=== PATIENT | female | born 1935 | race Caucasian/White ===

== ENCOUNTER 2019-11-07 13:04 | Outpatient (CLI) | payer MEDICARE, SELFPAY ==
[2019-11-07 13:05] VITALS: BP 110/78; PULSE 60; RESP 16; TEMP 36.7; O2SAT 94
[2019-11-07 16:20] VITALS: BP 104/70; PULSE 60; RESP 16; TEMP 36.8; O2SAT 96
== END 2019-11-07 13:05 | disposition home or self-care (01) ==
LOC: RHEOACUTE 13:05
PROVIDERS: Family Provider Family Medicine; PCP Family Medicine; Visit Provider Internal Medicine Rheumatology
DX: K50.80 Crohn's disease of both small and large intestine without complications (principal); Z79.899 Other long term (current) drug therapy
CPT/HCPCS: 36415; 80053; 85025; 86140; 96365; 96366; J1745; J7050

== ENCOUNTER → 2019-11-07 13:20 | Outpatient (BNVA) | payer MEDICARE, SELFPAY | PROVIDERS: Family Provider Family Medicine; PCP Family Medicine | DX: K50.80 Crohn's disease of both small and large intestine without complications (principal) | CPT/HCPCS: 85025 ==

== ENCOUNTER → 2019-11-21 15:08 | Outpatient (BNVA) | payer MEDICARE, SELFPAY | PROVIDERS: Family Provider Family Medicine; PCP Family Medicine; Visit Provider Specialist | DX: G62.9 Polyneuropathy, unspecified (principal); Z87.891 Personal history of nicotine dependence | CPT/HCPCS: 99213 ==

== ENCOUNTER 2020-01-08 10:57 | Outpatient (CLI) | payer MEDICARE, SELFPAY ==
[2020-01-08 11:03] VITALS: BP 146/79; PULSE 67; RESP 16; TEMP 36.4; O2SAT 94
[2020-01-08 14:01] VITALS: BP 142/82; RESP 16; TEMP 36.4
== END 2020-01-08 10:58 | disposition home or self-care (01) ==
LOC: RHEOACUTE 10:58
PROVIDERS: Family Provider Family Medicine; PCP Family Medicine; Visit Provider Internal Medicine Rheumatology
DX: K50.90 Crohn's disease, unspecified, without complications (principal); Z79.899 Other long term (current) drug therapy
CPT/HCPCS: 36415; 80053; 85025; 96365; 96366; J1745; J7050

== ENCOUNTER 2020-03-13 10:25 | Outpatient (CLI) | payer MEDICARE, SELFPAY ==
[2020-03-13 10:35] VITALS: BP 125/56; PULSE 66; RESP 16; TEMP 36.8; O2SAT 98
[2020-03-13 12:47] VITALS: BP 122/83; PULSE 54; RESP 16; O2SAT 94
== END 2020-03-13 10:26 | disposition home or self-care (01) ==
LOC: RHEOACUTE 10:27
PROVIDERS: Family Provider Family Medicine; PCP Family Medicine; Visit Provider Internal Medicine Rheumatology
DX: K50.90 Crohn's disease, unspecified, without complications (principal); Z79.899 Other long term (current) drug therapy
CPT/HCPCS: 36415; 80053; 85025; 96365; 96366; J1745; J7050

== ENCOUNTER → 2020-04-16 14:16 | Outpatient (BNVA) | payer MEDICARE, SELFPAY | PROVIDERS: Family Provider Family Medicine; PCP Family Medicine; Visit Provider Internal Medicine | DX: G62.9 Polyneuropathy, unspecified (principal); M81.0 Age-related osteoporosis without current pathological fracture; K50.90 Crohn's disease, unspecified, without complications | CPT/HCPCS: 99213 ==

== ENCOUNTER 2020-05-06 11:02 | Outpatient (CLI) | payer MEDICARE, SELFPAY ==
[2020-05-06 11:15] VITALS: BP 142/85; PULSE 68; RESP 16; TEMP 36.4; O2SAT 91
--- NOTE | 2020-05-06 11:59 | PC.NURSE ---
Reviewed home meds with pt. no changes noted. List given to pt.
[2020-05-06 13:07] VITALS: BP 116/63; PULSE 55; RESP 16; TEMP 36.3; O2SAT 91
== END 2020-05-06 11:03 | disposition home or self-care (01) ==
LOC: RHEOACUTE 11:03
PROVIDERS: Family Provider Family Medicine; PCP Family Medicine; Visit Provider Internal Medicine Rheumatology
DX: K50.90 Crohn's disease, unspecified, without complications (principal); Z79.899 Other long term (current) drug therapy
CPT/HCPCS: 80053; 85025; 85651; 86140; 96365; 96366; J1745; J7050

== ENCOUNTER 2020-07-07 10:33 | Outpatient (CLI) | payer MEDICARE, SELFPAY ==
[2020-07-07 10:31] VITALS: BP 138/78; PULSE 62; RESP 16; TEMP 36.5; O2SAT 92
[2020-07-07 13:29] VITALS: BP 142/76; PULSE 60; RESP 16; O2SAT 92
== END 2020-07-07 10:34 | disposition home or self-care (01) ==
LOC: RHEOACUTE 10:34
PROVIDERS: Family Provider Family Medicine; PCP Family Medicine; Visit Provider Internal Medicine Rheumatology
DX: K50.90 Crohn's disease, unspecified, without complications (principal); Z79.899 Other long term (current) drug therapy
CPT/HCPCS: 80053; 85025; 96365; 96366; J1745; J7050

== ENCOUNTER → 2020-08-14 11:00 | Outpatient (BNVA) | payer MEDICARE, SELFPAY | PROVIDERS: Family Provider Family Medicine; PCP Family Medicine; Visit Provider Internal Medicine | DX: K50.90 Crohn's disease, unspecified, without complications (principal); M81.0 Age-related osteoporosis without current pathological fracture; G62.9 Polyneuropathy, unspecified; Z87.891 Personal history of nicotine dependence | CPT/HCPCS: 99214 ==

== ENCOUNTER 2020-09-09 10:41 | Outpatient (CLI) | payer MEDICARE, SELFPAY ==
[2020-09-09 10:45] VITALS: BP 110/70; PULSE 64; RESP 16; TEMP 36.2; O2SAT 97
--- NOTE | 2020-09-09 11:22 | PC.NURSE ---
labs obtained with IV start.
[2020-09-09 11:23] VITALS: BMI 15.6
[2020-09-09 13:18] VITALS: BP 133/77; PULSE 66; RESP 16; O2SAT 98
== END 2020-09-09 10:42 | disposition home or self-care (01) ==
LOC: RHEOACUTE 10:43
PROVIDERS: PCP Family Medicine; Visit Provider Internal Medicine
DX: M81.0 Age-related osteoporosis without current pathological fracture (principal); Z79.899 Other long term (current) drug therapy
CPT/HCPCS: 80053; 82306; 85025; 96365; 96366; J1745; J7050

== ENCOUNTER 2020-11-13 10:56 | Outpatient (CLI) | payer MEDICARE, SELFPAY ==
[2020-11-13 11:35] VITALS: BP 111/66; PULSE 54; RESP 17; TEMP 36.4; O2SAT 97
[2020-11-13 12:13] LABS: Basophils % 0.4 %; Eosinophils # 0.1 10^3/uL (0.0-0.8); Eosinophils % 2.3 %; Hematocrit 41.3 % (37.0-47.0); Hemoglobin 13.1 g/dL (11.5-15.3); Lymphocytes # 1.3 10^3/uL (0.8-4.8); Lymphocytes % 22.2 %; Mean Corpuscular HGB Conc 31.7 g/dL (30.0-36.0); Mean Corpuscular Hemoglobin 29.5 pg (28.0-34.0); Monocytes # 0.6 10^3/uL (0.2-0.9); Monocytes % 10.4 %; Neutrophils # 3.65 10^3/uL (1.8-7.7); Neutrophils % 64.3 %; Nucleated Red Blood Cells % 0 %; Platelet Count 377 10^3/cmm (130-400); Red Blood Count 4.44 10^6/uL (4.1-5.3); Red Cell Distribution Width 14.8 % (12.1-15.1); White Blood Count 5.7 10^3/uL (4.0-10.0)
[2020-11-13 12:54] LABS: Alanine Aminotransferase 24 U/L (0-33); Alkaline Phosphatase 78 IU/L (35-105); Aspartate Amino Transferase 27 U/L (0-32); Blood Urea Nitrogen 17 mg/dL (8-23); Carbon Dioxide 30 mmol/L (22-29); Chloride 99 mmol/L (98-107); Globulin 3.9 g/dL (1.3-4.6); Glucose 72 mg/dL (65-115); Osmolality Calculated 282 mOsm/kg (285-295); Sodium 136 mmol/L (136-145); Total Bilirubin 0.4 mg/dL (0.15-1.2); Total Protein 7.9 g/dL (6.6-8.7)
[2020-11-13 12:55] LABS: Anion Gap 11.3 (5-19); Potassium 4.3 mmol/L (3.5-5.1)
[2020-11-13 14:18] VITALS: BP 146/77; PULSE 60; RESP 18; TEMP 36.7; O2SAT 99
[2020-11-13 14:20] VITALS: BP 146/77; PULSE 60; RESP 18; TEMP 36.7; O2SAT 99
--- NOTE | 2020-11-25 08:44 | PC.NURSE ---
Due to an administrative issue we are doing a late entry for clarity of the medical record. The infusion case was routine and the approximate stop time was 1335 based upon the start time of 1135.
== END 2020-11-13 10:57 | disposition home or self-care (01) ==
PROVIDERS: PCP Family Medicine; Visit Provider Internal Medicine Rheumatology
DX: K50.90 Crohn's disease, unspecified, without complications (principal)
CPT/HCPCS: 80053; 85025; 96365; 96366; J1745; J7050

== ENCOUNTER 2021-01-08 13:00 | Outpatient (CLI) | payer MEDICARE, SELFPAY ==
[2021-01-08 13:32] VITALS: BP 129/62; PULSE 66; RESP 18; TEMP 36.1; O2SAT 98
[2021-01-08 14:01] LABS: Basophils % 0.7 %; Eosinophils # 0.1 10^3/uL (0.0-0.8); Eosinophils % 2.4 %; Hematocrit 39.9 % (37.0-47.0); Hemoglobin 12.8 g/dL (11.5-15.3); Lymphocytes # 1.3 10^3/uL (0.8-4.8); Lymphocytes % 22.2 %; Mean Corpuscular HGB Conc 32.1 g/dL (30.0-36.0); Mean Corpuscular Hemoglobin 30.1 pg (28.0-34.0); Mean Corpuscular Volume 93.9 fL (81-99); Mean Platelet Volume 10.4 fL (7.4-10.4); Monocytes # 0.6 10^3/uL (0.2-0.9); Monocytes % 10.1 %; Neutrophils % 64.3 %; Nucleated Red Blood Cells % 0 %; Platelet Count 349 10^3/cmm (130-400); Red Blood Count 4.25 10^6/uL (4.1-5.3); Red Cell Distribution Width 14.6 % (12.1-15.1); White Blood Count 5.8 10^3/uL (4.0-10.0)
[2021-01-08 14:18] LABS: Alanine Aminotransferase 35 U/L (0-33); Alkaline Phosphatase 82 IU/L (35-105); Anion Gap 11.1 (5-19); Aspartate Amino Transferase 36 U/L (0-32); Blood Urea Nitrogen 16 mg/dL (8-23); C Reactive Protein 0.3 mg/L (0.0-4.9); Calcium 8.7 mg/dL (8.5-10.5); Carbon Dioxide 32 mmol/L (22-29); Chloride 96 mmol/L (98-107); Globulin 3.5 g/dL (1.3-4.6); Glucose 99 mg/dL (65-115); Osmolality Calculated 281 mOsm/kg (285-295); Potassium 4.1 mmol/L (3.5-5.1); Sodium 135 mmol/L (136-145); Total Bilirubin 0.4 mg/dL (0.15-1.2); Total Protein 7.5 g/dL (6.6-8.7)
[2021-01-08 14:20] VITALS: BP 111/54; PULSE 64; RESP 18; TEMP 36.2; O2SAT 97
[2021-01-08 14:55] VITALS: BP 124/58; PULSE 67; RESP 18; TEMP 36.3; O2SAT 97
[2021-01-08 15:50] VITALS: BP 124/71; PULSE 63; RESP 18; TEMP 36.1; O2SAT 95
== END 2021-01-08 13:01 | disposition home or self-care (01) ==
PROVIDERS: PCP Family Medicine; Visit Provider Internal Medicine Rheumatology
DX: K50.90 Crohn's disease, unspecified, without complications (principal)
CPT/HCPCS: 80053; 85025; 86140; 96365; 96366; J1745; J7050

== ENCOUNTER → 2021-02-09 14:51 | Outpatient (BNVA) | payer MEDICARE, SELFPAY | PROVIDERS: PCP Family Medicine; Visit Provider Internal Medicine | DX: K50.90 Crohn's disease, unspecified, without complications (principal); M81.0 Age-related osteoporosis without current pathological fracture; Z87.891 Personal history of nicotine dependence | CPT/HCPCS: 99213 ==

== ENCOUNTER 2021-03-05 10:52 | Outpatient (CLI) | payer MEDICARE, SELFPAY ==
[2021-03-05 11:13] VITALS: BP 129/64; PULSE 61; RESP 18; TEMP 36.6; O2SAT 94
[2021-03-05] MEDS: acetaminophen 325 mg Tablet 650 MG PO (11:43)
[2021-03-05 11:46] LABS: Basophils % 0.7 %; Eosinophils # 0.1 10^3/uL (0.0-0.8); Eosinophils % 1.7 %; Hematocrit 40.4 % (37.0-47.0); Hemoglobin 13.2 g/dL (11.5-15.3); Lymphocytes # 1.2 10^3/uL (0.8-4.8); Lymphocytes % 21.4 %; Mean Corpuscular HGB Conc 32.7 g/dL (30.0-36.0); Mean Corpuscular Hemoglobin 30.3 pg (28.0-34.0); Mean Corpuscular Volume 92.7 fL (81-99); Monocytes # 0.8 10^3/uL (0.2-0.9); Monocytes % 14.4 %; Neutrophils # 3.54 10^3/uL (1.8-7.7); Neutrophils % 61.5 %; Nucleated Red Blood Cells % 0 %; Platelet Count 332 10^3/cmm (130-400); Red Blood Count 4.36 10^6/uL (4.1-5.3); Red Cell Distribution Width 14.3 % (12.1-15.1); White Blood Count 5.8 10^3/uL (4.0-10.0)
[2021-03-05] MEDS: sodium chloride 0.9% 250 ML 75 ML IV (11:47)
[2021-03-05] MEDS: diphenhydrAMINE 50 mg/mL SDV 1mL 25 MG IV (11:48)
[2021-03-05 12:05] LABS: Alanine Aminotransferase 25 U/L (0-33); Albumin Level 4.4 g/dL (3.5-5.2); Alkaline Phosphatase 68 IU/L (35-105); Anion Gap 13.1 (5-19); Aspartate Amino Transferase 31 U/L (0-32); Blood Urea Nitrogen 15 mg/dL (8-23); C Reactive Protein 0.4 mg/L (0.0-4.9); Calcium 8.9 mg/dL (8.5-10.5); Carbon Dioxide 29 mmol/L (22-29); Chloride 95 mmol/L (98-107); Globulin 3.2 g/dL (1.3-4.6); Glucose 74 mg/dL (65-115); Osmolality Calculated 275 mOsm/kg (285-295); Potassium 4.1 mmol/L (3.5-5.1); Sodium 133 mmol/L (136-145); Total Bilirubin 0.5 mg/dL (0.15-1.2); Total Protein 7.6 g/dL (6.6-8.7)
[2021-03-05 13:17] VITALS: BP 132/64; PULSE 55; RESP 16; TEMP 36.4; O2SAT 96
== END 2021-03-05 10:53 | disposition home or self-care (01) ==
PROVIDERS: PCP Family Medicine; Referring Provider Internal Medicine; Visit Provider Internal Medicine Rheumatology
DX: K50.90 Crohn's disease, unspecified, without complications (principal)
CPT/HCPCS: 80053; 85025; 86140; 96365; 96375; J1200; J1745; J2920; J7050

== ENCOUNTER → 2021-04-01 10:59 | Outpatient (BNVA) | payer MEDICARE, SELFPAY | PROVIDERS: PCP Family Medicine; Visit Provider Specialist | DX: G62.9 Polyneuropathy, unspecified (principal); Z87.891 Personal history of nicotine dependence | CPT/HCPCS: 99213 ==

== ENCOUNTER → 2021-04-22 10:21 | Outpatient (BNVA) | payer MEDICARE, SELFPAY | PROVIDERS: PCP Family Medicine; Visit Provider Internal Medicine | DX: Z79.899 Other long term (current) drug therapy (principal); M81.0 Age-related osteoporosis without current pathological fracture | CPT/HCPCS: 36415; 80053; 85025; 85651; 86140 ==

== ENCOUNTER → 2021-04-27 14:29 | Outpatient (BNVA) | payer MEDICARE, SELFPAY | PROVIDERS: PCP Family Medicine; Visit Provider Internal Medicine | DX: K50.90 Crohn's disease, unspecified, without complications (principal); M81.0 Age-related osteoporosis without current pathological fracture; R74.01 Elevation of levels of liver transaminase levels; E87.1 Hypo-osmolality and hyponatremia; Z87.891 Personal history of nicotine dependence | CPT/HCPCS: 99213; 99214 ==

== ENCOUNTER 2021-04-30 11:07 | Outpatient (CLI) | payer MEDICARE, SELFPAY ==
[2021-04-30 11:23] VITALS: BP 140/88; PULSE 60; RESP 16; TEMP 36.6; O2SAT 96
[2021-04-30] MEDS: sodium chloride 0.9% 250 ML 75 ML IV (12:18)
[2021-04-30] MEDS: acetaminophen 325 mg Tablet 650 MG PO (12:21)
[2021-04-30] MEDS: diphenhydrAMINE 50 mg/mL SDV 1mL 25 MG IVP (12:23)
[2021-04-30 12:42] LABS: Basophils % 0.8 %; Eosinophils # 0.1 10^3/uL (0.0-0.8); Eosinophils % 2.3 %; Hematocrit 42.7 % (37.0-47.0); Hemoglobin 13.5 g/dL (11.5-15.3); Lymphocytes # 1.2 10^3/uL (0.8-4.8); Lymphocytes % 24.2 %; Mean Corpuscular HGB Conc 31.6 g/dL (30.0-36.0); Mean Corpuscular Hemoglobin 29.6 pg (28.0-34.0); Mean Corpuscular Volume 93.6 fL (81-99); Mean Platelet Volume 10.1 fL (7.4-10.4); Monocytes # 0.8 10^3/uL (0.2-0.9); Monocytes % 16.2 %; Neutrophils # 2.66 10^3/uL (1.8-7.7); Neutrophils % 56.1 %; Nucleated Red Blood Cells % 0 %; Platelet Count 356 10^3/cmm (130-400); Red Blood Count 4.56 10^6/uL (4.1-5.3); White Blood Count 4.8 10^3/uL (4.0-10.0)
[2021-04-30 13:14] LABS: Alanine Aminotransferase 66 U/L (0-33); Albumin Level 4.2 g/dL (3.5-5.2); Alkaline Phosphatase 85 IU/L (35-105); Anion Gap 13.3 (5-19); Aspartate Amino Transferase 61 U/L (0-32); Blood Urea Nitrogen 13 mg/dL (8-23); C Reactive Protein 0.3 mg/L (0.0-4.9); Carbon Dioxide 30 mmol/L (22-29); Chloride 93 mmol/L (98-107); Globulin 3.8 g/dL (1.3-4.6); Glucose 68 mg/dL (65-115); Osmolality Calculated 272 mOsm/kg (285-295); Potassium 4.3 mmol/L (3.5-5.1); Sodium 132 mmol/L (136-145); Total Bilirubin 0.5 mg/dL (0.15-1.2)
[2021-04-30 13:34] VITALS: BP 141/65; PULSE 53; RESP 16; TEMP 36.8; O2SAT 97
== END 2021-04-30 11:08 | disposition home or self-care (01) ==
LOC: ONCMED 11:10
PROVIDERS: Internal Medicine; PCP Family Medicine; Visit Provider Internal Medicine Rheumatology
DX: K50.90 Crohn's disease, unspecified, without complications (principal)
CPT/HCPCS: 36415; 80053; 85025; 86140; 96365; 96375; J1200; J1745; J2920; J7050

== ENCOUNTER 2021-06-25 13:03 | Outpatient (CLI) | payer MEDICARE, SELFPAY ==
[2021-06-25 13:37] VITALS: BP 115/64; PULSE 58; RESP 16; TEMP 36.4; O2SAT 96
[2021-06-25] MEDS: sodium chloride 0.9% 250 ML 75 ML IV (14:21)
[2021-06-25] MEDS: diphenhydrAMINE 50 mg/mL SDV 1mL 25 MG IV (14:22)
[2021-06-25] MEDS: acetaminophen 325 mg Tablet 650 MG PO (14:27)
[2021-06-25 14:31] LABS: Basophils # 0.1 10^3/uL (0.0-0.1); Basophils % 0.9 %; Eosinophils # 0.1 10^3/uL (0.0-0.8); Eosinophils % 1.6 %; Hematocrit 38.3 % (37.0-47.0); Hemoglobin 12.4 g/dL (11.5-15.3); Lymphocytes # 1.4 10^3/uL (0.8-4.8); Mean Corpuscular HGB Conc 32.4 g/dL (30.0-36.0); Mean Corpuscular Hemoglobin 31.1 pg (28.0-34.0); Mean Platelet Volume 10.2 fL (7.4-10.4); Monocytes # 0.7 10^3/uL (0.2-0.9); Monocytes % 10.6 %; Neutrophils # 4.14 10^3/uL (1.8-7.7); Neutrophils % 64.6 %; Nucleated Red Blood Cells % 0 %; Platelet Count 297 10^3/cmm (130-400); Red Blood Count 3.99 10^6/uL (4.1-5.3); Red Cell Distribution Width 14.3 % (12.1-15.1); White Blood Count 6.4 10^3/uL (4.0-10.0)
[2021-06-25 14:52] LABS: Alanine Aminotransferase 21 U/L (0-33); Albumin Level 3.6 g/dL (3.5-5.2); Alkaline Phosphatase 67 IU/L (35-105); Aspartate Amino Transferase 26 U/L (0-32); Blood Urea Nitrogen 14 mg/dL (8-23); C Reactive Protein 0.4 mg/L (0.0-4.9); Calcium 8.8 mg/dL (8.5-10.5); Carbon Dioxide 29 mmol/L (22-29); Chloride 101 mmol/L (98-107); Globulin 3.5 g/dL (1.3-4.6); Glucose 92 mg/dL (65-115); Osmolality Calculated 286 mOsm/kg (285-295); Sodium 138 mmol/L (136-145); Total Bilirubin 0.3 mg/dL (0.15-1.2); Total Protein 7.1 g/dL (6.6-8.7)
[2021-06-25 14:54] LABS: Anion Gap 12.3 (5-19); Potassium 4.3 mmol/L (3.5-5.1)
[2021-06-25 15:39] VITALS: BP 136/67; PULSE 57; RESP 16; TEMP 36.6; O2SAT 98
== END 2021-06-25 13:04 | disposition home or self-care (01) ==
PROVIDERS: PCP Family Medicine; Referring Provider Internal Medicine; Visit Provider Internal Medicine
DX: K50.90 Crohn's disease, unspecified, without complications (principal)
CPT/HCPCS: 80053; 85025; 86140; 96365; 96375; J1200; J1745; J2920; J7050

== ENCOUNTER 2021-08-19 13:04 | Outpatient (CLI) | payer MEDICARE, SELFPAY ==
[2021-08-19 13:10] VITALS: BP 112/69; PULSE 61; RESP 16; TEMP 36.2; O2SAT 94
[2021-08-19 13:39] LABS: Basophils # 0.1 10^3/uL (0.0-0.1); Basophils % 0.9 %; Eosinophils # 0.2 10^3/uL (0.0-0.8); Eosinophils % 2.4 %; Hematocrit 41.7 % (37.0-47.0); Hemoglobin 13.5 g/dL (11.5-15.3); Lymphocytes # 1.6 10^3/uL (0.8-4.8); Lymphocytes % 22.1 %; Mean Corpuscular HGB Conc 32.4 g/dL (30.0-36.0); Mean Corpuscular Hemoglobin 29.6 pg (28.0-34.0); Mean Corpuscular Volume 91.4 fl (81-99); Mean Platelet Volume 10.3 fL (7.4-10.4); Monocytes # 0.7 10^3/uL (0.2-0.9); Monocytes % 9.9 %; Neutrophils # 4.54 10^3/uL (1.8-7.7); Neutrophils % 64.4 %; Nucleated Red Blood Cells % 0 %; Platelet Count 355 10^3/cmm (130-400); Red Blood Count 4.56 10^6/uL (4.1-5.3); Red Cell Distribution Width 14.3 % (12.1-15.1); White Blood Count 7.1 10^3/uL (4.0-10.0)
[2021-08-19] MEDS: acetaminophen 325 mg Tablet 650 MG PO (13:43)
[2021-08-19] MEDS: sodium chloride 0.9% 250 ML 50 ML IV (13:45)
[2021-08-19] MEDS: diphenhydrAMINE 50 mg/mL SDV 1mL 25 MG IV (13:46)
[2021-08-19 14:12] LABS: Alanine Aminotransferase 26 U/L (0-33); Albumin Level 4.2 g/dL (3.5-5.2); Alkaline Phosphatase 72 IU/L (35-105); Anion Gap 12.6 (5-19); Aspartate Amino Transferase 30 U/L (0-32); Blood Urea Nitrogen 15 mg/dL (8-23); C Reactive Protein 0.3 mg/L (0.0-4.9); Calcium 8.9 mg/dL (8.5-10.5); Carbon Dioxide 30 mmol/L (22-29); Chloride 98 mmol/L (98-107); Globulin 3.9 g/dL (1.3-4.6); Glucose 78 mg/dL (65-115); Osmolality Calculated 282 mOsm/kg (285-295); Potassium 4.6 mmol/L (3.5-5.1); Sodium 136 mmol/L (136-145); Total Bilirubin 0.4 mg/dL (0.15-1.2); Total Protein 8.1 g/dL (6.6-8.7)
[2021-08-19 15:06] VITALS: BP 117/64; PULSE 65; TEMP 36.6; O2SAT 95
== END 2021-08-19 13:05 | disposition home or self-care (01) ==
PROVIDERS: PCP Family Medicine; Referring Provider Internal Medicine; Visit Provider Internal Medicine
DX: K50.90 Crohn's disease, unspecified, without complications (principal); Z79.899 Other long term (current) drug therapy
CPT/HCPCS: 80053; 85025; 86140; 96365; 96375; J1200; J1745; J2920; J7050

== ENCOUNTER → 2021-09-01 13:46 | Outpatient (BNVA) | payer MEDICARE, SELFPAY | PROVIDERS: PCP Family Medicine; Visit Provider Internal Medicine | DX: K50.90 Crohn's disease, unspecified, without complications (principal); M81.0 Age-related osteoporosis without current pathological fracture; M25.50 Pain in unspecified joint; Z87.891 Personal history of nicotine dependence; Z79.899 Other long term (current) drug therapy | CPT/HCPCS: 99213; 99214 ==

== ENCOUNTER 2021-10-14 13:05 | Outpatient (CLI) | payer MEDICARE, SELFPAY ==
[2021-10-14 13:15] VITALS: BP 127/71; PULSE 68; RESP 18; TEMP 36.8; O2SAT 97
[2021-10-14 13:43] LABS: Basophils # 0.1 10^3/uL (0.0-0.1); Basophils % 1.2 %; Eosinophils # 0.2 10^3/uL (0.0-0.8); Eosinophils % 2.5 %; Hematocrit 42.8 % (37.0-47.0); Hemoglobin 13.7 g/dL (11.5-15.3); Lymphocytes # 1.7 10^3/uL (0.8-4.8); Lymphocytes % 25.5 %; Mean Corpuscular Hemoglobin 29.8 pg (28.0-34.0); Mean Corpuscular Volume 93.2 fl (81-99); Mean Platelet Volume 9.7 fL (7.4-10.4); Monocytes # 0.8 10^3/uL (0.2-0.9); Monocytes % 11.9 %; Neutrophils # 3.94 10^3/uL (1.8-7.7); Neutrophils % 58.5 %; Nucleated Red Blood Cells % 0 %; Platelet Count 390 10^3/cmm (130-400); Red Blood Count 4.59 10^6/uL (4.1-5.3); Red Cell Distribution Width 14.3 % (12.1-15.1); White Blood Count 6.7 10^3/uL (4.0-10.0)
[2021-10-14] MEDS: acetaminophen 325 mg Tablet 650 MG PO (13:43)
[2021-10-14] MEDS: sodium chloride 0.9% 250 ML 50 ML IV (13:45)
[2021-10-14] MEDS: diphenhydrAMINE 50 mg/mL SDV 1mL 25 MG IV (13:46)
[2021-10-14 14:08] LABS: Alanine Aminotransferase 25 U/L (0-33); Albumin Level 4.2 g/dL (3.5-5.2); Alkaline Phosphatase 82 IU/L (35-105); Aspartate Amino Transferase 31 U/L (0-32); Blood Urea Nitrogen 14 mg/dL (8-23); C Reactive Protein 0.3 mg/L (0.0-4.9); Calcium 9.1 mg/dL (8.5-10.5); Carbon Dioxide 27 mmol/L (22-29); Chloride 93 mmol/L (98-107); Glucose 123 mg/dL (65-115); Osmolality Calculated 280 mOsm/kg (285-295); Sodium 134 mmol/L (136-145); Total Bilirubin 0.4 mg/dL (0.15-1.2); Total Protein 8.2 g/dL (6.6-8.7)
[2021-10-14 15:20] VITALS: BP 139/72; PULSE 63; RESP 18; TEMP 37.2; O2SAT 96
== END 2021-10-14 13:06 | disposition home or self-care (01) ==
LOC: ONCMED 13:11
PROVIDERS: PCP Family Medicine; Visit Provider Internal Medicine
DX: K50.90 Crohn's disease, unspecified, without complications (principal)
CPT/HCPCS: 80053; 85025; 86140; 96365; 96375; J1200; J1745; J2920; J7050

== ENCOUNTER 2021-11-24 14:29 | Outpatient (CLI) | payer MEDICARE, SELFPAY | END 2021-11-24 14:30 | disposition home or self-care (01) | LOC: WOUND 14:30 | PROVIDERS: PCP Family Medicine; Visit Provider Thoracic Surgery (Cardiothoracic Vascular Surgery) | DX: I96 Gangrene, not elsewhere classified (principal); L97.822 Non-pressure chronic ulcer of other part of left lower leg with fat layer exposed; Z87.891 Personal history of nicotine dependence; Z86.79 Personal history of other diseases of the circulatory system | CPT/HCPCS: 11043 ==

== ENCOUNTER 2021-12-02 09:33 | Outpatient (CLI) | payer MEDICARE, SELFPAY ==
--- NOTE | 2021-12-02 09:45 | USCV_ITS ---
Woody Dimple Age: 86 Gender: F : 1935 Exam Date: 12/02/2021 09:33 Ordering Phys: Alvarado Suárez MD Technologist: Savage Marie Horse Wrangler Exam Location: [facility] [place] Indication: PAD RIGHT LEFT Brachial 171.00 mmHg Brachial 154.00 mmHg Pressure (mmHg) Waveform Pressure (mmHg) Waveform 132.00 RESIDENTIAL DIRECT SUPPORT PROFESSIONAL 121.00 DPA 0.77 Ankle/Brachial Index 121.00 Pre-Exercise Toe Pressure 25.00 0.71 Pre-Exercise Toe/Brachial Index 0.15 FINDINGS LT DP >220 LT RESIDENTIAL DIRECT SUPPORT PROFESSIONAL >220 Diminished resting EBENEZER of 0.77 on the right side with a near normal resting TBI of 0.71. Markedly diminished resting TBI on the left side of 0.15 CONCLUSIONS 1. Abnormal resting TBI suggesting severe peripheral artery disease on the left side, possibly involving the distal vessels. 2. Abnormal resting EBENEZER with a near normal resting TBI on the right side, suggestive of mild peripheral artery disease. Dr George Gonsalez MD [facility] (Electronically Signed) Final Date: 03 December 2021 16:54 S
== END 2021-12-02 09:34 | disposition home or self-care (01) ==
PROVIDERS: PCP Family Medicine; Visit Provider Family Medicine
DX: I73.9 Peripheral vascular disease, unspecified (principal)
CPT/HCPCS: 93922

== ENCOUNTER 2021-12-03 08:08 | Outpatient (CLI) | payer MEDICARE, SELFPAY | END 2021-12-03 08:09 | disposition home or self-care (01) | LOC: WOUND 08:09 | PROVIDERS: PCP Family Medicine; Visit Provider Nurse Practitioner Family | DX: I73.9 Peripheral vascular disease, unspecified (principal); L97.822 Non-pressure chronic ulcer of other part of left lower leg with fat layer exposed; Z87.891 Personal history of nicotine dependence | CPT/HCPCS: 11042; 97597 ==

== ENCOUNTER 2021-12-04 13:28 | Outpatient (CLI) | payer MEDICARE, SELFPAY ==
--- NOTE | 2021-12-04 13:37 | CT_ITS ---
WS: [id number] CTA ABDOMINAL AORTA WITH RUNOFF TECHNIQUE: Contrast enhanced CTA of the abdominal aorta with bilateral lower extremity runoff. Multip lanar reformatted images were obtained. MIP reformats were also reviewed. CLINICAL INFORMATION: LEFT LEG WOUND, ARTERIAL DISEASE COMPARISON: None. DLP: 915.[address] scans at [facility] use at least one of these dose optimization techniques: automated e xposure control; mA and/or kV adjustment per patient size (includes targeted exams where dose is matc hed to clinical indication); or iterative reconstruction. FINDINGS: Normal caliber abdominal aorta. 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 Mild stenosis at the SMA origin. Severe LEFT and [id number] RIGHT renal artery stenosis. Normal renal parenchymal en hancement. NHI is patent. Moderate aortic atheromatous disease. Normal caliber abdominal aorta. RIGHT: Mild stenosis of the RIGHT common iliac artery origin. Segmental calcified stenosis in the RIG HT common iliac artery. Densely calcified internal iliac artery which is patent. External iliac arter y is patent. RIGHT common femoral artery is patent. Moderate stenosis superficial femoral artery orig in. Deep femoral artery is patent. Superficial femoral artery demonstrates moderate segmental stenosi s in the upper thigh but remains patent to the adductor hiatus. Popliteal artery is patent. Popliteal artery is occluded above the knee and reconstitutes in the popliteal fossa. This remains patent to t he trifurcation with dominant anterior tibial and peroneal runoff to the ankle. LEFT: Dense calcified LEFT common iliac artery with mild to moderate stenosis of the origin. Segmenta l calcified stenosis involving the common iliac artery which remains patent. High-grade stenosis exte rnal iliac artery origin. 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 Densely calcified internal iliac artery which is patent. Tiny external iliac artery with seg mental high-grade stenosis. LEFT common femoral artery is occluded at the origin. Densely calcified c ommon femoral artery. Superficial femoral artery is occluded at the origin. Tiny amount of flow in th e mid and distal superficial femoral artery. Popliteal artery is patent to the trifurcation. Three-ve ssel runoff to the ankle with segmental stenosis in the posterior tibial artery. a Normal portal vein and splenic vein. Normal pancreas. Adrenal glands are normal. Normal renal parench ymal enhancement. No hydronephrosis. Small esophageal hiatal hernia. Noncalcified nodule RIGHT lower lobe measuring 3 mm. Subsegmental atelectasis in the lung bases. Calcified granuloma RIGHT lower lobe . Urine distended bladder. RIGHT renal cyst. Normal spleen. CT/CT angio abd aorta runof [id number] IMPRESSION: 1. 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 Common femoral artery is occluded in the LEFT groin. S uperficial femoral artery is occluded at the origin with a tiny amount of segme ntal flow in the upper and mid thigh. Popliteal artery is patent with three-ves misbah runoff to the ankle. Segmental stenosis in the posterior tibial artery. 2. RIGHT: Mild segmental stenosis in the superficial femoral artery which yair ins patent. Popliteal artery is patent proximally and is occluded above the kne e. This reconstitutes in the popliteal fossa and is patent to the trifurcation. Two-vessel anterior tibial and peroneal runoff to the ankle. 3. Moderate aortic atheromatous disease. No abdominal aortic aneurysm. 4. 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 Moderate stenosi s at the SMA origin. 5. Densely calcified renal ostia with moderate to severe LEFT and moderate RIG HT stenosis. 6. NHI is patent. 7. Additional nonvascular findings described above.
[2021-12-04] MEDS: iohexol 350 mg/mL 100 mL Btl IV (13:39)
== END 2021-12-04 13:29 | disposition home or self-care (01) ==
LOC: RAD 13:29
PROVIDERS: PCP Family Medicine; Visit Provider Thoracic Surgery (Cardiothoracic Vascular Surgery)
DX: L97.822 Non-pressure chronic ulcer of other part of left lower leg with fat layer exposed (principal); I77.89 Other specified disorders of arteries and arterioles; I77.1 Stricture of artery
CPT/HCPCS: 75635

== ENCOUNTER 2021-12-09 10:35 | Outpatient (CLI) | payer MEDICARE, SELFPAY | END 2021-12-09 10:36 | disposition home or self-care (01) | LOC: WOUND 10:38 | PROVIDERS: PCP Family Medicine; Visit Provider Thoracic Surgery (Cardiothoracic Vascular Surgery) | DX: I73.9 Peripheral vascular disease, unspecified (principal); L97.822 Non-pressure chronic ulcer of other part of left lower leg with fat layer exposed; Z87.891 Personal history of nicotine dependence | CPT/HCPCS: 97597 ==

== ENCOUNTER 2021-12-09 13:05 | Outpatient (CLI) | payer MEDICARE, SELFPAY ==
[2021-12-09 13:21] VITALS: BP 141/82; PULSE 76; RESP 18; TEMP 37.1; O2SAT 96
[2021-12-09 13:45] LABS: Basophils # 0.1 10^3/uL (0.0-0.1); Basophils % 0.8 %; Eosinophils # 0.1 10^3/uL (0.0-0.8); Eosinophils % 1.4 %; Hematocrit 40.9 % (37.0-47.0); Hemoglobin 13.1 g/dL (11.5-15.3); Lymphocytes # 1.3 10^3/uL (0.8-4.8); Lymphocytes % 17.1 %; Mean Corpuscular Hemoglobin 29.6 pg (28.0-34.0); Mean Corpuscular Volume 92.5 fl (81-99); Mean Platelet Volume 9.6 fL (7.4-10.4); Monocytes # 0.8 10^3/uL (0.2-0.9); Monocytes % 10.9 %; Neutrophils # 5.09 10^3/uL (1.8-7.7); Neutrophils % 69.3 %; Nucleated Red Blood Cells % 0 %; Platelet Count 380 10^3/cmm (130-400); Red Blood Count 4.42 10^6/uL (4.1-5.3); Red Cell Distribution Width 14.6 % (12.1-15.1); White Blood Count 7.4 10^3/uL (4.0-10.0)
[2021-12-09 14:15] LABS: Alanine Aminotransferase 17 U/L (0-33); Albumin Level 4.2 g/dL (3.5-5.2); Alkaline Phosphatase 73 IU/L (35-105); Anion Gap 14.9 (5-19); Aspartate Amino Transferase 25 U/L (0-32); Blood Urea Nitrogen 16 mg/dL (8-23); Calcium 9.9 mg/dL (8.5-10.5); Carbon Dioxide 27 mmol/L (22-29); Chloride 97 mmol/L (98-107); Globulin 4.4 g/dL (1.3-4.6); Glucose 131 mg/dL (65-115); Osmolality Calculated 283 mOsm/kg (285-295); Potassium 3.9 mmol/L (3.5-5.1); Sodium 135 mmol/L (136-145); Total Bilirubin 0.3 mg/dL (0.15-1.2); Total Protein 8.6 g/dL (6.6-8.7)
--- NOTE | 2021-12-09 14:44 | PC.NURSE ---
Pt to infusion suite for scheduled Remicade infusion. 24 ga IV started in Right forearm, and labs obtained. Pt is c/o pain in her Left lower leg, and states that she has been seeing the wound care clinic for this. She has a bandage on this leg, and some redness and swelling is noted around the wound. She states that Dr. Yanez did a flow study on this extremity today. Dr. Kraus's office was contacted, and the decision was made to hold the Remicade infusion until the wound is healed. Pt is given instructions to call if the wound is healed before then. [email or web address]
== END 2021-12-09 13:06 | disposition home or self-care (01) ==
PROVIDERS: PCP Family Medicine; Visit Provider Internal Medicine
DX: K50.90 Crohn's disease, unspecified, without complications (principal); R74.01 Elevation of levels of liver transaminase levels
CPT/HCPCS: 80053; 85025; 86140

== ENCOUNTER 2021-12-14 09:40 | Inpatient (IN) | payer MEDICARE, SELFPAY ==
[2021-12-14] VITALS (9 sets, daily range): BP systolic 129–180; BP diastolic 69–98; PULSE 78–114; RESP 14–18; TEMP 35.9–36.6; O2SAT 91–96; BMI 16.1
--- NOTE | 2021-12-14 09:50 | USCV_ITS ---
Woody Dimple Age: 86 Gender: F : 1935 Exam Date: 12/14/2021 11:05 Ordering Phys: Turner Meyers DO Technologist: Exam Location: [facility] – [place]_ Indication: pain and swelling PROCEDURES: Venous duplex imaging was performed in only the left lower extremity. The following venous structures were evaluated: common femoral vein, profunda vein, proximal portion of the greater saphenous vein, superficial femoral vein, and the popliteal vein. In addition, the posterior tibial and peroneal trunk were evaluated. On the left side, the common femoral, superficial femoral, profunda femoral, popliteal, posterior tibial, greater saphenous veins, and the peroneal trunk were identified and interrogated in the standard fashion. These veins were found to be easily compressible with spontaneous blood flow. No evidence of insufficiency or thrombus noted. FINDINGS: Normal 2-D Doppler and augmentation and compressibility throughout the lower extremity venous structures. Additional imaging through the proximal calf veins also reveals no thrombus. Limited evaluation of the greater saphenous vein is patent with no thrombus.. The veins were found to be easily compressible with spontaneous blood flow. Non pulsatile flow pattern. CONCLUSIONS No evidence of DVT in the above-mentioned identifiable veins. Dr George Gonsalez MD [facility] (Electronically Signed) Final Date: 15 December 2021 23:25 S
--- NOTE | 2021-12-14 09:50 | W.ED.WOUNDLC ---
HPI - Wound/Laceration General: Chief Complaint: Wound/Laceration Stated Complaint: left leg pain/ wound to left leg Time Seen by Provider: 12/14/21 09:47 Source: patient Mode of arrival: EMS Limitations: no limitations History of Present Illness: 86-year-old female presents emergency room with complaint of pain in her left lower leg. She has some chronic ulcers on the left lower leg she seen wound care clinic for. They did an arterial Doppler on her recently she is unsure of the results she is concerned about a blood clot. She has not had any fever for the last couple days she has had increased pain in the left lower leg she is not currently on any antibiotics she has not had any chest pain or shortness of breath. She has a history of Crohn's disease and received a Remicade infusion on 12/09/2021. Her Crohn's disease has been stable and she is not had any GI symptoms. Reviewed imaging history. Patient had abnormal ABIs. Subsequently underwent an abdominal aortic CTA with runoff. Shows severe stenosis of the external iliac on the left and occlusion of the left femoral. Superficial femoral artery on the left is also occluded. Popliteal artery was patent there is segmental stenosis of the posterior tibial artery. There is also severe stenosis of the celiac artery and of the moderate stenosis of the SMA but no occlusion. Onset (ago): minute(s) Extremity Location: Left: lower leg Place: home Associated symptoms: Reports numbness and pain; Denies chills, fever(s), foreign body sensation, inability to move, nausea, syncope or vomiting Review of Systems Const: Denies: fever(s) or chills ENMT: Denies: throat pain, ear or mastoid pain, nasal discharge or nasal congestion Card: Denies: syncope Resp: Denies: dyspnea, productive cough or non-productive cough GI: Denies: nausea or vomiting : Denies: flank pain, difficulty voiding, dysuria, urinary frequency or urinary urgency Skin/Breast: Reports: non-healing lesions (Left lower leg), lesions and changes in skin color PFSH ED PFSH: Medical History History of CVA (cerebrovascular accident) Hypertension 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 Osteoporosis Regional enteritis (Crohn's disease) Surgical History History of cataract extraction History of cholecystectomy History of parathyroidectomy History of tonsillectomy Family History Other CAD (coronary artery disease) Cancer Diabetes Hypertension Social History Smoking and tobacco status: former smoker Alcohol intake: never History of recent travel: No Physical Exam Const: COMMON NORMALS: no acute distress GENERAL APPEARANCE: cooperative and comfortable ORIENTATION/CONSCIOUSNESS: Yes awake, Yes oriented to person, Yes oriented to place and Yes oriented to time HENMT: COMMON NORMALS: normocephalic, atraumatic and hearing grossly normal bilaterally HEAD & SCALP: normocephalic and atraumatic Neck/C-Spine: COMMON NORMALS: no JVD Resp: COMMON NORMALS: normal respiratory effort, No retractions, No use of accessory muscles and clear to auscultation bilaterally AUSCULTATION: clear to auscultation bilaterally Cardio: COMMON NORMALS: no JVD, regular rate, regular rhythm and No murmurs present (Cardio) RATE: regular rate RHYTHM: regular rhythm GI: COMMON NORMALS: Soft to palpation and No hepatosplenomegaly present AUSCULTATION: Yes normoactive bowel sounds PALPATION: Yes Soft to palpation, No Tenderness to palpation present (GI), No Guarding due to palpation present (GI) and Yes No hepatosplenomegaly present Extremity: OTHER: Chronic ulcers of the left lower extremity. There are some atrophy the distal third of the lower leg through the foot. Unable to palpate dorsalis pedis or posterior tibialis pulse. Foot is cool to the touch. She is able to move. Patient has pain disproportionate to exam on palpation. There is redness surrounding the ulcers but no active drainage no induration. Neuro: SENSORIUM/ORIENTATION: Yes oriented to person, Yes oriented to place and Yes oriented to time Course Vital Signs: Vital signs: Vital Signs Temperature 97.7 F 12/15/21 07:01 Pulse Rate 79 12/15/21 07:01 Respiratory Rate 18 12/15/21 07:01 Blood Pressure 163/73 12/15/21 07:01 Pulse Oximetry 90 12/15/21 07:01 MDM - Wound/Laceration Medical Decision Making Patient has near critical limb stenosis with worsening ischemic symptoms and claudication at rest. After reviewing her previous studies with this presentation did not feel comfortable discharging patient home any she does require anticoagulation with she was started on heparin. Discussed Dr. Yanez he concurs. Patient is scheduled for angiography sometime in the next [address] Young. This will need to be expedited patient will be admitted. Dr. Yanez and Dr. Young were both consulted and will see the patient in the floor admitted to the hospitalist orders written initially have not started any antibiotics. Venous duplex of the leg was negative. Her blood pressure was significantly elevated started on topical nitro to attempt to improve blood flow to the leg and additionally to lower blood pressure. Medical Records I reviewed the patient's medical records. Lab Data I reviewed the patient's lab results. : 12/15/21 00:50 12/15/21 00:50 Laboratory Results WBC 9.0 10^3/uL (4.0-10.0) 12/14/21 09:55 RBC 4.62 10^6/uL (4.1-5.3) 12/14/21 09:55 Hgb 13.6 g/dL (11.5-15.3) 12/14/21 09:55 Hct 41.6 % (37.0-47.0) 12/14/21 09:55 MCV 90.0 fl (81-99) 12/14/21 09:55 MCH 29.4 pg (28.0-34.0) 12/14/21 09:55 MCHC 32.7 g/dL (30.0-36.0) 12/14/21 09:55 RDW 15.0 % (12.1-15.1) 12/14/21 09:55 Plt Count 419 10^3/cmm (130-400) H 12/14/21 09:55 MPV 9.5 fL (7.4-10.4) 12/14/21 09:55 Neut % (Auto) 69.4 % 12/14/21 09:55 Lymph % (Auto) 15.6 % 12/14/21 09:55 Treasure % (Auto) 12.5 % 12/14/21 09:55 Eos % (Auto) 1.4 % 12/14/21 09:55 Baso % (Auto) 0.8 % 12/14/21 09:55 Neut # (Auto) 6.26 10^3/uL (1.8-7.7) 12/14/21 09:55 Lymph # (Auto) 1.4 10^3/uL (0.8-4.8) 12/14/21 09:55 Treasure # (Auto) 1.1 10^3/uL (0.2-0.9) H 12/14/21 09:55 Eos # (Auto) 0.1 10^3/uL (0.0-0.8) 12/14/21 09:55 Baso # (Auto) 0.1 10^3/uL (0.0-0.1) 12/14/21 09:55 Nucleated RBC % (auto) 0 % 12/14/21 09:55 Nucleated RBCs # 0.0 /100WBC 12/14/21 09:55 PT 12.10 SECONDS (12.1-14.9) 12/14/21 09:55 INR 0.87 (0.8-1.2) 12/14/21 09:55 APTT 32.8 SECONDS (23.9-36.7) 12/14/21 09:55 Sodium 133 mmol/L (136-145) L 12/14/21 09:55 Potassium 4.4 mmol/L (3.5-5.1) 12/14/21 09:55 Chloride 95 mmol/L (98-107) L 12/14/21 09:55 Carbon Dioxide 27 mmol/L (22-29) 12/14/21 09:55 Anion Gap 15.4 (5-19) 12/14/21 09:55 BUN 10 mg/dL (8-23) 12/14/21 09:55 Creatinine 0.4 mg/dL (0.5-0.9) L 12/14/21 09:55 GFR Calculation Not Reportable 12/14/21 09:55 Glucose 91 mg/dL (65-115) 12/14/21 09:55 Calculated Osmolality 275 mOsm/kg (285-295) L 12/14/21 09:55 Calcium 9.7 mg/dL (8.5-10.5) 12/14/21 09:55 Total Bilirubin 0.3 mg/dL (0.15-1.2) 12/14/21 09:55 AST 29 U/L (0-32) 12/14/21 09:55 ALT 17 U/L (0-33) 12/14/21 09:55 Alkaline Phosphatase 82 IU/L (35-105) 12/14/21 09:55 Total Protein 9.0 g/dL (6.6-8.7) H 12/14/21 09:55 Albumin 4.4 g/dL (3.5-5.2) 12/14/21 09:55 Globulin 4.6 g/dL (1.3-4.6) 12/14/21 09:55 Procalcitonin 0.04 ng/mL (0-0.5) 12/14/21 09:55 Discharge Plan Discharge Patient Disposition: Admitted As Inpatient Admit Provider: Farhad Adair Clinical Impression: Critical limb ischemia of left lower extremity, Peripheral vascular disease of lower extremity with ulceration, Peripheral neuropathy Condition: Stable Coding Level of Care Code ED Enrollment Coordinator for Lesly Arango
--- NOTE | 2021-12-14 10:04 | USCV_ITS ---
Woody Dimple Age: 86 Gender: F : 1935 Exam Date: 12/14/2021 11:11 Ordering Phys: Turner Meyers DO Technologist: Exam Location: [facility] [place] Indication: non healing ulcers on lt Risk Factors: Unknown Previous Vascular Surgery: RIGHT LEFT BP: 178.0 / 98.00 BP: 175.0/ 98.00 0 0 Waveform Velocity (cm/s) Velocity (cm/s) Waveform Iliac Prox 55.9 Monophasic Iliac Mid 54.0 Monophasic Iliac Distal Monophasic 54.4 TRUCK SALES MANAGER 52.8 Monophasic SFA Prox 62.1 Monophasic SFA Mid 66.8 Monophasic SFA Dist 90.1 Monophasic POP 48.2 Monophasic CHOPPING MACHINE OPERATOR N/A DPA 37.3 Monophasic EBENEZER 0.3 FINDINGS Monophasic, low velocity continuous waveforms in the iliac, femoral, popliteal and dorsalis pedis arteries. Normal Doppler flow signals in the posterior tibial artery. Abnormal resting EBENEZER of 0.3 on the left side CONCLUSIONS 1. Features of sluggish flow in the iliac, femoral, popliteal and dorsalis pedis artery on the left side, suggestive of collateral filling. 2. Possible total occlusion of the posterior tibial artery on the left side. No similar previous study is available for comparison Dr George Gonsalez MD [facility] (Electronically Signed) Final Date: 15 December 2021 23:32 S
[2021-12-14 10:16] LABS: Basophils # 0.1 10^3/uL (0.0-0.1); Basophils % 0.8 %; Eosinophils # 0.1 10^3/uL (0.0-0.8); Eosinophils % 1.4 %; Hematocrit 41.6 % (37.0-47.0); Hemoglobin 13.6 g/dL (11.5-15.3); Lymphocytes # 1.4 10^3/uL (0.8-4.8); Lymphocytes % 15.6 %; Mean Corpuscular HGB Conc 32.7 g/dL (30.0-36.0); Mean Corpuscular Hemoglobin 29.4 pg (28.0-34.0); Mean Platelet Volume 9.5 fL (7.4-10.4); Monocytes # 1.1 10^3/uL (0.2-0.9); Monocytes % 12.5 %; Neutrophils # 6.26 10^3/uL (1.8-7.7); Neutrophils % 69.4 %; Nucleated Red Blood Cells % 0 %; Platelet Count 419 10^3/cmm (130-400); Red Blood Count 4.62 10^6/uL (4.1-5.3)
[2021-12-14 10:28] LABS: INR 0.87 (0.8-1.2); Partial Thromboplastin Time 32.8 SECONDS (23.9-36.7)
[2021-12-14 10:38] LABS: Alanine Aminotransferase 17 U/L (0-33); Albumin Level 4.4 g/dL (3.5-5.2); Alkaline Phosphatase 82 IU/L (35-105); Blood Urea Nitrogen 10 mg/dL (8-23); Calcium 9.7 mg/dL (8.5-10.5); Carbon Dioxide 27 mmol/L (22-29); Chloride 95 mmol/L (98-107); Globulin 4.6 g/dL (1.3-4.6); Glucose 91 mg/dL (65-115); Osmolality Calculated 275 mOsm/kg (285-295); Sodium 133 mmol/L (136-145); Total Bilirubin 0.3 mg/dL (0.15-1.2)
[2021-12-14 10:39] LABS: Anion Gap 15.4 (5-19); Creatinine Clr Calc Pharmacy 38.6089; Potassium 4.4 mmol/L (3.5-5.1)
[2021-12-14 10:40] LABS: Aspartate Amino Transferase 29 U/L (0-32)
[2021-12-14] MEDS: heparin 5,000 unit/mL INJ 1 mL IV ×2 (12:25→19:16)
[2021-12-14] MEDS: heparin drip 25,000 UNIT/500 ML PREMIX 13 UNIT IV (12:26)
--- NOTE | 2021-12-14 14:14 | P.HP_ITS ---
Providers/Chief Complaint Primary Care Provider: Alvarado Suárez MD Chief Complaint: left leg pain/ wound to left leg History of Present Illness Dimple Mckay is a 86 year old female who presented for resting leg pain. Patient stating that her symptoms started roughly 1 month ago with numbness and tingling, after numbness and tingling she started experiencing leg cramps and resting pain in her left leg. After that she started noticing 2 ulcers just above her ankle for which she decided to go see her PCP. PCP asked her to fol low-up with wound care clinic, CTA aorta with runoff was done which showed significant peripheral arterial disease, she carries history of ulcerative colitis, Remicade last dose was held, she consider herself very active for age, she takes care of her , quit smoking 1994, no alcohol intake. She does not tolerate antibiotics very well. Dr. Blue and Dr. Young consulted by the ER physician Patient at the time of evaluation is n.p.o. Pain 4/10 Daughter at the bedside 1.? 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 Common femoral artery is occluded in the LEFT groin. Superficial femoral artery is occluded at the origin with a tiny amount of segmental flow in the upper and mid thigh. Popliteal artery is patent with th ree-vessel runoff to the ankle. Segmental stenosis in the posterior tibial artery. 2.? RIGHT: Mild segmental stenosis in the superficial femoral artery which remains patent. Popliteal artery is patent proximally and is occluded above the knee. This reconstitutes in the popliteal fossa and is patent to the trifurcation. Two-vessel anterior tibial and peroneal runoff to the ankle. 3.? Moderate aortic atheromatous disease. No abdominal aortic aneurysm. 4.? 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 Moderate stenosis at the SMA origin. 5.? Densely calcified renal ostia with moderate to severe LEFT and moderate RIGHT stenosis. 6.? NHI is patent. 7.? Additional nonvascular findings described above. ? Review of Systems Const: Reports: body aches and fatigue; Denies: fever(s) Eyes: Denies: change in vision ENMT: Denies: throat pain Card: Denies: chest pain Resp: Denies: dyspnea GI: Denies: nausea Skin/Breast: Reports: new lesions Neuro: Reports: numbness in extremities Endo: Denies: polyuria Brandin/Lymph: Reports: easy bruising All/Imm: Denies: urticaria Medications/Allergies Home Medications Medication Instructions Recorded Confirmed Last Taken Type aspirin 81 mg tablet,delayed 81 mg PO QAM 11/21/19 12/14/21 Unknown History release (Adult Aspirin Regimen) calcium carbonate 500 mg calcium 500 mg PO DAILY 11/21/19 12/14/21 Unknown History (1,250 mg) chewable tablet (Calcium 500) cyanocobalamin (vitamin B-12) 1,000 mcg IM Q30D ml 11/21/19 12/14/21 Unknown History 1,000 mcg/mL injection solution folic acid 1 mg tablet 1 mg PO DAILY 11/21/19 12/14/21 Unknown History infliximab 100 mg intravenous See Rx Instructions .ROUTE .COMPLEX 11/21/19 12/14/21 Unknown History solution (Remicade) lisinopril 2.5 mg tablet 2.5 mg PO BEDTIME 11/21/19 12/14/21 Unknown History simvastatin 40 mg tablet 40 mg PO DAILY 11/21/19 12/14/21 Unknown History levothyroxine 125 mcg tablet 125 mcg PO QAM 09/01/21 12/14/21 Unknown History hydrocodone 5 mg-acetaminophen 325 1 tab PO Q8H PRN 7 Days #20 tab 12/09/21 12/14/21 12/14/21 07:30 Rx mg tablet acetaminophen 500 mg tablet 1,000 mg PO Q6H PRN 12/14/21 12/14/21 Unknown History cholecalciferol (vitamin D3) 25 See Rx Instructions .ROUTE .COMPLEX 12/14/21 12/14/21 Unknown History mcg (1,000 unit) capsule (Vitamin D3) diclofenac sodium 1 % topical gel 2 gm TOPICAL QID PRN 12/14/21 12/14/21 Unknown History erythromycin 5 mg/gram (0.5 %) eye See Rx Instructions .ROUTE .COMPLEX 12/14/21 12/14/21 Unknown History ointment (3.5 gram tube) gabapentin 300 mg capsule 300 mg PO BEDTIME 12/14/21 12/14/21 Unknown History loperamide 2 mg capsule 4 mg PO .UP TO BID PRN 12/14/21 12/14/21 Unknown History metoprolol tartrate 25 mg tablet 12.5 mg PO BID 12/14/21 12/14/21 Unknown History Allergies Allergy/AdvReac Type Severity Reaction Status Date / Time metronidazole [From Flagyl] Allergy unknown Verified 12/14/21 14:01 PFSH Acute PFSH: Medical History (Updated 12/14/21 @ 16:08 by Farhad Adair MD) History of CVA (cerebrovascular accident) Hypertension 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 Osteoporosis Regional enteritis (Crohn's disease) Surgical History (Updated 12/14/21 @ 16:08 by Farhad Adair MD) History of cataract extraction History of cholecystectomy History of parathyroidectomy History of tonsillectomy Family History Other CAD (coronary artery disease) Cancer Diabetes Hypertension Social History Smoking and tobacco status: former smoker Alcohol intake: never History of recent travel: No Vitals/I&O/Wt Last Vital Signs Temp 96.7 F L 12/14/21 09:43 Pulse 110 H 12/14/21 13:37 Resp 16 12/14/21 13:37 BP 129/81 12/14/21 13:37 Pulse Ox 96 12/14/21 13:37 Weight last 48 hrs Weight 46.72 kg Physical Exam Narrative: Very pleasant cooperative female Looks dehydrated Left leg, venous stasis ulcer above ankle Showing signs of granulation tissue, hyperemia above ankle noted Base of the wound has yellow material Left foot does not show any ischemic toes, it is cool to touch Pain 4/10 S1, S2 Abdomen soft Saturating well on room air Nonfocal neuro exam Data : 12/14/21 09:55 12/14/21 09:55 Micro: Microbiology 12/14/21 10:23 Blood Culture - Preliminary Blood SPECIMEN COLLECTED 12/14/21 10:31 Blood Culture - Preliminary Blood SPECIMEN COLLECTED A&P Assessment and plan (1) Peripheral vascular disease of lower extremity with ulceration: Status: Acute (2) Left leg claudication: Status: Acute Plan Severe peripheral arterial disease Resting pain We will keep her n.p.o. until she is evaluated by Dr. Young and Dr. Yanez Started her on heparin drip Check A1c level, lipid profile, Inpatient admission Okay for analgesia Ulcerative colitis without acute exacerbation, patient is stating that she would like to avoid antibiotics for now as she gets really bad diarrhea Topical antibiotics for venous stasis ulcers Full code, patient does not want to stay on ventilator in case of any cardiac risk for prolonged period of time however does want a trial of chest compressions defibrillation intubation Attestations Medical Necessity Statement*: More than 2 midnights anticipated Time Spent in Patient Care: 40mins Coding Level of Care Code Acute Malt Liquors Sales Representative for Lesly Fwd Diagnoses Peripheral vascular disease of lower extremity with ulceration I73.9; L97.909 Left leg claudication I73.9
[2021-12-14 15:03] LABS: Procalcitonin 0.04 ng/mL (0-0.5)
--- NOTE | 2021-12-14 15:31 | P.CONIM_ITS ---
Providers/Reason For Consult Consulting Physician/Specialty*: Dr. Yanez/cardiothoracic surgery Reason for Consult*: Poor healing wounds left lower extremity Requesting Physician: Dr. Meyers Attending Physician: Farhad Adair MD Primary Care Provider: Alvarado Suárez MD History of Present Illness History of Present Illness Dimple Mckay is an 86 year old female who I am familiar with through wound care services. We have been caring for her for quite some time. She presented as a patient to us on November 24 with a left pretibial lateral wound and had been present for about 3 to 4 weeks prior to that presentation. She believes it was related to trauma though she cannot recall the actual event. We do note on the initial visit that her EBENEZER on the left was 0.45 and of the right was 0.67. We were very suspicious at that time of arterial insufficiency and recommended proceeding directly to a CTA with runoff. She presented to the emergency department today with complaints of increasing discomfort and what ap peared to be rest claudication of the left lower extremity. We have been utilizing PolyMem Ag on her wounds. The CTA of the abdominal aorta with runoff which we had requested the time of her initial visit of November 24 was completed on December 04. This study reveals: 1.? 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 Common femoral artery is occluded in the LEFT groin. Superficial femoral artery is occluded at the origin with a tiny amount of segmental flow in the upper and mid thigh. Popliteal artery is patent with three-vessel runoff to the ankle. Segmental stenosis in the posterior tibial artery. 2.? RIGHT: Mild segmental stenosis in the superficial femoral artery which remains patent. Popliteal artery is patent proximally and is occluded above the knee. This reconstitutes in the popliteal fossa and is patent to the trifurca tion. Two-vessel anterior tibial and peroneal runoff to the ankle. 3.? Moderate aortic atheromatous disease. No abdominal aortic aneurysm. 4.? 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 Moderate stenosis at the SMA origin. 5.? Densely calcified renal ostia with moderate to severe LEFT and moderate RIGHT stenosis. 6.? NHI is patent. I have personally reviewed the study I do note isolated left external iliac artery occlusion with short reconstitution prior to occlusion that of the common femoral and the proximal portion of the left SFA through 2 discrete stenotic regions. There appears to be then patent SFA on the left from the mid thigh through the popliteal region with three-vessel runoff to the left leg. Ms. Mckay has had prior abdominal surgery x2 for ulcerative colitis and currently is on Remicade. I had discussed previously with her during her last wound care visit that depending upon the results of the CTA and the evaluations of our interventional colleagues, if percutaneous approach is not available, we could consider an extra-anatomic right common femoral artery to left popliteal artery bypass, with the understanding that this is a circuitous route, but may provide flow down the left leg. Unfortunately, also note that she has right popliteal artery occl usion and a potential subsequent surgical bypass could further cause detriment to flow down the right leg. Review of Systems Eyes: Denies: change in vision ENMT: Denies: odynophagia or hoarseness Card: Denies: chest pain or palpitations Resp: Denies: dyspnea or productive cough Musc: Reports: extremity pain (Left) and other (Poor healing wound left lower extremity) Neuro: Denies: headache(s) All/Imm: Reports: other (Currently on Remicade therapy for ulcerative colitis with 2 prior resection) Medications/Allergies Home Medications Medication Instructions Recorded Confirmed Last Taken Type aspirin 81 mg tablet,delayed 81 mg PO QAM 11/21/19 12/14/21 Unknown History release (Adult Aspirin Regimen) calcium carbonate 500 mg calcium 500 mg PO DAILY 11/21/19 12/14/21 Unknown History (1,250 mg) chewable tablet (Calcium 500) cyanocobalamin (vitamin B-12) 1,000 mcg IM Q30D ml 11/21/19 12/14/21 Unknown History 1,000 mcg/mL injection solution folic acid 1 mg tablet 1 mg PO DAILY 11/21/19 12/14/21 Unknown History infliximab 100 mg intravenous See Rx Instructions .ROUTE .COMPLEX 11/21/19 12/14/21 Unknown History solution (Remicade) lisinopril 2.5 mg tablet 2.5 mg PO BEDTIME 11/21/19 12/14/21 Unknown History simvastatin 40 mg tablet 40 mg PO DAILY 11/21/19 12/14/21 Unknown History levothyroxine 125 mcg tablet 125 mcg PO QAM 09/01/21 12/14/21 Unknown History hydrocodone 5 mg-acetaminophen 325 1 tab PO Q8H PRN 7 Days #20 tab 12/09/21 12/14/21 12/14/21 07:30 Rx mg tablet acetaminophen 500 mg tablet 1,000 mg PO Q6H PRN 12/14/21 12/14/21 Unknown History cholecalciferol (vitamin D3) 25 See Rx Instructions .ROUTE .COMPLEX 12/14/21 12/14/21 Unknown History mcg (1,000 unit) capsule (Vitamin D3) diclofenac sodium 1 % topical gel 2 gm TOPICAL QID PRN 12/14/21 12/14/21 Unknown History erythromycin 5 mg/gram (0.5 %) eye See Rx Instructions .ROUTE .COMPLEX 12/14/21 12/14/21 Unknown History ointment (3.5 gram tube) gabapentin 300 mg capsule 300 mg PO BEDTIME 12/14/21 12/14/21 Unknown History loperamide 2 mg capsule 4 mg PO .UP TO BID PRN 12/14/21 12/14/21 Unknown History metoprolol tartrate 25 mg tablet 12.5 mg PO BID 12/14/21 12/14/21 Unknown History Allergies Allergy/AdvReac Type Severity Reaction Status Date / Time metronidazole [From Flagyl] Allergy unknown Verified 12/14/21 14:01 Current Medications Generic Name Dose Route Start Last Admin Trade Name Freq PRN Reason Stop Dose Admin Heparin Sodium (Porcine) 0 unit 12/14/21 12:03 12/14/21 12:25 Heparin 5,000 Unit/Ml Inj 1 Ml IV 2,300 unit PRN PRN Administration Heparin weight-base protocol Protocol Heparin Sodium/Sodium Chloride 25,000 unit in 500 mls @ 0 mls/hr 12/14/21 12:15 12/14/21 12:26 Heparin Drip IV 13.91 unit/kg/hr .Q0M GEN 13 mls/hr Administration Protocol Per Protocol PFSH Acute PFSH: Medical History History of CVA (cerebrovascular accident) Hypertension 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 Osteoporosis Regional enteritis (Crohn's disease) Surgical History History of cataract extraction History of cholecystectomy History of parathyroidectomy History of tonsillectomy Family History Other CAD (coronary artery disease) Cancer Diabetes Hypertension Social History Smoking and tobacco status: former smoker Alcohol intake: never History of recent travel: No Vitals/I&O/Wt Last Vital Signs Temp 96.7 F L 12/14/21 09:43 Pulse 110 H 12/14/21 13:37 Resp 16 12/14/21 13:37 BP 129/81 12/14/21 13:37 Pulse Ox 96 12/14/21 13:37 Weight last 48 hrs Weight 103 lb Physical Exam Const: COMMON NORMALS: patient oriented x3 HENMT: COMMON NORMALS: normocephalic, atraumatic, hearing grossly normal bilaterally and external ears normal HEAD & SCALP: normocephalic and atraumatic EXTERNAL EAR: Yes external ears normal Eye: COMMON NORMALS: Equal, round and reactive pupils present and EOMs intact bilaterally PUPIL: Yes Equal, round and reactive pupils present Neck/C-Spine: COMMON NORMALS: no lymphadenopathy and No carotid bruits Chest: COMMONS NORMALS: normal palpation of entire chest wall Resp: COMMON NORMALS: normal respiratory effort, No retractions and clear to auscultation bilaterally AUSCULTATION: clear to auscultation bilaterally Cardio: COMMON NORMALS: regular rate, regular rhythm, S1 normal heart sound present, No murmurs present (Cardio) and No rub (Cardio) RATE: regular rate RHYTHM: regular rhythm HEART SOUNDS: S1 normal heart sound present GI: COMMON NORMALS: Normal to inspection, nondistended, normoactive bowel sounds present Extremity: NARRATIVE EXTREMITY EXAM: Left leg has 2 open ulcers. 1 measuring 3.2 x 2 cm and one 1.2 x 1 cm. At this time, with revascularization attempts pending, recommend wet-to-dry dressing changes daily to twice daily on both wounds. Neuro: COMMON NORMALS: patient oriented x3, no focal motor deficits and no sensory deficits noted Data : 12/15/21 00:50 12/15/21 00:50 Micro: Microbiology 12/14/21 10:23 Blood Culture - Preliminary Blood SPECIMEN COLLECTED 12/14/21 10:31 Blood Culture - Preliminary Blood SPECIMEN COLLECTED A&P Assessment and plan (1) Peripheral vascular disease of lower extremity with ulceration: Status: Acute Plan We await the assessment of our interventional colleagues as to determine whether there is a potential for percutaneous intervention. Attempt at surgical revascularization is ultimately needed, I would recommend this be performed as a extra-anatomic bypass given the fact that she has had 2 prior abdominal surgeries for colon resections related to her ulcerative colitis. As well, she is not enthusiastic about any intra-abdominal procedure. In this regard, we could consider a right femoral to left popliteal bypass or s ome variation thereof if by interventions, there is some success in revascularization though surgical enhancement is required. I greatly appreciate the expertise and recommendations are interventional colleagues and appreciate the oversight and management of our hospitalist colleagues. Consult Attestations Medical Necessity Statement: Severe peripheral vascular disease with ulcerations of the left lower extremity Time Spent in Patient Care: 35 Coding Level of Care Code Established Pt Acute Advertising Account Manager for Maxg Fwd Patient Type Established Diagnoses Peripheral vascular disease of lower extremity with ulceration I73.9; L97.909
--- NOTE | 2021-12-14 15:59 | P.CONIM_ITS ---
Providers/Reason For Consult Consulting Physician/Specialty*: Richard Young MD/ Interventional Cardiology Reason for Consult*: Critical limb ischemia Requesting Physician: Dr Meyers Attending Physician: Farhad Adair MD Primary Care Provider: Alvarado Suárez MD History of Present Illness History of Present Illness Dimple Mckay is a 86 year old female with PMH of hypertension, hyperlipidemia, crohns disease who presented with 1 month of symptoms but worsening in the last 1 week. Symptoms include numbness and tingling initially. He was also having leg cramps and rest pain mostly in the left lower extremity. She also has ulcers on the left lower extremity. She has been following with wound care as well. She underwent CTA today that showed severe stenosis of the left external iliac artery, totally occluded common femoral artery extending down to distal SFA. Right popliteal occlusion is also noted Review of Systems Const: Reports: body aches and fatigue; Denies: fever(s) Eyes: Denies: change in vision ENMT: Denies: throat pain Card: Denies: chest pain Resp: Denies: dyspnea GI: Denies: nausea Skin/Breast: Reports: new lesions Neuro: Reports: numbness in extremities Endo: Denies: polyuria Brandin/Lymph: Reports: easy bruising All/Imm: Denies: urticaria Medications/Allergies Home Medications Medication Instructions Recorded Confirmed Last Taken Type aspirin 81 mg tablet,delayed 81 mg PO QAM 11/21/19 12/14/21 Unknown History release (Adult Aspirin Regimen) calcium carbonate 500 mg calcium 500 mg PO DAILY 11/21/19 12/14/21 Unknown History (1,250 mg) chewable tablet (Calcium 500) cyanocobalamin (vitamin B-12) 1,000 mcg IM Q30D ml 11/21/19 12/14/21 Unknown History 1,000 mcg/mL injection solution folic acid 1 mg tablet 1 mg PO DAILY 11/21/19 12/14/21 Unknown History infliximab 100 mg intravenous See Rx Instructions .ROUTE .COMPLEX 11/21/19 12/14/21 Unknown History solution (Remicade) lisinopril 2.5 mg tablet 2.5 mg PO BEDTIME 11/21/19 12/14/21 Unknown History simvastatin 40 mg tablet 40 mg PO DAILY 11/21/19 12/14/21 Unknown History levothyroxine 125 mcg tablet 125 mcg PO QAM 09/01/21 12/14/21 Unknown History hydrocodone 5 mg-acetaminophen 325 1 tab PO Q8H PRN 7 Days #20 tab 12/09/21 12/14/21 12/14/21 07:30 Rx mg tablet acetaminophen 500 mg tablet 1,000 mg PO Q6H PRN 12/14/21 12/14/21 Unknown History cholecalciferol (vitamin D3) 25 See Rx Instructions .ROUTE .COMPLEX 12/14/21 12/14/21 Unknown History mcg (1,000 unit) capsule (Vitamin D3) diclofenac sodium 1 % topical gel 2 gm TOPICAL QID PRN 12/14/21 12/14/21 Unknown History erythromycin 5 mg/gram (0.5 %) eye See Rx Instructions .ROUTE .COMPLEX 12/14/21 12/14/21 Unknown History ointment (3.5 gram tube) gabapentin 300 mg capsule 300 mg PO BEDTIME 12/14/21 12/14/21 Unknown History loperamide 2 mg capsule 4 mg PO .UP TO BID PRN 12/14/21 12/14/21 Unknown History metoprolol tartrate 25 mg tablet 12.5 mg PO BID 12/14/21 12/14/21 Unknown History Allergies Allergy/AdvReac Type Severity Reaction Status Date / Time metronidazole [From Flagyl] Allergy unknown Verified 12/14/21 14:01 Current Medications Generic Name Dose Route Start Last Admin Trade Name Freq PRN Reason Stop Dose Admin Heparin Sodium (Porcine) 0 unit 12/14/21 12:03 12/14/21 12:25 Heparin 5,000 Unit/Ml Inj 1 Ml IV 2,300 unit PRN PRN Administration Heparin weight-base protocol Protocol Heparin Sodium/Sodium Chloride 25,000 unit in 500 mls @ 0 mls/hr 12/14/21 12:15 12/14/21 12:26 Heparin Drip IV 13.91 unit/kg/hr .Q0M GEN 13 mls/hr Administration Protocol Per Protocol PFSH Acute PFSH: Medical History History of CVA (cerebrovascular accident) Hypertension 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 Osteoporosis Regional enteritis (Crohn's disease) Surgical History History of cataract extraction History of cholecystectomy History of parathyroidectomy History of tonsillectomy Family History Other CAD (coronary artery disease) Cancer Diabetes Hypertension Social History Smoking and tobacco status: former smoker Alcohol intake: never History of recent travel: No Vitals/I&O/Wt Last Vital Signs Temp 96.7 F L 12/14/21 09:43 Pulse 110 H 12/14/21 13:37 Resp 16 12/14/21 13:37 BP 129/81 12/14/21 13:37 Pulse Ox 96 12/14/21 13:37 Weight last 48 hrs Weight 103 lb Physical Exam Const: COMMON NORMALS: patient oriented x3 HENMT: COMMON NORMALS: normocephalic HEAD & SCALP: normocephalic Resp: COMMON NORMALS: clear to auscultation bilaterally AUSCULTATION: clear to auscultation bilaterally Cardio: COMMON NORMALS: regular rate, regular rhythm, S1 normal heart sound present and S2 normal heart sound present RATE: regular rate RHYTHM: regular rhythm HEART SOUNDS: S1 normal heart sound present and S2 normal heart sound present GI: COMMON NORMALS: Soft to palpation PALPATION: Yes Soft to palpation Extremity: NARRATIVE EXTREMITY EXAM: Pulses not palpable in the left lower extremity. Has ulcer on the left lower extremity above the ankle Neuro: COMMON NORMALS: patient oriented x3 Data : 12/14/21 09:55 12/14/21 09:55 Micro: Microbiology 12/14/21 10:23 Blood Culture - Preliminary Blood SPECIMEN COLLECTED 12/14/21 10:31 Blood Culture - Preliminary Blood SPECIMEN COLLECTED A&P Assessment and plan (1) Critical limb ischemia of left lower extremity: Status: Acute (2) Peripheral vascular disease of lower extremity with ulceration: Status: Acute (3) Hypertension: Status: Acute (4) Peripheral neuropathy: Status: Acute Plan Patient has rest leg pain and ulcer on the left lower extremity.We will proceed with attempt at percutaneous revascularization tomorrow. Risks and benefits of the procedure have been discussed. She understands the risks and benefits and wants to proceed with the procedure NPO past midnights Continue heparin gtt till procedure is performed Thank you for involving us with care of this patient. We will continue to follow. Please call with questions Coding Level of Care Code Acute Knitter Operator for Lesly Fwd Diagnoses Critical limb ischemia of left lower extremity I70.222 Peripheral vascular disease of lower extremity with ulceration I73.9; L97.909 Hypertension I10 Peripheral neuropathy G62.9
[2021-12-14] MEDS: sodium chloride 0.9% 1,000 ML 100 ML IV (18:31)
[2021-12-14 18:56] LABS: INR 0.88 (0.8-1.2)
[2021-12-14] MEDS: HYDROcodone-acetaminophen 5-325 mg Tablet 1 TAB PO (19:22)
[2021-12-14] MEDS: atorvastatin 40 mg Tablet 20 MG PO (20:34)
[2021-12-14] MEDS: metoprolol tartrate 25 mg Tablet 12.5 MG PO (20:34)
[2021-12-14] MEDS: gabapentin 300 mg Capsule PO (20:34)
[2021-12-15] VITALS (44 sets, daily range): BP systolic 103–178; BP diastolic 57–93; PULSE 64–95; RESP 6–19; TEMP 35.9–36.5; O2SAT 89–99
[2021-12-15 00:59] LABS: Basophils # 0.1 10^3/uL (0.0-0.1); Eosinophils # 0.1 10^3/uL (0.0-0.8); Eosinophils % 1.1 %; Hematocrit 40.6 % (37.0-47.0); Hemoglobin 13.3 g/dL (11.5-15.3); Lymphocytes # 1.5 10^3/uL (0.8-4.8); Lymphocytes % 24.2 %; Mean Corpuscular HGB Conc 32.8 g/dL (30.0-36.0); Mean Corpuscular Volume 91.4 fl (81-99); Mean Platelet Volume 9.1 fL (7.4-10.4); Monocytes # 0.7 10^3/uL (0.2-0.9); Monocytes % 11.9 %; Neutrophils % 61.3 %; Nucleated Red Blood Cells % 0 %; Platelet Count 400 10^3/cmm (130-400); Red Blood Count 4.44 10^6/uL (4.1-5.3); White Blood Count 6.2 10^3/uL (4.0-10.0)
[2021-12-15 01:13] LABS: Partial Thromboplastin Time 67.4 SECONDS (23.9-36.7)
[2021-12-15 01:18] LABS: Alanine Aminotransferase 14 U/L (0-33); Albumin Level 3.7 g/dL (3.5-5.2); Alkaline Phosphatase 64 IU/L (35-105); Anion Gap 14.5 (5-19); Aspartate Amino Transferase 22 U/L (0-32); Blood Urea Nitrogen 8 mg/dL (8-23); Calcium 8.8 mg/dL (8.5-10.5); Carbon Dioxide 26 mmol/L (22-29); Chloride 96 mmol/L (98-107); Globulin 3.6 g/dL (1.3-4.6); Glucose 88 mg/dL (65-115); Osmolality Calculated 274 mOsm/kg (285-295); Potassium 3.5 mmol/L (3.5-5.1); Sodium 133 mmol/L (136-145); Total Bilirubin 0.3 mg/dL (0.15-1.2); Total Protein 7.3 g/dL (6.6-8.7)
[2021-12-15 01:19] LABS: Magnesium 2.4 mg/dL (1.7-2.3)
[2021-12-15 01:20] LABS: Creatinine Clr Calc Pharmacy 38.6089
[2021-12-15] MEDS: sodium chloride 0.9% 1,000 ML 100 ML IV ×2 (03:37→15:26)
[2021-12-15] MEDS: HYDROcodone-acetaminophen 5-325 mg Tablet 1 TAB PO ×3 (03:42→23:11)
[2021-12-15] MEDS: levothyroxine 125 mcg Tablet PO (06:27)
[2021-12-15] MEDS: aspirin 81 mg EC Tablet PO (06:27)
[2021-12-15 07:24] LABS: Partial Thromboplastin Time 61.5 SECONDS (23.9-36.7)
[2021-12-15] MEDS: metoprolol tartrate 25 mg Tablet 12.5 MG PO ×2 (08:38→20:36)
[2021-12-15] MEDS: folic acid 1 mg Tablet PO (08:38)
[2021-12-15] MEDS: diphenhydrAMINE 50 mg Capsule PO (08:38)
[2021-12-15] MEDS: sodium chloride 0.9% 1,000 ML 50 ML IV (08:40)
--- NOTE | 2021-12-15 09:07 | PM.PN ---
Subjective Subjective: Patient is waiting for the intervention by Dr. Young today, she is n.p.o. We will touch base with the charge nurse in about the timing She is very dehydrated Dry cracked lips I asked her to use ice chips Cardiology and cardiothoracic recommendations reviewed and noted Patient is stating that her pain is tolerable, she does not need escalation of dose of opioids at this point Vitals/I&O/Wt Last Vital Signs Temp 97.7 F 12/15/21 07:01 Pulse 79 12/15/21 07:01 Resp 18 12/15/21 07:01 BP 163/73 12/15/21 07:01 Pulse Ox 90 12/15/21 07:01 12/14/21 12/15/21 12/15/21 22:59 06:59 14:59 Intake Total 85.367 / 85.367 1050 / 1135.367 Output Total 0 / 0 Balance 85.367 / 85.367 1050 / 1135.367 Weight last 48 hrs Weight 47.763 kg Weight 46.72 kg Weight 46.72 kg Physical Exam Narrative: Patient comfortably seated she has a pillow under her left leg Hyperemia around coin shaped ulcer just above her ankle 2 x 3 cm ulcer, no active signs of granulation tissue, loss of superficial skin and underlying fat, I do not see any drainage, hyperemia noted, nonpurulent cellulitis, Nonfocal neuro exam S1, S2 Awake and alert Cooperative Very pleasant Abdomen soft Dehydrated Dry cracked lips Data : 12/15/21 00:50 12/15/21 00:50 Micro: Microbiology 12/14/21 10:23 Blood Culture - Preliminary Blood SPECIMEN COLLECTED 12/14/21 10:31 Blood Culture - Preliminary Blood SPECIMEN COLLECTED A&P Assessment and plan (1) Critical limb ischemia of left lower extremity: Status: Acute (2) Left leg claudication: Status: Acute (3) Peripheral vascular disease of lower extremity with ulceration: Status: Acute (4) Fat pad atrophy of foot: Status: Acute (5) Pyoderma gangrenosum: Status: Acute Plan Critical left leg ischemia Continue heparin drip Pain under control Awaiting intervention by Dr. Young Appreciate recommendations from cardiology and cardiothoracic teams Patient is n.p.o. Extremely dehydrated Patient has IV fluids running at 100 mL/h She is full code Continue levothyroxine No active flare of inflammatory bowel disease Add topical antibiotic for her ulcer and doxycycline Her leg ulcers and underlying inflammatory bowel disease my suspicion is high for pyoderma gangrenosum, add steroids Would recommend outpatient dermatology follow-up Attestations Medical Necessity Statement*: Continue hospitalization Time Spent in Patient Care: 20min Coding Level of Care Code Acute Family Resource Coordinator for Chg Fwd Diagnoses Critical limb ischemia of left lower extremity I70.222 Left leg claudication I73.9 Peripheral vascular disease of lower extremity with ulceration I73.9; L97.909 Fat pad atrophy of foot L90.9 Pyoderma gangrenosum L88
--- NOTE | 2021-12-15 10:00 | XACV_ITS ---
Exam Room: [facility] Ht: 170 cm Wt: 48 kg BSA: 1.48 m2 Gender: Female : 1935 Any Known Allergies: Other Exam Priority: Routine Procedure(s): Procedure Description: Diagnostic procedure Procedure Description: Peripheral Cath Diagnostic Procedure Procedure Description: Peripheral vascular Intervention Procedure Description: PV Balloon Procedure Description: PV Atherectomy Procedure Description: Miscellaneous Procedure Description: ACT Lower Extremity Diagnostic Findings INDICATION: Critical limb ischemia/ischemic rest pain and nonhealing ulcer. Left common iliac artery: Heavy calcification. Has 50% stenosis. Left external iliac artery: Has severe 95% stenosis with subtotal occlusion in the distal segment Left common femoral artery: Subtotally occluded Left profunda artery: Reconstitutes via collaterals SFA: Has 100% stenosis proximally Below the knee patient has very limited blood supply with mainly collateral blood supply supplying the foot. . Lower Extremity Interventional Findings Left External Iliac Artery: 95% stenosis treated with AB [place] 35 JET INSPECTOR Catheter [id number] and two AB [place] 35 JET INSPECTOR Catheter [id number]. Left Mid-longitudinal Common Femoral Artery: 99% stenosis treated with AB [place] 35 OTW [id number]. Left Mid-longitudinal Superficial Femoral Artery: 100% stenosis treated with AB [place] 35 JET INSPECTOR Catheter [id number]. Procedure detail: We obtained access in right common femoral artery. Using UF catheter we advanced a Glidewire into external iliac artery. We then switched shot 6 [place] sheath with long sheath. Using seeker support catheter and Glidewire we advanced the wire into the popliteal artery. We performed balloon angioplasty of external iliac artery into common femoral artery with 5.0 x 250 mm balloon. This was followed by balloon inflation with 6.0 x 250 mm balloon. SFA was treated with 6.0 x 250 mm balloon. There was heavily calcified segment and distal common femoral artery and proximal SFA for which we performed orbital arthrectomy and a dilated with 7.0 x 40 mm balloon. At this time we noticed some sluggish flow in the vessel and angiogram showed dissection of popliteal artery. Through wire was used to find the true lumen and balloon angioplasty was performed with a 5.0 x 15 mm balloon. This restored the blood flow. Excellent blood flow was noted during TP segment and anterior tibial artery to the mid calf. After that it was mostly collateral blood supply to the foot. Patient left the Locksmith in stable condition. Left Distal Superficial Femoral Artery: 70% stenosis treated with two AB [place] 35 JET INSPECTOR Catheter [id number] and two MDT NC EUPHORA RX [id number] BALLOON. Conclusions Critical limb ischemia of left lower extremity s/p successful revascularization with orbital arthrectomy and balloon angioplasties. Below the knee patient has severe PAD with blood flow mainly with collaterals. Recommendations Start Eliquis 5 mg twice daily. Transfer to CSU with close monitoring overnight. Outpatient cardiology follow-up in 4 weeks. Pressures Phase:Rest AO : 175 / 74 ( 113 ) @ 1:38:00 PM 113 / 74 ( 78 ) @ 1:59:00 PM 102 / 61 ( 80 ) @ 2:01:00 PM 117 / 66 ( 87 ) @ 2:26:00 PM Hemodynamic Data Phase:Rest AO : 175.0 / 74.0 ( 113.0 ) @ 1:38:00 PM 113.0 / 74.0 ( 78.0 ) @ 1:59:00 PM 102.0 / 61.0 ( 80.0 ) @ 2:01:00 PM 117.0 / 66.0 ( 87.0 ) @ 2:26:00 PM Clinical Evaluation EBL: 5mL-10mL Procedural Details Procedure Consent Obtained. Pre-Procedure Time Out. Identified patient by full name and date of as verbalized by the patient/guarantor. Does the consent match the physician's order: Yes. Accurate & Complete Informed Consent: Yes. Inpatient/Outpatient History & Physical on Chart: Yes. If H&P is completed, is and addenduem needed: No; If yes, is the addendum complete: N/A. Visualize and Verify Site with Patient/Guarantor: N/A. Relevant Radiology Images available: Yes. Pre-op teaching completed and patient verbalized understanding. The risks, benefits, and alternatives of sedation and/or procedure were discussed by physician. The patient agrees to continue. Procedure started. Physician arrived. Correct patient, site and procedure confirmed by cath team. PERRLA. Strong, equal hand delicatessen goods stock clerk bilaterally. Lungs clear x 5 lobes. IV Site on Arrival: 18 gauge in the left anticubital. IV Fluids: 0.9% NaCl at KVO. 0 mL infused prior to cardiac cath rn. Oxygen started at 2liters/min via nasal canula. bilateral groins was prepped with chloroprep then draped in the usual sterile fashion. Baseline sample Acquired. HR: 66 BPM. Physician scrubbed in. Time out performed with cath team. Correct Patient: Yes; Correct Procedure: Yes; Correct Site: Yes; Correct Patient Position: Yes; Correct Supplies: Yes; Dried Flammable Prep: Yes; Blood Products Available: N/A. Lidocaine 1% infiltrated to the right groin. Arterial access obtained with micropuncture set. A 5FrFr UF catheter in over wire. Abdominal aortogram performed in AP @ 10 mL/sec for a total of 30 mL. glidewire inserted through the catheter. Catheter removed over the glide wire. Sheath upsized to a 6 Fr. seeker inserted OTW and advanced to the left SFA. wire out. contrast hand injected through the catheter. glidewire inserted through the catheter. wire out. contrast hand injected through the catheter. glidewire inserted through the catheter. seeker out OTW. Sheath injected in Left common femoral artery and runoff performed. Inflation number : 1 A AB [place] 35 JET INSPECTOR Catheter [id number] was prepped and advanced across the External Iliac, Left , then inflated to 8 SANTY for 2:03 seconds. Inflation number: 1 The AB [place] 35 JET INSPECTOR Catheter [id number] was reinflated across the Distal Superficial Femoral, Left, to 8 SANTY for 1:42 seconds. Inflation number: 2 The AB [place] 35 JET INSPECTOR Catheter [id number] was reinflated across the Distal Superficial Femoral, Left, to 8 SANTY for 1:41 seconds. Balloon out over wire. Results checked. Inflation number : 2 A AB [place] 35 JET INSPECTOR Catheter [id number] was prepped and advanced across the External Iliac, Left , then inflated to 8 SANTY for 1:31 seconds. Balloon out over wire. Inflation number : 1 A AB [place] 35 OTW [id number] was prepped and advanced across the Common Femoral, Left , then inflated to 6 SANTY for 1:05 seconds. Inflation number: 2 The AB [place] 35 OTW [id number] was reinflated across the Common Femoral, Left, to 8 SANTY for 0:47 seconds. Balloon out. Seeker inserted over the glidewire. Glidewire out. Viper glidewire in through the seeker. Debora Rivas RT(R) was relieved by Shelby Burris RN, MANAGER SCIENTIFIC as monitoring person. 2.0 x 145cm Diamondback atherectomy device in over the viperwire and atherectomy performed of the left comon femoral and SFA. Atherectomy device out. Seeker inserted over the viperwire. Viperwire out. Glidewire in through the seeker. Seeker removed over the glidewire. Inflation number : 3 A AB [place] 35 JET INSPECTOR Catheter [id number] was prepped and advanced across the External Iliac, Left , then inflated to 8 SANTY for 1:56 seconds. Balloon out over wire. Sheath injected in Right common femoral artery and runoff performed at 10 for 20 in DSA. Sheath injected in Right common femoral artery and runoff performed at 10 for 30. Inflation number : 3 A AB [place] 35 JET INSPECTOR Catheter [id number] was prepped and advanced across the Distal Superficial Femoral, Left , then inflated to 8 SANTY for 1:27 seconds. Inflation number: 1 The AB [place] 35 JET INSPECTOR Catheter [id number] was reinflated across the Mid Superficial Femoral, Left, to 8 SANTY for 1:11 seconds. Balloon out over wire. Seeker inserted over the glidewire. Glidewire out. hand injection of the left popliteal performed through the seeker in DSA. Glidewire in through the seeker. Glidewire removed. 0.014 x 300cm Runthrought guidewire in through the seeker. Inflation number : 4 A MDT [place] EUPHORA RX [id number] BALLOON was prepped and advanced across the Distal Superficial Femoral, Left , then inflated to 8 SANTY for 1:00 seconds. Left common femoral selected and arteriogram with runoff performed @ 10 mL/sec for a total of 30 mL. Inflation number : 5 A MDT NC EUPHORA RX [id number] BALLOON was prepped and advanced across the Distal Superficial Femoral, Left , then inflated to 5 SANTY for 0:26 seconds. Inflation number: 6 The MDT NC EUPHORA RX [id number] BALLOON was reinflated across the Distal Superficial Femoral, Left, to 6 SANTY for 0:36 seconds. Inflation number: 7 The MDT NC EUPHORA RX [id number] BALLOON was reinflated across the Distal Superficial Femoral, Left, to 2 SANTY for 0:15 seconds. Inflation number: 8 The MDT NC EUPHORA RX [id number] BALLOON was reinflated across the Distal Superficial Femoral, Left, to 6 SANTY for 0:33 seconds. Inflation number: 9 The MDT NC EUPHORA RX [id number] BALLOON was reinflated across the Distal Superficial Femoral, Left, to 6 SANTY for 0:11 seconds. Balloon out over wire. Seeker inserted over the runthrough. runthrough wire out. hand injection of the left popliteal performed through the seeker in DSA. Seeker removed over the glidewire. Left common femoral selected and arteriogram with runoff performed @ 10 mL/sec for a total of 30 mL. Sheath upsized to a 6 Fr. A Suture was successful obtaining hemostatsis at the Right Femoral artery insertion site. ACT drawn. Results 275 seconds. Therapeutic limits - pre-heparin administration 90-150 seconds and monitoring heparin during a vascular procedure >250 seconds. Sheath(s) sutured into position with 2-0 silk and sterile 4x4's and Op-site applied over the site. No oozing or signs and symptoms of hematoma noted. Arterial sheath flushed and connected to tranducer and pressure bag with heparinized saline. Post Procedure: Pulses reassessed and unchanged. PERRLA. Strong, equal hand delicatessen goods stock clerk bilaterally. No VTE prophylaxis required. Medication's Wasted: Lidocaine 1% = 10 mL. Medication's Wasted: Nitro = 49.6 mg. Total IV fluids: 144 mL. Post-op diagnosis: PTCA with atherectomy of the left External iliac, common iliac, and ostial SFA. Complications: none. Estimated blood loss: 5mL-10mL. Responsiveness - Normal response to verbal stimuli; alert and oriented, PERRLA. Airway - Unaffected, no intervention required; spontaneous ventilation. Circulation: W/N/L, pulses unchanged. Nausea/Vomiting: No. Procedure completed. Patient transferred by bed to 1st floor. Vital chart was stopped. Access Site Site: Right Femoral artery Sheath Size: 6 Fr Hemostasis Method: Suture Hemostasis Success: Successful Procedure Medications Start: 12:32 PM Stop: 12:32 PM Medication: Versed Amount: 1 mg Route: I.V. Start: 12:32 PM Stop: 12:32 PM Medication: Fentanyl Amount: 50 mcg Route: I.V. Start: 12:59 PM Stop: 12:59 PM Medication: Versed 1 mg and Fentanyl 25 mcg Amount: 1 Route: I.V. Start: 1:03 PM Stop: 1:03 PM Medication: Fentanyl Amount: 25 mcg Route: I.V. Start: 1:16 PM Stop: 1:16 PM Medication: Fentanyl Amount: 50 mcg Route: I.V. Start: 1:16 PM Stop: 1:16 PM Medication: Heparin Amount: 5000 units Route: I.V. Start: 1:39 PM Stop: 1:39 PM Medication: Nitrogylcerin Amount: 400 mcg Route: I.A. Start: 1:43 PM Stop: 1:43 PM Medication: Versed Amount: 1 mg Route: I.V. Start: 1:43 PM Stop: 1:43 PM Medication: Fentanyl Amount: 25 mcg Route: I.V. Start: 2:04 PM Stop: 2:04 PM Medication: Heparin Amount: 2000 units Route: I.V. Start: 2:18 PM Stop: 2:18 PM Medication: Heparin Amount: 2000 units Route: I.V. I, the attending physician, have reviewed and verified all procedure medications. Yes, all medications given per verbal order History/Risk Factors Hypertension: Yes Dyslipidemia: Yes Peripheral Arterial Disease (PAD): Yes Myocardial Infarction ([place]): No Obesity: No Renal Disease: No Tobacco Use: Former Prior Interventions PCI: No CABG: No Valve Surgery: No Report Signatures Finalized by Richard Young MD on 12/24/2021 10:27 PM
--- NOTE | 2021-12-15 10:03 | PC.CHAP ---
Pastoral Care Encounter/Spiritual Assessment Type of Contact [] Declined chief deputy sheriff visit [] Patient/Family/Request visit [] Outpatient visit [] Follow-up visit [] Physician referral [] Code/Alert [x] Routine visit [] Staff referral [] Actively dying [] Patient sleeping [] Family support [] [] Out of room [] Palliative care [] [] Receiving care in room [] Pre-surgical visit [] Trauma [] Long length of stay [] ICU visit [] Other: Relational/Emotional Strength [x] Patient feels connected with others/family/visitors/staff [] Distress [] Loneliness/isolation [] Abandonment Spirituality of Patient [x] Person of Anastasia [] Attends Religion of their Anastasia [x] Believes in Prayer [] Reads Bible or Latter-Day materials [] There are Spiritual issues to be addressed Edge Banding Off Bearer Interventions [x] Prayer [x] Active listening [x] Non-anxious presence [x] Spiritual/emotional support [] Crisis/trauma care [] Spiritual counseling [] Bereavement support [] Provided bereavement packet [] Provided Bible/devotional materials [] Provided toy/stuffed animal, coloring book to patient or family member [] Provided Communion [] Anointing/[place] [] Salvation [x] Completed spiritual assessment [] Other: Impact on Illness or Injury [] Angry [] Fearful [] Anxious [] Often cries [] Exhaustion [] Unable to work [] Unable to attend advent [] Unable to walk/stand [] Unable to read [] Unable to drive [] Unable to eat/drink [] Unable to sleep [] Unable to be with family [] Patient intubated [] Other: Summary Pt expecting surgery today on a leg wound. Very painful. Pt has 2 daughters. One lives out of state and the other in . She is expecting her daughter from out of state to arrive any time. Pt's lives with who has ALS and is in need of constant care. They have have in home health. Pt is unable to attend uatsdin services because on the weekends the in home care is limited and she is unable to get away. Time spent with patient 15 m
--- NOTE | 2021-12-15 12:27 | P.HPUD_ITS ---
Surgery/Procedure H&P Update DATE OF PROCEDURE: December 15, 2021 DATE H&P PERFORMED: 12/14/21 H&P UPDATE INFORMATION: I have reviewed H&P completed within last 30 days, I have examined patient prior to procedure and No changes to prior documentation PREOP DIAGNOSIS: Critical limb ischemia PRIMARY INDICATION FOR PROCEDURE: Critical limb ischemia PLANNED PROCEDURE: Operation Date: 12/15/21 10:00 Proposed Procedures p Peripheral Diagnostic with intervention(Not Applicable) - Richard Young M.D PATIENT REASSESSED PRIOR TO SEDATION, WITH NO CHANGE NOTED: Yes PHYSICAL EXAM: alert, oriented x 3, clear to auscultation bilaterally, regular rate & rhythm and operative site marked AIRWAY EVAL/ANESTHESIA PLAN: normal airway, ASA IV, Monitored Anesthesia, Local Anesthesia, Risks, benefits & alternatives of sedation and/or procedure discusse d and Patient agrees to continue as planned
--- NOTE | 2021-12-15 14:57 | PC.NURSE ---
Patient received from labor trainer to room 112-[address] to right groin no hematoma or adverse event noted
[2021-12-15] MEDS: nitroglycerin 1 gm/inch oint Pkt 1 INCH TOPICAL (15:21)
--- NOTE | 2021-12-15 17:02 | PC.NURSE ---
contacted provider to specify order for bacitracin instructions to DC medication
--- NOTE | 2021-12-15 18:31 | PC.NURSE ---
Drank and Ensure for dinner
[2021-12-15 18:33] LABS: Partial Thromboplastin Time 186.5 SECONDS (23.9-36.7)
--- NOTE | 2021-12-15 19:05 | PC.NURSE ---
Received bedside report from WILMA [facility]. Patient is s/p peripheral angiogram with right femoral access. Sheath remains in place. Pulses doppled to left popliteal, left pedal, and left posterial tibial. Pedal and posterial tibial faint but heard. Foot is warm to touch with cool toes only. Popliteal pulse stronger +2 doppled. Patient denies pain or needs presently. No distress observed. Will continue to monitor.
[2021-12-15] MEDS: gabapentin 300 mg Capsule PO (20:36)
[2021-12-15] MEDS: atorvastatin 40 mg Tablet 20 MG PO (20:36)
[2021-12-15 20:39] LABS: Partial Thromboplastin Time 53.2 SECONDS (23.9-36.7)
--- NOTE | 2021-12-15 21:36 | P.PN_ITS ---
Subjective Subjective: Patient underwent periphreal angiogram with percutaneous intervention today. Vitals/I&O/Wt Last Vital Signs Temp 96.6 F L 12/15/21 20:31 Pulse 81 12/15/21 20:31 Resp 15 12/15/21 20:31 BP 131/58 12/15/21 20:31 Pulse Ox 96 12/15/21 20:31 12/15/21 12/15/21 12/15/21 06:59 14:59 22:59 Intake Total 1050 / 5127.521 9620 / 1000 520 / 1520 Output Total 0 / 0 Balance 1050 / 9532.992 0488 / 1000 520 / 1520 Weight last 48 hrs Weight 105 lb 4.8 oz Weight 103 lb Weight 103 lb Physical Exam Const: COMMON NORMALS: patient oriented x3 HENMT: COMMON NORMALS: normocephalic HEAD & SCALP: normocephalic Resp: COMMON NORMALS: clear to auscultation bilaterally AUSCULTATION: clear to auscultation bilaterally Cardio: COMMON NORMALS: regular rate, regular rhythm, S1 normal heart sound present and S2 normal heart sound present RATE: regular rate RHYTHM: regular rhythm HEART SOUNDS: S1 normal heart sound present and S2 normal heart sound present GI: COMMON NORMALS: Soft to palpation PALPATION: Yes Soft to palpation Extremity: NARRATIVE EXTREMITY EXAM: Pulses not palpable in the left lower extremity. Has ulcer on the left lower extremity above the ankle Neuro: COMMON NORMALS: patient oriented x3 Data : 12/15/21 00:50 12/15/21 00:50 Micro: Microbiology 12/14/21 10:31 Blood Culture - Preliminary Blood NEGATIVE TO DATE 12/14/21 10:23 Blood Culture - Preliminary Blood NEGATIVE TO DATE A&P Assessment and plan (1) Critical limb ischemia of left lower extremity: Status: Acute (2) Peripheral vascular disease of lower extremity with ulceration: Status: Acute (3) Hypertension: Status: Acute (4) Peripheral neuropathy: Status: Acute Plan Patient underwent peripheral angiogram today. She had occlusion of the external iliac artery extending down to common femoral artery. Subtotally occluded SFA with reconstitution of popliteal artery. Below the knee severe PAD with single vessel run off with popliteal artery seen extending down to the mid calf. Successful revascularization of the left lower extremity with arthrectomy and balloon angioplasty. However given poor run off below the knee, foot is still getting low blood flow. We will start eliquis 5mg bid. Thank you for involving us with care of this patient. We will continue to follow. Please call with questions Attestations Medical Necessity Statement*: Care expected to cross 2 midnights. Coding Level of Care Code Acute Application Helper for Lesly Arango Diagnoses Critical limb ischemia of left lower extremity I70.222 Peripheral vascular disease of lower extremity with ulceration I73.9; L97.909 Hypertension I10 Peripheral neuropathy G62.9
[2021-12-15] MEDS: morphine 4 mg/mL SDV 1 mL 2 MG IVP (21:47)
--- NOTE | 2021-12-15 22:56 | PC.NURSE ---
Patient provided medication pre-procedure for sheath removal as documented. Initiated sheath removal per protocol at 2155. Hemostasis achieved immediately. Maintained pressure for 20min. No s/s of bleeding or hematoma formation at that time. Site covered with 2x2 and bio-occlusive dressing. Instructed patient on site care and restrictions. Patient verbalized complete understanding. Repositioned for comfort. Patient reports feeling better at this time. Pulses to left lower extremity faint when doppled but present. Will continue to monitor. Daughter remains at bedside.
--- NOTE | 2021-12-15 23:13 | PC.NURSE ---
Patient c/o increased pain to left leg. Able to dopple pulses to left lower extremity still remain faint however. Pain medication given as ordered and documented. Will continue to monitor.
[2021-12-16] VITALS (16 sets, daily range): BP systolic 123–169; BP diastolic 60–96; PULSE 67–93; RESP 6–20; TEMP 36.3–37.1; O2SAT 91–97
[2021-12-16 03:16] LABS: Basophils # 0.1 10^3/uL (0.0-0.1); Eosinophils # 0.2 10^3/uL (0.0-0.8); Eosinophils % 1.8 %; Hematocrit 37.3 % (37.0-47.0); Hemoglobin 11.8 g/dL (11.5-15.3); Lymphocytes # 1.1 10^3/uL (0.8-4.8); Lymphocytes % 13.2 %; Mean Corpuscular HGB Conc 31.6 g/dL (30.0-36.0); Mean Corpuscular Hemoglobin 29.6 pg (28.0-34.0); Mean Corpuscular Volume 93.5 fl (81-99); Mean Platelet Volume 9.4 fL (7.4-10.4); Monocytes % 12.1 %; Neutrophils # 5.99 10^3/uL (1.8-7.7); Neutrophils % 71.5 %; Nucleated Red Blood Cells % 0 %; Platelet Count 348 10^3/cmm (130-400); Red Blood Count 3.99 10^6/uL (4.1-5.3); Red Cell Distribution Width 14.9 % (12.1-15.1); White Blood Count 8.4 10^3/uL (4.0-10.0)
[2021-12-16 03:39] LABS: Anion Gap 12.3 (5-19); Blood Urea Nitrogen 14 mg/dL (8-23); Calcium 8.5 mg/dL (8.5-10.5); Carbon Dioxide 27 mmol/L (22-29); Chloride 102 mmol/L (98-107); Glucose 83 mg/dL (65-115); Osmolality Calculated 284 mOsm/kg (285-295); Potassium 4.3 mmol/L (3.5-5.1); Sodium 137 mmol/L (136-145)
[2021-12-16] MEDS: aspirin 81 mg EC Tablet PO (06:05)
[2021-12-16] MEDS: apixaban 5 mg Tablet 2.5 MG PO ×2 (06:05→20:15)
[2021-12-16] MEDS: levothyroxine 125 mcg Tablet PO (06:05)
--- NOTE | 2021-12-16 07:49 | PM.PN ---
Subjective Subjective: Patient is doing well. Denies leg pain. She has dopplerable pulses both PT and DP. Vitals/I&O/Wt Last Vital Signs Temp 97.5 F L 12/16/21 04:00 Pulse 72 12/16/21 04:00 Resp 8 L 12/16/21 04:00 BP 147/70 12/16/21 04:00 Pulse Ox 95 12/16/21 04:00 12/15/21 12/16/21 12/16/21 22:59 06:59 14:59 Intake Total 760 / 1760 2111.667 / 3871.667 Balance 760 / 1760 2111.667 / 3871.667 Weight last 48 hrs Weight 105 lb 4.8 oz Weight 103 lb Weight 103 lb Physical Exam Const: COMMON NORMALS: patient oriented x3 HENMT: COMMON NORMALS: normocephalic HEAD & SCALP: normocephalic Resp: COMMON NORMALS: clear to auscultation bilaterally AUSCULTATION: clear to auscultation bilaterally Cardio: COMMON NORMALS: regular rate, regular rhythm, S1 normal heart sound present and S2 normal heart sound present RATE: regular rate RHYTHM: regular rhythm HEART SOUNDS: S1 normal heart sound present and S2 normal heart sound present GI: COMMON NORMALS: Soft to palpation PALPATION: Yes Soft to palpation Extremity: NARRATIVE EXTREMITY EXAM: Pulses are dopplerable in the left lower extremity. Has ulcer on the left lower extremity above the ankle Neuro: COMMON NORMALS: patient oriented x3 Data : 12/16/21 02:26 12/16/21 02:26 Micro: Microbiology 12/14/21 10:31 Blood Culture - Preliminary Blood NEGATIVE TO DATE 12/14/21 10:23 Blood Culture - Preliminary Blood NEGATIVE TO DATE A&P Assessment and plan (1) Critical limb ischemia of left lower extremity: Status: Acute (2) Peripheral vascular disease of lower extremity with ulceration: Status: Acute (3) Hypertension: Status: Acute (4) Peripheral neuropathy: Status: Acute Plan Patient underwent peripheral angiogram yesterday. She had occlusion of the external iliac artery extending down to common femoral artery. Subtotally occluded SFA with reconstitution of popliteal artery. Below the knee severe PAD with single vessel run off with popliteal artery seen extending down to the mid calf. Successful revascularization of the left lower extremity with arthrectomy and balloon angioplasty. Now pulses are dopplerable and resting leg pain has resolved. Continue eliquis 5mg BID for now. Thank you for involving us with care of this patient. We will continue to follow. Please call with questions Attestations Medical Necessity Statement*: Care expected to cross 2 midnights. Coding Level of Care Code Acute Printing Supplies Sales Representative for Lesly Arango Diagnoses Critical limb ischemia of left lower extremity I70.222 Peripheral vascular disease of lower extremity with ulceration I73.9; L97.909 Hypertension I10 Peripheral neuropathy G62.9
[2021-12-16] MEDS: HYDROcodone-acetaminophen 5-325 mg Tablet 1 TAB PO ×2 (08:36→20:15)
[2021-12-16] MEDS: metoprolol tartrate 25 mg Tablet 12.5 MG PO ×2 (08:37→20:15)
[2021-12-16] MEDS: predniSONE 20 mg Tablet 40 MG PO (08:37)
[2021-12-16] MEDS: folic acid 1 mg Tablet PO (08:37)
--- NOTE | 2021-12-16 10:04 | PM.PN ---
Subjective Subjective: Patient is endorsing improvement in her pain Has been noticing some soreness and cramps Discussed in detail with the daughter regarding my concern related to pyoderma gangrenosum Currently on steroids She has intermittent pulses of dorsalis pedis, good pulses up to popliteal Foot is warm Case discussed with cardiology Vitals/I&O/Wt Last Vital Signs Temp 97.3 F L 12/16/21 08:00 Pulse 93 12/16/21 08:00 Resp 13 12/16/21 08:00 BP 144/69 12/16/21 08:00 Pulse Ox 95 12/16/21 08:00 12/15/21 12/16/21 12/16/21 22:59 06:59 14:59 Intake Total 760 / 1760 2111.667 / 3871.667 240 / 240 Balance 760 / 1760 2111.667 / 3871.667 240 / 240 Weight last 48 hrs Weight 47.763 kg Weight 46.72 kg Physical Exam Narrative: Patient is laying comfortably in her bed Dehydrated No active neurological focal exam Saturating well on room air S1, S2 Intermittent pulses dorsalis pedis, good pulses up to popliteal Foot is warm Less tender Has good sensations Abdomen is soft Nonlabored breathing Saturating well on room air Data : 12/16/21 02:26 12/16/21 02:26 Micro: Microbiology 12/14/21 10:31 Blood Culture - Preliminary Blood NEGATIVE TO DATE 12/14/21 10:23 Blood Culture - Preliminary Blood NEGATIVE TO DATE A&P Assessment and plan (1) Pyoderma gangrenosum: Status: Acute (2) Critical limb ischemia of left lower extremity: Status: Acute (3) Left leg claudication: Status: Acute (4) Peripheral vascular disease of lower extremity with ulceration: Status: Acute Plan Left leg ischemia status post balloon angioplasty With good revascularization response to popliteal area below knee she has single-vessel supply Intermittent palpable pulses or dorsalis pedis and posterior tibial Foot is warm, less tender Case discussed with cardiology Would like to watch her 1 more day Eliquis has been initiated along with aspirin and atorvastatin Crohn's disease no active flareup Pyoderma gangrenosum currently on steroids Patient will need outpatient rheumatology follow-up Full code Cardiac diet Appreciate cardiology update and recommendations Attestations Medical Necessity Statement*: Continue to monitor 1 more day Time Spent in Patient Care: 30min Coding Level of Care Code Acute Landscape Maintenance Internship for Chg Fwd Diagnoses Pyoderma gangrenosum L88 Critical limb ischemia of left lower extremity I70.222 Left leg claudication I73.9 Peripheral vascular disease of lower extremity with ulceration I73.9; L97.909
[2021-12-16] MEDS: gabapentin 300 mg Capsule PO (20:15)
[2021-12-16] MEDS: atorvastatin 40 mg Tablet 20 MG PO (20:15)
--- NOTE | 2021-12-16 20:28 | PC.NURSE ---
Received report from WILMA Martin. Patient resting in bed. Doppled pulses to left lower extremity. Dr Young in to see patient as well. Patient reports feeling much better tonight. Dressing to right groin remains c,d,i with no s/s of bleeding or hematoma formation observed. Denies needs. No distress observed. Will continue to monitor.
--- NOTE | 2021-12-17 02:04 | PC.NURSE ---
Performed dressing change to left lower extremity stasis ulcers. Noted increased sloughing and drainage. Cleaned area with normal saline applied silvercell dressing to both wounds and covered with optifoam. Patient noted tenderness to the wounds with touch but tolerated well.
[2021-12-17] MEDS: HYDROcodone-acetaminophen 5-325 mg Tablet 1 TAB PO (03:04)
[2021-12-17] MEDS: levothyroxine 125 mcg Tablet PO (03:05)
[2021-12-17] MEDS: aspirin 81 mg EC Tablet PO (03:05)
[2021-12-17 03:20] VITALS: BP 153/83; PULSE 68; RESP 14; TEMP 36.3; O2SAT 96
[2021-12-17 07:35] VITALS: BP 141/75; PULSE 67; RESP 10; TEMP 36.4; O2SAT 98
--- NOTE | 2021-12-17 08:12 | PM.PN ---
Subjective Subjective: Patient feeling much better today. Has ambulated and denies leg pain Vitals/I&O/Wt Last Vital Signs Temp 97.6 F 12/17/21 07:35 Pulse 67 12/17/21 07:35 Resp 10 L 12/17/21 07:35 BP 141/75 12/17/21 07:35 Pulse Ox 98 12/17/21 07:35 12/16/21 12/17/21 12/17/21 22:59 06:59 14:59 Intake Total 400 / 880 60 / 940 Balance 400 / 880 60 / 940 Physical Exam Const: COMMON NORMALS: patient oriented x3 HENMT: COMMON NORMALS: normocephalic HEAD & SCALP: normocephalic Resp: COMMON NORMALS: clear to auscultation bilaterally AUSCULTATION: clear to auscultation bilaterally Cardio: COMMON NORMALS: regular rate, regular rhythm, S1 normal heart sound present and S2 normal heart sound present RATE: regular rate RHYTHM: regular rhythm HEART SOUNDS: S1 normal heart sound present and S2 normal heart sound present GI: COMMON NORMALS: Soft to palpation PALPATION: Yes Soft to palpation Extremity: NARRATIVE EXTREMITY EXAM: Pulses are dopplerable in the left lower extremity both DP and PT. Has ulcer on the left lower extremity above the ankle Neuro: COMMON NORMALS: patient oriented x3 Data : 12/16/21 02:26 12/16/21 02:26 A&P Assessment and plan (1) Critical limb ischemia of left lower extremity: Status: Resolved (2) Peripheral vascular disease of lower extremity with ulceration: Status: Acute (3) Hypertension: Status: Acute (4) Peripheral neuropathy: Status: Acute Plan Patient underwent peripheral angiogram yesterday. She had occlusion of the external iliac artery extending down to common femoral artery. Subtotally occluded SFA with reconstitution of popliteal artery. Below the knee severe PAD with single vessel run off with popliteal artery seen extending down to the mid calf. Successful revascularization of the left lower extremity with arthrectomy and balloon angioplasty. Now pulses are dopplerable and resting leg pain has resolved. Ambulating well. Continue eliquis 5mg BID for now. Thank you for involving us with care of this patient. Patient is stable to be discharged with close outpatient follow up. Please call with questions Attestations Medical Necessity Statement*: Care expected to cross 2 midnights. Coding Level of Care Code Acute Acute Care Physical Therapist for Chg Fwd Diagnoses Critical limb ischemia of left lower extremity I70.222 Peripheral vascular disease of lower extremity with ulceration I73.9; L97.909 Hypertension I10 Peripheral neuropathy G62.9
[2021-12-17] MEDS: apixaban 5 mg Tablet 2.5 MG PO (09:28)
[2021-12-17] MEDS: folic acid 1 mg Tablet PO (09:30)
[2021-12-17] MEDS: predniSONE 20 mg Tablet 40 MG PO (09:30)
[2021-12-17] MEDS: metoprolol tartrate 25 mg Tablet 12.5 MG PO (09:31)
--- NOTE | 2021-12-17 10:46 | PC.SOCIAL ---
Pg 2 IMM Explained to pt Pg 2 IMM. No questions voiced. Provided pt a copy. Initialed, dated, & timed a copy & placed in chart.
--- NOTE | 2021-12-17 11:01 | P.DS_ITS ---
Discharge Providers Date of Admission: 12/14/21 13:19 Date of Discharge: December 17, 2021 Attending Provider at Admission: Farhad Adair MD Attending Provider at Discharge: Farhad Adair MD Primary Care Provider: Alvarado Suárez MD Diagnoses at Discharge Discharge Diagnosis (1) Critical limb ischemia of left lower extremity: Status: Acute (2) Peripheral vascular disease of lower extremity with ulceration: Status: Acute (3) Hypertension: Status: Acute (4) Peripheral neuropathy: Status: Acute Reason for Visit Reason for Visit: left leg pain/ wound to left leg Hospital Course Hospital Course Admit note Dimple Mckay is a 86 year old female who presented for resting leg pain.? Patient stating that her symptoms started roughly 1 month ago with numbness and tingling, after numbness and tingling she started experiencing leg cramps and resting pain in her left leg.? After that she started noticing 2 ulcers just above her ankle for which she decided to go see her PCP.? PCP asked her to follow-up with wound care clinic, CTA aorta with runoff was done which showed significant peripheral arterial disease, she carries history of ulcerative colitis, Remicade last dose was held, she consider herself very active for age, she takes care of her , quit smoking 1994, no alcohol intake.? She does not tolerate antibiotics very well. Dr. Blue and Dr. Young consulted by the ER physician Patient at the time of evaluation is n.p.o. Pain 4/10 Daughter at the bedside 1.? 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 Common femoral artery is occluded in the LEFT groin. Superficial femoral artery is occluded at the origin with a tiny amount of segmental flow in the upper and mid thigh. Popliteal artery is patent with three-vessel runoff to the ankle. Segmental stenosis in the posterior tibial artery. 2.? RIGHT: Mild segmental stenosis in the superficial femoral artery which remains patent. Popliteal artery is patent proximally and is occluded above the knee. This reconstitutes in the popliteal fossa and is patent to the trifurcation. Two-vessel anterior tibial and peroneal runoff to the ankle. 3.? Moderate aortic atheromatous disease. No abdominal aortic aneurysm. 4.? 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 Moderate stenosis at the SMA origin. 5.? Densely calcified renal ostia with moderate to severe LEFT and moderate RIGHT stenosis. 6.? NHI is patent. 7.? Additional nonvascular findings described above Hosp course:- Patient was admitted on 12/14 for left leg ischemic signs and symptoms. Cardiothoracic and cardiology consulted at that the time of admission. Kindly see their notes for further details. Patient underwent peripheral angiogram today. She had occlusion of the external iliac artery extending down to common femoral artery. Subtotally occluded SFA with reconstitution of popliteal artery. Below the knee severe PAD with single vessel run off with popliteal artery seen extending down to the mid calf. Successful revascularization of the left lower extremity with arthrectomy and balloon angioplasty. However given poor run off below the knee, foot is still getting low blood flow. started on Eliquis, her pain at rest improved however completely disappeared. She has good dopplerable pulses of dorsalis pedis and posterior tibial on left side. Her ankle ulcers are more consistent with pyoderma gangrenosum I started her on steroids, gave Medrol pack at discharge, dermatology follow-up for biopsy. Added Doxy for MRSA coverage. Close follow-up with real estate representative. PT evaluation done. She will be given a bedside commode and walker at the time of discharge. Physical Exam Narrative: Patient is laying comfortably in her bed No active neurological focal exam Saturating well on room air S1, S2 left dopplerable pulses dorsalis pedis Foot is warm Has good sensations Abdomen is soft Nonlabored breathing Saturating well on room air ulcerating lesion above ankle bilateral, pyoderma gangrosum Discharge Data Studies Completed and Pending Completed Studies During Hospitalization Category Date Time Status US arterial duplex lower extremity LT [CV arterial Ultrasound 12/14/21 10:04 [place] [id number]] Stat US venous duplex lower extremity LT [CV venous duplex Ultrasound 12/14/21 09:50 [place] [id number]] Stat Pending at discharge Category Date Time Status [employer] request for service Routine Exams 12/15/21 10:00 Taken Blood Culture Stat Lab 12/14/21 10:23 Results Laboratory Results WBC 8.4 10^3/uL (4.0-10.0) 12/16/21 02:26 RBC 3.99 10^6/uL (4.1-5.3) L 12/16/21 02:26 Hgb 11.8 g/dL (11.5-15.3) 12/16/21 02:26 Hct 37.3 % (37.0-47.0) 12/16/21 02: MCV 93.5 fl (81-99) 12/16/21 02:26 MCH 29.6 pg (28.0-34.0) 12/16/21 02: MCHC 31.6 g/dL (30.0-36.0) 12/16/21 02: RDW 14.9 % (12.1-15.1) 12/16/21 02:26 Plt Count 348 10^3/cmm (130-400) 12/16/21 02: MPV 9.4 fL (7.4-10.4) 12/16/21 02: Neut % (Auto) 71.5 % 12/16/21 02: Lymph % (Auto) 13.2 % 12/16/21 02: [place] % (Auto) 12.1 % 12/16/21 02:26 Eos % (Auto) 1.8 % 12/16/21 02:26 Baso % (Auto) 1.0 % 12/16/21 02: Neut # (Auto) 5.99 10^3/uL (1.8-7.7) 12/16/21 02: Lymph # (Auto) 1.1 10^3/uL (0.8-4.8) 12/16/21 02:26 [place] # (Auto) 1.0 10^3/uL (0.2-0.9) H 12/16/21 02: Eos # (Auto) 0.2 10^3/uL (0.0-0.8) 12/16/21 02:26 Baso # (Auto) 0.1 10^3/uL (0.0-0.1) 12/16/21 02:26 Nucleated RBC % (auto) 0 % 12/16/21 02: Nucleated RBCs # 0.0 /100WBC 12/16/21 02:26 PT 12.30 SECONDS (12.1-14.9) 12/14/21 18:26 INR 0.88 (0.8-1.2) 12/14/21 18:26 APTT 53.2 SECONDS (23.9-36.7) H D 12/15/21 20:19 Sodium 137 mmol/L (136-145) 12/16/21 02:26 Potassium 4.3 mmol/L (3.5-5.1) 12/16/21 02:26 Chloride 102 mmol/L (98-107) 12/16/21 02:26 Carbon Dioxide 27 mmol/L (22-29) 12/16/21 02:26 Anion Gap 12.3 (5-19) 12/16/21 02:26 BUN 14 mg/dL (8-23) 12/16/21 02:26 Creatinine 0.5 mg/dL (0.5-0.9) 12/16/21 02:26 GFR Calculation Not Reportable 12/16/21 02:26 Glucose 83 mg/dL (65-115) 12/16/21 02:26 Calculated Osmolality 284 mOsm/kg (285-295) L 12/16/21 02:26 Calcium 8.5 mg/dL (8.5-10.5) 12/16/21 02:26 Magnesium 2.4 mg/dL (1.7-2.3) H 12/15/21 00:50 Total Bilirubin 0.3 mg/dL (0.15-1.2) 12/15/21 00:50 AST 22 U/L (0-32) 12/15/21 00:50 ALT 14 U/L (0-33) 12/15/21 00:50 Alkaline Phosphatase 64 IU/L (35-105) 12/15/21 00:50 Total Protein 7.3 g/dL (6.6-8.7) 12/15/21 00:50 Albumin 3.7 g/dL (3.5-5.2) 12/15/21 00:50 Globulin 3.6 g/dL (1.3-4.6) 12/15/21 00:50 Procalcitonin 0.04 ng/mL (0-0.5) 12/14/21 09:55 Vitals Last Vital Signs Temp 97.6 F 12/17/21 07:35 Pulse 67 12/17/21 07:35 Resp 10 L 12/17/21 07:35 BP 141/75 12/17/21 07:35 Pulse Ox 98 12/17/21 07:35 Discharge Plan Discharge Patient Disposition: Home Condition: Stable Prescriptions: New Eliquis 5 mg tablet 5 mg PO BID Qty: 60 0RF Medrol (Mj) 4 mg tablets,dose pack See Rx Instructions .ROUTE .COMPLEX Qty: 21 0RF Rx Instructions: orally per package directions doxycycline hyclate 100 mg tablet 100 mg PO BID 7 Days Qty: 14 0RF Continued cyanocobalamin (vitamin B-12) 1,000 mcg/mL solution 1,000 mcg IM Q30D 0RF folic acid 1 mg tablet 1 mg PO DAILY 0RF lisinopril 2.5 mg tablet 2.5 mg PO BEDTIME 0RF calcium carbonate [Calcium 500] 500 mg calcium (1,250 mg) tablet,chewable 500 mg PO DAILY 0RF Remicade 100 mg recon soln See Rx Instructions .ROUTE .COMPLEX 0RF Rx Instructions: every 8 weeks levothyroxine 125 mcg tablet 125 mcg PO QAM 0RF hydrocodone-acetaminophen 5-325 mg tablet 1 tab PO Q8H PRN (Reason: pain) 7 Days Qty: 20 0RF Vitamin D3 25 mcg (1,000 unit) Capsule See Rx Instructions .ROUTE .COMPLEX 0RF Rx Instructions: 1000 units po qam and 400 units qpm metoprolol tartrate 25 mg tablet 12.5 mg PO BID 0RF loperamide 2 mg Capsule 4 mg PO .UP TO BID PRN (Reason: Diarrhea) 0RF acetaminophen 500 mg Tablet 1,000 mg PO Q6H PRN (Reason: Pain) 0RF erythromycin 5 mg/gram (0.5 %) ointment See Rx Instructions .ROUTE .COMPLEX 0RF Rx Instructions: 0.25 inch ribbon to both eyes qpm gabapentin 300 mg capsule 300 mg PO BEDTIME 0RF diclofenac sodium 1 % gel 2 gm TOPICAL QID PRN (Reason: Pain) 0RF Rx Instructions: apply to single elbow, wrist or hand; for hand includes palm/fingers/back of hand Adult Aspirin Regimen 81 mg tablet,delayed release (DR/EC) 81 mg PO QAM Qty: 60 0RF simvastatin 40 mg tablet 40 mg PO DAILY Qty: 60 0RF Discharge Orders: Discharge Order (Routine); Ordered 12/17/21 Ordered By: Farhad Adair Other Ambulatory Orders: DME: [employer] (Order) Location: None Selected Ordered By: Farhad Adair DME: Walker (Order) Location: None Selected Ordered By: Llamas Giovany Referrals: [facility] [place] [Outside] [facility] [Outside] Richard Young M.D [Physician] - 12/23/21 12:30 pm Milly Michaels DO [Physician] - 1-3 days ([facility] will be calling to schedule an appointment. If you don't hear from them by Tuesday mid morning, please give them a call. Thank you) Alvarado Suárez MD [Primary Care Provider] - 12/22/21 12:30 pm [facility], [Staff Physician] - 12/23/21 3:30 pm Discharge Diet: Cardiac Discharge Activity: Increase activity as tolerated Patient Instructions: Doxycycline (By mouth) (Acticlate, Adoxa, Avidoxy, Monodox, Doryx), Methylprednisolone (By mouth) (Medrol, Medrol Dosepak), Apixab an (By mouth) (Eliquis), Peripheral Vascular Angioplasty (DC), Opioid Safety Discharge Attestations Time Spent in Discharge Care*: less than 30 min Quality Metrics Clinical Quality Measures [ No reported AMI, CVA or VTE this stay] Coding Level of Care Code Acute Chg FW DC note Diagnoses Critical limb ischemia of left lower extremity I70.222 Peripheral vascular disease of lower extremity with ulceration I73.9; L97.909 Hypertension I10 Peripheral neuropathy G62.9
[2021-12-17 11:07] VITALS: BP 127/72; PULSE 61; RESP 18; TEMP 36.6; O2SAT 95
--- NOTE | 2021-12-17 11:43 | DCPLANNER ---
Dermatology Clinic was not answering their phone so I could make appointment. I Typed it out as I do for weekend Discharges and faxed order to them
[2021-12-17 12:44] VITALS: BP 160/65; PULSE 73; RESP 16; TEMP 36.4; O2SAT 95
--- NOTE | 2021-12-17 15:54 | PC.NURSE ---
Discharge Note Patient discharged to home via private vehicle accompanied by caregiver. All lines removed. Dressings the left lower legs changed. Discharge instructions reviewed with patient and/or resources representative. Patient verbalized understanding of all teaching. Mobile pharmacy medications and/or prescriptions provided. Belongings/home medications returned.
[2021-12-17 16:00] VITALS: BP 160/65; PULSE 74; RESP 18; TEMP 36.4; O2SAT 93
== END 2021-12-17 14:00 | disposition home or self-care (01) | DRG 271 ==
LOC: ER 10:35 → MEDSURG 14:49 → CSU 12-15 14:56
PROVIDERS: Internal Medicine; Admitting Provider Internal Medicine; Emergency Provider Family Medicine; PCP Family Medicine; Visit Provider Internal Medicine
PROC: 04CL3ZZ Extirpation of Matter from Left Femoral Artery, Percutaneous Approach (ICD-10-PCS; principal; 2021-12-15 10:00)
PROC: 04CL3ZZ Extirpation of Matter from Left Femoral Artery, Percutaneous Approach (ICD-10-PCS; 2021-12-15 10:00)
DX: I70.222 Atherosclerosis of native arteries of extremities with rest pain, left leg (principal); L97.929 Non-pressure chronic ulcer of unspecified part of left lower leg with unspecified severity; K50.90 Crohn's disease, unspecified, without complications; L88 Pyoderma gangrenosum; Z86.73 Personal history of transient ischemic attack (TIA), and cerebral infarction without residual deficits; I97.3 Postprocedural hypertension; Z87.891 Personal history of nicotine dependence; Z90.5 Acquired absence of kidney; G62.9 Polyneuropathy, unspecified; Z79.891 Long term (current) use of opiate analgesic; Z79.82 Long term (current) use of aspirin
CPT/HCPCS: 36415; 37220; 37224; 37225; 75625; 75710; 80048; 80053; 83735; 84145; 85025; 85347; 85610; 85730; 87040; 93926; 93971; 96365; 96366; 96375; 97110; 97116; 97161; 97530; 99285; C1724; C1725; C1769; C1887; C1894; J1644; J2250; J2270; J3010; J3490; J7030; J7512; Q0163; Q9967

== ENCOUNTER → 2021-12-23 13:13 | Outpatient (BNVA) | payer MEDICARE, SELFPAY | PROVIDERS: PCP Family Medicine; Visit Provider Internal Medicine | DX: I73.9 Peripheral vascular disease, unspecified (principal); I96 Gangrene, not elsewhere classified; L97.822 Non-pressure chronic ulcer of other part of left lower leg with fat layer exposed; I10 Essential (primary) hypertension; Z87.891 Personal history of nicotine dependence | CPT/HCPCS: 11042; 99214 ==

== ENCOUNTER 2021-12-27 17:59 | Inpatient (IN) | payer MEDICARE, SELFPAY ==
[2021-12-27] VITALS (9 sets, daily range): BP systolic 118–183; BP diastolic 72–101; PULSE 92–103; RESP 12–20; TEMP 38.4–38.5; O2SAT 91–99; BMI 15.6; BMI 16.7
--- NOTE | 2021-12-27 18:31 | XRR_ITS ---
PROCEDURE INFORMATION: Exam: XR Chest Exam date and time: 12/27/2021 6:42 PM Age: 86 years old Clinical indication: Fever TECHNIQUE: Imaging protocol: XR of the chest. Views: 1 view. COMPARISON: [place] Chest 1 [place] [id number] 11/18/2015 1:53 PM FINDINGS: Lungs: COPD morphology of the chest. There are pulmonary parenchymal calcifications consistent with remote granulomatous organism exposure. Pleural spaces: There is minimal blunting of the left costophrenic angle, similar to the prior study. This may represent pleural thickening and/or scarring. A tiny pleural effusion cannot be excluded. Heart/Mediastinum: Cardiomegaly. Vasculature: There is calcified plaque in the aortic knob. Bones/joints: Unremarkable. Soft tissues: No significant interval change in the appearance of the chest since the prior study. XR/XR chest 1V portable [id number] IMPRESSION: There has been no significant interval change in the appearance of the chest since the prior study. COPD morphology of the chest with cardiomegaly.
--- NOTE | 2021-12-27 18:32 | USR_ITS ---
PROCEDURE INFORMATION: Exam: US Left Noninvasive Physiologic Study of the Lower Extremity Arteries, Limited Exam date and time: 12/27/2021 6:24 PM Age: 86 years old Clinical indication: Pain; Leg, lower; Left; Additional info: Lost pulse lle. TECHNIQUE: Imaging protocol: Left Limited bilateral noninvasive physiologic studies of lower extremity arteries. Images were documented and archived. Exam is limited. COMPARISON: US ROR venous duplex [facility] 12/22/2021 4:05 PM FINDINGS: Left Ankle-Brachial Index: 0.63 US/CV segpressure [facility] [id number] IMPRESSION: Left ankle brachial index is decreased at 0.63 corresponding to moderate peripheral arterial disease.
[2021-12-27] MEDS: morphine 4 mg/mL SDV 1 mL 2 MG IVP ×2 (18:48→18:49)
[2021-12-27] MEDS: ondansetron 2 mg/ML SDV 2 mL 4 MG IVP (18:49)
[2021-12-27 18:51] LABS: Basophils # 0.1 10^3/uL (0.0-0.1); Basophils % 0.6 %; Eosinophils # 0.2 10^3/uL (0.0-0.8); Eosinophils % 1.1 %; Hematocrit 37.2 % (37.0-47.0); Lymphocytes # 1.1 10^3/uL (0.8-4.8); Lymphocytes % 7.6 %; Mean Corpuscular HGB Conc 32.3 g/dL (30.0-36.0); Mean Corpuscular Hemoglobin 29.9 pg (28.0-34.0); Mean Corpuscular Volume 92.8 fl (81-99); Mean Platelet Volume 9.1 fL (7.4-10.4); Monocytes # 1.5 10^3/uL (0.2-0.9); Monocytes % 10.7 %; Neutrophils # 11.19 10^3/uL (1.8-7.7); Neutrophils % 79.4 %; Nucleated Red Blood Cells % 0 %; Platelet Count 445 10^3/cmm (130-400); Red Blood Count 4.01 10^6/uL (4.1-5.3); Red Cell Distribution Width 15.2 % (12.1-15.1); White Blood Count 14.1 10^3/uL (4.0-10.0)
[2021-12-27 19:03] LABS: Erythrocyte Sedimentation Rate 38 mm/hr (0-15)
--- NOTE | 2021-12-27 19:03 | W.ED.EXTPRO ---
HPI - Extremity Problem General: Chief complaint: Extremity Injury, Lower Stated complaint: WOUND L L EXT Time Seen by Provider: 12/27/21 18:18 Source: patient and family History of Present Illness: 86-year-old female who had an arterial stent placed to the left lower extremity around 10 days ago. She presents with increasing pain, as well as increasing redness to the left lower leg proximal to the ankle. She has 2 chronic wounds, one medial and 1 lateral to that leg. They look more angry. 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 She is also running a temperature. Some drainage to the wounds. MD Complaint: extremity pain and cold extremity Onset (ago): day(s) (1-2) Pain Consistency: constant Location: left Quality: burning and stabbing Radiation: proximal Relieving factors: nothing Exacerbating factors: nothing Associated symptoms: Reports fever(s) and rash; Deny chest pain Context: recent surgery/procedure Review of Systems Const: Reports: fever(s) and chills ENMT: Denies: throat pain Card: Denies: chest pain or palpitations Resp: Denies: dyspnea, productive cough or non-productive cough GI: Reports: nausea; Denies: abdominal pain or vomiting Skin/Breast: Reports: rash and erythema PFSH ED PFSH: Medical History Crohn disease Fat pad atrophy of foot History of CVA (cerebrovascular accident) Hypertension 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 Osteoporosis Peripheral neuropathy 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) Tobacco abuse, in remission Surgical History History of cataract extraction History of cholecystectomy History of parathyroidectomy History of tonsillectomy Family History Other CAD (coronary artery disease) Cancer Diabetes Hypertension Social History Smoking and tobacco status: former smoker Alcohol intake: never Lives independently: No Household members: spouse Marital status: Marital status details: Help from children, caregivers History of recent travel: No Physical Exam Const: GENERAL APPEARANCE: cooperative, ill appearing and frail appearing HENMT: COMMON NORMALS: normocephalic, atraumatic and Normal external nose present HEAD & SCALP: normocephalic and atraumatic FACE & SINUS: normal facial exam NOSE: Normal external nose present Eye: COMMON NORMALS: Equal, round and reactive pupils present and EOMs intact bilaterally PUPIL: Yes Equal, round and reactive pupils present Chest: COMMONS NORMALS: normal inspection of the chest Resp: COMMON NORMALS: normal respiratory effort, No use of accessory muscles and clear to auscultation bilaterally AUSCULTATION: clear to auscultation bilaterally Cardio: COMMON NORMALS: regular rate and regular rhythm RATE: regular rate RHYTHM: regular rhythm GI: COMMON NORMALS: Normal to inspection, nondistended, normoactive bowel sounds present and Soft to palpation PALPATION: Yes Soft to palpation Extremity: NARRATIVE EXTREMITY EXAM: Exam the left lower extremity reveals coolness and pallor to the foot. There is beefy erythema to the distal left lower leg. There are 2 chronic skin ulcerations there with no drainage currently. Black eschars are apparent. The leg is tender to touch. Pulses are not palpable to the dorsalis pedis or posterior tibialis. Neuro: EMMY COMA SCALE: document GCS findings Emmy coma scale eye opening: Spontaneous Emmy coma scale verbal response: Orientated [place] coma scale motor response: Obey commands [place] coma scale total score: 15 SENSORY EXAM: Yes extremities (Intact) Course Consultations: Consultation #1: mirtha Time: 19:58 Consultation #2: [email or web address] Time: 20:18 Vital Signs: Vital signs: Vital Signs Temperature 98 F 12/28/21 02:02 Pulse Rate 75 12/28/21 02:45 Respiratory Rate 14 12/28/21 02:45 Blood Pressure 101/80 12/28/21 02:45 Pulse Oximetry 97 12/28/21 02:52 MDM - Extremity (Nontraumatic) Medical Decision Making 86-year-old female with a history of peripheral vascular disease. She is status post angioplasty to the left lower extremity at about 10 days. She presents with a cold, quite left foot, and a fever. White blood cell count is 14.1. Sed rate and CRP are elevated. Lactic acid is not elevated. Blood cultures pending. She is covered with vancomycin and Zosyn given her wound, and surrounding erythema. Ultrasound arterial study shows no pulses at the dorsalis pedis or posterior tibialis. Cardiology was consulted, and he came to evaluate the patient in the ER. Disability Counselor team was called in for vascular intervention due to loss of pulse. She will be admitted to the hospital, covered for cellulitis. Hospitalist has seen the patient in the ER as well. Lab Data : 12/27/21 18:43 04 18:43 Radiology Impressions Chest X-Ray 12/27/21 18:31 IMPRESSION: There has been no significant interval change in the appearance of the chest since the prior study. COPD morphology of the chest with cardiomegaly. Doppler Study Ultrasound 12/27/21 18:32 IMPRESSION: Left ankle brachial index is decreased at 0.63 corresponding to moderate peripheral arterial disease. Laboratory Results WBC 14.1 10^3/uL (4.0-10.0) H 12/27/21 18:43 RBC 4.01 10^6/uL (4.1-5.3) L 12/27/21 18:43 Hgb 12.0 g/dL (11.5-15.3) 12/27/21 18:43 Hct 37.2 % (37.0-47.0) 12/27/21 18:43 MCV 92.8 fl (81-99) 12/27/21 18:43 MCH 29.9 pg (28.0-34.0) 12/27/21 18:43 MCHC 32.3 g/dL (30.0-36.0) 12/27/21 18:43 RDW 15.2 % (12.1-15.1) H 12/27/21 18:43 Plt Count 445 10^3/cmm (130-400) H 12/27/21 18:43 MPV 9.1 fL (7.4-10.4) 12/27/21 18:43 Neut % (Auto) 79.4 % 12/27/21 18:43 Lymph % (Auto) 7.6 % 12/27/21 18:43 [place] % (Auto) 10.7 % 12/27/21 18:43 Eos % (Auto) 1.1 % 12/27/21 18:43 Baso % (Auto) 0.6 % 12/27/21 18:43 Neut # (Auto) 11.19 10^3/uL (1.8-7.7) H 12/27/21 18:43 Lymph # (Auto) 1.1 10^3/uL (0.8-4.8) 12/27/21 18:43 [place] # (Auto) 1.5 10^3/uL (0.2-0.9) H 12/27/21 18:43 Eos # (Auto) 0.2 10^3/uL (0.0-0.8) 12/27/21 18:43 Baso # (Auto) 0.1 10^3/uL (0.0-0.1) 12/27/21 18:43 Nucleated RBC % (auto) 0 % 12/27/21 18:43 Nucleated RBCs # 0.0 /100WBC 12/27/21 18:43 ESR 38 mm/hr (0-15) H 12/27/21 18:43 Sodium 130 mmol/L (136-145) L 12/27/21 18:43 Potassium 4.3 mmol/L (3.5-5.1) 12/27/21 18:43 Chloride 93 mmol/L (98-107) L 12/27/21 18:43 Carbon Dioxide 27 mmol/L (22-29) 12/27/21 18:43 Anion Gap 14.3 (5-19) 12/27/21 18:43 BUN 12 mg/dL (8-23) 12/27/21 18:43 Creatinine 0.5 mg/dL (0.5-0.9) 12/27/21 18:43 GFR Calculation Not Reportable 12/27/21 18:43 Glucose 107 mg/dL (65-115) 12/27/21 18:43 Calculated Osmolality 270 mOsm/kg (285-295) L 12/27/21 18:43 Lactate 1.3 mmol/L (0.5-2.2) 12/27/21 18:43 Calcium 9.2 mg/dL (8.5-10.5) 12/27/21 18:43 Total Bilirubin 0.7 mg/dL (0.15-1.2) 12/27/21 18:43 AST 29 U/L (0-32) 12/27/21 18:43 ALT 19 U/L (0-33) 12/27/21 18:43 Alkaline Phosphatase 88 IU/L (35-105) 12/27/21 18:43 Creatine Kinase 97 U/L (26-192) 12/27/21 18:43 C-Reactive Protein 16.7 mg/L (0.0-4.9) H 12/27/21 18:43 Total Protein 7.5 g/dL (6.6-8.7) 12/27/21 18:43 Albumin 3.9 g/dL (3.5-5.2) 12/27/21 18:43 Globulin 3.6 g/dL (1.3-4.6) 12/27/21 18:43 Critical Care Time Critical Care Time: Critical Care Time: Yes Total Critical Care Time: 36 Attestation: This case had a high probability of a clinically significant, sudden, or life threatening deterioration of this patient's condition which required my full and direct attention, intervention and personal management. Time is independent of any procedures performed. Discharge Plan Discharge Patient Disposition: Admitted As Inpatient Admit Provider: Yefri Del Angel Clinical Impression: Acute occlusion of artery of lower extremity due to thrombosis, Cellulitis Condition: Fair Coding Level of Care Code ED Physical Medicine Teacher for Chg Fwd Exam Comprehensive
--- NOTE | 2021-12-27 19:03 | PC.NURSE ---
REPORT GIVEN TO KEVIN DILLON ASSUMED CARE.
[2021-12-27 19:21] LABS: Alanine Aminotransferase 19 U/L (0-33); Albumin Level 3.9 g/dL (3.5-5.2); Alkaline Phosphatase 88 IU/L (35-105); Aspartate Amino Transferase 29 U/L (0-32); Blood Urea Nitrogen 12 mg/dL (8-23); C Reactive Protein 16.7 mg/L (0.0-4.9); Calcium 9.2 mg/dL (8.5-10.5); Carbon Dioxide 27 mmol/L (22-29); Chloride 93 mmol/L (98-107); Creatine Phosphokinase 97 U/L (26-192); Creatinine Clr Calc Pharmacy 38.6089; Globulin 3.6 g/dL (1.3-4.6); Glucose 107 mg/dL (65-115); Osmolality Calculated 270 mOsm/kg (285-295); Sodium 130 mmol/L (136-145); Total Bilirubin 0.7 mg/dL (0.15-1.2); Total Protein 7.5 g/dL (6.6-8.7)
[2021-12-27 19:22] LABS: Lactate (Lactic Acid level) 1.3 mmol/L (0.5-2.2)
[2021-12-27 19:23] LABS: Anion Gap 14.3 (5-19); Potassium 4.3 mmol/L (3.5-5.1)
[2021-12-27] MEDS: piperacillin-tazobactam 3.375 GM in sodium chloride 0.9% (plus) 50 ML IV (20:24)
[2021-12-27] MEDS: sodium chloride 0.9% 1,000 ML 999 ML IV (20:24)
[2021-12-27] MEDS: vancomycin 1,000 MG in sodium chloride 0.9% 250 ML 250 MG IV (20:24)
--- NOTE | 2021-12-27 20:32 | XACV_ITS ---
Ht: 173 cm Wt: 47 kg BSA: 1.48 m2 Any Known Allergies: Other Gender: Female : 1935 Exam Type: Invasive Peripheral Vascular Procedure(s): Procedure Description: Peripheral Cath Diagnostic Procedure Procedure Description: Abdominal aortic angiography Procedure Description: Lower extremities' angiography Procedure Description: Peripheral vascular Intervention Procedure Description: PV Balloon Procedure Description: PV Thrombectomy Exam Priority: Routine Cintia GREEN[place]OD; Lower Extremity Diagnostic Findings This patient had an intervention to approximately 10 days ago. The artery of the distal common femoral artery which is a heavily calcified artery was occluded. Patient underwent a atherectomy as well as balloon angioplasty. Flow was reestablished. She states that very shortly after the procedure she began to have pain, redness and much discomfort in her leg. She came in tonight after experiencing a significant increase in the discomfort over the last 48 hours. Doppler study could not find any flow below the distal common femoral artery and the origin of the superficial femoral artery. Angiography reveals an occluded vessel at the common femoral artery at the site of the previous occlusion. There is no flow distally. There is some collateral flow from the profunda femoris artery distally. The artery reconstitutes in the distal SFA. The popliteal is moderately diffusely diseased and there is poor two-vessel runoff below the left knee. There appears to be thrombus in the vessel. Lower Extremity Interventional Findings A wire was placed and multiple balloon angioplasties with a 5 millimeter by 100 mm balloon were performed. This was done from the point of occlusion at the distal common femoral all the way down to the distal SFA. Finally some flow was reestablished. The entire vessel from the distal SFA up to the point of occlusion was full of thrombus. Subsequently a penumbra aspiration catheter was placed and several passes made. A small amount of clot was removed and flow was reestablished. There is still some residual thrombus distally but flow to the distal vessel was reestablished. The patient's leg improved with decreased redness and increased warmth. There is still a significant lesion at the distal common femoral artery and the ostium of the superficial femoral artery. This is the site of the previous occlusion as well as the occlusion this evening. The vessel is heavily calcified in this region. I placed 3000 units of heparin down the artery. We gave her 5000 unit bolus of heparin intravenously and started her on a weight-based heparin drip. Conclusions Thrombotic occlusion vessel opened with balloon angioplasty and subsequent penumbra aspiration catheter. Recommendations Heparin. Anticoagulation: Heparin Hemodynamic Data Phase:Rest AO : 73.0 / 54.0 ( 65.0 ) @ 5:43:50 PM 96.0 / 75.0 ( 85.0 ) @ 5:43:50 PM 131.0 / 59.0 ( 91.0 ) @ 5:43:50 PM Access Site Site: Right Femoral artery Sheath Size: 6 Fr Hemost... Method: Suture Hemost... Success: Successful Procedure Details Findings Procedure Consent Obtained. Admit Source: In Patient. Pre-Procedure Time Out. Identified patient by full name and date of as verbalized by the patient/guarantor. Does the consent match the physician's order: Yes. Accurate & Complete Informed Consent: Yes. Inpatient/Outpatient History & Physical on Chart: Yes. If H&P is completed, is and addenduem needed: N/A; If yes, is the addendum complete: N/A. Visualize and Verify Site with Patient/Guarantor: N/A. Relevant Radiology Images available: N/A. Pre-op teaching completed and patient verbalized understanding. The risks, benefits, and alternatives of sedation and/or procedure were discussed by physician. The patient agrees to continue. Procedure started. PERRLA. Strong, equal hand laboratory equipment installer bilaterally. Lungs clear x 5 lobes. Current diagnosis: Ischemic Limb. Correct patient, site and procedure confirmed by cath team. IV Site on Arrival: 20 gauge in the left anticubital. IV Fluids: 0.9% NaCl at KVO. 100 mL infused prior to microbiology lab analyst. Oxygen started at 2liters/min via nasal canula. right groin was prepped with chloroprep then draped in the usual sterile fashion. left groin was prepped with chloroprep then draped in the usual sterile fashion. Baseline sample Acquired. HR: 105 BPM. Physician notified. Physician arrived. Physician scrubbed in. Time out performed with cath team. Lidocaine 1% infiltrated to the right groin. Arterial access obtained. Abdominal aortogram performed in [place] @ 10 mL/sec for a total of 30 mL. A 5FrFr RIM catheter in over wire. Glidewire inserted. Catheter out. 6Fr short sheath exchanged for 6 Fr 45 cm Flexor sheath. Balloon inserted over the wire to the distal common femoral. Inflation number : 1 A AB ARMADA 35 OTW [id number] was prepped and advanced across the Distal Common Femoral, Left , then inflated to 10 SANTY for 1:00 seconds. Balloon out. Results checked. Balloon inserted over the wire to the distal common iliac. Inflation number: 2 The AB ARMADA 35 OTW [id number] was reinflated across the Distal Common Femoral, Left, to 8 SANTY for 1:00 seconds. Balloon out. Results checked. Balloon inserted over the wire to the common iliac. Inflation number: 3 The AB ARMADA 35 OTW [id number] was reinflated across the Distal Common Femoral, Left, to 8 SANTY for 1:00 seconds. Balloon out. Results checked. Inflation number: 1 The AB ARMADA 35 OTW [id number] was reinflated across the Distal Superficial Femoral, Left, to 8 SANTY for 1:00 seconds. Balloon inserted over the wire to the superficial femoral. Inflation number: 1 The AB ARMADA 35 OTW [id number] was reinflated across the Proximal Superficial Femoral, Left, to 8 SANTY for 0:30 seconds. Balloon repositioned to the Prox SFA. Balloon moved back on the wire. Results checked. Balloon out. 6Fr 45 cm Flexor sheath exchanged for 8Fr 45 cm Destination sheath. Lightning 7 Indigo System in over the glidewire. Glidewire pulled back, Aspiration of the left SFA performed. O2 sats falling, turned up to 6lpm BNC with no change. 100% NRB mask placed with sats increasing to 99-100% quickly. Glidewire back down, aspiration catheter pulled back. Results checked. Glidewire pulled back, Aspiration of the left SFA performed. Glidewire back down, aspiration catheter pulled back. Results checked. Glidewire pulled back, Aspiration of the left SFA performed. Glidewire back down, aspiration catheter out. Results checked. A Suture was successful obtaining hemostatsis at the Right Femoral artery insertion site. Post Procedure: Pulses reassessed and unchanged. PERRLA. Strong, equal hand laboratory equipment installer bilaterally. No VTE prophylaxis required. Medication's Wasted: Lidocaine 1% = 10 mL. Total IV fluids: 119 mL. Post-op diagnosis: Ischemic limb, PVD. Complications: none. Estimated blood loss: 125mL. Responsiveness - Normal response to verbal stimuli; alert and oriented, PERRLA. Airway - Unaffected, no intervention required; spontaneous ventilation. Circulation: W/N/L, pulses unchanged. Nausea/Vomiting: No. Procedure completed. Patient transferred by bed to 1st floor. Vital chart was stopped. Procedure Medications Start: 9:02 PM Stop: 9:02 PM Medication: Versed Amount: 1 mg Route: I.V. Start: 9:03 PM Stop: 9:03 PM Medication: Fentanyl Amount: 50 mcg Route: I.V. Start: 9:23 PM Stop: 9:23 PM Medication: Versed Amount: 1 mg Route: I.V. Start: 9:24 PM Stop: 9:24 PM Medication: Fentanyl Amount: 50 mcg Route: I.V. Start: 9:24 PM Stop: 9:24 PM Medication: Heparin Amount: 5000 units Route: I.V. Start: 10:01 PM Stop: 10:01 PM Medication: Versed Amount: 1 mg Route: I.V. Start: 10:01 PM Stop: 10:01 PM Medication: Fentanyl Amount: 50 mcg Route: I.V. Start: 10:30 PM Stop: 10:30 PM Medication: Heparin Amount: 3000 units Route: I.A. Start: 9:31 PM Stop: 9:31 PM Medication: Heparin Amount: 13 ml/hr Route: I.V. I, the attending physician, have reviewed and verified all procedure medications. Yes, all medications given per verbal order History/Risk Factors Hypertension: No Dyslipidemia: No Peripheral Arterial Disease (PAD): Yes Obesity: No Renal Disease: No Prior Interventions PCI: No CABG: No Valve Surgery: No Report Signatures Finalized by Dr. Dank Chamberlain MD on 12/27/2021 10:57 PM
--- NOTE | 2021-12-27 20:39 | PM.CONSULT ---
Providers/Reason For Consult Consulting Physician/Specialty*: Cardiovascular medicine Reason for Consult*: Left lower limb ischemia, subacute Requesting Physician: Emergency room Primary Care Provider: Alvarado Suárez MD History of Present Illness History of Present Illness Dimple Mckay is a 86 year old female who has a long history of chronic left lower extremity has both acute and chronic critical limb ischemia. She has 2 large ulcers of the left lower extremity between the knee and the ankle. She is seen regularly in the wound clinic. On the of last month some 10 days ago she underwent an intervention here which included angioplasty of the left external iliac artery and the left common femoral artery. She also had a atherectomy of the same vessel. Flow was reestablished. She states that she really has not felt good since then and that the leg has continued to give her trouble. She has had significant pain. Over the last day or 2 the pain is increased. She came to the emergency room tonight and was evaluated. A Doppler study showed a left ankle brachial index of 0.63. No Doppler flow studies were done. Patient states she is no longer a smoker but if she did quit it was only recently. She has smoked all of her life. She also has Crohn's disease. She is also had a fever lately. She was given antibiotics in the emergency room. She is on apixaban. Review of Systems Narrative: Review of systems is negative the exception of the complaints surrounding her left lower extremity Medications/Allergies Home Medications Medication Instructions Recorded Confirmed Last Taken Type calcium carbonate 500 mg calcium 500 mg PO DAILY 11/21/19 12/23/21 Unknown History (1,250 mg) chewable tablet (Calcium 500) cyanocobalamin (vitamin B-12) 1,000 mcg IM Q30D ml 11/21/19 12/23/21 Unknown History 1,000 mcg/mL injection solution folic acid 1 mg tablet 1 mg PO DAILY 11/21/19 12/23/21 Unknown History infliximab 100 mg intravenous See Rx Instructions .ROUTE .COMPLEX 11/21/19 12/23/21 Unknown History solution (Remicade) lisinopril 2.5 mg tablet 2.5 mg PO BEDTIME 11/21/19 12/23/21 Unknown History levothyroxine 125 mcg tablet 125 mcg PO QAM 09/01/21 12/23/21 Unknown History hydrocodone 5 mg-acetaminophen 325 1 tab PO Q8H PRN 7 Days #20 tab 12/09/21 12/23/21 12/14/21 07:30 Rx mg tablet acetaminophen 500 mg tablet 1,000 mg PO Q6H PRN 12/14/21 12/23/21 Unknown History cholecalciferol (vitamin D3) 25 See Rx Instructions .ROUTE .COMPLEX 12/14/21 12/23/21 Unknown History mcg (1,000 unit) capsule (Vitamin D3) diclofenac sodium 1 % topical gel 2 gm TOPICAL QID PRN 12/14/21 12/23/21 Unknown History erythromycin 5 mg/gram (0.5 %) eye See Rx Instructions .ROUTE .COMPLEX 12/14/21 12/23/21 Unknown History ointment (3.5 gram tube) loperamide 2 mg capsule 4 mg PO .UP TO BID PRN 12/14/21 12/23/21 Unknown History metoprolol tartrate 25 mg tablet 12.5 mg PO BID 12/14/21 12/23/21 Unknown History apixaban 5 mg tablet (Eliquis) 5 mg PO BID #60 tab 12/17/21 12/23/21 Unknown Rx aspirin 81 mg tablet,delayed 81 mg PO QAM #60 tab 12/17/21 12/23/21 Unknown Rx release (Adult Aspirin Regimen) simvastatin 40 mg tablet 40 mg PO DAILY #60 tab 12/17/21 12/23/21 Unknown Rx mupirocin 2 % topical ointment 1 applic TOPICAL DAILY #22 g 12/21/21 12/23/21 Unknown Rx furosemide 20 mg tablet (Lasix) 20 mg PO DAILY #30 tab 12/23/21 12/23/21 Unknown Rx gabapentin 300 mg capsule 300 mg PO BID cap 12/23/21 12/23/21 Unknown History Allergies Allergy/AdvReac Type Severity Reaction Status Date / Time metronidazole [From Flagyl] Allergy unknown Verified 12/27/21 18:02 Current Medications Generic Name Dose Route Start Last Admin Trade Name Freq PRN Reason Stop Dose Admin Vancomycin HCl 1,000 mg/ 250 mls @ 250 mls/hr 12/27/21 20:01 12/27/21 20:24 Sodium Chloride IV 12/27/21 21:00 250 mls/hr ONCE ONE Administration Protocol PFSH Acute PFSH: Medical History (Updated 12/27/21 @ 20:46 by Dank Chamberlain MD) Crohn disease Fat pad atrophy of foot History of CVA (cerebrovascular accident) Hypertension 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 Osteoporosis Peripheral neuropathy 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) Tobacco abuse, in remission Surgical History History of cataract extraction History of cholecystectomy History of parathyroidectomy History of tonsillectomy Family History Other CAD (coronary artery disease) Cancer Diabetes Hypertension Social History Smoking and tobacco status: former smoker Alcohol intake: never History of recent travel: No Vitals/I&O/Wt Last Vital Signs Temp 101.2 F H 12/27/21 18:02 Pulse 100 12/27/21 18:02 Resp 20 H 12/27/21 18:49 BP 183/101 12/27/21 18:02 Pulse Ox 91 12/27/21 18:49 Weight last 48 hrs Weight 103 lb Physical Exam Narrative: GENERAL: In general she is awake and alert and not in any significant distress complaining of left leg pain. She is thin, cachectic and frail. HEENT: Exam within normal limits. NECK: Supple without jugular vein distention. The carotid upstroke is normal without bruits. BACK: Exam normal. LUNGS: Clear. HEART: Regular rate and rhythm. ABDOMEN: Benign without organomegaly or tenderness. EXTREMITIES: No edema. The left lower extremity is thin with significant muscle wasting. Below the knee there are no pulses. There is mild edema of the left lower extremity from above the ankle down to the midfoot. There is dependent rubor in this area as well. There are 2 very large ulcers of the lower extremity between the knee and the ankle 1 of which is in the medial aspect of the leg and the other on the lateral aspect of the leg. Both are dry without any drainage. NEUROLOGIC: Exam normal. SKIN: Unremarkable. Data : 12/27/21 18:43 12/27/21 18:43 Micro: Microbiology 12/27/21 18:42 Blood Culture - Preliminary Blood SPECIMEN COLLECTED 12/27/21 18:42 Blood Culture - Preliminary Blood SPECIMEN COLLECTED A&P Assessment and plan (1) Acute occlusion of artery of lower extremity due to thrombosis: Status: Acute (2) Cellulitis: Status: Acute (3) Peripheral vascular disease of lower extremity with ulceration: Status: Acute (4) Hypertension: Status: Acute (5) Transaminitis: Status: Acute (6) Regional enteritis (Crohn's disease): Status: Acute (7) Tobacco abuse, in remission: Status: Acute Plan We will perform angiography of the based on her clinical status and the noninvasive study there is a high suspicion for either occlusion of the artery or significant restenosis. I told the patient and her daughter that there is a reasonable chance she will lose the leg. I have also spoken to the surgeon electronics production supervisor and made him aware. He sees her in the wound clinic and is aware of her situation. 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
--- NOTE | 2021-12-27 20:44 | PC.NURSE ---
laborer staff are here to take patient to laborer. Pt. is in gown, has two I.V. sites and has fluids going. Consent for procedure has been signed.
--- NOTE | 2021-12-27 21:15 | P.HP_ITS ---
Providers/Chief Complaint Primary Care Provider: Alvarado Suárez MD Chief Complaint: WOUND L L EXT History of Present Illness Pleasant 86-year-old came into ER today due to worsened rest pain, recently enlarging ulcerations above the ankle anteriorly and posteriorly with black/dark eschar formation, possible dry gangrene, with with cool to touch and pale appearing left foot. Arterial Doppler ultrasound was obtained, with finding of left EBENEZER decreased at 0.63. She is also found to have a fever of 101.2, as well as leukocytosis 14.1. Due to sepsis blood cultures were collected, she was started on empiric antibiotic. Lactic acid 1.3. She has history of history of cardiovascular disease including history of CVA, PAD, who had undergone angioplasty of left external iliac artery and left common femoral artery endarterectomy on 12/16 after presenting with resting leg pain and having to ulcers above the ankle, with subsequent reported presence of pulses distally in PT and DP with reported poor runoff below the knee. She was started on Eliquis. Her pain at rest improved, but did not disappear. 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 Doxycycline was added for MRSA coverage. Her daughter states that he continued with dressing changes by family and caregivers with wet-to-dry dressings. She has history of Crohn's disease and gets Remicade infusions, although states last infusion was withheld as per discussion with her adjunct latin professor. She denies any recent hematochezia, although does get recurrent loose stools. Review of Systems Const: Denies: fever(s), chills, body aches or malaise Eyes: Denies: change in vision, eye discomfort or eye redness ENMT: Denies: throat pain, oral sores or ear or mastoid pain Card: Denies: chest pain, edema, pre-syncope or dyspnea on exertion Resp: Denies: dyspnea, productive cough, change in phlegm color or hemoptysis GI: Reports: diarrhea (Chronic/recurrent with Crohn's); Denies: abdominal pain, nausea, vomiting, constipation, hematochezia or melena : Denies: flank pain, urinary frequency or hematuria Musc: Reports: other (Pale appearing L foot); Denies: back pain, joint swelling or joint redness Skin/Breast: Reports: sores (Enlarging ulcerations, surrounding erythema ant and post LLE); Denies: rash Neuro: Denies: headache(s), numbness in extremities, weakness in extremities, dizziness, confusion or seizure-like activity Endo: Denies: polyuria or polydipsia Brandin/Lymph: Denies: easy bleeding or tender lymph nodes All/Imm: Denies: urticaria or tongue swelling Medications/Allergies Home Medications Medication Instructions Recorded Confirmed Last Taken Type calcium carbonate 500 mg calcium 500 mg PO DAILY 11/21/19 12/23/21 Unknown History (1,250 mg) chewable tablet (Calcium 500) cyanocobalamin (vitamin B-12) 1,000 mcg IM Q30D ml 11/21/19 12/23/21 Unknown History 1,000 mcg/mL injection solution folic acid 1 mg tablet 1 mg PO DAILY 11/21/19 12/23/21 Unknown History infliximab 100 mg intravenous See Rx Instructions .ROUTE .COMPLEX 11/21/19 12/23/21 Unknown History solution (Remicade) lisinopril 2.5 mg tablet 2.5 mg PO BEDTIME 11/21/19 12/23/21 Unknown History levothyroxine 125 mcg tablet 125 mcg PO QAM 09/01/21 12/23/21 Unknown History hydrocodone 5 mg-acetaminophen 325 1 tab PO Q8H PRN 7 Days #20 tab 12/09/21 12/23/21 12/14/21 07:30 Rx mg tablet acetaminophen 500 mg tablet 1,000 mg PO Q6H PRN 12/14/21 12/23/21 Unknown History cholecalciferol (vitamin D3) 25 See Rx Instructions .ROUTE .COMPLEX 12/14/21 12/23/21 Unknown History mcg (1,000 unit) capsule (Vitamin D3) diclofenac sodium 1 % topical gel 2 gm TOPICAL QID PRN 12/14/21 12/23/21 Unknown History erythromycin 5 mg/gram (0.5 %) eye See Rx Instructions .ROUTE .COMPLEX 12/14/21 12/23/21 Unknown History ointment (3.5 gram tube) loperamide 2 mg capsule 4 mg PO .UP TO BID PRN 12/14/21 12/23/21 Unknown History metoprolol tartrate 25 mg tablet 12.5 mg PO BID 12/14/21 12/23/21 Unknown History apixaban 5 mg tablet (Eliquis) 5 mg PO BID #60 tab 12/17/21 12/23/21 Unknown Rx aspirin 81 mg tablet,delayed 81 mg PO QAM #60 tab 12/17/21 12/23/21 Unknown Rx release (Adult Aspirin Regimen) simvastatin 40 mg tablet 40 mg PO DAILY #60 tab 12/17/21 12/23/21 Unknown Rx mupirocin 2 % topical ointment 1 applic TOPICAL DAILY #22 g 12/21/21 12/23/21 Unknown Rx furosemide 20 mg tablet (Lasix) 20 mg PO DAILY #30 tab 12/23/21 12/23/21 Unknown Rx gabapentin 300 mg capsule 300 mg PO BID cap 12/23/21 12/23/21 Unknown History Allergies Allergy/AdvReac Type Severity Reaction Status Date / Time metronidazole [From Flagyl] Allergy unknown Verified 12/27/21 18:02 PFSH Acute PFSH: Medical History Crohn disease Fat pad atrophy of foot History of CVA (cerebrovascular accident) Hypertension 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 Osteoporosis Peripheral neuropathy 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) Tobacco abuse, in remission Surgical History History of cataract extraction History of cholecystectomy History of parathyroidectomy History of tonsillectomy Family History Other CAD (coronary artery disease) Cancer Diabetes Hypertension Social History Smoking and tobacco status: former smoker Alcohol intake: never Lives independently: No Household members: spouse Marital status: Marital status details: Help from children, caregivers History of recent travel: No Vitals/I&O/Wt Last Vital Signs Temp 101.2 F H 12/27/21 18:02 Pulse 94 12/27/21 21:04 Resp 18 12/27/21 21:04 BP 168/84 12/27/21 21:04 Pulse Ox 95 12/27/21 21:04 Weight last 48 hrs Weight 46.72 kg Physical Exam Narrative: Daughter at bedside Const: COMMON NORMALS: alert GENERAL APPEARANCE: cooperative and frail appearing NUTRITIONAL APPEARANCE: underweight ORIENTATION/CONSCIOUSNESS: Yes awake HENMT: COMMON NORMALS: normocephalic, EAC's normal, Normal external nose present and moist oral mucous membranes HEAD & SCALP: normocephalic NOSE: Normal external nose present EXTERNAL AUDITORY CANAL: EAC's normal Neck/C-Spine: COMMON NORMALS: no meningeal signs Chest: CHEST: Yes Symmetrical chest wall rise Resp: COMMON NORMALS: clear to auscultation bilaterally AUSCULTATION: clear to auscultation bilaterally Cardio: COMMON NORMALS: regular rate, regular rhythm and No murmurs present (Cardio) RATE: regular rate RHYTHM: regular rhythm GI: COMMON NORMALS: Normal to inspection, nondistended, normoactive bowel sounds present, Soft to palpation and non-tender PALPATION: Yes Soft to palpation Extremity: COMMON NORMALS: no pedal edema OTHER: Pale, cool to touch left foot Neuro: COMMON NORMALS: moves all extremities SENSORIUM/ORIENTATION: Yes alert MENINGEAL SIGNS: Yes no meningeal signs Psych: COMMON NORMALS: mental status grossly normal Skin: GENERAL SKIN EXAM: erythema (Lower part of LLE terminating at ankle) WOUNDS: Yes wounds noted (Oval ulcerations ant and post-med LLE, 5x3cm and 4x3 with black eschar) Data : 12/27/21 18:43 12/27/21 18:43 Micro: Microbiology 12/27/21 18:42 Blood Culture - Preliminary Blood SPECIMEN COLLECTED 12/27/21 18:42 Blood Culture - Preliminary Blood SPECIMEN COLLECTED A&P Assessment and plan (1) 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 Symptoms as of this morning with worsened resting pain, pale appearing cool to touch left foot. Recently family report also worsening of the ulcerations on anterior and postero-medial lower left leg. Arterial Doppler study obtained in ER with EBENEZER of 0.63 reported. Reportedly PT and DP pulses could not be palpated or dopplered. Interventional cardiology consultation was urgently obtained. She was assessed at bedside, and arrangements are being made for assessment by angiography on emergent basis. Status: Acute (2) Sepsis: Fever one 1.2, leukocytosis 14,000, sepsis due to left lower leg cellulitis, wit h nonhealing recently enlarged ulcerations in the setting of PAD. Blood cultures collected. Lactic acid is 1.3. Started empirically on Zosyn and vancomycin, she is currently going to Automation Analyst, but subsequently should continue. Immunocompromised in the setting of Crohn's disease, receives Remicade i nfusions. Status: Acute (3) Cellulitis: Cellulitis of left lower extremity overlying also nonhealing recently enlarged arterial insufficiency ulcerations of anterior and postero-medial leg with noted black eschar. Currently going to Automation Analyst, but subsequently should continue with antibiotics with Zosyn, vancomycin. Follow-up blood cultures. Status: Acute (4) Non-healing ulcer of multiple sites of lower extremity: Nonhealing recently enlarged arterial insufficiency ulcerations of anterior and posterior leg with noted black eschar. Surrounding cellulitis. She reports they have been continuing wound care with wet-to-dry at home. Arterial Doppler in ER with EBENEZER of 0.63. Currently going to Automation Analyst. Status: Acute (5) Protein calorie malnutrition: She is underweight, appears frail. Once diet is resumed, add protein supplements. Consider medical office technology instructor consultation and follow-up. Status: Acute Plan Crohn's disease History of CVA HTN Osteoporosis Peripheral neuropathy Attestations Medical Necessity Statement*: Admission of over 2 midnights is anticipated for assessment management of acute limb ischemia, sepsis. Coding Level of Care Code Acute Guidance And Control System Engineer for [facility] Diagnoses Acute occlusion of artery of lower extremity due to thrombosis I74.3 Cellulitis L03.90 Non-healing ulcer of multiple sites of lower extremity L97.909 Sepsis A41.9 Protein calorie malnutrition E46
[2021-12-27] MEDS: acetaminophen 325 mg Tablet 650 MG PO (23:47)
[2021-12-27] MEDS: sodium chloride 0.9% 1,000 ML 100 ML IV (23:47)
[2021-12-28] VITALS (78 sets, daily range): BP systolic 96–151; BP diastolic 50–89; PULSE 73–106; RESP 11–29; TEMP 36.6–37.7; O2SAT 92–100
[2021-12-28] MEDS: HYDROmorphone 1 mg/mL INJ 1 mL 0.4 MG IVP ×5 (00:04→20:37)
--- NOTE | 2021-12-28 00:06 | PC.PHAR ---
Vancomycin is dosed at 1000mg IVPB every 18 hours to produce a predicted trough level of 15.55 (population based pharmacokinetic analysis. A trough level has been ordered from the lab to be obtained before the fourth dose to confirm and adjust if needed.
--- NOTE | 2021-12-28 00:40 | PC.NURSE ---
Please see IC/critical care assessment charted 12/27/21 at 9745.
--- NOTE | 2021-12-28 00:43 | PC.NURSE ---
Upon return from cardiac cath lab manager, this nurse could not dopple pulses on left foot or right dorsalis pedis. Doppled pulse present in right posterior tibial. Left leg from mid calf down, reddened. Cap refill on bilateral feet <3 seconds. Sensation present in bilateral lower legs. Pt is able to move bilateral feet. Pt flat as ordered.
--- NOTE | 2021-12-28 02:41 | PC.NURSE ---
Pt admitted to unit from [facility] at 12/27/21 at 2255. Per [facility] nursing staff, pulses in left foot have not been detected before or after procedure. Capillary refill is less than 3 seconds. [facility] staff report that color of left foot/leg has improved post procedure.
--- NOTE | 2021-12-28 02:52 | PC.NURSE ---
At 0245, left dorsalis pedis pulse can clear be heard with doppler. Left posterior tibial pulse cannot be found with doppler.
[2021-12-28] MEDS: piperacillin-tazobactam 3.375 GM in sodium chloride 0.9% (plus) 50 ML IV ×3 (03:47→20:59)
--- NOTE | 2021-12-28 04:13 | PC.NURSE ---
Dorsalis pedis pulse on left foot doppled. Unable to locate posterior tibial pulse on left foot.
[2021-12-28 04:46] LABS: Basophils # 0.1 10^3/uL (0.0-0.1); Basophils % 0.6 %; Eosinophils # 0.1 10^3/uL (0.0-0.8); Eosinophils % 0.8 %; Hematocrit 31.2 % (37.0-47.0); Lymphocytes # 1.8 10^3/uL (0.8-4.8); Lymphocytes % 12.4 %; Mean Corpuscular HGB Conc 32.1 g/dL (30.0-36.0); Mean Corpuscular Hemoglobin 30.2 pg (28.0-34.0); Mean Corpuscular Volume 94.3 fl (81-99); Mean Platelet Volume 9.6 fL (7.4-10.4); Monocytes # 1.6 10^3/uL (0.2-0.9); Monocytes % 11.4 %; Neutrophils # 10.63 10^3/uL (1.8-7.7); Neutrophils % 74.3 %; Nucleated Red Blood Cells % 0 %; Platelet Count 412 10^3/cmm (130-400); Red Blood Count 3.31 10^6/uL (4.1-5.3); Red Cell Distribution Width 15.4 % (12.1-15.1); White Blood Count 14.3 10^3/uL (4.0-10.0)
[2021-12-28 05:12] LABS: Anion Gap 11.2 (5-19); Blood Urea Nitrogen 10 mg/dL (8-23); Calcium 8.1 mg/dL (8.5-10.5); Carbon Dioxide 27 mmol/L (22-29); Chloride 97 mmol/L (98-107); Glucose 93 mg/dL (65-115); Osmolality Calculated 271 mOsm/kg (285-295); Potassium 4.2 mmol/L (3.5-5.1); Sodium 131 mmol/L (136-145)
[2021-12-28 05:24] LABS: Partial Thromboplastin Time 156.3 SECONDS (23.9-36.7)
[2021-12-28] MEDS: heparin drip 25,000 UNIT/500 ML PREMIX 9 UNIT IV (05:30)
--- NOTE | 2021-12-28 05:34 | PC.NURSE ---
Decrease heparin by 4 units/kg/hr. Recheck PTT in 6 hours.
--- NOTE | 2021-12-28 06:58 | PC.NURSE ---
Pillow tucked under right hip. Care taken not to bend at the waist.
--- NOTE | 2021-12-28 07:05 | PC.NURSE ---
Bedside report received from Yenny Rn patient alert and engaged in conversation and plan of care
[2021-12-28 07:16] LABS: Add Urine Microscopic? NO; Charge for UA Resulting for Rev
[2021-12-28 07:31] LABS: Urine Appearance Clear (CLEAR); Urine Color Yellow (Yellow); pH Urine 6.5 (5-7)
[2021-12-28 07:32] LABS: Bilirubin Urine Neg (Negative); Blood Urine Neg (Negative); Glucose Urine UA Norm (Normal); Ketones Urine Negative (Negative); Leukocyte Esterase Urine Negative (Negative); Nitrate Urine Negative (Negative); Protein Urine Neg (Negative); Urobilinogen Urine Norm (Negative)
--- NOTE | 2021-12-28 08:51 | PC.NURSE ---
Dr Chamberlain at bedside for assessment and discussion of plan of care instructions to stop heparin gtt for 2 hours obtain PTT
--- NOTE | 2021-12-28 09:03 | P.PN_ITS ---
Subjective Subjective: Patient has had a relatively uneventful night. She underwent angioplasty and aspiration thrombectomy of her left leg last evening. I left her on a heparin drip overnight and did not remove the sheath. This morning her leg remains red but it is warm. We can barely Doppler a pulse in the dorsalis pedis. She has no other complaints this morning. Vitals/I&O/Wt Last Vital Signs Temp 98.9 F 12/28/21 07:56 Pulse 87 12/28/21 07:56 Resp 16 12/28/21 07:56 BP 128/70 12/28/21 07:56 Pulse Ox 99 12/28/21 07:56 12/27/21 12/28/21 12/28/21 22:59 06:59 14:59 Intake Total 1360 / 1360 80.15 / 80.15 Balance 1360 / 1360 80.15 / 80.15 Weight last 48 hrs Weight 110 lb Weight 103 lb Physical Exam Narrative: GENERAL: In general she looks her stated age. She is thin, cachectic and appears in poor health overall. HEENT: Exam within normal limits. [] NECK: Supple without jugular vein distention. The carotid upstroke is normal without bruits. [] BACK: Exam normal. [] LUNGS: Clear. [] HEART: Regular rate and rhythm. [] ABDOMEN: Benign without organomegaly or tenderness. [] EXTREMITIES: The left leg is warm down to the top of the foot. The 2 large ulcers described yesterday are still present. Neither has any drainage. The leg is red from below the knee down to the top of the foot. It is also warm. The redness seems to be a little more extensive than it was last night. There is no Doppler in the posterior tibial area. There is a very faint Doppler in the dorsalis pedis. She has pain in the area of redness. NEUROLOGIC: Exam normal. [] SKIN: Unremarkable. [] Urinary Catheter Management: [place]: Cath Placed During This Visit: yes Urinary Catheter Date of Insertion: 12/28/21 Urinary Catheter Time of Insertion: 06:49 Data : 12/28/21 04:00 12/28/21 04:00 Micro: Microbiology 12/27/21 18:42 Blood Culture - Preliminary Blood SPECIMEN COLLECTED 12/27/21 18:42 Blood Culture - Preliminary Blood SPECIMEN COLLECTED A&P Assessment and plan (1) Protein calorie malnutrition: Status: Acute (2) Sepsis: Status: Acute (3) Non-healing ulcer of multiple sites of lower extremity: Status: Acute (4) Tobacco abuse, in remission: Status: Acute (5) Acute occlusion of artery of lower extremity due to thrombosis: Status: Acute (6) Cellulitis: Status: Acute (7) Peripheral vascular disease of lower extremity with ulceration: Status: Acute (8) Hypertension: Status: Acute Plan This is nearly an untenable situation. The likelihood that this artery will stay patent is very low. I am going to stop the heparin for 2 hours, check a PTT and if okay pulled the sheath. After that I will restart the heparin. We will run that for another 24 hours. I am going to reinstitute the factor Xa inhibitor. I spoke to the patient at length about this and also spoke to her daughter who is present in the room. Attestations Medical Necessity Statement*: Requires continued hospitalization for the purposes of managing an acute thrombotic occlusion of the left lower extremity Coding Level of Care Code Established Pt Acute Duplicating Machine Servicer for g Fwd Patient Type Established History Comprehensive Exam Comprehensive Medical Decision Making High Complexity Diagnoses Protein calorie malnutrition E46 Sepsis A41.9 Non-healing ulcer of multiple sites of lower extremity L97.909 Tobacco abuse, in remission F17.201 Acute occlusion of artery of lower extremity due to thrombosis I74.3 Cellulitis L03.90 Peripheral vascular disease of lower extremity with ulceration I73.9; L97.909 Hypertension I10 Time Spent (min) 35
--- NOTE | 2021-12-28 09:09 | PC.PHAR ---
pt states she takes care of her own medications-pt states she finished the medrol dose justin filled on 12/17/21 6d/s and the doxycycline hyclate 100mg bid filled on 12/17/21 7d/s-
[2021-12-28] MEDS: aspirin 81 mg EC Tablet PO (09:36)
[2021-12-28] MEDS: clopidogrel 75 mg Tablet PO (09:36)
[2021-12-28] MEDS: metoprolol succinate ER (24 HR) 25 mg Tablet 12.5 MG PO (09:36)
[2021-12-28] MEDS: sodium chloride 0.9% 1,000 ML 100 ML IV ×2 (11:19→20:58)
--- NOTE | 2021-12-28 12:04 | PC.CHAP ---
Pastoral Care Encounter/Spiritual Assessment Type of Contact [] Declined operations business partner visit [] Patient/Family/Request visit [] Outpatient visit [] Follow-up visit [] Physician referral [] Code/Alert [x] Routine visit [] Staff referral [] Actively dying [] Patient sleeping [] Family support [] [] Out of room [] Palliative care [] [x] Receiving care in room [] Pre-surgical visit [] Trauma [] Long length of stay [] ICU visit [x] Other: several staff members present Relational/Emotional Strength [] Patient feels connected with others/family/visitors/staff [] Distress [] Loneliness/isolation [] Abandonment Spirituality of Patient [] Person of Anastasia [] Attends Restorationism of their Anastasia [] Believes in Prayer [] Reads Bible or Hindu materials [] There are Spiritual issues to be addressed Tag Marker Interventions [x] Prayer [] Active listening [] Non-anxious presence [] Spiritual/emotional support [] Crisis/trauma care [] Spiritual counseling [] Bereavement support [] Provided bereavement packet [] Provided Bible/devotional materials [] Provided toy/stuffed animal, coloring book to patient or family member [] Provided Communion [] Anointing/[place] [] Salvation [x] Completed spiritual assessment [] Other: Impact on Illness or Injury [] Angry [] Fearful [] Anxious [] Often cries [] Exhaustion [] Unable to work [] Unable to attend sabianism [] Unable to walk/stand [] Unable to read [] Unable to drive [] Unable to eat/drink [] Unable to sleep [] Unable to be with family [] Patient intubated [] Other: Summary Time spent with patient
[2021-12-28 12:46] LABS: Partial Thromboplastin Time 33.9 SECONDS (23.9-36.7)
--- NOTE | 2021-12-28 13:10 | PC.NURSE ---
Nurse is currently pulling sheath.
--- NOTE | 2021-12-28 13:40 | P.PN_ITS ---
Subjective Subjective: Patient was seen this morning, daughter at bedside, continues to have complaints of pain in the left lower extremity, DP PT pulses barely palpable, has 2 arterial ulcers left lower extremity, black eschar Vitals/I&O/Wt Last Vital Signs Temp 98.9 F 12/28/21 07:56 Pulse 91 12/28/21 12:33 Resp 29 H 12/28/21 12:33 BP 143/69 12/28/21 12:33 Pulse Ox 96 12/28/21 12:33 12/27/21 12/28/21 12/28/21 22:59 06:59 14:59 Intake Total 1360 / 1360 1140.15 / 1140.15 Balance 1360 / 1360 1140.15 / 1140.15 Weight last 48 hrs Weight 49.895 kg Weight 46.72 kg Physical Exam Const: COMMON NORMALS: no acute distress and patient oriented x3 Resp: COMMON NORMALS: normal respiratory effort, No retractions, No use of accessory muscles and clear to auscultation bilaterally AUSCULTATION: clear to auscultation bilaterally Cardio: COMMON NORMALS: regular rate, regular rhythm, S1 normal heart sound present and S2 normal heart sound present RATE: regular rate RHYTHM: regular rhythm HEART SOUNDS: S1 normal heart sound present and S2 normal heart sound present GI: COMMON NORMALS: Normal to inspection, nondistended, normoactive bowel sounds present, Soft to palpation and non-tender PALPATION: Yes Soft to palpation Extremity: COMMON NORMALS: no pedal edema Neuro: COMMON NORMALS: patient oriented x3 Psych: COMMON NORMALS: mental status grossly normal Skin: NARRATIVE SKIN EXAM: Left lower extremity, DP PT pulses barely palpable, need to do Doppler pulses [place] erythema extending from mid medina down to ankle joint To black eschar, arterial ulcers, largest measuring 2 x 2 cm oval-shaped Urinary Catheter Management: [place]: Cath Placed During This Visit: yes Urinary Catheter Date of Insertion: 12/28/21 Urinary Catheter Time of Insertion: 06:49 Data : 12/28/21 04:00 12/28/21 04:00 Micro: Microbiology 12/27/21 18:42 Blood Culture - Preliminary Blood SPECIMEN COLLECTED 12/27/21 18:42 Blood Culture - Preliminary Blood SPECIMEN COLLECTED A&P Assessment and plan (1) 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 Symptoms as of this morning with worsened resting pain, pale appearing cool to touch left foot. Recently family report also worsening of the ulcerations on anterior and postero-medial lower left leg. Arterial Doppler study obtained in ER with EBENEZER of 0.63 reported. Reportedly PT and DP pulses could not be palpated or dopplered. Status post thrombotic occlusion less open with balloon angioplasty and subsequent penumbra aspiration catheter, on heparin drip Dr. Madden consult Continue Doppler DP PT pulses Status: Acute (2) Sepsis: Fever 101.2, leukocytosis 14,000, sepsis due to left lower leg cellulitis, with nonhealing recently enlarged ulcerations in the setting of PAD. Blood cultures collected. Lactic acid is 1.3. Started empirically on Zosyn and vancomycin, she is currently going to Forest Manager, but subsequently should continue. Immunocompromised in the setting of Crohn's disease, receives Remicade infusion s. Status: Acute (3) Cellulitis: Cellulitis of left lower extremity overlying also nonhealing recently enlarged arterial insufficiency ulcerations of anterior and postero-medial leg with noted black eschar. Currently going to Forest Manager, but subsequently should continue with antibiotics with Zosyn, vancomycin. Follow-up blood cultures. Status: Acute (4) Non-healing ulcer of multiple sites of lower extremity: Nonhealing recently enlarged arterial insufficiency ulcerations of anterior and posterior leg with noted black eschar. Surrounding cellulitis. She reports they have been continuing wound care with wet-to-dry at home. Arterial Doppler in ER with EBENEZER of 0.63. Status: Acute (5) Protein calorie malnutrition: She is underweight, appears frail. Once diet is resumed, add protein supplem ents. Consider jewel setter consultation and follow-up. Status: Acute Plan Crohn's disease History of CVA HTN Osteoporosis Peripheral neuropathy Attestations Medical Necessity Statement*: Patient requires hospitalization for acute limb ischemia, with cellulitis, with arterial ulcers Coding Level of Care Code Acute Electrical Panel Builder for [facility] Fwd Diagnoses Acute occlusion of artery of lower extremity due to thrombosis I74.3 Sepsis A41.9 Cellulitis L03.90 Non-healing ulcer of multiple sites of lower extremity L97.909 Protein calorie malnutrition E46
[2021-12-28] MEDS: vancomycin 1,000 MG in sodium chloride 0.9% 250 ML 250 MG IV (15:46)
--- NOTE | 2021-12-28 16:35 | P.CONIM_ITS ---
Providers/Reason For Consult Consulting Physician/Specialty*: Dr. Yanez/cardiothoracic surgery Reason for Consult*: Unreconstructable peripheral vascular disease left lower extremity Requesting Physician: Dr. Mehta Attending Physician: Dank Chamberlain MD Primary Care Provider: Alvarado Suárez MD History of Present Illness History of Present Illness Dimple Mckay is an 86 year old female whom I had originally been following in wound care services for poor healing ulcers on the left lower extremity. She has a long history of tobacco use and clinically this was suspicious for vascular insufficiency. Indeed, CTA revealed occlusion of the left SFA with reconstitution to the popliteal and two-vessel runoff distally. Approximate 11 days ago she underwent intervention by Dr. Young which included atherectomy of the distal common femoral artery and subsequent reestablishment of flow through the SFA. She presented yesterday with acute onset of left lower extremity pain and was evaluated by Dr. Chamberlain. She was found to have recurrent occlusion of the distal common femoral artery. The left profunda was opened and did provide some collateralization down to the knee. She underwent balloon angioplasty of the nearly entire length of the left SFA and subsequent reestablishment of flow though she had a substantial thrombus burden. She underwent penumbra aspiration catheter placement with evacuation of some thrombus though there was still a substantial burden. She was placed on heparin therapy. She did have improv ement of her left leg pain after revascularization. Heparin was discontinued this morning for a planned brief period to allow for removal of her vascular sheath, though she fairly rapidly developed recurrence of her symptoms consistent with loss of flow. Given the size of her vessels, diffuse disease, and thrombus burden, Dr. Chamberlain did not feel there was a substantial chance that meaningful flow could be reestablished for a protracted period of time. She has 2 ulcers which appear to be full-thickness gangrenous ulcers one medially and one laterally on the left leg in the mid leg region, each about 4 cm in width. She has erythema across the foot up to just below the tibial tuberosity. She has a persistent leukocytosis of over 14,000 despite vancomycin and Primaxin therapy. She has substantial left leg discomfort which is partially relieved with the use of IV narcotic. Review of Systems Const: Reports: fever(s), fatigue and malaise; Denies: chills Card: Denies: chest pain or palpitations Resp: Denies: dyspnea or productive cough GI: Denies: abdominal pain, nausea or vomiting Musc: Reports: extremity pain (Left leg) Neuro: Reports: numbness in extremities Psych: Denies: anxiety or depression Medications/Allergies Home Medications Medication Instructions Recorded Confirmed Last Taken Type calcium carbonate 500 mg calcium 500 mg PO DAILY 11/21/19 12/28/21 Unknown History (1,250 mg) chewable tablet (Calcium 500) cyanocobalamin (vitamin B-12) 1,000 mcg IM Q30D ml 11/21/19 12/28/21 Unknown History 1,000 mcg/mL injection solution folic acid 1 mg tablet 1 mg PO DAILY 11/21/19 12/28/21 Unknown History infliximab 100 mg intravenous See Rx Instructions .ROUTE .COMPLEX 11/21/19 12/28/21 Unknown History solution (Remicade) lisinopril 2.5 mg tablet 2.5 mg PO BEDTIME 11/21/19 12/28/21 Unknown History levothyroxine 125 mcg tablet 125 mcg PO QAM 09/01/21 12/28/21 Unknown History hydrocodone 5 mg-acetaminophen 325 1 tab PO Q8H PRN 7 Days #20 tab 12/09/21 12/28/21 12/14/21 07:30 Rx mg tablet acetaminophen 500 mg tablet 1,000 mg PO Q6H PRN 12/14/21 12/28/21 Unknown History cholecalciferol (vitamin D3) 25 See Rx Instructions .ROUTE .COMPLEX 12/14/21 12/28/21 Unknown History mcg (1,000 unit) capsule (Vitamin D3) diclofenac sodium 1 % topical gel 2 gm TOPICAL QID PRN 12/14/21 12/28/21 Unknown History erythromycin 5 mg/gram (0.5 %) eye See Rx Instructions .ROUTE .COMPLEX 12/14/21 12/28/21 Unknown History ointment (3.5 gram tube) loperamide 2 mg capsule 4 mg PO .UP TO BID PRN 12/14/21 12/28/21 Unknown History metoprolol tartrate 25 mg tablet 12.5 mg PO BID 12/14/21 12/28/21 Unknown History apixaban 5 mg tablet (Eliquis) 5 mg PO BID #60 tab 12/17/21 12/28/21 Unknown Rx aspirin 81 mg tablet,delayed 81 mg PO QAM #60 tab 12/17/21 12/28/21 Unknown Rx release (Adult Aspirin Regimen) simvastatin 40 mg tablet 40 mg PO DAILY #60 tab 12/17/21 12/28/21 Unknown Rx mupirocin 2 % topical ointment 1 applic TOPICAL DAILY #22 g 12/21/21 12/28/21 Unknown Rx furosemide 20 mg tablet (Lasix) 20 mg PO DAILY #30 tab 12/23/21 12/28/21 Unknown Rx gabapentin 300 mg capsule 300 mg PO BID cap 12/23/21 12/28/21 Unknown History Allergies Allergy/AdvReac Type Severity Reaction Status Date / Time metronidazole [From Flagyl] Allergy unknown Verified 12/28/21 09:10 Current Medications Generic Name Dose Route Start Last Admin Trade Name Freq PRN Reason Stop Dose Admin Acetaminophen 650 mg 12/27/21 23:11 12/27/21 23:47 Acetaminophen 325 Mg Tablet PO 650 mg Q6H PRN Administration MILD PAIN Aspirin 81 mg 12/28/21 09:00 12/28/21 09:36 Aspirin 81 Mg Ec Tablet PO 81 mg DAILY GEN Administration Clopidogrel Bisulfate 75 mg 12/28/21 09:00 12/28/21 09:36 Clopidogrel 75 Mg Tablet PO 75 mg DAILY GEN Administration Hydromorphone HCl 0.4 mg 12/27/21 23:36 12/28/21 15:53 Hydromorphone 1 Mg/Ml Inj 1 Ml IVP 0.4 mg Q4H PRN Administration PAIN Heparin Sodium/Sodium Chloride 25,000 unit in 500 mls @ 0 mls/hr 12/27/21 23:11 12/28/21 08:51 Heparin Drip IV 0 unit/kg/hr .Q0M GEN 0 mls/hr Titration Protocol Per Protocol Sodium Chloride 1,000 mls @ 100 mls/hr 12/27/21 23:11 12/28/21 11:19 Sodium Chloride 0.9% IV 100 mls/hr .Q10H GEN Administration Piperacillin Sod/Tazobactam 50 mls @ 12.5 mls/hr 12/28/21 04:00 12/28/21 12:22 Sod 3.375 gm/ Sodium Chloride IV 12.5 mls/hr Q8H GEN Administration Protocol Vancomycin HCl 1,000 mg/ 250 mls @ 250 mls/hr 12/28/21 14:30 12/28/21 15:46 Sodium Chloride IV 250 mls/hr Q18H GEN Administration Protocol As Directed Metoprolol Succinate 12.5 mg 12/28/21 09:00 12/28/21 09:36 Metoprolol Succinate Er (24 Hr) 25 Mg Tablet PO 12.5 mg DAILY GEN Administration PFSH Acute PFSH: Medical History Crohn disease Fat pad atrophy of foot History of CVA (cerebrovascular accident) Hypertension 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 Osteoporosis Peripheral neuropathy 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) Tobacco abuse, in remission Surgical History History of cataract extraction History of cholecystectomy History of parathyroidectomy History of tonsillectomy Family History Other CAD (coronary artery disease) Cancer Diabetes Hypertension Social History Smoking and tobacco status: former smoker Alcohol intake: never Lives independently: No Household members: spouse Marital status: Marital status details: Help from children, caregivers History of recent travel: No Vitals/I&O/Wt Last Vital Signs Temp 98.3 F 12/28/21 15:35 Pulse 81 12/28/21 15:35 Resp 23 H 12/28/21 15:53 BP 119/70 12/28/21 15:35 Pulse Ox 99 12/28/21 15:53 12/28/21 12/28/21 12/28/21 06:59 14:59 22:59 Intake Total 1360 / 1360 1140.15 / 1140.15 Balance 1360 / 1360 1140.15 / 1140.15 Weight last 48 hrs Weight 110 lb Weight 103 lb Physical Exam Const: COMMON NORMALS: patient oriented x3 HENMT: COMMON NORMALS: normocephalic, atraumatic, hearing grossly normal bilaterally and external ears normal HEAD & SCALP: normocephalic and atraumatic EXTERNAL EAR: Yes external ears normal Neck/C-Spine: COMMON NORMALS: full ROM, no lymphadenopathy and No carotid bruits Chest: COMMONS NORMALS: normal palpation of entire chest wall Resp: COMMON NORMALS: normal respiratory effort, No use of accessory muscles and clear to auscultation bilaterally AUSCULTATION: clear to auscultation bilaterally Cardio: COMMON NORMALS: regular rate, regular rhythm and No murmurs present (Cardio) RATE: regular rate RHYTHM: regular rhythm GI: COMMON NORMALS: Normal to inspection, nondistended, normoactive bowel sounds present Extremity: LEFT LOWER EXTREMITY: Yes lower leg (There are full-thickness eschars ulcerations on the medial lateral aspect ) OTHER: There is erythema extending from the left foot circumferentially up to near the tibial tuberosity. Presently, the thigh is spared. Neuro: COMMON NORMALS: patient oriented x3 OTHER: Decreased sensation and motor function of the left foot consistent with ongoing ischemia. Psych: COMMON NORMALS: mental status grossly normal, Normal thought process present, cooperative, normal affect and speech normal SPEECH: Yes normal speech THOUGHT PROCESS: Normal thought process present Urinary Catheter Management: [place]: Cath Placed During This Visit: yes Urinary Catheter Date of Insertion: 12/28/21 Urinary Catheter Time of Insertion: 06:49 Data : 12/28/21 04:00 12/28/21 04:00 Micro: Microbiology 12/28/21 04:05 MRSA Culture - Final Nose 12/27/21 18:42 Blood Culture - Preliminary Blood SPECIMEN COLLECTED 12/27/21 18:42 Blood Culture - Preliminary Blood SPECIMEN COLLECTED A&P Assessment and plan (1) Acute occlusion of artery of lower extremity due to thrombosis: I have conferred with my colleague Dr. Chamberlain who perform intervention last night to reestablish flow through this heavily diseased SFA, which now appears to have reoccluded after discontinuation of IV heparin. Given the documented thrombus burden as demonstrated by Dr. Chamberlain's angiogram yesterday, it is very unlikely that he type of bypass would remain open related to an outflow resistance of this large thrombus burden. As well, with the substantial cellulitis of the left leg and full-thickness ulcerations both medially and laterally on the left leg, I do not feel this extremity is salvageable and that serious consideration should be made for a left above-knee amputation. I have discussed this very frankly and at length with Ms. Mckay, her daughter who was present at bedside, as well as another daughter who participated by phone. Several questions were answered. Given her substantial peripheral vascular disease, left lower extremity cellulitis, full-thickness ulcerations, documented large distal vascular bed thrombus burden, persistent leukocytosis, and ongoing ischemic pain, I believe we should consider left above-knee amputation for tomorrow. Patient and family are continuing discussions for this at present, we will tentatively plan and maintain schedule availability for amputation tomorrow if patient and family concur. 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
--- NOTE | 2021-12-28 16:43 | PC.NURSE ---
[address] shannon about concerns of left foot becoming more cold and pulses more faint with doppler instruction stop removed sheath when PTT allows discontinue heparin hold eliquis and he will consult surgery
--- NOTE | 2021-12-28 18:25 | PC.NURSE ---
1305 sheath removed at this time manual pressure held for 20 min no adverse event noted patient tolerated well
--- NOTE | 2021-12-28 19:09 | PC.NURSE ---
PHARMACY STATED THAT PYXIS IS UNABLE TO BE ADJUSTED TO REFLECT THAT 2MG OF MORPHINE DOES NOT NEED TO BE WASTED. ADM 2MG OF IVP MORPHINE FOLLOWED BY ANOTHER 2MG OF IVP MORPHINE USED FROM THE SAME VIAL. PHARMACY INSTRUCTED ME TO PULL AND WASTE ADDITIONAL MORPHINE VIAL TO REFLECT THAT CORRECT AMOUNT WAS USED ACCORDING TO PYXIS.
[2021-12-28] MEDS: HYDROcodone-acetaminophen 5-325 mg Tablet 1 TAB PO (23:22)
[2021-12-29] VITALS (22 sets, daily range): BP systolic 102–149; BP diastolic 55–99; PULSE 18–96; RESP 10–22; TEMP 36.6–38.3; O2SAT 91–100
[2021-12-29] MEDS: piperacillin-tazobactam 3.375 GM in sodium chloride 0.9% (plus) 50 ML IV ×2 (03:16→19:04)
[2021-12-29] MEDS: HYDROcodone-acetaminophen 5-325 mg Tablet 1 TAB PO (03:18)
[2021-12-29 03:20] LABS: Basophils # 0.1 10^3/uL (0.0-0.1); Basophils % 0.5 %; Eosinophils # 0.2 10^3/uL (0.0-0.8); Eosinophils % 1.4 %; Hemoglobin 9.2 g/dL (11.5-15.3); Lymphocytes # 0.9 10^3/uL (0.8-4.8); Lymphocytes % 6.8 %; Mean Corpuscular HGB Conc 30.7 g/dL (30.0-36.0); Mean Corpuscular Hemoglobin 29.7 pg (28.0-34.0); Mean Corpuscular Volume 96.8 fl (81-99); Mean Platelet Volume 9.3 fL (7.4-10.4); Monocytes # 1.2 10^3/uL (0.2-0.9); Neutrophils # 10.79 10^3/uL (1.8-7.7); Neutrophils % 81.8 %; Nucleated Red Blood Cells % 0 %; Platelet Count 348 10^3/cmm (130-400); Red Cell Distribution Width 15.6 % (12.1-15.1); White Blood Count 13.2 10^3/uL (4.0-10.0)
[2021-12-29 03:48] LABS: Procalcitonin 0.11 ng/mL (0-0.5)
[2021-12-29 04:00] LABS: Anion Gap 12.7 (5-19); Blood Urea Nitrogen 10 mg/dL (8-23); C Reactive Protein 117.2 mg/L (0.0-4.9); Carbon Dioxide 24 mmol/L (22-29); Chloride 97 mmol/L (98-107); Glucose 102 mg/dL (65-115); Magnesium 1.8 mg/dL (1.7-2.3); Osmolality Calculated 269 mOsm/kg (285-295); Phosphorus 1.7 mg/dL (2.5-4.5); Potassium 3.7 mmol/L (3.5-5.1); Sodium 130 mmol/L (136-145)
[2021-12-29] MEDS: metoprolol succinate ER (24 HR) 25 mg Tablet 12.5 MG PO (08:35)
[2021-12-29] MEDS: vancomycin 1,000 MG in sodium chloride 0.9% 250 ML 250 MG IV (08:44)
--- NOTE | 2021-12-29 08:59 | P.PN_ITS ---
Subjective Subjective: Yesterday upon discontinuation of the heparin, in preparation for pulling the sheath, patient developed symptoms again which suggested there was a reocclusion of the artery of the left leg. Dr. Yanez was kind enough to see her and consider amputation given the very low likelihood that we will be able to reestablish flow for the long run. Today she is awake and alert and of course frustrated about the most recent developments. Vitals/I&O/Wt Last Vital Signs Temp 98.3 F 12/29/21 08:00 Pulse 80 12/29/21 08:00 Resp 16 12/29/21 08:00 BP 125/64 12/29/21 08:00 Pulse Ox 95 12/29/21 08:00 12/28/21 12/29/21 12/29/21 22:59 06:59 14:59 Intake Total 1790 / 2930.15 50 / 2980.15 50 / 50 Output Total 1200 / 1200 200 / 1400 Balance 590 / 1730.15 -150 / 1580.15 50 / 50 Weight last 48 hrs Weight 110 lb Weight 103 lb Physical Exam Narrative: GENERAL: In general she looks and feels fairly well. Cachectic. HEENT: Exam within normal limits. NECK: Supple without jugular vein distention. The carotid upstroke is normal without bruits. BACK: Exam normal. LUNGS: Clear. HEART: Regular rate and rhythm. ABDOMEN: Benign without organomegaly or tenderness. EXTREMITIES: No edema. The left lower extremity below the knee is warm down to about the ankle and then cools off toward the toes. There is still significant amount of redness and warmth. The 2 below the knee ulcers are still present. No improvement. NEUROLOGIC: Exam normal. SKIN: Unremarkable. Urinary Catheter Management: [place]: Cath Placed During This Visit: yes Reason for Continuing Indwelling Catheter: Required Immobilization for Trauma or Surgery or Anesthesia Urinary Catheter Date of Insertion: 12/28/21 Urinary Catheter Time of Insertion: 06:49 Data : 12/29/21 03:04 12/29/21 03:04 Micro: Microbiology 12/27/21 18:42 Blood Culture - Preliminary Blood NEGATIVE TO DATE 12/27/21 18:42 Blood Culture - Preliminary Blood NEGATIVE TO DATE 12/28/21 04:05 MRSA Culture - Final Nose A&P Assessment and plan (1) Protein calorie malnutrition: Status: Acute (2) Non-healing ulcer of multiple sites of lower extremity: Status: Acute (3) Tobacco abuse, in remission: Status: Acute (4) Acute occlusion of artery of lower extremity due to thrombosis: Status: Acute (5) Cellulitis: Status: Acute (6) Peripheral vascular disease of lower extremity with ulceration: Status: Acute (7) Hypertension: Status: Acute Plan Dr. Yanez is visiting with her currently to discuss the possibility of amputation later today. 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
--- NOTE | 2021-12-29 11:10 | PC.NURSE ---
Patient left floor for surgery.
--- NOTE | 2021-12-29 11:25 | P.ANESASSM_ITS ---
Pre-Anesthetic Assessment Height/Weight: Height 1.73 m Weight 49.895 kg Temp Pulse Resp BP Pulse Ox 98.3 F 80 16 125/64 95 12/29/21 08:00 12/29/21 08:00 12/29/21 08:00 12/29/21 08:00 12/29/21 08:00 Preop Diagnosis: Critical limb ischemia Operation Date: 12/27/21 20:30 Proposed Procedures p Cardiac Catheterization(Not Applicable) - Dank Chamberlain MD Operation Date: 12/29/21 11:55 Proposed Procedures p Debridement left knee(Left) - Don Yanez MD Was Beta Jc taken within 24 hours: Yes Was Clonidine taken within 24 hours: N/A Last intake: 12/28/2021 Social No alcohol and No tobacco Exam alert, oriented x 3, clear to auscultation bilaterally and regular rate & rhythm Airway Submandibular: within normal limits Cervical ROM: within normal limits Mallampati: Class I Dentition: false History/ROS No significant complaints Pulmonary None reported CV/HEM Anemia, Hypertension and Peripheral Vascular Disease CTA 12/04/2021 1.? 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 Common femoral artery is occluded in the LEFT groin. Superficial femoral artery is occluded at the origin with a tiny amount of segmental flow in the upper and mid thigh. Popliteal artery is patent with t hree-vessel runoff to the ankle. Segmental stenosis in the posterior tibial artery. 2.? RIGHT: Mild segmental stenosis in the superficial femoral artery which remains patent. Popliteal artery is patent proximally and is occluded above the knee. This reconstitutes in the popliteal fossa and is patent to the trifurcation. Two-vessel anterior tibial and peroneal runoff to the ankle. 3.? Moderate aortic atheromatous disease. No abdominal aortic aneurysm. 4.? 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 Moderate stenosis at the SMA origin. 5.? Densely calcified renal ostia with moderate to severe LEFT and moderate RIGHT stenosis. 6.? NHI is patent. 7.? Additional nonvascular findings described above. s/p donor nephrectomy Hepatic Hx of transaminitis GI None reported Metabolic Crohn's disease Musc/skel Frail skin on immunosuppresants Osteoporosis Non healing ulcers Neuropsych Cerebrovascular Accident (Left hand weakness ) and Neuropathy Anesthetic Plan ASA status: 4 Anesthesia: Anesthesia Evaluation, General and MAC Other: I discussed with the patient risks, goals, and benefits of MAC and general anesthesia. We discussed spectrum of MAC anesthesia including conversion to general as well as possibility of recall of intraoperative stimuli including discomfort/pain. Patient agrees to proceed with MAC. Risk of > 500 ml blood loss (7ml/kg in children): No Medications/Allergies Home Medications Medication Instructions Recorded Confirmed Last Taken Type calcium carbonate 500 mg calcium 500 mg PO DAILY 11/21/19 12/28/21 Unknown History (1,250 mg) chewable tablet (Calcium 500) cyanocobalamin (vitamin B-12) 1,000 mcg IM Q30D ml 11/21/19 12/28/21 Unknown History 1,000 mcg/mL injection solution folic acid 1 mg tablet 1 mg PO DAILY 11/21/19 12/28/21 Unknown History infliximab 100 mg intravenous See Rx Instructions .ROUTE .COMPLEX 11/21/19 12/28/21 Unknown History solution (Remicade) lisinopril 2.5 mg tablet 2.5 mg PO BEDTIME 11/21/19 12/28/21 Unknown History levothyroxine 125 mcg tablet 125 mcg PO QAM 09/01/21 12/28/21 Unknown History hydrocodone 5 mg-acetaminophen 325 1 tab PO Q8H PRN 7 Days #20 tab 12/09/21 12/28/21 12/14/21 07:30 Rx mg tablet acetaminophen 500 mg tablet 1,000 mg PO Q6H PRN 12/14/21 12/28/21 Unknown History cholecalciferol (vitamin D3) 25 See Rx Instructions .ROUTE .COMPLEX 12/14/21 12/28/21 Unknown History mcg (1,000 unit) capsule (Vitamin D3) diclofenac sodium 1 % topical gel 2 gm TOPICAL QID PRN 12/14/21 12/28/21 Unknown History erythromycin 5 mg/gram (0.5 %) eye See Rx Instructions .ROUTE .COMPLEX 12/14/21 12/28/21 Unknown History ointment (3.5 gram tube) loperamide 2 mg capsule 4 mg PO .UP TO BID PRN 12/14/21 12/28/21 Unknown History metoprolol tartrate 25 mg tablet 12.5 mg PO BID 12/14/21 12/28/21 Unknown History apixaban 5 mg tablet (Eliquis) 5 mg PO BID #60 tab 12/17/21 12/28/21 Unknown Rx aspirin 81 mg tablet,delayed 81 mg PO QAM #60 tab 12/17/21 12/28/21 Unknown Rx release (Adult Aspirin Regimen) simvastatin 40 mg tablet 40 mg PO DAILY #60 tab 12/17/21 12/28/21 Unknown Rx mupirocin 2 % topical ointment 1 applic TOPICAL DAILY #22 g 12/21/21 12/28/21 Unknown Rx furosemide 20 mg tablet (Lasix) 20 mg PO DAILY #30 tab 12/23/21 12/28/21 Unknown Rx gabapentin 300 mg capsule 300 mg PO BID cap 12/23/21 12/28/21 Unknown History Allergies Allergy/AdvReac Type Severity Reaction Status Date / Time metronidazole [From Flagyl] Allergy unknown Verified 12/28/21 09:10 Current Medications Generic Name Dose Route Start Last Admin Trade Name Freq PRN Reason Stop Dose Admin Acetaminophen 650 mg 12/27/21 23:11 12/27/21 23:47 Acetaminophen 325 Mg Tablet PO 650 mg Q6H PRN Administration MILD PAIN Aspirin 81 mg 12/28/21 09:00 12/29/21 08:44 Aspirin 81 Mg Ec Tablet PO Not Given DAILY GEN Clopidogrel Bisulfate 75 mg 12/28/21 09:00 12/29/21 08:44 Clopidogrel 75 Mg Tablet PO Not Given DAILY GEN Hydromorphone HCl 0.4 mg 12/27/21 23:36 12/28/21 20:37 Hydromorphone 1 Mg/Ml Inj 1 Ml IVP 0.4 mg Q4H PRN Administration PAIN Sodium Chloride 1,000 mls @ 100 mls/hr 12/27/21 23:11 12/29/21 11:09 Sodium Chloride 0.9% IV Infused .Q10H GEN Infusion Piperacillin Sod/Tazobactam 50 mls @ 12.5 mls/hr 12/28/21 04:00 12/29/21 07:49 Sod 3.375 gm/ Sodium Chloride IV Infused Q8H GEN Infusion Protocol Vancomycin HCl 1,000 mg/ 250 mls @ 250 mls/hr 12/28/21 14:30 12/29/21 10:21 Sodium Chloride IV Infused Q18H GEN Infusion Protocol As Directed Metoprolol Succinate 12.5 mg 12/28/21 09:00 04/05/22 08:35 Metoprolol Succinate Er (24 Hr) 25 Mg Tablet PO 12.5 mg DAILY GEN Administration PFSH Anesthesia Medical History Crohn disease Fat pad atrophy of foot History of CVA (cerebrovascular accident) Hypertension 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 Osteoporosis Peripheral neuropathy 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) Tobacco abuse, in remission Surgical History History of cataract extraction History of cholecystectomy History of parathyroidectomy History of tonsillectomy Family History Other CAD (coronary artery disease) Cancer Diabetes Hypertension Social History Smoking and tobacco status: former smoker Alcohol intake: never Lives independently: No Household members: spouse Marital status: Marital status details: Help from children, caregivers History of recent travel: No Data Anesthesia : 12/29/21 03:04 12/29/21 03:04 Short CBC 12/27/21 12/28/21 12/29/21 Range/Units 18:43 04:00 03:04 WBC 14.1 H 14.3 H 13.2 H (4.0-10.0) 10^3/uL Hgb 12.0 10.0 L 9.2 L (11.5-15.3) g/dL Hct 37.2 31.2 L 30.0 L (37.0-47.0) % MCV 92.8 94.3 96.8 (81-99) fl Plt Count 445 H 412 H 348 (130-400) 10^3/cmm Neut % (Auto) 79.4 74.3 81.8 % Neut # (Auto) 11.19 H 10.63 H 10.79 H (1.8-7.7) 10^3/uL BMP 12/27/21 12/28/21 12/29/21 18:43 04:00 03:04 Sodium 130 L 131 L 130 L Potassium 4.3 4.2 3.7 Chloride 93 L 97 L 97 L Carbon Dioxide 27 27 24 BUN 12 10 10 Creatinine 0.5 0.5 0.4 L Glucose 107 93 102 Calcium 9.2 8.1 L 8.0 L Cardiac Enzymes 12/27/21 Range/Units 18:43 Creatine Kinase 97 (26-192) U/L Liver Function 12/27/21 Range/Units 18:43 Total Bilirubin 0.7 (0.15-1.2) mg/dL AST 29 (0-32) U/L ALT 19 (0-33) U/L Alkaline Phosphatase 88 (35-105) IU/L Albumin 3.9 (3.5-5.2) g/dL Urine 12/28/21 Range/Units 06:45 Urine Color Yellow (Yellow) Urine Appearance Clear (CLEAR) Urine pH 6.5 (5-7) Ur Specific [place] 1.010 (1.005-1.030) Urine Protein Neg (Negative) Urine Glucose (UA) Norm (Normal) Urine Ketones Negative (Negative) Urine Nitrate Negative (Negative) Urine Bilirubin Neg (Negative) Ur Leukocyte Esterase Negative (Negative) Blood Bank 12/28/21 12:49 Blood Type O Positive Rho(D) Type Positive Antibody Screen Negative Coags 12/27/21 12/27/21 12/28/21 18:43 18:43 04:00 ESR 38 H APTT 156.3 H* C-Reactive Protein 16.7 H 12/28/21 12/29/21 11:30 03:04 ESR APTT 33.9 D C-Reactive Protein 117.2 H Microbiology 12/27/21 18:42 Blood Culture - Preliminary Blood NEGATIVE TO DATE 12/27/21 18:42 Blood Culture - Preliminary Blood NEGATIVE TO DATE 12/28/21 04:05 MRSA Culture - Final Nose Cardiac Studies: No Data to Display
[2021-12-29] MEDS: sodium chloride 0.9% 1,000 ML 30 ML IV (11:36)
--- NOTE | 2021-12-29 12:15 | PM.PN ---
Subjective Subjective: Patient was seen this morning, family at bedside, Dr. Yanez at bedside, plans on taking her to the OR today for debridement, for salvage therapy for left leg, she is agreeable no acute events overnight she tells me that the redness has gone down Vitals/I&O/Wt Last Vital Signs Temp 98.6 F 12/29/21 11:32 Pulse 77 12/29/21 11:32 Resp 18 12/29/21 11:32 BP 125/64 12/29/21 11:32 Pulse Ox 96 12/29/21 11:32 12/28/21 12/29/21 12/29/21 22:59 06:59 14:59 Intake Total 1790 / 2930.15 50 / 2980.15 1300 / 1300 Output Total 1200 / 1200 200 / 1400 Balance 590 / 1730.15 -150 / 1580.15 1300 / 1300 Weight last 48 hrs Weight 49.895 kg Weight 46.72 kg Physical Exam Const: COMMON NORMALS: no acute distress and patient oriented x3 Resp: COMMON NORMALS: normal respiratory effort, No retractions, No use of accessory muscles and clear to auscultation bilaterally AUSCULTATION: clear to auscultation bilaterally Cardio: COMMON NORMALS: regular rate, regular rhythm, S1 normal heart sound present and S2 normal heart sound present RATE: regular rate RHYTHM: regular rhythm HEART SOUNDS: S1 normal heart sound present and S2 normal heart sound present GI: COMMON NORMALS: Normal to inspection, nondistended, normoactive bowel sounds present, Soft to palpation and non-tender PALPATION: Yes Soft to palpation Extremity: COMMON NORMALS: no pedal edema Neuro: COMMON NORMALS: patient oriented x3 Psych: COMMON NORMALS: mental status grossly normal Skin: NARRATIVE SKIN EXAM: Left lower extremity, 2 arterial ulcers, with black eschar, erythema, extending from mid [place] down to ankle Urinary Catheter Management: [place]: Cath Placed During This Visit: yes Reason for Continuing Indwelling Catheter: Required Immobilization for Trauma or Surgery or Anesthesia Urinary Catheter Date of Insertion: 12/28/21 Urinary Catheter Time of Insertion: 06:49 Data : 12/29/21 03:04 12/29/21 03:04 Micro: Microbiology 12/27/21 18:42 Blood Culture - Preliminary Blood NEGATIVE TO DATE 12/27/21 18:42 Blood Culture - Preliminary Blood NEGATIVE TO DATE 12/28/21 04:05 MRSA Culture - Final Nose A&P Assessment and plan (1) 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 Symptoms as of this morning with worsened resting pain, pale appearing cool to touch left foot. Recently family report also worsening of the ulcerations on anterior and postero-medial lower left leg. Arterial Doppler study obtained in ER with EBENEZER of 0.63 reported. Reportedly PT and DP pulses could not be palpated or dopplered. Status post thrombotic occlusion less open with balloon angioplasty and subsequent penumbra aspiration catheter, heparin drip discontinued, developed recurrent symptoms thereafter, this morning asymptomatic, this morning plans on debridement Dr. Chamberlain consult Continue Doppler DP PT pulses Status: Acute (2) Sepsis: Fever 101.2, leukocytosis 14,000, sepsis due to left lower leg cellulitis, with nonhealing recently enlarged ulcerations in the setting of PAD. Blood cultures collected. Lactic acid is 1.3. Started empirically on Zosyn and vancomycin, she is currently going to [employer], but subsequently should continue. Remains afebrile, clinically improving Immunocompromised in the setting of Crohn's disease, receives Remicade infusions. Status: Acute (3) Cellulitis: Cellulitis of left lower extremity overlying also nonhealing recently enlarged arterial insufficiency ulcerations of anterior and postero-medial leg with noted black eschar. Currently going to [employer], but subsequently should continue with antibiotics with Zosyn, vancomycin. Follow-up blood cultures. Status: Acute (4) Non-healing ulcer of multiple sites of lower extremity: Nonhealing recently enlarged arterial insufficiency ulcerations of anterior and posterior leg with noted black eschar. Surrounding cellulitis. She reports they have been continuing wound care with wet-to-dry at home. Arterial Doppler in ER with EBENEZER of 0.63. Will undergo debridement in the operating room today Status: Acute (5) Protein calorie malnutrition: She is underweight, appears frail. Once diet is resumed, add protein supplements. Consider police communications dispatcher consultation and follow-up. Status: Acute Plan Crohn's disease History of CVA HTN Osteoporosis Peripheral neuropathy Attestations Medical Necessity Statement*: Patient requires hospitalization for acute limb ischemia, with arterial ulcers, requiring debridement, cellulitis Coding Level of Care Code Acute Cardiology Specialist for [facility] Diagnoses Acute occlusion of artery of lower extremity due to thrombosis I74.3 Sepsis A41.9 Cellulitis L03.90 Non-healing ulcer of multiple sites of lower extremity L97.909 Protein calorie malnutrition E46
--- NOTE | 2021-12-29 12:27 | P.PN_ITS ---
Subjective Subjective: I have visited with Ms. Mckay today at bedside with her daughters present. Presently, her erythema of the left lower extremity is mildly improved as is her discomfort. Her white count is now 13.2 thousand as opposed to 14.3 yesterday. She remains on vancomycin and Primaxin IV. She is able to move her toes to command and is intact by sensation across the dorsum and plantar aspect of her left foot. She has dry, what I do suspect or full-thickness eschared ulcerations to both the medial and lateral aspects of the left leg. Nursing service reports intermittent Doppler signal of the dorsalis pedis. I have conferred with my colleague Dr. Chamberlain and Dr. Machuca. Vitals/I&O/Wt Last Vital Signs Temp 98.6 F 12/29/21 11:32 Pulse 77 12/29/21 11:32 Resp 18 12/29/21 11:32 BP 125/64 12/29/21 11:32 Pulse Ox 96 12/29/21 11:32 12/28/21 12/29/21 12/29/21 22:59 06:59 14:59 Intake Total 1790 / 2930.15 50 / 2980.15 1300 / 1300 Output Total 1200 / 1200 200 / 1400 Balance 590 / 1730.15 -150 / 1580.15 1300 / 1300 Weight last 48 hrs Weight 110 lb Weight 103 lb Physical Exam Extremity: OTHER: Erythematous left leg from just below the tibial tuberosity down through the ankle, most intense at the level of 2 full-thickness ulcerations with dry eschar. She is able to move her toes to command and sensation remains intact. Urinary Catheter Management: [place]: Cath Placed During This Visit: yes Reason for Continuing Indwelling Catheter: Required Immobilization for Trauma or Surgery or Anesthesia Urinary Catheter Date of Insertion: 12/28/21 Urinary Catheter Time of Insertion: 06:49 Data : 12/29/21 03:04 12/29/21 03:04 Micro: Microbiology 12/27/21 18:42 Blood Culture - Preliminary Blood NEGATIVE TO DATE 12/27/21 18:42 Blood Culture - Preliminary Blood NEGATIVE TO DATE 12/28/21 04:05 MRSA Culture - Final Nose A&P Assessment and plan (1) Peripheral vascular disease of lower extremity with ulceration: I had a lengthy, ian, detailed discussion with Ms. Mckay both yesterday afternoon with 1 daughter with the other daughter listening by fall and again today with both daughters at bedside. The likelihood of long-term salvage of the leg I think is quite low and I have been ian in my opinion concerning this. However, given the fact that the erythema is modestly improved, as is her discomfort, along with a slight drop in her white count, it would be reasonable to attempt to debride these ulcers, take appropriate cultures, and see if there is a febrile response. I am concerned however, that with her very marginal blood supply which is most probably referred from collaterals, there would not be adequate perfusion to heal these wounds. As such, I feel it is not unreasonable to attempt debridement as a means for limb salvage, at least in the short interim. As she does not appear to be systemically ill from her leg, after lengthy conversations with all, we have agreed that we will perform debridement today and reassess. Status: Acute Attestations Medical Necessity Statement*: Unreconstructable peripheral vascular disease with poor healing ulcers of left lower extremity. Coding Level of Care Code Acute Swimming Professor for [facility] Diagnoses Peripheral vascular disease of lower extremity with ulceration I73.9; L97.909
[2021-12-29] MEDS: ceFAZolin 1,000 mg SDV 1000 MG IRRIGATION (13:25)
--- NOTE | 2021-12-29 13:56 | SUR.PHASEI ---
1333 PT TO PACU SLEEPY WITH GOOD RESP EFFORT, VSS IV PATENT TO RT FOREARM #20 WITH NS 200ML UP AT KVO RATE, LT LOWER LEG DRESSING D/I NO DRAINAGE NOTED LT DISTAL FOOT PINK WARM TO TOUCH WITH LESS THAN 3 SECONDS CAP REFILL AND PULSE PALPATED +1 AND MARKED TO LT FOOT. 1350 PT ON 3LNC PRE SURGURY, PT AWAKE ALERT TAKING OCCASIONAL ICE CHIP, VSS SATS 99% ON 3LNC. LT FOOT AND LEG ASSESSMENT UNCHANGED. PT HAS A JOHNSON CATHETER TO DEPENDAND DRAINAGE, WITH STATLOCK TO RT INNER THIGH URINE YELLOW CLEAR TO TUBING AND BAG, APPROXIMATELY 300 ML IN BAG.
--- NOTE | 2021-12-29 14:02 | PM.OP ---
Operative Report Date of procedure: December 29, 2021 Pre-op diagnosis: Preop Diagnosis Critical limb ischemia nonhealing ulcers left leg Post-op diagnosis: same Specimens removed/disposition: Debrided eschars from left leg wound sent for tissue culture Anesthesia: General Brief History: Ms. Mckay is an 86-year-old female with nonhealing medial and lateral left leg wounds and severe peripheral vascular disease. She is now 14 days status post atherectomy and angioplasty of the left common femoral artery and SFA. She developed reocclusion 2 days ago and underwent angioplasty and clot evacuation by Dr. Chamberlain. Because of recurrence of discomfort, it appears that she has reoccluded. Due to her severe vascular disease and poor runoff, it is not felt that she can benefit from further attempts at interventional therapies. Because of erythema, leukocytosis, subjective fever, and increased pain, it was felt that the best course of action may be left above-knee amputation. Over the past 24 hours, her leukocytosis has mildly decreased and her pain is improved and her erythema has improved modestly. After lengthy discussion with Ms. Mckay and her daughters, we have elected to proceed with debridement of her left leg wounds and continue anticoagulation and antibiotic therapy. It is very unclear as to whether this will be successful in salvaging her leg, though given her lack of systemic symptoms, and improved pain, we felt it was a reasonable option. The substantial potential to in short order need above-knee amputation was again very carefully discussed. Patient and family state understanding. Appropriate consents have been reviewed and signed. Procedure: Ms. Mckay was taken to the operating room theater and it was elected by anesthesia to proceed with general anesthetic. Following this, her left leg from the foot through the knee was sterilely prepped and draped. 2 full-thickness eschared ulcerations both medially and laterally of the left leg underwent sharp debridement with a #10 scalpel blade. The medial wound did extend down into the adipose layer with the lateral wound extending down to visualization of fascia. Specimens were cultured as tissue specimens. Both wounds measured 3 cm x 2 x 0.6 cm each. All devitalized tissue was removed. There was moderate bleeding controlled with pressure and very judicious use of cautery. Following this, wet-to-dry dressings were applied. Ms. Mckay was awakened from anesthesia and taken to the postoperative care unit. I did certified credit counselor with her daughters at the completion of the procedure. For now, we will continue antibiotic therapy, wet-to-dry dressing changes, anticoagulation to include aspirin, Eliquis, and Plavix. I have been very ian with family that if her erythema or leukocytosis does not resolve, we should plan to proceed with major amputation.
--- NOTE | 2021-12-29 14:30 | PC.NURSE ---
Patient arrived back to floor from surgery. VS are stable, patient has a palpable pulse on her left dorsalis pedis. No pain currently. Daughters are at bedside.
--- NOTE | 2021-12-29 16:22 | ANE.PACU2 ---
Inpatient post-anesthesia follow up: Airway intact: Yes Vital signs: Temperature 100.9 F Pulse Rate 82 Respiratory Rate 14 Blood Pressure 149/81 Pulse Oximetry 95 Oxygen Delivery Me thod [ Nasal Cannula Current Rate & Del jyothi] Oxygen Delivery Me thod Nasal Cannula Oxygen Flow Rate [ Current Rate 2 & Delivery] Oxygen Flow Rate 3 Fraction of Inspir ed Oxygen Hydration adequate: Yes Nausea and vomiting: No Pain level: 1 Mental status: Baseline
[2021-12-29] MEDS: gabapentin 300 mg Capsule PO (16:53)
[2021-12-29] MEDS: sodium chloride 0.9% 1,000 ML 100 ML IV (16:54)
[2021-12-29] MEDS: HYDROmorphone 1 mg/mL INJ 1 mL 0.4 MG IVP (17:21)
[2021-12-29] MEDS: apixaban 5 mg Tablet PO (19:04)
[2021-12-29 20:27] LABS: Glucose Point of Care 226 mg/dL (70-110)
[2021-12-29] MEDS: temazepam 15 mg Capsule PO (21:47)
[2021-12-30] VITALS (15 sets, daily range): BP systolic 100–127; BP diastolic 53–73; PULSE 56–116; RESP 11–27; TEMP 36.4–36.6; O2SAT 92–100
[2021-12-30] MEDS: vancomycin 1,000 MG in sodium chloride 0.9% 250 ML 250 MG IV ×2 (01:36→21:06)
[2021-12-30] MEDS: piperacillin-tazobactam 3.375 GM in sodium chloride 0.9% (plus) 50 ML IV ×3 (03:15→22:15)
[2021-12-30 03:42] LABS: Basophils % 0.2 %; Hematocrit 26.6 % (37.0-47.0); Hemoglobin 8.4 g/dL (11.5-15.3); Lymphocytes # 0.5 10^3/uL (0.8-4.8); Lymphocytes % 5.1 %; Mean Corpuscular HGB Conc 31.6 g/dL (30.0-36.0); Mean Corpuscular Hemoglobin 29.6 pg (28.0-34.0); Mean Corpuscular Volume 93.7 fl (81-99); Mean Platelet Volume 9.3 fL (7.4-10.4); Monocytes # 0.5 10^3/uL (0.2-0.9); Monocytes % 4.6 %; Neutrophils # 9.13 10^3/uL (1.8-7.7); Neutrophils % 89.1 %; Nucleated Red Blood Cells % 0 %; Platelet Count 350 10^3/cmm (130-400); Red Blood Count 2.84 10^6/uL (4.1-5.3); Red Cell Distribution Width 15.8 % (12.1-15.1); White Blood Count 10.2 10^3/uL (4.0-10.0)
[2021-12-30 03:58] LABS: Anion Gap 10.4 (5-19); Blood Urea Nitrogen 7 mg/dL (8-23); C Reactive Protein 73.5 mg/L (0.0-4.9); Calcium 7.2 mg/dL (8.5-10.5); Carbon Dioxide 24 mmol/L (22-29); Chloride 103 mmol/L (98-107); Glucose 123 mg/dL (65-115); Magnesium 1.9 mg/dL (1.7-2.3); Osmolality Calculated 277 mOsm/kg (285-295); Phosphorus 1.6 mg/dL (2.5-4.5); Potassium 3.4 mmol/L (3.5-5.1); Sodium 134 mmol/L (136-145)
[2021-12-30 04:08] LABS: Procalcitonin 0.08 ng/mL (0-0.5)
[2021-12-30] MEDS: HYDROmorphone 1 mg/mL INJ 1 mL 0.4 MG IVP ×4 (04:29→20:52)
[2021-12-30] MEDS: levothyroxine 125 mcg Tablet PO (04:34)
[2021-12-30 06:31] LABS: Glucose Point of Care 113 mg/dL (70-110)
--- NOTE | 2021-12-30 07:51 | PC.SOCIAL ---
IMM update IMM updated with patient and family at bedside. Verbalized an understanding. Copy Pg 2 provided. Initialled, dated, timed, and placed in chart.
--- NOTE | 2021-12-30 08:15 | P.PN_ITS ---
Subjective Subjective: After speaking with patient yesterday and finding some evidence of a pulse in the foot, the patient requested to Dr. Yanez performed a debridement and hold off on the amputation which was done. Active read Dr. Yanez's notes concerning this. Today the patient seems to feel pretty well. Her other daughter from [place] is in the room. She does not have any particular complaints today. The skin is tender but otherwise she feels pretty well Vitals/I&O/Wt Last Vital Signs Temp 97.6 F 12/30/21 06:54 Pulse 63 12/30/21 06:54 Resp 16 12/30/21 06:54 BP 115/56 12/30/21 06:54 Pulse Ox 99 12/30/21 06:54 12/29/21 12/30/21 12/30/21 22:59 06:59 14:59 Intake Total 100 / 1420 1450 / 2870 50 / 50 Output Total 750 / 755 Balance 100 / 1415 700 / 2115 50 / 50 Physical Exam Narrative: GENERAL: In general she is awake and alert eating breakfast HEENT: Exam within normal limits. NECK: Supple without jugular vein distention. The carotid upstroke is normal without bruits. BACK: Exam normal. LUNGS: Clear. HEART: Regular rate and rhythm. ABDOMEN: Benign without organomegaly or tenderness. EXTREMITIES: No edema. Still some redness in the left lower extremity with eschar. I did not undress the wound. NEUROLOGIC: Exam normal. SKIN: Unremarkable. Urinary Catheter Management: [place]: Cath Placed During This Visit: yes Reason for Continuing Indwelling Catheter: Other Urinary Catheter Date of Insertion: 12/28/21 Urinary Catheter Time of Insertion: 06:49 Data : 12/30/21 03:19 12/30/21 03:19 A&P Assessment and plan (1) Protein calorie malnutrition: Status: Acute (2) Sepsis: Status: Acute (3) Non-healing ulcer of multiple sites of lower extremity: Status: Acute (4) Tobacco abuse, in remission: Status: Acute (5) Acute occlusion of artery of lower extremity due to thrombosis: Status: Acute (6) Peripheral vascular disease of lower extremity with ulceration: Status: Acute (7) Hypertension: Status: Acute Plan Routine postoperative care. Attestations Medical Necessity Statement*: Requires continued hospitalization for manage ment of peripheral arterial disease Coding Level of Care Code Established Pt Acute Senior Benefits Manager for [facility] Patient Type Established History Detailed Exam Detailed Medical Decision Making Moderate Complexity Diagnoses Protein calorie malnutrition E46 Sepsis A41.9 Non-healing ulcer of multiple sites of lower extremity L97.909 Tobacco abuse, in remission F17.201 Acute occlusion of artery of lower extremity due to thrombosis I74.3 Peripheral vascular disease of lower extremity with ulceration I73.9; L97.909 Hypertension I10 Time Spent (min) 30
[2021-12-30] MEDS: aspirin 81 mg EC Tablet PO (08:49)
[2021-12-30] MEDS: sucralfate 1 gm Tablet PO ×2 (08:49→20:59)
[2021-12-30] MEDS: clopidogrel 75 mg Tablet PO (08:49)
[2021-12-30] MEDS: folic acid 1 mg Tablet PO (08:49)
[2021-12-30] MEDS: metoprolol succinate ER (24 HR) 25 mg Tablet 12.5 MG PO (08:50)
[2021-12-30] MEDS: gabapentin 300 mg Capsule PO ×2 (08:50→18:07)
[2021-12-30] MEDS: pantoprazole 40 mg SDV IVP ×2 (08:50→21:10)
[2021-12-30 10:07] LABS: Hematocrit 28.6 % (37.0-47.0)
[2021-12-30 11:01] LABS: Ferritin 140 ng/mL (15-150); Iron 20 ug/dL (37-145); Percent Saturation 8.5 % (20-50); Total Iron Binding Capacity 234 mcg/dl; Unsaturated Iron Binding 214 ug/dL (112-347)
--- NOTE | 2021-12-30 11:15 | PC.NURSE ---
Dr perez on Unit for assessment asked about ordering lanolin for a sore on her nose Instructions to order PRN
[2021-12-30 11:43] LABS: Glucose Point of Care 112 mg/dL (70-110)
--- NOTE | 2021-12-30 11:53 | PM.PN ---
Subjective Subjective: Patient was seen this morning, her daughter is at bedside, denies bloody or black stools, denies any lightheadedness, denies dizziness, does have poor appetite, no lightheadedness, dizziness, she does have intermittent left lower extremity pain Vitals/I&O/Wt Last Vital Signs Temp 97.9 F 12/30/21 11:36 Pulse 63 12/30/21 11:36 Resp 18 12/30/21 11:36 BP 110/73 12/30/21 11:36 Pulse Ox 100 12/30/21 11:36 12/29/21 12/30/21 12/30/21 22:59 06:59 14:59 Intake Total 100 / 1420 1450 / 2870 510 / 510 Output Total 750 / 755 Balance 100 / 1415 700 / 2115 510 / 510 Physical Exam Const: COMMON NORMALS: no acute distress and patient oriented x3 Resp: COMMON NORMALS: normal respiratory effort, No retractions, No use of accessory muscles and clear to auscultation bilaterally AUSCULTATION: clear to auscultation bilaterally Cardio: COMMON NORMALS: regular rate, regular rhythm, S1 normal heart sound present and S2 normal heart sound present RATE: regular rate RHYTHM: regular rhythm HEART SOUNDS: S1 normal heart sound present and S2 normal heart sound present GI: COMMON NORMALS: Normal to inspection, nondistended, normoactive bowel sounds present, Soft to palpation and non-tender PALPATION: Yes Soft to palpation Extremity: NARRATIVE EXTREMITY EXAM: Lower extremity, wrapped and bandaged DP PT pulses barely palpable Neuro: COMMON NORMALS: patient oriented x3 Psych: COMMON NORMALS: mental status grossly normal Urinary Catheter Management: [place]: Cath Placed During This Visit: yes Reason for Continuing Indwelling Catheter: Other Urinary Catheter Date of Insertion: 12/28/21 Urinary Catheter Time of Insertion: 06:49 Data : 12/30/21 10:00 12/30/21 03:19 Micro: Microbiology 12/29/21 13:19 Gram Stain - Final Leg - #2 Wound Culture - Preliminary 12/29/21 13:19 Gram Stain - Final Leg - #3 Tissue Culture - Preliminary Gram Negative Rods A&P Assessment and plan (1) Acute anemia: -Hemoglobin dropped down to 8.4 -Does have a history of Crohn's disease, no history of GI bleed, no history of transfusion -Hemoglobin stable between 12-13 at baseline -Denies any bloody or black stools, no hemodynamic compromise -Iron 20, ferritin 140, percent saturation 8.5 -Check Hemoccult stool -Etiology is likely multifactorial bone marrow suppression from infection, antibiotics, and possible slow GI bleed given that she is on anticoagulant aspirin, Plavix, Eliquis -For now continue aspirin, Plavix hold Eliquis -Monitor hemoglobin every 4 hours -Transfuse if less than 8 -Protonix, Carafate, monitor hemodynamics - Status: Acute (2) 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 Symptoms as of this morning with worsened resting pain, pale appearing cool to touch left foot. Recently family report also worsening of the ulcerations on anterior and postero-medial lower left leg. Arterial Doppler study obtained in ER with EBENEZER of 0.63 reported. Reportedly PT and DP pulses could not be palpated or dopplered. Status post thrombotic occlusion less open with balloon angioplasty and subsequent penumbra aspiration catheter, heparin drip discontinued, developed recurrent symptoms thereafter, this morning continue to have complaints of pain Dr. Chamberlain consult Continue Doppler DP PT pulses Status: Acute (3) Sepsis: Fever 101.2, leukocytosis 14,000, sepsis due to left lower leg cellulitis, with nonhealing recently enlarged ulcerations in the setting of PAD. Blood cultures collected. Lactic acid is 1.3. Started empirically on Zosyn and vancomycin, she is currently going to [employer], but subsequently should continue. Remains afebrile, clinically improving Immunocompromised in the setting of Crohn's disease, receives Remicade infusions. Status: Acute (4) Cellulitis: Cellulitis of left lower extremity overlying also nonhealing recently enlarged arterial insufficiency ulcerations of anterior and postero-medial leg with noted black eschar. Currently going to [employer], but subsequently should continue with antibiotics with Zosyn, vancomycin. Follow-up blood cultures. Status: Acute (5) Non-healing ulcer of multiple sites of lower extremity: Nonhealing recently enlarged arterial insufficiency ulcerations of anterior and posterior leg with noted black eschar. Surrounding cellulitis. She reports they have been continuing wound care with wet-to-dry at home. Arterial Doppler in ER with EBENEZER of 0.63. Status post debridement by Dr. Yanez Status: Acute (6) Protein calorie malnutrition: She is underweight, appears frail. Once diet is resumed, add protein supplements. Consider motorboat mechanic helper consultation and follow-up. Status: Acute Plan Crohn's disease History of CVA HTN Osteoporosis Peripheral neuropathy Attestations Medical Necessity Statement*: Patient requires hospitalization for peripheral arterial disease, arterial ulcers status post debridement, now with acute anemia Coding Level of Care Code Acute Bone Char Operator for [facility] Diagnoses Acute anemia D64.9 Acute occlusion of artery of lower extremity due to thrombosis I74.3 Sepsis A41.9 Cellulitis L03.90 Non-healing ulcer of multiple sites of lower extremity L97.909 Protein calorie malnutrition E46
--- NOTE | 2021-12-30 12:05 | PC.CHAP ---
Pastoral Care Encounter/Spiritual Assessment Type of Contact [] Declined fabricator assembler metal products visit [] Patient/Family/Request visit [] Outpatient visit [] Follow-up visit [] Physician referral [] Code/Alert [x] Routine visit [] Staff referral [] Actively dying [] Patient sleeping [x] Family support [] [] Out of room [] Palliative care [] [] Receiving care in room [] Pre-surgical visit [] Trauma [] Long length of stay [] ICU visit [x] Other: feeling stronger today... daughter present Relational/Emotional Strength [] Patient feels connected with others/family/visitors/staff [] Distress [] Loneliness/isolation [] Abandonment Spirituality of Patient [] Person of Anastasia [] Attends Anabaptist of their Anastasia [] Believes in Prayer [] Reads Bible or Synagogue materials [] There are Spiritual issues to be addressed Nutrition Aide Interventions [x] Prayer [] Active listening [] Non-anxious presence [] Spiritual/emotional support [] Crisis/trauma care [] Spiritual counseling [] Bereavement support [] Provided bereavement packet [] Provided Bible/devotional materials [] Provided toy/stuffed animal, coloring book to patient or family member [] Provided Communion [] Anointing/Peggs [] Salvation [x] Completed spiritual assessment [] Other: Impact on Illness or Injury [] Angry [] Fearful [] Anxious [] Often cries [] Exhaustion [] Unable to work [] Unable to attend caodaism [] Unable to walk/stand [] Unable to read [] Unable to drive [] Unable to eat/drink [] Unable to sleep [] Unable to be with family [] Patient intubated [] Other: Summary Time spent with patient
[2021-12-30 15:33] LABS: Hematocrit 28.4 % (37.0-47.0); Hemoglobin 9.1 g/dL (11.5-15.3)
--- NOTE | 2021-12-30 16:22 | PC.NURSE ---
patient blood glucose is 122
[2021-12-30 16:27] LABS: Glucose Point of Care 122 mg/dL (70-110)
--- NOTE | 2021-12-30 16:27 | P.PN_ITS ---
Subjective Subjective: Postop day #1 status post debridement of medial and lateral ischemic ulcerations of the left lower extremity, mid leg. White count has decreased now to 10.2. Remains afebrile. There appears to be less erythema. Surgical dressings were changed. The wounds are clean. The lateral wound does extend down to the fascia. No purulence. Gram stain from the original cultures have returned to a gram-negative shaina. Identification is still pending. Vitals/I&O/Wt Last Vital Signs Temp 97.7 F 12/30/21 14:57 Pulse 73 12/30/21 15:58 Resp 16 12/30/21 15:16 BP 108/56 12/30/21 14:57 Pulse Ox 98 12/30/21 15:58 12/30/21 12/30/21 12/30/21 06:59 14:59 22:59 Intake Total 1450 / 2870 619.0909 / 619.0909 Output Total 750 / 755 Balance 700 / 2115 619.0909 / 619.0909 Physical Exam Extremity: OTHER: Bilateral mid left leg wounds are clean. Wet-to-dry dressings were reapplied. No sharp debridement was required with this evening's dressing change. She tolerated dressing change well with minimal discomfort. Neuro: OTHER: She maintains ability to flex and dorsiflex her left toes. Urinary Catheter Management: [place]: Cath Placed During This Visit: yes Reason for Continuing Indwelling Catheter: Other Urinary Catheter Date of Insertion: 12/28/21 Urinary Catheter Time of Insertion: 06:49 Data : 12/30/21 15:22 12/30/21 03:19 Micro: Microbiology 12/29/21 13:19 Anaerobic Culture - Preliminary Leg - #1 12/30/21 14:36 Occult Blood (FIT) - Final Stool Routine Collection 12/29/21 13:19 Gram Stain - Final Leg - #2 Wound Culture - Preliminary 12/29/21 13:19 Gram Stain - Final Leg - #3 Tissue Culture - Preliminary Gram Negative Rods A&P Assessment and plan (1) Peripheral vascular disease of lower extremity with ulceration: Postop day #1 status post left leg ulcer debridement Plan: We will further modify antibiotic therapy pending identification of organisms from wound cultures. Continue dressing change as scheduled. Greatly appreciate the expertise of Dr. Chamberlain and Dr. 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
[2021-12-30 20:41] LABS: Hematocrit 30.2 % (37.0-47.0); Hemoglobin 9.3 g/dL (11.5-15.3)
[2021-12-30] MEDS: temazepam 15 mg Capsule PO (20:59)
[2021-12-30 21:12] LABS: Vancomycin Trough 10.8 ug/mL (10-15)
[2021-12-31] VITALS (11 sets, daily range): BP systolic 104–133; BP diastolic 58–71; PULSE 65–131; RESP 10–22; TEMP 36.6–37; O2SAT 92–98
[2021-12-31 03:00] LABS: Basophils # 0.1 10^3/uL (0.0-0.1); Basophils % 0.5 %; Eosinophils # 0.2 10^3/uL (0.0-0.8); Eosinophils % 1.9 %; Hematocrit 27.5 % (37.0-47.0); Hemoglobin 8.7 g/dL (11.5-15.3); Lymphocytes # 1.1 10^3/uL (0.8-4.8); Lymphocytes % 10.8 %; Mean Corpuscular HGB Conc 31.6 g/dL (30.0-36.0); Mean Corpuscular Hemoglobin 29.6 pg (28.0-34.0); Mean Corpuscular Volume 93.5 fl (81-99); Mean Platelet Volume 9.1 fL (7.4-10.4); Monocytes % 9.2 %; Neutrophils % 77.2 %; Nucleated Red Blood Cells % 0 %; Platelet Count 382 10^3/cmm (130-400); Red Blood Count 2.94 10^6/uL (4.1-5.3); Red Cell Distribution Width 16.1 % (12.1-15.1); White Blood Count 10.5 10^3/uL (4.0-10.0)
[2021-12-31 03:21] LABS: C Reactive Protein 36.4 mg/L (0.0-4.9); Magnesium 1.9 mg/dL (1.7-2.3); Phosphorus 2.5 mg/dL (2.5-4.5)
[2021-12-31 03:24] LABS: Alanine Aminotransferase 15 U/L (0-33); Albumin Level 2.5 g/dL (3.5-5.2); Alkaline Phosphatase 76 IU/L (35-105); Anion Gap 10.6 (5-19); Aspartate Amino Transferase 21 U/L (0-32); Blood Urea Nitrogen 13 mg/dL (8-23); Calcium 7.6 mg/dL (8.5-10.5); Carbon Dioxide 26 mmol/L (22-29); Chloride 105 mmol/L (98-107); Creatinine Clr Calc Pharmacy 32.9861; Globulin 2.9 g/dL (1.3-4.6); Glucose 95 mg/dL (65-115); Osmolality Calculated 286 mOsm/kg (285-295); Potassium 3.6 mmol/L (3.5-5.1); Sodium 138 mmol/L (136-145); Total Bilirubin 0.3 mg/dL (0.15-1.2); Total Protein 5.4 g/dL (6.6-8.7)
[2021-12-31 03:27] LABS: Procalcitonin 0.13 ng/mL (0-0.5)
[2021-12-31] MEDS: levothyroxine 125 mcg Tablet PO (05:41)
[2021-12-31] MEDS: piperacillin-tazobactam 3.375 GM in sodium chloride 0.9% (plus) 50 ML IV ×3 (05:42→22:34)
[2021-12-31] MEDS: HYDROmorphone 1 mg/mL INJ 1 mL 0.4 MG IVP ×2 (06:14→19:59)
--- NOTE | 2021-12-31 09:02 | P.PN_ITS ---
Subjective Subjective: Patient has no discomfort today. Her leg seems a little less red. She has not been up and around. The anticoagulant has been held because the patient's hemoglobin dropped. She remains on aspirin and Plavix. She is getting 5000 units of heparin subcutaneously. Patient's daughter from [place] is here this morning. I had an extended conversation with her. She tells me that the patient's and other daughter are struggling with the potential need to remove the patient's leg. They are still considering having the patient transferred somewhere else. Vitals/I&O/Wt Last Vital Signs Temp 97.9 F 12/31/21 07:29 Pulse 85 12/31/21 07:29 Resp 16 12/31/21 07:29 BP 133/71 12/31/21 07:29 Pulse Ox 92 12/31/21 07:29 12/30/21 12/31/21 12/31/21 22:59 06:59 14:59 Intake Total 540 / 1159.0909 150 / 1309.0909 1000 / 1000 Output Total 1200 / 1200 Balance 540 / 1159.0909 -1050 / 109.0909 1000 / 1000 Physical Exam Narrative: GENERAL: In general she is awake and alert HEENT: Exam within normal limits. NECK: Supple without jugular vein distention. The carotid upstroke is normal without bruits. BACK: Exam normal. LUNGS: Clear. HEART: Regular rate and rhythm. ABDOMEN: Benign without organomegaly or tenderness. EXTREMITIES: No edema. Left leg remains wrapped. There is no redness above or below the bandage. Very weak Doppler signals can be obtained in the dorsalis pedis area. NEUROLOGIC: Exam normal. SKIN: Unremarkable. Urinary Catheter Management: [place]: Cath Placed During This Visit: yes Reason for Continuing Indwelling Catheter: Acute Urinary Retention or Obstruction Urinary Catheter Date of Insertion: 12/28/21 Urinary Catheter Time of Insertion: 06:49 Data : 12/31/21 02:52 12/31/21 02:52 Micro: Microbiology 12/29/21 13:19 Anaerobic Culture - Preliminary Leg - #1 12/30/21 14:36 Occult Blood (FIT) - Final Stool Routine Collection 12/29/21 13:19 Gram Stain - Final Leg - #2 Wound Culture - Preliminary 12/29/21 13:19 Gram Stain - Final Leg - #3 Tissue Culture - Preliminary Gram Negative Rods A&P Assessment and plan (1) Acute anemia: Status: Acute (2) Protein calorie malnutrition: Status: Acute (3) Sepsis: Status: Acute (4) Non-healing ulcer of multiple sites of lower extremity: Status: Acute (5) Tobacco abuse, in remission: Status: Acute (6) Acute occlusion of artery of lower extremity due to thrombosis: Status: Acute (7) Cellulitis: Status: Acute (8) Peripheral vascular disease of lower extremity with ulceration: Status: Acute (9) Hypertension: Status: Acute Plan I had a 30-minute conversation with 1 daughter who lives in [place]. I tried to explain the difficulty in maintaining perfusion to this lower extremity given the extensive vascular disease she has from the beginning of the common iliac artery all the way down. The another daughter still struggling and may want the patient transferred to a different facility to see if the leg could be salvaged. The hemoglobin from today is still pending. For now we will continue the subcu heparin and the aspirin and Plavix. Attestations Medical Necessity Statement*: Needs continued hospitalization for management of acute occlusion of the lower leg. 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
[2021-12-31 09:05] LABS: Hematocrit 31.9 % (37.0-47.0); Hemoglobin 10.1 g/dL (11.5-15.3)
[2021-12-31] MEDS: clopidogrel 75 mg Tablet PO (09:29)
[2021-12-31] MEDS: aspirin 81 mg EC Tablet PO (09:29)
[2021-12-31] MEDS: metoprolol succinate ER (24 HR) 25 mg Tablet 12.5 MG PO (09:30)
[2021-12-31] MEDS: sucralfate 1 gm Tablet PO ×2 (09:30→20:03)
[2021-12-31] MEDS: pantoprazole 40 mg SDV IVP ×2 (09:30→20:03)
[2021-12-31] MEDS: folic acid 1 mg Tablet PO (09:30)
[2021-12-31] MEDS: heparin 5,000 unit/mL INJ 1 mL 5000 UNIT SUBCUT ×2 (09:30→18:06)
[2021-12-31] MEDS: gabapentin 300 mg Capsule PO ×2 (09:30→18:06)
--- NOTE | 2021-12-31 13:46 | PM.PN ---
Subjective Subjective: Patient was seen this morning, her daughters at bedside, her appetite is improving, she has minimal left lower extremity pain, no nausea, no vomiting, no fevers Vitals/I&O/Wt Last Vital Signs Temp 98.6 F 12/31/21 11:11 Pulse 103 H 12/31/21 11:11 Resp 20 H 12/31/21 11:11 BP 133/71 12/31/21 11:11 Pulse Ox 93 12/31/21 11:11 12/30/21 12/31/21 12/31/21 22:59 06:59 14:59 Intake Total 540 / 1159.0909 150 / 1309.0909 1050 / 1050 Output Total 1200 / 1200 Balance 540 / 1159.0909 -1050 / 109.0909 1050 / 1050 Physical Exam Const: COMMON NORMALS: no acute distress and patient oriented x3 Resp: COMMON NORMALS: normal respiratory effort, No retractions, No use of accessory muscles and clear to auscultation bilaterally AUSCULTATION: clear to auscultation bilaterally Cardio: COMMON NORMALS: regular rate, regular rhythm, S1 normal heart sound present and S2 normal heart sound present RATE: regular rate RHYTHM: regular rhythm HEART SOUNDS: S1 normal heart sound present and S2 normal heart sound present GI: COMMON NORMALS: Normal to inspection, nondistended, normoactive bowel sounds present, Soft to palpation, non-tender and No hepatosplenomegaly present PALPATION: Yes Soft to palpation and Yes No hepatosplenomegaly present Extremity: OTHER: Left leg wrapped in bandage, DP PT pulses, barely palpable Neuro: COMMON NORMALS: patient oriented x3 Psych: COMMON NORMALS: mental status grossly normal Urinary Catheter Management: [place]: Cath Placed During This Visit: yes Reason for Continuing Indwelling Catheter: Acute Urinary Retention or Obstruction Urinary Catheter Date of Insertion: 12/28/21 Urinary Catheter Time of Insertion: 06:49 Data : 12/31/21 08:59 12/31/21 02:52 Micro: Microbiology 12/29/21 13:19 Anaerobic Culture - Preliminary Leg - #1 12/29/21 13:19 Gram Stain - Final Leg - #3 Tissue Culture - Preliminary Pseudomonas aeruginosa 12/29/21 13:19 Gram Stain - Final Leg - #2 Wound Culture - Preliminary 12/30/21 14:36 Occult Blood (FIT) - Final Stool Routine Collection A&P Assessment and plan (1) Acute anemia: -Hemoglobin dropped up to 10.1 -Does have a history of Crohn's disease, no history of GI bleed, no history of transfusion -Hemoglobin stable between 12-13 at baseline -Denies any bloody or black stools, no hemodynamic compromise -Iron 20, ferritin 140, percent saturation 8.5, evidence of iron deficiency anemia -Surprisingly Hemoccult stool negative -Etiology is likely multifactorial bone marrow suppression from infection, antibiotics, and possible slow GI bleed given that she is on anticoagulant aspirin, Plavix, Eliquis -For now continue aspirin, Plavix hold Eliquis -We will do a trial of subcu heparin, if her hemoglobin remained stable, will consider transitioning to Eliquis -Monitor hemoglobin -Transfuse if less than 8 -Protonix, Carafate, monitor hemodynamics - Status: Acute (2) 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 Symptoms as of this morning with worsened resting pain, pale appearing cool to touch left foot. Recently family report also worsening of the ulcerations on anterior and postero-medial lower left leg. Arterial Doppler study obtained in ER with EBENEZER of 0.63 reported. Reportedly PT and DP pulses could not be palpated or dopplered. Status post thrombotic occlusion less open with balloon angioplasty and subsequent penumbra aspiration catheter, heparin drip discontinued, developed recurrent symptoms thereafter, this morning continue to have complaints of pain Dr. Chamberlain consult Continue Doppler DP PT pulses Status: Acute (3) Sepsis: Fever 101.2, leukocytosis 14,000, sepsis due to left lower leg cellulitis, with nonhealing recently enlarged ulcerations in the setting of PAD. Blood cultures collected. Lactic acid is 1.3. Started empirically on Zosyn and vancomycin, she is currently going to Fisheries Technical Officer, but subsequently should continue. Remains afebrile, clinically improving Immunocompromised in the setting of Crohn's disease, receives Remicade infusions. Status: Acute (4) Cellulitis: Cellulitis of left lower extremity overlying also nonhealing recently enlarged arterial insufficiency ulcerations of anterior and postero-medial leg with noted black eschar. Currently going to Fisheries Technical Officer, but subsequently should continue with antibiotics with Zosyn, vancomycin. Follow-up blood cultures. Status: Acute (5) Non-healing ulcer of multiple sites of lower extremity: Nonhealing recently enlarged arterial insufficiency ulcerations of anterior and posterior leg with noted black eschar. Surrounding cellulitis. She reports they have been continuing wound care with wet-to-dry at home. Arterial Doppler in ER with EBENEZER of 0.63. Status post debridement by Dr. Yanez Status: Acute (6) Protein calorie malnutrition: She is underweight, appears frail. Once diet is resumed, add protein supplements. Consider floor coverings installer consultation and follow-up. Status: Acute Plan Crohn's disease History of CVA HTN Osteoporosis Peripheral neuropathy Attestations Medical Necessity Statement*: Patient requires hospitalization for acute anemia, left leg cellulitis, arterial ulcer Coding Level of Care Code Acute Sql Data Analyst for [facility] Fwd Diagnoses Acute anemia D64.9 Acute occlusion of artery of lower extremity due to thrombosis I74.3 Sepsis A41.9 Cellulitis L03.90 Non-healing ulcer of multiple sites of lower extremity L97.909 Protein calorie malnutrition E46
[2021-12-31] MEDS: vancomycin 1,000 MG in sodium chloride 0.9% 250 ML 250 MG IV (15:11)
[2021-12-31] MEDS: sodium chloride 0.9% 1,000 ML 999 ML IV (17:50)
--- NOTE | 2021-12-31 19:43 | PC.NURSE ---
[address] shannon with concerns of patient Hr and irregularity HR 100-127 instructions received to give 200ml Normal saline bolus and run continuous fluids at 100ml/s an hour for 800 following bolus 1900 patient hr stabilized and patient is resting in bed with no complaints or out garcia s/s of distress
[2021-12-31] MEDS: temazepam 15 mg Capsule PO (22:39)
[2022-01-01] VITALS (10 sets, daily range): BP systolic 96–148; BP diastolic 43–92; PULSE 64–135; RESP 15–19; TEMP 36.4–36.8; O2SAT 93–99
[2022-01-01] MEDS: heparin 5,000 unit/mL INJ 1 mL 5000 UNIT SUBCUT ×3 (00:16→17:57)
[2022-01-01] MEDS: acetaminophen 325 mg Tablet 650 MG PO (03:35)
[2022-01-01 03:57] LABS: Alanine Aminotransferase 13 U/L (0-33); Alkaline Phosphatase 70 IU/L (35-105); Anion Gap 9.8 (5-19); Aspartate Amino Transferase 18 U/L (0-32); Blood Urea Nitrogen 11 mg/dL (8-23); Calcium 7.7 mg/dL (8.5-10.5); Carbon Dioxide 24 mmol/L (22-29); Chloride 104 mmol/L (98-107); Globulin 3.5 g/dL (1.3-4.6); Glucose 91 mg/dL (65-115); Osmolality Calculated 279 mOsm/kg (285-295); Sodium 135 mmol/L (136-145); Total Bilirubin 0.3 mg/dL (0.15-1.2); Total Protein 5.5 g/dL (6.6-8.7)
[2022-01-01 04:04] LABS: Potassium 2.8 mmol/L (3.5-5.1)
[2022-01-01] MEDS: potassium chloride ER 20 mEq Tablet 40 MEQ PO ×2 (04:22→05:34)
[2022-01-01] MEDS: levothyroxine 125 mcg Tablet PO (05:34)
[2022-01-01] MEDS: piperacillin-tazobactam 3.375 GM in sodium chloride 0.9% (plus) 50 ML IV ×3 (05:42→20:50)
[2022-01-01 06:56] LABS: Basophils # 0.1 10^3/uL (0.0-0.1); Basophils % 0.9 %; Eosinophils # 0.2 10^3/uL (0.0-0.8); Hemoglobin 8.5 g/dL (11.5-15.3); Lymphocytes # 1.2 10^3/uL (0.8-4.8); Lymphocytes % 15.2 %; Mean Corpuscular HGB Conc 31.5 g/dL (30.0-36.0); Mean Corpuscular Hemoglobin 29.5 pg (28.0-34.0); Mean Corpuscular Volume 93.8 fl (81-99); Mean Platelet Volume 9.1 fL (7.4-10.4); Monocytes # 0.9 10^3/uL (0.2-0.9); Monocytes % 12.1 %; Neutrophils # 5.21 10^3/uL (1.8-7.7); Neutrophils % 67.9 %; Nucleated Red Blood Cells % 0 %; Platelet Count 399 10^3/cmm (130-400); Red Blood Count 2.88 10^6/uL (4.1-5.3); Red Cell Distribution Width 16.2 % (12.1-15.1); White Blood Count 7.7 10^3/uL (4.0-10.0)
[2022-01-01] MEDS: clopidogrel 75 mg Tablet PO (09:08)
[2022-01-01] MEDS: sucralfate 1 gm Tablet PO ×2 (09:09→20:49)
[2022-01-01] MEDS: folic acid 1 mg Tablet PO (09:09)
[2022-01-01] MEDS: aspirin 81 mg EC Tablet PO (09:09)
[2022-01-01] MEDS: vancomycin 1,000 MG in sodium chloride 0.9% 250 ML 250 MG IV (09:09)
[2022-01-01] MEDS: metoprolol succinate ER (24 HR) 25 mg Tablet 12.5 MG PO (09:09)
[2022-01-01] MEDS: gabapentin 300 mg Capsule PO ×2 (09:09→17:57)
--- NOTE | 2022-01-01 09:23 | PC.SOCIAL ---
IMM Update pg 2 of IMM updated and reviewed w/ patients daughter who is @ bedside. Copy provided and Copy in chart updated.
[2022-01-01] MEDS: pantoprazole 40 mg SDV IVP ×2 (10:37→20:50)
[2022-01-01] MEDS: lidocaine 1% 5 ML in potassium chloride premix 100 ML 25 ML IV (10:46)
[2022-01-01] MEDS: HYDROcodone-acetaminophen 5-325 mg Tablet 1 TAB PO ×3 (10:58→20:49)
--- NOTE | 2022-01-01 12:13 | P.PN_ITS ---
Subjective Subjective: Patient was seen this morning, she is quite sleepy this morning, does arouse, she she has some complaints of left lower extremity pain overnight overnight she had elevated heart rates, low blood pressures and was given fluid bolus Vitals/I&O/Wt Last Vital Signs Temp 97.5 F L 01/01/22 11:31 Pulse 135 H 01/01/22 11:31 Resp 18 01/01/22 11:31 BP 148/92 01/01/22 11:31 Pulse Ox 97 01/01/22 11:31 12/31/21 01/01/22 01/01/22 22:59 06:59 14:59 Intake Total 939.8 / 2229.8 950.2 / 3180.0 300 / 300 Output Total 1000 / 1000 550 / 1550 Balance -60.2 / 1229.8 400.2 / 1630.0 300 / 300 Physical Exam Const: COMMON NORMALS: no acute distress and patient oriented x3 Resp: COMMON NORMALS: normal respiratory effort, No retractions, No use of accessory muscles and clear to auscultation bilaterally AUSCULTATION: clear to auscultation bilaterally Cardio: COMMON NORMALS: regular rate, regular rhythm, S1 normal heart sound present and S2 normal heart sound present RATE: regular rate RHYTHM: regular rhythm HEART SOUNDS: S1 normal heart sound present and S2 normal heart sound present GI: COMMON NORMALS: Normal to inspection, nondistended, normoactive bowel sounds present, Soft to palpation, non-tender and No hepatosplenomegaly present PALPATION: Yes Soft to palpation and Yes No hepatosplenomegaly present Extremity: NARRATIVE EXTREMITY EXAM: Left lower extremity, area of erythema significantly improved, arterial ulcers wrapped and bandaged Does have calf tenderness, left lower extremity swelling, 1+ pitting edema Neuro: COMMON NORMALS: patient oriented x3 Psych: COMMON NORMALS: mental status grossly normal Urinary Catheter Management: [place]: Cath Placed During This Visit: yes Reason for Continuing Indwelling Catheter: Acute Urinary Retention or Obstruction Urinary Catheter Date of Insertion: 12/28/21 Urinary Catheter Time of Insertion: 06:49 Data : 01/01/22 06:41 01/01/22 02:52 Micro: Microbiology 12/29/21 13:19 Anaerobic Culture - Preliminary Leg - #1 12/29/21 13:19 Gram Stain - Final Leg - #3 Tissue Culture - Preliminary Pseudomonas aeruginosa 12/29/21 13:19 Gram Stain - Final Leg - #2 Wound Culture - Preliminary A&P Assessment and plan (1) Acute anemia: -Hemoglobin dropped to 8.4 with Eliquis, not at 8.5 with heparin -Does have a history of Crohn's disease, no history of GI bleed, no history of transfusion -Hemoglobin stable between 12-13 at baseline -Denies any bloody or black stools, no hemodynamic compromise -Iron 20, ferritin 140, percent saturation 8.5, evidence of iron deficiency anemia -Surprisingly Hemoccult stool negative -Etiology is likely multifactorial bone marrow suppression from infection, antibiotics, and possible slow GI bleed given that she is on anticoagulant aspirin, Plavix, Eliquis -For now continue aspirin, Plavix hold Eliquis -Continue trial of subcu heparin, recheck hemoglobin this afternoon, if her hemoglobin remained stable, will consider transitioning to Eliquis -Monitor hemoglobin -Transfuse if less than 8 -Protonix, Carafate, monitor hemodynamics - Status: Acute (2) 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 Symptoms as of this morning with worsened resting pain, pale appearing cool to touch left foot. Recently family report also worsening of the ulcerations on anterior and postero-medial lower left leg. Arterial Doppler study obtained in ER with EBENEZER of 0.63 reported. Reportedly PT and DP pulses could not be palpated or dopplered. Status post thrombotic occlusion less open with balloon angioplasty and subsequent penumbra aspiration catheter, heparin drip discontinued, developed recurrent symptoms thereafter, this morning continue to have complaints of pain Dr. Chamberlain consult Continue Doppler DP PT pulses We will check venous ultrasound for DVT Status: Acute (3) Sepsis: Fever 101.2, leukocytosis 14,000, sepsis due to left lower leg cellulitis, with nonhealing recently enlarged ulcerations in the setting of PAD. Blood cultures collected. Lactic acid is 1.3. Started empirically on Zosyn and vancomycin, will continue for the next 24 hours Remains afebrile, clinically improving, area of cellulitis improving Immunocompromised in the setting of Crohn's disease, receives Remicade infusions. Status: Acute (4) Cellulitis: Cellulitis of left lower extremity overlying also nonhealing recently enlarged arterial insufficiency ulcerations of anterior and postero-medial leg with noted black eschar. Currently going to Signal Worker Helper, but subsequently should continue with antibiotics with Zosyn, vancomycin. Follow-up blood cultures. Status: Acute (5) Non-healing ulcer of multiple sites of lower extremity: Nonhealing recently enlarged arterial insufficiency ulcerations of anterior and posterior leg with noted black eschar. Surrounding cellulitis. She reports they have been continuing wound care with wet-to-dry at home. Arterial Doppler in ER with EBENEZER of 0.63. Status post debridement by Dr. Yanez Status: Acute (6) Protein calorie malnutrition: She is underweight, appears frail. Once diet is resumed, add protein supplements. Consider emergency room rn consultation and follow-up. Status: Acute Plan Crohn's disease History of CVA HTN Osteoporosis Peripheral neuropathy Attestations Medical Necessity Statement*: Patient requires hospitalization for left lower extremity peripheral arterial disease, acute limb ischemia, cellulitis, acute anemia, Coding Level of Care Code Acute Director Transportation for [facility] Fwd Diagnoses Acute anemia D64.9 Acute occlusion of artery of lower extremity due to thrombosis I74.3 Sepsis A41.9 Cellulitis L03.90 Non-healing ulcer of multiple sites of lower extremity L97.909 Protein calorie malnutrition E46
--- NOTE | 2022-01-01 12:14 | USCV_ITS ---
Woody Dimple Age: 86 Gender: F : 1935 Exam Date: 01/01/2022 13:58 Ordering Phys: Samuel Machuca MD Technologist: KISHA Exam Location: [facility] [place]_ Indication: Lower extremity swelling HISTORY: Lower extremity swelling. PROCEDURES: Venous duplex imaging was performed in bilateral lower extremities. The following venous structures were evaluated: common femoral vein, profunda vein, proximal portion of the greater saphenous vein, superficial femoral vein, and the popliteal vein. In addition, the posterior tibial and peroneal trunk were evaluated. FINDINGS: Unable to visualize Rt CFV and GSV at [place] due to angio bandage and tesfaye cath bandage. Left lower calf and ankle just bandaged prior to ultrasound. Left GSV ankle and PTVs not visualized. All other veins imaged appear compressible and free of thrombus at this time. CONCLUSIONS Entire lower extremity veins are not seen due to bandage material. The veins that are visualize are negative for DVT> Dr. Juana Qiu DO (Electronically Signed) Final Date: 01 January 2022 15:51 S
--- NOTE | 2022-01-01 13:01 | P.PN_ITS ---
Subjective Subjective: Dimple seems to be getting along fine this morning. No pain in the leg. Vitals/I&O/Wt Last Vital Signs Temp 97.5 F L 01/01/22 11:31 Pulse 135 H 01/01/22 11:31 Resp 18 01/01/22 11:31 BP 148/92 01/01/22 11:31 Pulse Ox 97 01/01/22 11:31 12/31/21 01/01/22 01/01/22 22:59 06:59 14:59 Intake Total 939.8 / 2229.8 950.2 / 3180.0 300 / 300 Output Total 1000 / 1000 550 / 1550 Balance -60.2 / 1229.8 400.2 / 1630.0 300 / 300 Physical Exam Narrative: GENERAL: In general she is comfortable at rest HEENT: Exam within normal limits. NECK: Supple without jugular vein distention. The carotid upstroke is normal without bruits. BACK: Exam normal. LUNGS: Clear. HEART: Regular rate and rhythm. ABDOMEN: Benign without organomegaly or tenderness. EXTREMITIES: No edema. The left lower extremity is bandaged from the knee to the ankle. I did not unwrap this. The foot is warm. NEUROLOGIC: Exam normal. SKIN: Unremarkable. Urinary Catheter Management: [place]: Cath Placed During This Visit: yes Reason for Continuing Indwelling Catheter: Acute Urinary Retention or Obstruction Urinary Catheter Date of Insertion: 12/28/21 Urinary Catheter Time of Insertion: 06:49 Data : 01/01/22 06:41 01/01/22 02:52 Micro: Microbiology 12/29/21 13:19 Anaerobic Culture - Preliminary Leg - #1 12/29/21 13:19 Gram Stain - Final Leg - #3 Tissue Culture - Preliminary Pseudomonas aeruginosa 12/29/21 13:19 Gram Stain - Final Leg - #2 Wound Culture - Preliminary A&P Assessment and plan (1) Acute anemia: Status: Acute (2) Protein calorie malnutrition: Status: Acute (3) Non-healing ulcer of multiple sites of lower extremity: Status: Acute (4) Tobacco abuse, in remission: Status: Acute (5) Acute occlusion of artery of lower extremity due to thrombosis: Status: Acute (6) Peripheral vascular disease of lower extremity with ulceration: Status: Acute (7) Cellulitis: Status: Acute (8) History of CVA (cerebrovascular accident): Status: Acute (9) Hypertension: Status: Acute Plan No changes today. Awaiting the patient's ability to get up and possibly ambulate. Awaiting family's desires with respect to treatment of the lower extremity. Attestations Medical Necessity Statement*: Needs continued hospital stay for management of left lower extremity peripheral arterial disease. Coding Level of Care Code Established Pt Acute Electroencephalograph Technologist for g Fwd Patient Type Established History Detailed Exam Detailed Medical Decision Making Moderate Complexity Diagnoses Acute anemia D64.9 Protein calorie malnutrition E46 Non-healing ulcer of multiple sites of lower extremity L97.909 Tobacco abuse, in remission F17.201 Acute occlusion of artery of lower extremity due to thrombosis I74.3 Peripheral vascular disease of lower extremity with ulceration I73.9; L97.909 Cellulitis L03.90 History of CVA (cerebrovascular accident) Z86.73 Hypertension I10 Time Spent (min) 30
--- NOTE | 2022-01-01 13:03 | PM.PN ---
Subjective Subjective: Postop day #3 status post debridement of left lower extremity leg wounds. White count is continued to decrease, now at 7.7. While H&H dropped, her fecal occult blood was negative. Dressings were changed again today on the wounds. They are quite clean. No evidence for further necrosis. Microbiology results from operative wound cultures have returned Pseudomonas which does show sensitivity to Levaquin. Vitals/I&O/Wt Last Vital Signs Temp 97.5 F L 01/01/22 11:31 Pulse 135 H 01/01/22 11:31 Resp 18 01/01/22 11:31 BP 148/92 01/01/22 11:31 Pulse Ox 97 01/01/22 11:31 12/31/21 01/01/22 01/01/22 22:59 06:59 14:59 Intake Total 939.8 / 2229.8 950.2 / 3180.0 300 / 300 Output Total 1000 / 1000 550 / 1550 Balance -60.2 / 1229.8 400.2 / 1630.0 300 / 300 Physical Exam Extremity: OTHER: Medial and lateral left leg wounds are quite clean. Wet-to-dry dressings were changed again. Erythema has continued to improve. Urinary Catheter Management: [place]: Cath Placed During This Visit: yes Reason for Continuing Indwelling Catheter: Acute Urinary Retention or Obstruction Urinary Catheter Date of Insertion: 12/28/21 Urinary Catheter Time of Insertion: 06:49 Data : 01/01/22 06:41 01/01/22 02:52 Micro: Microbiology 12/29/21 13:19 Anaerobic Culture - Preliminary Leg - #1 12/29/21 13:19 Gram Stain - Final Leg - #3 Tissue Culture - Preliminary Pseudomonas aeruginosa 12/29/21 13:19 Gram Stain - Final Leg - #2 Wound Culture - Preliminary A&P Assessment and plan (1) Peripheral vascular disease of lower extremity with ulceration: Postop day #3 status post left leg debridement. Continued clinical improvement with white count now normalized. Pseudomonas obtained from culture is sensitive to Levaquin if there is consideration for transitioning to an oral antibiotic. [place] catheter can be discontinued from my standpoint Greatly appreciate the expertise of Dr. Chamberlain from our cardiology service and from our hospitalist colleagues. Status: Acute Attestations Medical Necessity Statement*: Status post debridement of ischemic ulcers left lower extremity with continued improvement clinically Coding Level of Care Code Acute Roll Plugger Machine Operator for Chg Fwd Diagnoses Peripheral vascular disease of lower extremity with ulceration I73.9; L97.909
[2022-01-01] MEDS: lidocaine 1% 5 ML in potassium chloride premix 100 ML 50 ML IV (15:02)
[2022-01-01 15:14] LABS: Basophils # 0.1 10^3/uL (0.0-0.1); Basophils % 0.9 %; Eosinophils # 0.2 10^3/uL (0.0-0.8); Hematocrit 32.8 % (37.0-47.0); Hemoglobin 10.3 g/dL (11.5-15.3); Lymphocytes % 12.3 %; Mean Corpuscular HGB Conc 31.4 g/dL (30.0-36.0); Mean Corpuscular Hemoglobin 29.9 pg (28.0-34.0); Mean Corpuscular Volume 95.1 fl (81-99); Mean Platelet Volume 9.1 fL (7.4-10.4); Monocytes # 1.1 10^3/uL (0.2-0.9); Monocytes % 13.9 %; Neutrophils # 5.32 10^3/uL (1.8-7.7); Neutrophils % 69.1 %; Nucleated Red Blood Cells % 0 %; Platelet Count 435 10^3/cmm (130-400); Red Blood Count 3.45 10^6/uL (4.1-5.3); Red Cell Distribution Width 16.5 % (12.1-15.1); White Blood Count 7.7 10^3/uL (4.0-10.0)
--- NOTE | 2022-01-01 19:15 | PC.NURSE ---
Received report from WILMA [place]. Patient resting in bed. Daughter at bedside. Patient is s/p peripheral angiogram via right femoral artery. Site is free from bleeding or hematoma formation. Patient dressing to left medina s/p debridement. Dressing remains c,d,i. Noted swelling to left leg and redness. Left foot and lower extremity warm to touch with faint palpabable pulse. Instructed patient on hydrocodone and pain control to left leg. Patient and daughter both verbalized complete understanding. Patient denies needs at this time. No other distresses observed. Will continue to monitor.
[2022-01-01 20:08] LABS: Hematocrit 28.5 % (37.0-47.0); Hemoglobin 9.1 g/dL (11.5-15.3)
[2022-01-02] VITALS (12 sets, daily range): BP systolic 149–175; BP diastolic 72–95; PULSE 70–119; RESP 12–19; TEMP 36.7–37; O2SAT 88–98
[2022-01-02] MEDS: vancomycin 1,000 MG in sodium chloride 0.9% 250 ML 250 MG IV (01:50)
[2022-01-02] MEDS: heparin 5,000 unit/mL INJ 1 mL 5000 UNIT SUBCUT ×2 (01:51→08:00)
[2022-01-02] MEDS: HYDROcodone-acetaminophen 5-325 mg Tablet 1 TAB PO ×4 (03:59→20:32)
[2022-01-02] MEDS: piperacillin-tazobactam 3.375 GM in sodium chloride 0.9% (plus) 50 ML IV (04:00)
[2022-01-02] MEDS: levothyroxine 125 mcg Tablet PO (04:10)
[2022-01-02 05:17] LABS: Basophils # 0.1 10^3/uL (0.0-0.1); Basophils % 0.8 %; Eosinophils # 0.3 10^3/uL (0.0-0.8); Eosinophils % 4.1 %; Hematocrit 28.1 % (37.0-47.0); Hemoglobin 8.6 g/dL (11.5-15.3); Lymphocytes # 1.2 10^3/uL (0.8-4.8); Lymphocytes % 15.3 %; Mean Corpuscular HGB Conc 30.6 g/dL (30.0-36.0); Mean Corpuscular Hemoglobin 29.5 pg (28.0-34.0); Mean Corpuscular Volume 96.2 fl (81-99); Mean Platelet Volume 9.2 fL (7.4-10.4); Monocytes # 0.8 10^3/uL (0.2-0.9); Monocytes % 10.5 %; Neutrophils # 5.21 10^3/uL (1.8-7.7); Neutrophils % 68.6 %; Nucleated Red Blood Cells % 0 %; Platelet Count 432 10^3/cmm (130-400); Red Blood Count 2.92 10^6/uL (4.1-5.3); Red Cell Distribution Width 16.5 % (12.1-15.1); White Blood Count 7.6 10^3/uL (4.0-10.0)
[2022-01-02 05:36] LABS: Alanine Aminotransferase 12 U/L (0-33); Albumin Level 2.7 g/dL (3.5-5.2); Alkaline Phosphatase 86 IU/L (35-105); Anion Gap 10.3 (5-19); Aspartate Amino Transferase 14 U/L (0-32); Blood Urea Nitrogen 12 mg/dL (8-23); Calcium 8.5 mg/dL (8.5-10.5); Carbon Dioxide 27 mmol/L (22-29); Chloride 104 mmol/L (98-107); Globulin 3.1 g/dL (1.3-4.6); Glucose 88 mg/dL (65-115); Osmolality Calculated 283 mOsm/kg (285-295); Potassium 4.3 mmol/L (3.5-5.1); Sodium 137 mmol/L (136-145); Total Bilirubin 0.2 mg/dL (0.15-1.2); Total Protein 5.8 g/dL (6.6-8.7)
[2022-01-02] MEDS: metoprolol succinate ER (24 HR) 25 mg Tablet 12.5 MG PO (07:44)
[2022-01-02] MEDS: clopidogrel 75 mg Tablet PO (07:44)
[2022-01-02] MEDS: folic acid 1 mg Tablet PO (07:45)
[2022-01-02] MEDS: sucralfate 1 gm Tablet PO ×2 (07:45→20:33)
[2022-01-02] MEDS: pantoprazole 40 mg SDV IVP ×2 (07:45→20:32)
[2022-01-02] MEDS: gabapentin 300 mg Capsule PO ×2 (07:45→17:07)
[2022-01-02] MEDS: aspirin 81 mg EC Tablet PO (07:45)
[2022-01-02] MEDS: ciprofloxacin 500 mg Tablet PO ×2 (08:49→20:33)
[2022-01-02] MEDS: doxycycline 100 mg Tablet PO ×2 (08:49→17:07)
--- NOTE | 2022-01-02 09:03 | P.PN_ITS ---
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 According to family, the skin color is improving in the left leg. Medications: Medication Review Details: Current Medications Acetaminophen (Acetaminophen 325 Mg Tablet) 650 mg PO Q6H PRN PRN Reason: MILD PAIN Last Admin: 01/01/22 03:35 Dose: 650 mg Documented by: Hydrocodone Bitart/Acetaminophen (Hydrocodone-Acetaminophen 5-325 Mg Tablet) 1 tab PO Q4H PRN PRN Reason: MODERATE PAIN Last Admin: 01/02/22 08:52 Dose: 1 tab Documented by: Al Hydrox/Mg Hydrox/Simethicone (Xqqf-Vym-Jcuyxifpd-Sammy 30 Ml Udc) 30 ml PO Q15M PRN PRN Reason: INDIGESTION Alprazolam (Alprazolam 0.5 Mg Tablet) 0.25 mg PO TID PRN PRN Reason: ANXIETY Aspirin (Aspirin 81 Mg Ec Tablet) 81 mg PO DAILY [facility] Last Admin: 01/02/22 07:45 Dose: 81 mg Documented by: Atropine Sulfate (Atropine 1 Mg/Ml Sdv 1 Ml) 0.5 mg IVP PRN PRN PRN Reason: Symptomatic bradycardia Ciprofloxacin HCl (Ciprofloxacin 500 Mg Tablet) 500 mg PO BID@0900,2100 [facility]; Protocol Last Admin: 01/02/22 08:49 Dose: 500 mg Documented by: Clopidogrel Bisulfate (Clopidogrel 75 Mg Tablet) 75 mg PO DAILY [facility] Last Admin: 01/02/22 07:44 Dose: 75 mg Documented by: Doxycycline Monohydrate (Doxycycline 100 Mg Tablet) 100 mg PO BID [facility]; Protocol Last Admin: 01/02/22 08:49 Dose: 100 mg Documented by: Folic Acid (Folic Acid 1 Mg Tablet) 1 mg PO DAILY [facility] Last Admin: 01/02/22 07:45 Dose: 1 mg Documented by: Gabapentin (Gabapentin 300 Mg Capsule) 300 mg PO BID [facility] Last Admin: 01/02/22 07:45 Dose: 300 mg Documented by: Lanolin (Lanolin Oint 7 Gm) 1 applic TOPICAL PRN PRN PRN Reason: DRYNESS Levothyroxine Sodium (Levothyroxine 125 Mcg Tablet) 125 mcg PO QAM [facility] Last Admin: 01/02/22 04:10 Dose: 125 mcg Documented by: Magnesium Hydroxide (Magnesium Hydroxide 30 Ml Udc) 30 ml PO DAILY PRN PRN Reason: CONSTIPATION Metoprolol Succinate (Metoprolol Succinate Er (24 Hr) 25 Mg Tablet) 12.5 mg PO DAILY [facility] Last Admin: 01/02/22 07:44 Dose: 12.5 mg Documented by: Naloxone HCl (Naloxone 0.4 Mg/Ml Sdv) 0.1 mg IVP Q2M PRN PRN Reason: RESPIRATORY RATE < 8/MIN Nitroglycerin (Nitroglycerin 0.4 Mg Sublingual Tablet) 0.4 mg SUBLINGUAL Q5M PRN PRN Reason: CHEST PAIN Pantoprazole Sodium (Pantoprazole 40 Mg Sdv) 40 mg IVP Q12H [facility] Last Admin: 01/02/22 07:45 Dose: 40 mg Documented by: Sucralfate (Sucralfate 1 Gm Tablet) 1 gm PO Q12H [facility] Last Admin: 01/02/22 07:45 Dose: 1 gm Documented by: Temazepam (Temazepam 15 Mg Capsule) 15 mg PO BEDTIME PRN PRN Reason: INSOMNIA Last Admin: 12/31/21 22:39 Dose: 15 mg Documented by: Vitals/I&O/Wt Last Vital Signs Temp 98.0 F 01/02/22 07:22 Pulse 77 01/02/22 08:10 Resp 18 01/02/22 07:22 BP 149/72 01/02/22 07:22 Pulse Ox 97 01/02/22 08:10 01/01/22 01/02/22 01/02/22 22:59 06:59 14:59 Intake Total 755 / 1638.75 720 / 2358.75 50 / 50 Output Total 800 / 800 950 / 1750 Balance -45 / 838.75 -230 / 608.75 50 / 50 Physical Exam Narrative: GENERAL: The patient is alert and oriented times three. Not in any acute distress. HEENT: No significant pallor, icterus or lymphadenopathy.Oral cavity: There are no mucous membrane lesions. NECK: Trachea appears to be central. No masses noted. No JVD or thyromegaly appreciated. RESPIRATORY: Chest is symmetrical. No intercostals muscle retraction or any accessory muscle activation. There is no chest wall tenderness. Breath sounds are heard bilaterally. No rales or rhonchi heard. No evidence of any consolidation. BREASTS: Deferred. HEART: The heart sounds are normal. No S3 or S4. Short systolic murmur in the left sternal border. No diastolic murmurs. No pericardial rub ABDOMEN: No vessel pulsations or distention. No tenderness. No organomegaly appreciated. Bowel sounds are normally heard. : Deferred. RECTAL: Deferred. LYMPHATIC: No lymphadenopathy noted in the neck. EXTREMITIES: 1+ edema both lower extremities. The pulses are dictated with the Doppler bilaterally. The left lower extremity is slightly warmer. The ulcer seems to be healing MUSCULOSKELETAL: No acute joint deformities or swelling SKIN: There are no significant rashes or ecchymosis NEUROPSYCHIATRIC: The patient is alert and oriented x3. Appears to be in a good mood. No tremors or rigidity noted. Urinary Catheter Management: [place]: Cath Placed During This Visit: yes Reason for Continuing Indwelling Catheter: Acute Urinary Retention or Obstruction Urinary Catheter Date of Insertion: 12/28/21 Urinary Catheter Time of Insertion: 06:49 Data : 01/02/22 04:30 01/02/22 04:30 Other Labs: Laboratory Last Values WBC 7.6 10^3/uL (4.0-10.0) 01/02/22 04:30 RBC 2.92 10^6/uL (4.1-5.3) L 01/02/22 04:30 Hgb 8.6 g/dL (11.5-15.3) L 01/02/22 04:30 Hct 28.1 % (37.0-47.0) L 01/02/22 04:30 MCV 96.2 fl (81-99) 01/02/22 04:30 MCH 29.5 pg (28.0-34.0) 01/02/22 04:30 MCHC 30.6 g/dL (30.0-36.0) 01/02/22 04:30 RDW 16.5 % (12.1-15.1) H 01/02/22 04:30 Plt Count 432 10^3/cmm (130-400) H 01/02/22 04:30 MPV 9.2 fL (7.4-10.4) 01/02/22 04:30 Neut % (Auto) 68.6 % 01/02/22 04:30 Lymph % (Auto) 15.3 % 01/02/22 04:30 Russell % (Auto) 10.5 % 01/02/22 04:30 Eos % (Auto) 4.1 % 01/02/22 04:30 Baso % (Auto) 0.8 % 01/02/22 04:30 Neut # (Auto) 5.21 10^3/uL (1.8-7.7) 01/02/22 04:30 Lymph # (Auto) 1.2 10^3/uL (0.8-4.8) 01/02/22 04:30 Russell # (Auto) 0.8 10^3/uL (0.2-0.9) 01/02/22 04:30 Eos # (Auto) 0.3 10^3/uL (0.0-0.8) 01/02/22 04:30 Baso # (Auto) 0.1 10^3/uL (0.0-0.1) 01/02/22 04:30 Nucleated RBC % (auto) 0 % 01/02/22 04:30 Nucleated RBCs # 0.0 /100WBC 01/02/22 04:30 ESR 38 mm/hr (0-15) H 12/27/21 18:43 APTT 33.9 SECONDS (23.9-36.7) D 12/28/21 11:30 Sodium 137 mmol/L (136-145) 01/02/22 04:30 Potassium 4.3 mmol/L (3.5-5.1) 01/02/22 04:30 Chloride 104 mmol/L (98-107) 01/02/22 04:30 Carbon Dioxide 27 mmol/L (22-29) 01/02/22 04:30 Anion Gap 10.3 (5-19) 01/02/22 04:30 BUN 12 mg/dL (8-23) 01/02/22 04:30 Creatinine 1.1 mg/dL (0.5-0.9) H 01/02/22 04:30 GFR Calculation Not Reportable 01/02/22 04:30 Glucose 88 mg/dL (65-115) 01/02/22 04:30 POC Glucose 122 mg/dL (70-110) H 12/30/21 16:21 Calculated Osmolality 283 mOsm/kg (285-295) L 01/02/22 04:30 Lactate 1.3 mmol/L (0.5-2.2) 12/27/21 18:43 Calcium 8.5 mg/dL (8.5-10.5) 01/02/22 04:30 Phosphorus 2.5 mg/dL (2.5-4.5) D 12/31/21 02:52 Magnesium 1.9 mg/dL (1.7-2.3) 12/31/21 02:52 Iron 20 ug/dL (37-145) L 12/30/21 03:19 TIBC 234 mcg/dl 12/30/21 03:19 % Saturation 8.5 % (20-50) L 12/30/21 03:19 Unsat Iron Binding 214 ug/dL (112-347) 12/30/21 03:19 Ferritin 140 ng/mL (15-150) 12/30/21 03:19 Total Bilirubin 0.2 mg/dL (0.15-1.2) 01/02/22 04:30 AST 14 U/L (0-32) 01/02/22 04:30 ALT 12 U/L (0-33) 01/02/22 04:30 Alkaline Phosphatase 86 IU/L (35-105) 01/02/22 04:30 Creatine Kinase 97 U/L (26-192) 12/27/21 18:43 C-Reactive Protein 36.4 mg/L (0.0-4.9) H 12/31/21 02:52 Total Protein 5.8 g/dL (6.6-8.7) L 01/02/22 04:30 Albumin 2.7 g/dL (3.5-5.2) L 01/02/22 04:30 Globulin 3.1 g/dL (1.3-4.6) 01/02/22 04:30 Procalcitonin 0.13 ng/mL (0-0.5) 12/31/21 02:52 Procalcitonin Cancelled 12/31/21 02:52 Urine Color Yellow (Yellow) 12/28/21 06:45 Urine Appearance Clear (CLEAR) 12/28/21 06:45 Urine pH 6.5 (5-7) 12/28/21 06:45 Ur Specific [place] 1.010 (1.005-1.030) 12/28/21 06:45 Urine Protein Neg (Negative) 12/28/21 06:45 Urine Glucose (UA) Norm (Normal) 12/28/21 06:45 Urine Ketones Negative (Negative) 12/28/21 06:45 Urine Blood Neg (Negative) 12/28/21 06:45 Urine Nitrate Negative (Negative) 12/28/21 06:45 Urine Bilirubin Neg (Negative) 12/28/21 06:45 Urine Urobilinogen Norm mg/dL (Negative) 12/28/21 06:45 Ur Leukocyte Esterase Negative (Negative) 12/28/21 06:45 Vancomycin Trough 10.8 ug/mL (10-15) 12/30/21 19:56 Blood Type O Positive 12/28/21 12:49 Rho(D) Type Positive 12/28/21 12:49 Antibody Screen Negative 12/28/21 12:49 Crossmatch See Detail 12/28/21 12:49 Micro: Microbiology 12/27/21 18:42 Blood Culture - Final Blood NO GROWTH AFTER 5 DAYS 12/27/21 18:42 Blood Culture - Final Blood NO GROWTH AFTER 5 DAYS 12/29/21 13:19 Anaerobic Culture - Preliminary Leg - #1 12/29/21 13:19 Gram Stain - Final Leg - #3 Tissue Culture - Final Pseudomonas aeruginosa 12/29/21 13:19 Gram Stain - Final Leg - #2 Wound Culture - Final A&P Assessment and plan (1) Acute occlusion of artery of lower 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 The foot is warm. Pulses detected with Doppler in the dorsalis pedis artery on the left side. The cellulitis in the left leg seems to be improving. The patient's overall clinical status seems to be improving Status: Acute (2) Non-healing ulcer of multiple sites of lower extremity: Status post wound debridement. Currently seems to be improving Status: Acute (3) Acute anemia: Appears to be blood loss anemia. Currently H&H seems to be stable. Consider adding hematinics Status: Acute (4) Protein calorie malnutrition: Advancing the nutrition Status: Acute (5) Cellulitis: Clinically seems to be improving. Remains afebrile. He is on antibiotics. Status: Acute (6) History of CVA (cerebrovascular accident): No recurrence. May continue on the current measures. Status: Acute (7) Hypertension: Currently the blood pressure is a stage II. Need to optimize antihypertensive medications. I may add amlodipine 2.5 mg p.o. daily to the current medications. Status: Acute (8) Tobacco abuse, in remission: Status: Acute Plan Based on the patient's clinical progress, further recommendations will be made. 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
--- NOTE | 2022-01-02 09:34 | PM.PN ---
Subjective Subjective: Patient was seen this morning, family is at bedside, she had a good night last night, she did get up to the side of the bed, into a chair, denies any lightheadedness, dizziness, no bloody or black stools Vitals/I&O/Wt Last Vital Signs Temp 98.0 F 01/02/22 07:22 Pulse 77 01/02/22 08:10 Resp 18 01/02/22 07:22 BP 149/72 01/02/22 07:22 Pulse Ox 97 01/02/22 08:10 01/01/22 01/02/22 01/02/22 22:59 06:59 14:59 Intake Total 755 / 1638.75 720 / 2358.75 50 / 50 Output Total 800 / 800 950 / 1750 Balance -45 / 838.75 -230 / 608.75 50 / 50 Physical Exam Const: COMMON NORMALS: no acute distress and patient oriented x3 Resp: COMMON NORMALS: normal respiratory effort, No retractions, No use of accessory muscles and clear to auscultation bilaterally AUSCULTATION: clear to auscultation bilaterally Cardio: COMMON NORMALS: regular rate, regular rhythm, S1 normal heart sound present and S2 normal heart sound present RATE: regular rate RHYTHM: regular rhythm HEART SOUNDS: S1 normal heart sound present and S2 normal heart sound present GI: COMMON NORMALS: Normal to inspection, nondistended, normoactive bowel sounds present, Soft to palpation and non-tender PALPATION: Yes Soft to palpation Extremity: COMMON NORMALS: no pedal edema NARRATIVE EXTREMITY EXAM: Left lower extremity wrapped in bandage Neuro: COMMON NORMALS: patient oriented x3 Psych: COMMON NORMALS: mental status grossly normal Urinary Catheter Management: [place]: Cath Placed During This Visit: yes Reason for Continuing Indwelling Catheter: Acute Urinary Retention or Obstruction Urinary Catheter Date of Insertion: 12/28/21 Urinary Catheter Time of Insertion: 06:49 Data : 01/02/22 04:30 01/02/22 04:30 Micro: Microbiology 12/27/21 18:42 Blood Culture - Final Blood NO GROWTH AFTER 5 DAYS 12/27/21 18:42 Blood Culture - Final Blood NO GROWTH AFTER 5 DAYS 12/29/21 13:19 Anaerobic Culture - Preliminary Leg - #1 12/29/21 13:19 Gram Stain - Final Leg - #3 Tissue Culture - Final Pseudomonas aeruginosa 12/29/21 13:19 Gram Stain - Final Leg - #2 Wound Culture - Final A&P Assessment and plan (1) Acute anemia: -Hemoglobin dropped to 8.4 with Eliquis, fluctuating between 8 and 10 on heparin, no hemodynamic compromise or bloody or black stools -We will do a trial of Eliquis 2.5 mg twice daily, monitor hemoglobin every 6 hours -Does have a history of Crohn's disease, no history of GI bleed, no history of transfusion -Hemoglobin stable between 12-13 at baseline -Denies any bloody or black stools, no hemodynamic compromise -Iron 20, ferritin 140, percent saturation 8.5, evidence of iron deficiency anemia -Surprisingly Hemoccult stool negative -Etiology is likely multifactorial bone marrow suppression from infection, antibiotics, and possible slow GI bleed given that she is on anticoagulant aspirin, Plavix, Eliquis -For now continue aspirin, Plavi -Monitor hemoglobin -Transfuse if less than 8 -Protonix, Carafate, monitor hemodynamics - Status: Acute (2) 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 Symptoms as of this morning with worsened resting pain, pale appearing cool to touch left foot. Recently family report also worsening of the ulcerations on anterior and postero-medial lower left leg. Arterial Doppler study obtained in ER with EBENEZER of 0.63 reported. Reportedly PT and DP pulses could not be palpated or dopplered. Status post thrombotic occlusion less open with balloon angioplasty and subsequent penumbra aspiration catheter, heparin drip discontinued, developed recurrent symptoms thereafter, this morning continue to have complaints of pain Dr. Chamberlain consult Continue Doppler DP PT pulses We will check venous ultrasound for DVT left lower extremity Status: Acute (3) Sepsis: Fever 101.2, leukocytosis 14,000, sepsis due to left lower leg cellulitis, with nonhealing recently enlarged ulcerations in the setting of PAD. Blood cultures collected. Lactic acid is 1.3. Started empirically on Zosyn and vancomycin, transition to p.o. antibiotics, Cipro, doxy Remains afebrile, clinically improving, area of cellulitis improving Immunocompromised in the setting of Crohn's disease, receives Remicade infusions. Status: Acute (4) Cellulitis: Cellulitis of left lower extremity overlying also nonhealing recently enlarged arterial insufficiency ulcerations of anterior and postero-medial leg with noted black eschar. Currently going to Mixing Machine Tender Cork Gasket, but subsequently should continue with antibiotics with Zosyn, vancomycin. Follow-up blood cultures. Status: Acute (5) Non-healing ulcer of multiple sites of lower extremity: Nonhealing recently enlarged arterial insufficiency ulcerations of anterior and posterior leg with noted black eschar. Surrounding cellulitis. She reports they have been continuing wound care with wet-to-dry at home. Arterial Doppler in ER with EBENEZER of 0.63. Status post debridement by Dr. Yanez Status: Acute (6) Protein calorie malnutrition: She is underweight, appears frail. Once diet is resumed, add protein supplements. Consider rod pointer consultation and follow-up. 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
--- NOTE | 2022-01-02 09:35 | USR_ITS ---
PROCEDURE INFORMATION: Exam: US Duplex Left Lower Extremity Veins, Limited Exam date and time: 01/02/2022 10:04 AM Age: 86 years old Clinical indication: Condition or disease; Other: Left leg wounds; Prior surgery; Surgery date: 3-7 days post-operative; Surgery type: Left leg debridement of wounds; Additional info: Please remve bandage to preform, please remve bandage to preform TECHNIQUE: Imaging protocol: Real-time Duplex ultrasound of the Left Lower Extremity with 2-D see scale, color Doppler flow and spectral waveform analysis with image documentation. Limited exam focused on the left lower extremity veins. COMPARISON: US ROR venous duplex LE 12/22/2021 4:05 PM FINDINGS: Left deep veins: Unremarkable. The common femoral, femoral, proximal profunda femoral and popliteal veins are patent without thrombus. Normal Doppler waveforms. Normal compressibility and/or augmentation response. Left superficial veins: Unremarkable. Saphenofemoral junction is patent without thrombus. Soft tissues: Subcutaneous edema is seen within the left lower extremity. US/CV venous duplex [id number] IMPRESSION: No evidence of deep vein thrombosis.
[2022-01-02] MEDS: apixaban 5 mg Tablet 2.5 MG PO (12:14)
[2022-01-02 18:25] LABS: Hematocrit 33.9 % (37.0-47.0); Hemoglobin 10.8 g/dL (11.5-15.3)
--- NOTE | 2022-01-02 19:05 | PC.NURSE ---
Received report from LUIS E Ordoñez. Patient resting in bed. C/o pain to left leg. Repositioned for comfort. Assisted patient up to BSC x 2 assist. Instructed patient on dosing of ordered pain medication and pain control. Patient verbalized complete understanding. Left lower extremity remains warm to touch. Dressing in place remains c,d,i at this time. Will continue to monitor.
[2022-01-03] VITALS (10 sets, daily range): BP systolic 137–171; BP diastolic 59–95; PULSE 74–100; RESP 14–17; TEMP 36.6; O2SAT 92–97
[2022-01-03] MEDS: apixaban 5 mg Tablet 2.5 MG PO ×3 (00:17→23:10)
[2022-01-03] MEDS: HYDROcodone-acetaminophen 5-325 mg Tablet 1 TAB PO ×6 (00:17→23:09)
[2022-01-03 00:48] LABS: Hematocrit 32.1 % (37.0-47.0); Hemoglobin 10.1 g/dL (11.5-15.3)
[2022-01-03] MEDS: levothyroxine 125 mcg Tablet PO (05:27)
[2022-01-03 05:56] LABS: Basophils # 0.1 10^3/uL (0.0-0.1); Eosinophils # 0.4 10^3/uL (0.0-0.8); Eosinophils % 4.6 %; Hematocrit 28.7 % (37.0-47.0); Hemoglobin 9.2 g/dL (11.5-15.3); Lymphocytes # 1.2 10^3/uL (0.8-4.8); Lymphocytes % 14.9 %; Mean Corpuscular HGB Conc 32.1 g/dL (30.0-36.0); Mean Corpuscular Hemoglobin 29.4 pg (28.0-34.0); Mean Corpuscular Volume 91.7 fl (81-99); Mean Platelet Volume 8.9 fL (7.4-10.4); Monocytes # 0.7 10^3/uL (0.2-0.9); Monocytes % 8.7 %; Neutrophils # 5.62 10^3/uL (1.8-7.7); Neutrophils % 69.9 %; Nucleated Red Blood Cells % 0 %; Platelet Count 487 10^3/cmm (130-400); Red Blood Count 3.13 10^6/uL (4.1-5.3); Red Cell Distribution Width 16.2 % (12.1-15.1)
[2022-01-03 06:18] LABS: Anion Gap 11.6 (5-19); Blood Urea Nitrogen 9 mg/dL (8-23); Calcium 8.8 mg/dL (8.5-10.5); Carbon Dioxide 29 mmol/L (22-29); Chloride 102 mmol/L (98-107); Glucose 92 mg/dL (65-115); Magnesium 1.7 mg/dL (1.7-2.3); Osmolality Calculated 286 mOsm/kg (285-295); Phosphorus 2.7 mg/dL (2.5-4.5); Potassium 3.6 mmol/L (3.5-5.1); Sodium 139 mmol/L (136-145)
[2022-01-03] MEDS: pantoprazole 40 mg SDV IVP ×2 (08:22→19:59)
[2022-01-03] MEDS: aspirin 81 mg EC Tablet PO (08:31)
[2022-01-03] MEDS: sucralfate 1 gm Tablet PO ×2 (08:31→19:59)
[2022-01-03] MEDS: doxycycline 100 mg Tablet PO ×2 (08:31→17:38)
[2022-01-03] MEDS: clopidogrel 75 mg Tablet PO (08:31)
[2022-01-03] MEDS: ciprofloxacin 500 mg Tablet PO ×2 (08:31→19:59)
[2022-01-03] MEDS: folic acid 1 mg Tablet PO (08:32)
[2022-01-03] MEDS: metoprolol succinate ER (24 HR) 25 mg Tablet 12.5 MG PO (08:32)
[2022-01-03] MEDS: gabapentin 300 mg Capsule PO ×2 (08:32→17:38)
--- NOTE | 2022-01-03 09:11 | PM.PN ---
Subjective Subjective: Patient was seen this morning, family at bedside, denies any bloody or black stools, no lightheadedness, dizziness, she reports persistent generalized weakness Vitals/I&O/Wt Last Vital Signs Temp 98.6 F 01/02/22 22:33 Pulse 100 01/03/22 08:53 Resp 14 01/03/22 08:53 BP 158/95 01/03/22 08:53 Pulse Ox 97 01/03/22 08:53 01/02/22 01/03/22 01/03/22 22:59 06:59 14:59 Intake Total 358 / 644 360 / 1004 236 / 236 Balance 358 / -556 360 / -196 236 / 236 Physical Exam Const: COMMON NORMALS: no acute distress and patient oriented x3 Resp: COMMON NORMALS: normal respiratory effort, No retractions, No use of accessory muscles and clear to auscultation bilaterally AUSCULTATION: clear to auscultation bilaterally Cardio: COMMON NORMALS: regular rate, regular rhythm, S1 normal heart sound present and S2 normal heart sound present RATE: regular rate RHYTHM: regular rhythm HEART SOUNDS: S1 normal heart sound present and S2 normal heart sound present GI: COMMON NORMALS: Normal to inspection, nondistended, normoactive bowel sounds present, Soft to palpation, non-tender and No hepatosplenomegaly present PALPATION: Yes Soft to palpation and Yes No hepatosplenomegaly present Extremity: COMMON NORMALS: no pedal edema OTHER: Left lower extremity, warm, flushed, DP PT not palpable Neuro: COMMON NORMALS: patient oriented x3 Psych: COMMON NORMALS: mental status grossly normal Urinary Catheter Management: [place]: Cath Placed During This Visit: yes, but has since been removed by the nurse Reason for Continuing Indwelling Catheter: Not indwelling catheter Urinary Catheter Date of Insertion: 12/28/21 Urinary Catheter Time of Insertion: 06:49 Date Urinary Catheter Removed: 01/02/22 Time Urinary Catheter Discontinued: 12:00 Data : 01/03/22 05:25 01/03/22 05:25 Micro: Microbiology 12/29/21 13:19 Anaerobic Culture - Preliminary Leg - #1 A&P Assessment and plan (1) Acute anemia: -Hemoglobin has been stable on Eliquis 2.5 mg twice daily, continue, monitor hemoglobin, no hemodynamic compromise or bloody or black stools -Does have a history of Crohn's disease, no history of GI bleed, no history of transfusion -Hemoglobin stable between 12-13 at baseline -Denies any bloody or black stools, no hemodynamic compromise -Iron 20, ferritin 140, percent saturation 8.5, evidence of iron deficiency anemia -Surprisingly Hemoccult stool negative -Etiology is likely multifactorial bone marrow suppression from infection, antibiotics, and possible slow GI bleed given that she is on anticoagulant aspirin, Plavix, Eliquis -For now continue aspirin, Plavix -Monitor hemoglobin -Transfuse if less than 8 -Protonix, Carafate, monitor hemodynamics - Status: Acute (2) 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 Symptoms as of this morning with worsened resting pain, pale appearing cool to touch left foot. Recently family report also worsening of the ulcerations on anterior and postero-medial lower left leg. Arterial Doppler study obtained in ER with EBENEZER of 0.63 reported. Reportedly PT and DP pulses could not be palpated or dopplered. Status post thrombotic occlusion less open with balloon angioplasty and subsequent penumbra aspiration catheter, heparin drip discontinued, developed recurrent symptoms thereafter, this morning continue to have complaints of pain Dr. Chamberlain consult Continue Doppler DP PT pulses Venous ultrasound negative for DVT Status: Acute (3) Sepsis: Fever 101.2, leukocytosis 14,000, sepsis due to left lower leg cellulitis, with nonhealing recently enlarged ulcerations in the setting of PAD. Blood cultures collected. Lactic acid is 1.3. Started empirically on Zosyn and vancomycin, transition to p.o. antibiotics, Sergero, doxy Remains afebrile, clinically improving, area of cellulitis improving Immunocompromised in the setting of Crohn's disease, receives Remicade infusions. Status: Acute (4) Cellulitis: Cellulitis of left lower extremity overlying also nonhealing recently enlarged arterial insufficiency ulcerations of anterior and postero-medial leg with noted black eschar. Currently going to Community Services Coordinator, but subsequently should continue with antibiotics with Zosyn, vancomycin. Follow-up blood cultures. Status: Acute (5) Non-healing ulcer of multiple sites of lower extremity: Nonhealing recently enlarged arterial insufficiency ulcerations of anterior and posterior leg with noted black eschar. Surrounding cellulitis. She reports they have been continuing wound care with wet-to-dry at home. Arterial Doppler in ER with EBENEZER of 0.63. Status post debridement by Dr. Yanez Status: Acute (6) Protein calorie malnutrition: She is underweight, appears frail. Once diet is resumed, add protein supplements. Consider family program specialist consultation and follow-up. 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
--- NOTE | 2022-01-03 10:23 | PC.SOCIAL ---
IMM update IMM updated with patient and family. Copy Pg 2 provided. Verbalized an understanding. Initialled, dated, timed, and placed in chart.
--- NOTE | 2022-01-03 16:16 | P.PN_ITS ---
Subjective Subjective: Patient's leg pain is improving. The ulcer seems to be healing. She is remaining afebrile. No chest pain or shortness of breath. The vital signs are fairly stable. No fever, chills or cough Medications: Medication Review Details: Current Medications Acetaminophen (Acetaminophen 325 Mg Tablet) 650 mg PO Q6H PRN PRN Reason: MILD PAIN Last Admin: 01/01/22 03:35 Dose: 650 mg Documented by: Hydrocodone Bitart/Acetaminophen (Hydrocodone-Acetaminophen 5-325 Mg Tablet) 1 tab PO Q4H PRN PRN Reason: MODERATE PAIN Last Admin: 01/03/22 14:05 Dose: 1 tab Documented by: Al Hydrox/Mg Hydrox/Simethicone (Bktw-Zig-Acoscyltr-Sammy 30 Ml Udc) 30 ml PO Q15M PRN PRN Reason: INDIGESTION Alprazolam (Alprazolam 0.5 Mg Tablet) 0.25 mg PO TID PRN PRN Reason: ANXIETY Apixaban (Apixaban 5 Mg Tablet) 2.5 mg PO Q12H [facility] Last Admin: 01/03/22 11:32 Dose: 2.5 mg Documented by: Aspirin (Aspirin 81 Mg Ec Tablet) 81 mg PO DAILY [facility] Last Admin: 01/03/22 08:31 Dose: 81 mg Documented by: Atropine Sulfate (Atropine 1 Mg/Ml Sdv 1 Ml) 0.5 mg IVP PRN PRN PRN Reason: Symptomatic bradycardia Ciprofloxacin HCl (Ciprofloxacin 500 Mg Tablet) 500 mg PO BID@0900,2100 [facility]; Protocol Last Admin: 01/03/22 08:31 Dose: 500 mg Documented by: Clopidogrel Bisulfate (Clopidogrel 75 Mg Tablet) 75 mg PO DAILY [facility] Last Admin: 01/03/22 08:31 Dose: 75 mg Documented by: Doxycycline Monohydrate (Doxycycline 100 Mg Tablet) 100 mg PO BID [facility]; Protocol Last Admin: 01/03/22 08:31 Dose: 100 mg Documented by: Folic Acid (Folic Acid 1 Mg Tablet) 1 mg PO DAILY [facility] Last Admin: 01/03/22 08:32 Dose: 1 mg Documented by: Gabapentin (Gabapentin 300 Mg Capsule) 300 mg PO BID [facility] Last Admin: 01/03/22 08:32 Dose: 300 mg Documented by: Lanolin (Lanolin Oint 7 Gm) 1 applic TOPICAL PRN PRN PRN Reason: DRYNESS Levothyroxine Sodium (Levothyroxine 125 Mcg Tablet) 125 mcg PO QAM [facility] Last Admin: 01/03/22 05:27 Dose: 125 mcg Documented by: Magnesium Hydroxide (Magnesium Hydroxide 30 Ml Udc) 30 ml PO DAILY PRN PRN Reason: CONSTIPATION Metoprolol Succinate (Metoprolol Succinate Er (24 Hr) 25 Mg Tablet) 12.5 mg PO DAILY [facility] Last Admin: 01/03/22 08:32 Dose: 12.5 mg Documented by: Naloxone HCl (Naloxone 0.4 Mg/Ml Sdv) 0.1 mg IVP Q2M PRN PRN Reason: RESPIRATORY RATE < 8/MIN Nitroglycerin (Nitroglycerin 0.4 Mg Sublingual Tablet) 0.4 mg SUBLINGUAL Q5M PRN PRN Reason: CHEST PAIN Pantoprazole Sodium (Pantoprazole 40 Mg Sdv) 40 mg IVP Q12H [facility] Last Admin: 01/03/22 08:22 Dose: 40 mg Documented by: Sucralfate (Sucralfate 1 Gm Tablet) 1 gm PO Q12H [facility] Last Admin: 01/03/22 08:31 Dose: 1 gm Documented by: Vitals/I&O/Wt Last Vital Signs Temp 98.6 F 01/02/22 22:33 Pulse 74 01/03/22 14:00 Resp 16 01/03/22 13:48 BP 137/59 01/03/22 13:48 Pulse Ox 96 01/03/22 13:48 01/03/22 01/03/22 01/03/22 06:59 14:59 22:59 Intake Total 360 / 1004 236 / 236 Balance 360 / -196 236 / 236 Physical Exam Narrative: GENERAL: The patient is alert and oriented times three. Not in any acute distress. HEENT: No significant pallor, icterus or lymphadenopathy.Oral cavity: There are no mucous membrane lesions. NECK: Trachea appears to be central. No masses noted. No JVD or thyromegaly appreciated. RESPIRATORY: Chest is symmetrical. No intercostals muscle retraction or any accessory muscle activation. There is no chest wall tenderness. Breath sounds are heard bilaterally. No rales or rhonchi heard. No evidence of any consolidation. BREASTS: Deferred. HEART: The heart sounds are normal.? No S3 or S4.? Short systolic murmur in the left sternal border.? No diastolic murmurs.? No pericardial rub ABDOMEN: No vessel pulsations or distention. No tenderness. No organomegaly appreciated.? Bowel sounds are normally heard. : Deferred. RECTAL: Deferred. LYMPHATIC: No lymphadenopathy noted in the neck. EXTREMITIES: 1+ edema both lower extremities.? The pulses are detected with the Doppler bilaterally.? The left lower extremity is slightly warmer.? The ulcer seems to be healing MUSCULOSKELETAL: No acute joint deformities or swelling SKIN: There are no significant rashes or ecchymosis NEUROPSYCHIATRIC: The patient is alert and oriented x3. Appears to be in a good mood. No tremors or rigidity noted. 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 The foot is warm. Pulses detected with Doppler in the dorsalis pedis artery on the left side. The cellulitis in the left leg seems to be improving. The patient's overall clinical status seems to be improving Status: Acute (2) Non-healing ulcer of multiple sites of lower extremity: Status post wound debridement. Currently seems to be improving Status: Acute (3) Acute anemia: Appears to be blood loss anemia. Currently H&H seems to be stable. Consider adding hematinics Status: Acute (4) Protein calorie malnutrition: Advancing the nutrition Status: Acute (5) Cellulitis: Clinically seems to be improving. Remains afebrile. He is on antibiotics. Status: Acute (6) History of CVA (cerebrovascular accident): No recurrence. May continue on the current measures. Status: Acute (7) Hypertension: Blood pressure seems to be responding to the medication changes. May continue monitoring the blood pressure. Status: Acute (8) Tobacco abuse, in remission: Patient is strongly advised to quit smoking. May continue with physical therapy. Disposition as per the primary Status: Acute Plan Based on the patient's clinical progress, further recommendations will be made. Attestations Medical Necessity Statement*: Cardiac status seems to be stable at this time. 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
[2022-01-03 18:13] LABS: Hematocrit 32.8 % (37.0-47.0); Hemoglobin 10.2 g/dL (11.5-15.3)
--- NOTE | 2022-01-03 19:00 | PC.NURSE ---
Received report from LUIS E Ordoñez. Patient [place] to [facility] Assisted patient to bed. Patient doing well this evening. C/o pain 5/10 to left leg with increased pain with activity. Patient medicated for pain as documented. Instructed patient on hydrocodone. Patient verbalized understanding and expressed thanks for pain control. Daughter at bedside. No other distresses observed. Will continue to monitor.
[2022-01-04 04:00] VITALS: BP 167/97; PULSE 86; RESP 19; TEMP 36.7; O2SAT 93
[2022-01-04 04:27] LABS: Basophils # 0.1 10^3/uL (0.0-0.1); Basophils % 1.2 %; Eosinophils # 0.4 10^3/uL (0.0-0.8); Eosinophils % 4.5 %; Hemoglobin 9.4 g/dL (11.5-15.3); Lymphocytes # 1.3 10^3/uL (0.8-4.8); Lymphocytes % 17.3 %; Mean Corpuscular HGB Conc 32.4 g/dL (30.0-36.0); Mean Corpuscular Volume 92.7 fl (81-99); Mean Platelet Volume 9.1 fL (7.4-10.4); Monocytes # 0.8 10^3/uL (0.2-0.9); Monocytes % 10.1 %; Neutrophils # 5.11 10^3/uL (1.8-7.7); Nucleated Red Blood Cells % 0 %; Platelet Count 499 10^3/cmm (130-400); Red Blood Count 3.13 10^6/uL (4.1-5.3); Red Cell Distribution Width 16.4 % (12.1-15.1); White Blood Count 7.7 10^3/uL (4.0-10.0)
[2022-01-04 04:38] LABS: Anion Gap 12.2 (5-19); Blood Urea Nitrogen 9 mg/dL (8-23); Calcium 8.5 mg/dL (8.5-10.5); Carbon Dioxide 29 mmol/L (22-29); Chloride 101 mmol/L (98-107); Glucose 86 mg/dL (65-115); Magnesium 1.7 mg/dL (1.7-2.3); Osmolality Calculated 286 mOsm/kg (285-295); Phosphorus 2.6 mg/dL (2.5-4.5); Potassium 3.2 mmol/L (3.5-5.1); Sodium 139 mmol/L (136-145)
[2022-01-04] MEDS: HYDROcodone-acetaminophen 5-325 mg Tablet 1 TAB PO ×2 (05:07→12:38)
[2022-01-04] MEDS: levothyroxine 125 mcg Tablet PO (05:08)
[2022-01-04 05:22] VITALS: PULSE 78
[2022-01-04 07:17] VITALS: BP 150/76; PULSE 80; RESP 14; TEMP 36.8; O2SAT 92
[2022-01-04] MEDS: gabapentin 300 mg Capsule PO (08:10)
[2022-01-04] MEDS: ciprofloxacin 500 mg Tablet PO (08:10)
[2022-01-04] MEDS: sucralfate 1 gm Tablet PO (08:10)
[2022-01-04] MEDS: clopidogrel 75 mg Tablet PO (08:10)
[2022-01-04] MEDS: folic acid 1 mg Tablet PO (08:10)
[2022-01-04] MEDS: metoprolol succinate ER (24 HR) 25 mg Tablet 12.5 MG PO (08:10)
[2022-01-04] MEDS: aspirin 81 mg EC Tablet PO (08:10)
[2022-01-04] MEDS: doxycycline 100 mg Tablet PO (08:10)
[2022-01-04] MEDS: pantoprazole 40 mg SDV IVP (09:18)
--- NOTE | 2022-01-04 09:42 | PM.PN ---
Subjective Subjective: Patient is doing well. No leg pain today Vitals/I&O/Wt Last Vital Signs Temp 98.3 F 01/04/22 07:17 Pulse 80 01/04/22 07:17 Resp 14 01/04/22 07:17 BP 150/76 01/04/22 07:17 Pulse Ox 92 01/04/22 07:17 0401/04/22 01/04/22 22:59 06:59 14:59 Intake Total 240 / 476 360 / 836 Balance 240 / 476 360 / 836 Physical Exam Narrative: GENERAL: Patient is alert, awake and oriented x3. [] NECK: No jugular vein distension. [] HEENT: No cyanosis. No icterus. No pallor. [] HEART: Regular S1 and S2. No murmur, rub or gallop. [] LUNGS: Clear to auscultate bilaterally. [] ABDOMEN: Soft, nontender and nondistended. Positive bowel sounds. No guarding, rebound or tenderness. [] CENTRAL NERVOUS SYSTEM: Grossly nonfocal. [] EXTREMITIES: Lower extremities with 1+ edema bilaterally. Pulses dopplerable in bilateral lower extremities. Left foot is warmer now. 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 The foot is warm. Dopplerable pulses. Patient is pain-free. 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 Currently seems to be improving Status: Acute (3) Acute anemia: Continue to monitor Status: Acute (4) Protein calorie malnutrition: Advancing the nutrition Status: Acute (5) Cellulitis: Clinically seems to be improving. Remains afebrile. He is on antibiotics. Status: Resolved (6) History of CVA (cerebrovascular accident): No recurrence. May continue on the current measures. (7) Hypertension: Blood pressure seems to be responding to the medication changes. May continue monitoring the blood pressure. (8) Tobacco abuse, in remission: Patient is strongly advised to quit smoking. May continue with physical therapy. Plan Patient is ready to be discharged today. Outpatient cardiology follow-up. Attestations Medical Necessity Statement*: Care expected to cross 2 midnights. 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
--- NOTE | 2022-01-04 09:54 | PC.CHAP ---
Pastoral Care Encounter/Spiritual Assessment Type of Contact [] Declined extrusion supervisor visit [] Patient/Family/Request visit [] Outpatient visit [] Follow-up visit [] Physician referral [] Code/Alert [x] Routine visit [] Staff referral [] Actively dying [] Patient sleeping [] Family support [] [] Out of room [] Palliative care [] [] Receiving care in room [] Pre-surgical visit [] Trauma [] Long length of stay [] ICU visit [] Other: Relational/Emotional Strength [] Patient feels connected with others/family/visitors/staff [] Distress [] Loneliness/isolation [] Abandonment Spirituality of Patient [] Person of Anastasia [] Attends Mu-Ism of their Anastasia [] Believes in Prayer [] Reads Bible or Quaker materials [] There are Spiritual issues to be addressed Field Crop Harvest Worker Interventions [x] Prayer [x] Active listening [x] Non-anxious presence [x] Spiritual/emotional support [] Crisis/trauma care [] Spiritual counseling [] Bereavement support [] Provided bereavement packet [] Provided Bible/devotional materials [] Provided toy/stuffed animal, coloring book to patient or family member [] Provided Communion [] Anointing/[place] [] Salvation [x] Completed spiritual assessment [] Other: Impact on Illness or Injury [] Angry [] Fearful [] Anxious [] Often cries [] Exhaustion [] Unable to work [] Unable to attend confucianism [] Unable to walk/stand [] Unable to read [] Unable to drive [] Unable to eat/drink [] Unable to sleep [] Unable to be with family [] Patient intubated [] Other: Summary patient states feeling stronger... but appearances would not show it..... Time spent with patient
[2022-01-04 11:20] VITALS: BP 159/82; PULSE 83; RESP 16; O2SAT 94
--- NOTE | 2022-01-04 12:21 | PM.DCS ---
Discharge Providers Date of Admission: 12/27/21 21:33 Date of Discharge: January 04, 2022 Attending Provider at Admission: Yefri Del Angel Attending Provider at Discharge: Dank Chamberlain MD Primary Care Provider: Alvarado Suárez MD Diagnoses at Discharge Discharge Diagnosis (1) Acute occlusion of artery of lower extremity due to thrombosis: Status: Acute (2) Non-healing ulcer of multiple sites of lower extremity: Status: Acute (3) Acute anemia: Status: Acute (4) Protein calorie malnutrition: Status: Acute (5) Cellulitis: Status: Acute (6) History of CVA (cerebrovascular accident): Status: Acute (7) Hypertension: Status: Acute (8) Tobacco abuse, in remission: Status: Acute Reason for Visit Reason for Visit: WOUND L L EXT Hospital Course Hospital Course Pleasant 86-year-old lady with history of PAD, arterial insufficiency ulcers, was admitted with acute limb ischemia of left lower extremity, status post angioplasty and thrombus aspiration by interventional cardiology on urgent basis on presentation, was maintained on anticoagulation, in addition to aspirin also started on Plavix. No stents were placed. Was treated with Zosyn, vancomycin due to sepsis on presentation, cellulitis, nonhealing lower extremity ulcers continued with wound care, and was assessed by surgery and underwent debridement while in the hospital. Continues with wet-to-dry dressing changes. Protein supplementation was added due to malnutrition. Her sepsis had resolved. Cellulitis improved. Left foot is warm appearing much better perfused. She is feeling better. Denies rest pain. Was instructed on home exercise program with PT. Noted anemia also while in the hospital, Hemoccult negative, but with iron deficiency. Continues on supplementation. Please consider referral for additional endoscopic evaluation of iron deficiency anemia if has not been done recently. At discharge due to persistent PAD she is continued on Eliquis plus Plavix, with also referral for assessment by vascular surgery Dr. Maldonado in [place] for consideration of bypass. Physical Exam Narrative: Daughter at bedside Const: COMMON NORMALS: alert GENERAL APPEARANCE: cooperative ORIENTATION/CONSCIOUSNESS: Yes awake HENMT: COMMON NORMALS: normocephalic, EAC's normal, Normal external nose present and moist oral mucous membranes HEAD & SCALP: normocephalic NOSE: Normal external nose present EXTERNAL AUDITORY CANAL: EAC's normal Neck/C-Spine: COMMON NORMALS: no meningeal signs Chest: CHEST: Yes Symmetrical chest wall rise Resp: COMMON NORMALS: clear to auscultation bilaterally AUSCULTATION: clear to auscultation bilaterally Cardio: COMMON NORMALS: regular rate, regular rhythm and No murmurs present (Cardio) RATE: regular rate RHYTHM: regular rhythm GI: COMMON NORMALS: Normal to inspection, nondistended, normoactive bowel sounds present, Soft to palpation and non-tender PALPATION: Yes Soft to palpation Extremity: COMMON NORMALS: no pedal edema Neuro: COMMON NORMALS: moves all extremities SENSORIUM/ORIENTATION: Yes alert MENINGEAL SIGNS: Yes no meningeal signs Psych: COMMON NORMALS: mental status grossly normal Skin: COMMON NORMALS: no wounds RASHES: no rashes Urinary Catheter Management: [place]: Cath Placed During This Visit: yes, but has since been removed by the nurse Reason for Continuing Indwelling Catheter: Not indwelling catheter Urinary Catheter Date of Insertion: 12/28/21 Urinary Catheter Time of Insertion: 06:49 Date Urinary Catheter Removed: 01/02/22 Time Urinary Catheter Discontinued: 12:00 Discharge Data Studies Completed and Pending Completed Studies During Hospitalization Category Date Time Status TREND INVESTIGATOR request for service Stat Exams 12/27/21 20:32 Completed XR chest 1V portable [id number] Urgent Exams 12/27/21 18:31 [place] [id number] Stat Ultrasound 01/01/22 12:14 Completed US arterial doppler lower extremity LT [CV segpressure Ultrasound 12/27/21 18:32 [place]gl [id number]] Urgent US venous duplex lower extremity LT [CV venous duplex Ultrasound 01/02/22 09:35 [place] [id number]] Routine Pending at discharge Category Date Time Status Anaerobic Culture Routine Lab 12/29/21 13:19 Results Basic Metabolic Panel AM LABS Lab 01/05/22 04:00 Ordered Complete Blood Count w/Auto AM LABS Lab 01/05/22 04:00 Ordered Magnesium AM LABS Lab 01/05/22 04:00 Ordered Phosphorus AM LABS Lab 01/05/22 04:00 Ordered Radiology Impressions Chest X-Ray 12/27/21 18:31 IMPRESSION: There has been no significant interval change in the appearance of the chest since the prior study. COPD morphology of the chest with cardiomegaly. Doppler Study Ultrasound 12/27/21 18:32 IMPRESSION: Left ankle brachial index is decreased at 0.63 corresponding to moderate peripheral arterial disease. Venous Duplex 01/02/22 09:35 IMPRESSION: No evidence of deep vein thrombosis. Laboratory Results WBC 7.7 10^3/uL (4.0-10.0) 01/04/22 03:02 RBC 3.13 10^6/uL (4.1-5.3) L 01/04/22 03:02 Hgb 9.4 g/dL (11.5-15.3) L 01/04/22 03:02 Hct 29.0 % (37.0-47.0) L 01/04/22 03:02 MCV 92.7 fl (81-99) 01/04/22 03:02 MCH 30.0 pg (28.0-34.0) 01/04/22 03:02 MCHC 32.4 g/dL (30.0-36.0) 01/04/22 03:02 RDW 16.4 % (12.1-15.1) H 01/04/22 03:02 Plt Count 499 10^3/cmm (130-400) H 01/04/22 03:02 MPV 9.1 fL (7.4-10.4) 01/04/22 03:02 Neut % (Auto) 66.0 % 01/04/22 03:02 Lymph % (Auto) 17.3 % 01/04/22 03:02 [place] % (Auto) 10.1 % 01/04/22 03:02 Eos % (Auto) 4.5 % 01/04/22 03:02 Baso % (Auto) 1.2 % 01/04/22 03:02 Neut # (Auto) 5.11 10^3/uL (1.8-7.7) 01/04/22 03:02 Lymph # (Auto) 1.3 10^3/uL (0.8-4.8) 01/04/22 03:02 [place] # (Auto) 0.8 10^3/uL (0.2-0.9) 01/04/22 03:02 Eos # (Auto) 0.4 10^3/uL (0.0-0.8) 01/04/22 03:02 Baso # (Auto) 0.1 10^3/uL (0.0-0.1) 01/04/22 03:02 Nucleated RBC % (auto) 0 % 01/04/22 03:02 Nucleated RBCs # 0.0 /100WBC 01/04/22 03:02 ESR 38 mm/hr (0-15) H 12/27/21 18:43 APTT 33.9 SECONDS (23.9-36.7) D 12/28/21 11:30 Sodium 139 mmol/L (136-145) 01/04/22 03:02 Potassium 3.2 mmol/L (3.5-5.1) L 01/04/22 03:02 Chloride 101 mmol/L (98-107) 01/04/22 03:02 Carbon Dioxide 29 mmol/L (22-29) 01/04/22 03:02 Anion Gap 12.2 (5-19) 01/04/22 03:02 BUN 9 mg/dL (8-23) 01/04/22 03:02 Creatinine 0.7 mg/dL (0.5-0.9) 01/04/22 03:02 GFR Calculation Not Reportable 01/04/22 03:02 Glucose 86 mg/dL (65-115) 01/04/22 03:02 POC Glucose 122 mg/dL (70-110) H 12/30/21 16:21 Calculated Osmolality 286 mOsm/kg (285-295) 01/04/22 03:02 Lactate 1.3 mmol/L (0.5-2.2) 12/27/21 18:43 Calcium 8.5 mg/dL (8.5-10.5) 01/04/22 03:02 Phosphorus 2.6 mg/dL (2.5-4.5) 01/04/22 03:02 Magnesium 1.7 mg/dL (1.7-2.3) 01/04/22 03:02 Iron 20 ug/dL (37-145) L 12/30/21 03:19 TIBC 234 mcg/dl 12/30/21 03:19 % Saturation 8.5 % (20-50) L 12/30/21 03:19 Unsat Iron Binding 214 ug/dL (112-347) 12/30/21 03:19 Ferritin 140 ng/mL (15-150) 12/30/21 03:19 Total Bilirubin 0.2 mg/dL (0.15-1.2) 01/02/22 04:30 AST 14 U/L (0-32) 01/02/22 04:30 ALT 12 U/L (0-33) 01/02/22 04:30 Alkaline Phosphatase 86 IU/L (35-105) 01/02/22 04:30 Creatine Kinase 97 U/L (26-192) 12/27/21 18:43 C-Reactive Protein 36.4 mg/L (0.0-4.9) H 12/31/21 02:52 Total Protein 5.8 g/dL (6.6-8.7) L 01/02/22 04:30 Albumin 2.7 g/dL (3.5-5.2) L 01/02/22 04:30 Globulin 3.1 g/dL (1.3-4.6) 01/02/22 04:30 Procalcitonin 0.13 ng/mL (0-0.5) 12/31/21 02:52 Procalcitonin Cancelled 12/31/21 02:52 Urine Color Yellow (Yellow) 12/28/21 06:45 Urine Appearance Clear (CLEAR) 12/28/21 06:45 Urine pH 6.5 (5-7) 12/28/21 06:45 Ur Specific Roann 1.010 (1.005-1.030) 12/28/21 06:45 Urine Protein Neg (Negative) 12/28/21 06:45 Urine Glucose (UA) Norm (Normal) 12/28/21 06:45 Urine Ketones Negative (Negative) 12/28/21 06:45 Urine Blood Neg (Negative) 12/28/21 06:45 Urine Nitrate Negative (Negative) 12/28/21 06:45 Urine Bilirubin Neg (Negative) 12/28/21 06:45 Urine Urobilinogen Norm mg/dL (Negative) 12/28/21 06:45 Ur Leukocyte Esterase Negative (Negative) 12/28/21 06:45 Vancomycin Trough 10.8 ug/mL (10-15) 12/30/21 19:56 Blood Type O Positive 12/28/21 12:49 Rho(D) Type Positive 12/28/21 12:49 Antibody Screen Negative 12/28/21 12:49 Crossmatch See Detail 12/28/21 12:49 Vitals Last Vital Signs Temp 98.3 F 01/04/22 07:17 Pulse 83 01/04/22 11:20 Resp 16 01/04/22 11:20 BP 159/82 01/04/22 11:20 Pulse Ox 94 01/04/22 11:20 Discharge Plan Discharge Patient Disposition: Home Health Service Condition: Fair Prescriptions: New clopidogrel 75 mg Tablet 75 mg PO DAILY Qty: 90 0RF Eliquis 5 mg Tablet 2.5 mg PO Q12H Qty: 90 0RF ciprofloxacin HCl 500 mg Tablet 500 mg PO BID@0900,2100 Qty: 8 0RF doxycycline monohydrate 100 mg Tablet 100 mg PO BID Qty: 8 0RF atorvastatin 80 mg tablet 80 mg PO QPM Qty: 180 0RF ferrous sulfate 324 mg (65 mg iron) tablet,delayed release (DR/EC) 324 mg PO EVERY OTHER DAY Qty: 90 0RF Continued cyanocobalamin (vitamin B-12) 1,000 mcg/mL solution 1,000 mcg IM Q30D 0RF folic acid 1 mg tablet 1 mg PO DAILY 0RF lisinopril 2.5 mg tablet 2.5 mg PO BEDTIME 0RF calcium carbonate [Calcium 500] 500 mg calcium (1,250 mg) tablet,chewable 500 mg PO DAILY 0RF Remicade 100 mg recon soln See Rx Instructions .ROUTE .COMPLEX 0RF Rx Instructions: every 8 weeks levothyroxine 125 mcg tablet 125 mcg PO QAM 0RF gabapentin 300 mg capsule 300 mg PO BID 0RF mupirocin 2 % ointment 1 applic topical DAILY Qty: 22 5RF hydrocodone-acetaminophen 5-325 mg tablet 1 tab PO Q8H PRN (Reason: pain) 7 Days Qty: 20 0RF cholecalciferol (vitamin D3) [Vitamin D3] 25 mcg (1,000 unit) Capsule See Rx Instructions .ROUTE .COMPLEX 0RF Rx Instructions: 1000 units po qam and 400 units qpm metoprolol tartrate 25 mg tablet 12.5 mg PO BID 0RF loperamide 2 mg Capsule 4 mg PO .UP TO BID PRN (Reason: Diarrhea) 0RF acetaminophen 500 mg Tablet 1,000 mg PO Q6H PRN (Reason: Pain) 0RF erythromycin 5 mg/gram (0.5 %) ointment See Rx Instructions .ROUTE .COMPLEX 0RF Rx Instructions: 0.25 inch ribbon to both eyes qpm diclofenac sodium 1 % gel 2 gm TOPICAL QID PRN (Reason: Pain) 0RF Rx Instructions: apply to single elbow, wrist or hand; for hand includes palm/fingers/back of hand Changed furosemide [Lasix] 20 mg tablet 20 mg PO DAILY PRN (Reason: Edema) Qty: 30 0RF Discontinued Eliquis 5 mg tablet 5 mg PO BID Qty: 60 0RF aspirin [Adult Aspirin Regimen] 81 mg tablet,delayed release (DR/EC) 81 mg PO QAM Qty: 60 0RF simvastatin 40 mg tablet 40 mg PO DAILY Qty: 60 0RF Discharge Orders: Discharge Order (Routine); Ordered 01/04/22 Ordered By: Yefri Del Angel Other Ambulatory Orders: DME: Hospital Bed (Order) Location: None Selected Ordered By: Samuel Machuca DME: Wheelchair (Order) Location: None Selected Ordered By: Samuel Machuca Referrals: Jarett Gordon [Other] - None (Soonest available for PAD) Wound Care [Provider Group] - 1 week [facility] [Outside] Richard Young M.D [Physician] - 7-10 days Alvarado Suárez MD [Primary Care Provider] - 4-7 days Discharge Diet: Cardiac Discharge Activity: As per PT/OT instructions Patient Instructions: Potassium Content of Foods List (GEN), Malnutrition (GEN), Peripheral Artery Disease (GEN), Peripheral Vascular Angioplasty (DC), Opioid Safety, Anemia (GEN) Activity Restrictions/Additional Instructions: Continue saline wet to dry dressings to 2 wounds left leg bid Please continue protein supplementation with Ensure plus with meals after discharge. Please have your primary care doctor reassess your blood counts at next visit for anemia. Continue iron supplementation. Discuss consideration of further evaluation of iron deficiency anemia by endoscopy once other conditions are under better control, and if not done recently. Please have your primary doctor follow-up your potassium level. Very pleasant was slightly lower today, add foods rich in potassium. 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
[2022-01-04] MEDS: apixaban 5 mg Tablet 2.5 MG PO (12:38)
[2022-01-04] MEDS: potassium chloride ER 20 mEq Tablet PO (12:38)
[2022-01-04 14:00] VITALS: PULSE 103
[2022-01-04 15:23] VITALS: BP 159/82; PULSE 103; RESP 12; O2SAT 95
--- NOTE | 2022-01-04 15:39 | PC.NURSE ---
Discharge Note Patient discharged to home via wheelchair companied by daughter's. Discharge instructions reviewed with patient and/or development representative. Mobile pharmacy medications and/or prescriptions provided. Belongings/home medications returned.
== END 2022-01-04 15:40 | disposition home health service (06) | DRG 854 ==
LOC: ER 20:20 → CCL 20:44 → CSU 21:33
PROVIDERS: Family Medicine; Thoracic Surgery (Cardiothoracic Vascular Surgery); Admitting Provider Internal Medicine; Emergency Provider Emergency Medicine; PCP Family Medicine; Visit Provider Internal Medicine Cardiovascular Disease
PROC: 047L3Z1 Dilation of Left Femoral Artery using Drug-Coated Balloon, Percutaneous Approach (ICD-10-PCS; principal; 2021-12-27 20:30)
PROC: 047L3Z1 Dilation of Left Femoral Artery using Drug-Coated Balloon, Percutaneous Approach (ICD-10-PCS; 2021-12-27 20:30)
PROC: 0JBP0ZZ Excision of Left Lower Leg Subcutaneous Tissue and Fascia, Open Approach (ICD-10-PCS; principal; 2021-12-29 11:45)
DX: A41.9 Sepsis, unspecified organism (principal); L03.116 Cellulitis of left lower limb; K50.90 Crohn's disease, unspecified, without complications; I82.412 Acute embolism and thrombosis of left femoral vein; L97.929 Non-pressure chronic ulcer of unspecified part of left lower leg with unspecified severity; E46 Unspecified protein-calorie malnutrition; Z68.1 Body mass index [BMI] 19.9 or less, adult; D84.9 Immunodeficiency, unspecified; Z86.73 Personal history of transient ischemic attack (TIA), and cerebral infarction without residual deficits; I10 Essential (primary) hypertension; G62.9 Polyneuropathy, unspecified; Z98.62 Peripheral vascular angioplasty status; Z87.891 Personal history of nicotine dependence; I70.222 Atherosclerosis of native arteries of extremities with rest pain, left leg; M81.0 Age-related osteoporosis without current pathological fracture; D50.9 Iron deficiency anemia, unspecified; B96.5 Pseudomonas (aeruginosa) (mallei) (pseudomallei) as the cause of diseases classified elsewhere; Z79.891 Long term (current) use of opiate analgesic
CPT/HCPCS: 36415; 36416; 37184; 37185; 37220; 37224; 51702; 71045; 75625; 75710; 80048; 80053; 80202; 81003; 82274; 82550; 82728; 82962; 83540; 83550; 83605; 83735; 84100; 84145; 85014; 85018; 85025; 85651; 85730; 86140; 86850; 86900; 86920; 87040; 87070; 87075; 87077; 87176; 87186; 87205; 87641; 93922; 93970; 93971; 96365; 96367; 96372; 96375; 97110; 97116; 97161; 97165; 97530; 99285; C1725; C1769; C1887; C1894; C9113; J0690; J1100; J1170; J1644; J2250; J2270; J2405; J2543; J2704; J3010; J3370; J3480; J7030; J7050; Q9967

== ENCOUNTER → 2022-01-11 15:26 | Outpatient (BNVA) | payer MEDICARE, SELFPAY | PROVIDERS: PCP Family Medicine; Visit Provider Nurse Practitioner Family | DX: I73.9 Peripheral vascular disease, unspecified (principal); L97.909 Non-pressure chronic ulcer of unspecified part of unspecified lower leg with unspecified severity; Z87.891 Personal history of nicotine dependence | CPT/HCPCS: 36415; 80048; 99213; 99214 ==

== ENCOUNTER → 2022-01-13 14:24 | Outpatient (BNVA) | payer MEDICARE, SELFPAY | PROVIDERS: PCP Family Medicine; Visit Provider Nurse Practitioner Family | DX: I73.9 Peripheral vascular disease, unspecified (principal); L97.822 Non-pressure chronic ulcer of other part of left lower leg with fat layer exposed; L89.620 Pressure ulcer of left heel, unstageable; I96 Gangrene, not elsewhere classified; Z87.891 Personal history of nicotine dependence | CPT/HCPCS: 99213; 99214; A6212 ==

== ENCOUNTER → 2022-01-20 14:57 | Outpatient (BNVA) | payer MEDICARE, SELFPAY | PROVIDERS: PCP Family Medicine; Visit Provider Nurse Practitioner Family | DX: I73.9 Peripheral vascular disease, unspecified (principal); L97.822 Non-pressure chronic ulcer of other part of left lower leg with fat layer exposed; L89.620 Pressure ulcer of left heel, unstageable | CPT/HCPCS: 11042; 11045 ==

== ENCOUNTER → 2022-01-27 14:52 | Outpatient (BNVA) | payer MEDICARE, SELFPAY | PROVIDERS: PCP Family Medicine; Visit Provider Thoracic Surgery (Cardiothoracic Vascular Surgery) | DX: I73.9 Peripheral vascular disease, unspecified (principal); L97.822 Non-pressure chronic ulcer of other part of left lower leg with fat layer exposed; L89.620 Pressure ulcer of left heel, unstageable; I96 Gangrene, not elsewhere classified; Z87.891 Personal history of nicotine dependence | CPT/HCPCS: 97597; 97598; A6212 ==

== ENCOUNTER → 2022-02-03 13:10 | Outpatient (BNVA) | payer MEDICARE, SELFPAY | PROVIDERS: PCP Family Medicine; Visit Provider Thoracic Surgery (Cardiothoracic Vascular Surgery) | DX: I73.9 Peripheral vascular disease, unspecified (principal); Z87.891 Personal history of nicotine dependence; L97.822 Non-pressure chronic ulcer of other part of left lower leg with fat layer exposed; L89.620 Pressure ulcer of left heel, unstageable; I96 Gangrene, not elsewhere classified | CPT/HCPCS: 97597; A6212 ==

== ENCOUNTER → 2022-02-10 13:10 | Outpatient (BNVA) | payer MEDICARE, SELFPAY | PROVIDERS: PCP Family Medicine; Visit Provider Thoracic Surgery (Cardiothoracic Vascular Surgery) | DX: I73.9 Peripheral vascular disease, unspecified (principal); L97.822 Non-pressure chronic ulcer of other part of left lower leg with fat layer exposed; L89.620 Pressure ulcer of left heel, unstageable | CPT/HCPCS: 11042; 97597 ==

== ENCOUNTER 2022-02-17 13:16 | Outpatient (CLI) | payer MEDICARE, SELFPAY ==
--- NOTE | 2022-02-17 | USCV_ITS ---
Dimple Mckay Age: 86 Gender: F : 1935 Exam Date: 02/17/2022 16:00 Ordering Phys: Richard Young M.D ([email or web address]) Technologist: Timothy An [place] [facility] [place]: lef leg pain and swelling PROCEDURES: Venous duplex imaging was performed in only the left lower extremity. The following venous structures were evaluated: common femoral vein, profunda vein, proximal portion of the greater saphenous vein, superficial femoral vein, and the popliteal vein. In addition, the posterior tibial and peroneal trunk were evaluated. Serial compression, augmentation maneuvers, and spectral Doppler flow evaluation were performed. FINDINGS: Normal 2-D Doppler and augmentation and compressibility throughout the lower extremity venous structures. Additional imaging through the proximal calf veins also reveals no thrombus. Limited evaluation of the greater saphenous vein is patent with no thrombus.. CONCLUSIONS No evidence of left lower extremity DVT. Kevin Mario MD (Electronically Signed) Final Date: 17 Feb 2022 17:19 S MTDD
--- NOTE | 2022-02-17 | USCV_ITS ---
Woody Dimple Age: 86 Gender: F : 1935 Exam Date: 02/17/2022 16:00 Ordering Phys: Richard Young M.D ([email or web address]) Technologist: Timothy An Exam Location: [facility] – [place] Indication: lef leg pain and swelling PROCEDURES: Venous duplex imaging was performed in only the left lower extremity. The following venous structures were evaluated: common femoral vein, profunda vein, proximal portion of the greater saphenous vein, superficial femoral vein, and the popliteal vein. In addition, the posterior tibial and peroneal trunk were evaluated. Serial compression, augmentation maneuvers, and spectral Doppler flow evaluation were performed. FINDINGS: Normal 2-D Doppler and augmentation and compressibility throughout the lower extremity venous structures. Additional imaging through the proximal calf veins also reveals no thrombus. Limited evaluation of the greater saphenous vein is patent with no thrombus.. CONCLUSIONS No evidence of left lower extremity DVT. Kevin Mario MD (Electronically Signed) Final Date: 17 Feb 2022 17:19 S
--- NOTE | 2022-02-23 15:00 | USCV_ITS ---
Woody Dimple Age: 86 Gender: F : 1935 Exam Date: 02/23/2022 15:25 Ordering Phys: Richard Young M.D ([email or web address]) Technologist: KISHA Exam Location: [facility] – [place] Indication: Leg pain Risk Factors: Previous Vascular Surgery: RIGHT LEFT BP: 132.0 / 69.00 BP: 142.0/ 79.00 0 0 Waveform Velocity (cm/s) Velocity (cm/s) Waveform Iliac Prox 59.8 Monophasic Iliac Mid 59.8 Monophasic Iliac Distal 69.1 Monophasic [employer]TER 142.9 Monophasic SFA Prox 97.0 Monophasic SFA Mid 152.3 Monophasic SFA Dist 188.0 Monophasic POP 71.7 Monophasic CARD PLAYER 15.0 Monophasic DPA 78.3 Monophasic EBENEZER 0.5 FINDINGS LT DPA >220 RT CARD PLAYER 70 Moderate diffuse plaques in the iliac and femoral artery on the left side. Heavy plaques in the infrapopliteal vessels. Resting EBENEZER 0.5 on the left side. CONCLUSIONS 1. Abnormal resting EBENEZER on the left side, suggesting moderately severe peripheral artery disease. 2. Moderate diffuse plaques in the iliac and femoral artery on the left side with aheavy plaques in the infrapopliteal vessels Compared to the study from 12/27/2021, there is worsening of the resting EBENEZER on the left side, from 0.[address] George Gonsalez MD [facility] (Electronically Signed) Final Date: 24 February 2022 08:07 S
== END 2022-02-17 13:17 | disposition home or self-care (01) ==
LOC: RAD 13:20
PROVIDERS: PCP Family Medicine; Visit Provider Internal Medicine
DX: R22.43 Localized swelling, mass and lump, lower limb, bilateral (principal); I73.9 Peripheral vascular disease, unspecified; M79.605 Pain in left leg; L97.909 Non-pressure chronic ulcer of unspecified part of unspecified lower leg with unspecified severity; Z86.73 Personal history of transient ischemic attack (TIA), and cerebral infarction without residual deficits; I10 Essential (primary) hypertension; G62.9 Polyneuropathy, unspecified
CPT/HCPCS: 93971; 99214

== ENCOUNTER 2022-02-23 14:56 | Outpatient (CLI) | payer MEDICARE, SELFPAY ==
--- NOTE | 2022-02-23 08:45 | USCV_ITS ---
Woody Dimple Age: 86 Gender: F : 1935 Exam Date: 02/23/2022 15:25 Ordering Phys: Richard Young M.D ([email or web address]) Technologist: KISHA Exam Location: [facility] [place] Indication: Leg pain Risk Factors: Previous Vascular Surgery: RIGHT LEFT BP: 132.0 / 69.00 BP: 142.0/ 79.00 0 0 Waveform Velocity (cm/s) Velocity (cm/s) Waveform Iliac Prox 59.8 Monophasic Iliac Mid 59.8 Monophasic Iliac Distal 69.1 Monophasic SHUTTLE DRIVER 142.9 Monophasic SFA Prox 97.0 Monophasic SFA Mid 152.3 Monophasic SFA Dist 188.0 Monophasic POP 71.7 Monophasic CHAMBER WALKER 15.0 Monophasic DPA 78.3 Monophasic EBENEZER 0.5 FINDINGS LT DPA >220 RT CHAMBER WALKER 70 Moderate diffuse plaques in the iliac and femoral artery on the left side. Heavy plaques in the infrapopliteal vessels. Resting EBENEZER 0.5 on the left side. CONCLUSIONS 1. Abnormal resting EBENEZER on the left side, suggesting moderately severe peripheral artery disease. 2. Moderate diffuse plaques in the iliac and femoral artery on the left side with aheavy plaques in the infrapopliteal vessels Compared to the study from 12/27/2021, there is worsening of the resting EBENEZER on the left side, from 0.[address] George Gonsalez MD [facility] (Electronically Signed) Final Date: 24 February 2022 08:07 S
== END 2022-02-23 14:57 | disposition home or self-care (01) ==
LOC: RAD 14:58
PROVIDERS: PCP Family Medicine; Visit Provider Internal Medicine
DX: M79.606 Pain in leg, unspecified (principal); M79.89 Other specified soft tissue disorders
CPT/HCPCS: 93971

== ENCOUNTER → 2022-02-24 13:06 | Outpatient (BNVA) | payer MEDICARE, SELFPAY | PROVIDERS: PCP Family Medicine; Visit Provider Thoracic Surgery (Cardiothoracic Vascular Surgery) | DX: I73.9 Peripheral vascular disease, unspecified (principal); L97.822 Non-pressure chronic ulcer of other part of left lower leg with fat layer exposed; L89.140 Pressure ulcer of left lower back, unstageable; I96 Gangrene, not elsewhere classified | CPT/HCPCS: 11042; 97597; A6212 ×2 ==

== ENCOUNTER → 2022-03-10 14:52 | Outpatient (BNVA) | payer MEDICARE, SELFPAY | PROVIDERS: PCP Family Medicine; Visit Provider Nurse Practitioner Family | DX: I73.9 Peripheral vascular disease, unspecified (principal); L97.822 Non-pressure chronic ulcer of other part of left lower leg with fat layer exposed; I96 Gangrene, not elsewhere classified; L89.620 Pressure ulcer of left heel, unstageable | CPT/HCPCS: 11042; A6212 ×2 ==

== ENCOUNTER → 2022-03-24 14:45 | Outpatient (BNVA) | payer MEDICARE, SELFPAY | PROVIDERS: PCP Family Medicine; Visit Provider Thoracic Surgery (Cardiothoracic Vascular Surgery) | DX: Z09 Encounter for follow-up examination after completed treatment for conditions other than malignant neoplasm (principal); L89.620 Pressure ulcer of left heel, unstageable; I96 Gangrene, not elsewhere classified | CPT/HCPCS: 97597 ==

== ENCOUNTER → 2022-03-26 11:24 | Outpatient (BNVA) | payer MEDICARE, SELFPAY | PROVIDERS: PCP Family Medicine; Visit Provider Internal Medicine | DX: K50.90 Crohn's disease, unspecified, without complications (principal); M25.50 Pain in unspecified joint; I73.9 Peripheral vascular disease, unspecified; L97.909 Non-pressure chronic ulcer of unspecified part of unspecified lower leg with unspecified severity | CPT/HCPCS: 99214 ==

== ENCOUNTER → 2022-04-07 15:07 | Outpatient (BNVA) | payer MEDICARE, SELFPAY | PROVIDERS: PCP Family Medicine; Visit Provider Nurse Practitioner Family | DX: Z09 Encounter for follow-up examination after completed treatment for conditions other than malignant neoplasm (principal) | CPT/HCPCS: 99212; A6212 ==

== ENCOUNTER → 2022-04-14 13:35 | Outpatient (BNVA) | payer MEDICARE, SELFPAY | PROVIDERS: PCP Family Medicine; Visit Provider Thoracic Surgery (Cardiothoracic Vascular Surgery) | DX: I96 Gangrene, not elsewhere classified (principal); L89.620 Pressure ulcer of left heel, unstageable | CPT/HCPCS: 97597; A6212 ==

== ENCOUNTER → 2022-04-21 14:05 | Outpatient (BNVA) | payer MEDICARE, SELFPAY | PROVIDERS: PCP Family Medicine; Visit Provider Nurse Practitioner Family | DX: I96 Gangrene, not elsewhere classified (principal); L89.620 Pressure ulcer of left heel, unstageable | CPT/HCPCS: 11042 ==

== ENCOUNTER → 2022-04-28 13:35 | Outpatient (BNVA) | payer MEDICARE, SELFPAY | PROVIDERS: PCP Family Medicine; Visit Provider Nurse Practitioner Family | DX: I96 Gangrene, not elsewhere classified (principal); L89.620 Pressure ulcer of left heel, unstageable; L97.822 Non-pressure chronic ulcer of other part of left lower leg with fat layer exposed | CPT/HCPCS: 11042; A6212 ==

== ENCOUNTER → 2022-05-05 13:50 | Outpatient (BNVA) | payer MEDICARE, SELFPAY | PROVIDERS: PCP Family Medicine; Visit Provider Thoracic Surgery (Cardiothoracic Vascular Surgery) | DX: L89.320 Pressure ulcer of left buttock, unstageable (principal); I96 Gangrene, not elsewhere classified; L97.822 Non-pressure chronic ulcer of other part of left lower leg with fat layer exposed | CPT/HCPCS: 97597; A6021; A6212 ==

== ENCOUNTER → 2022-05-19 13:53 | Outpatient (BNVA) | payer MEDICARE, SELFPAY | PROVIDERS: PCP Family Medicine; Visit Provider Thoracic Surgery (Cardiothoracic Vascular Surgery) | DX: I96 Gangrene, not elsewhere classified (principal); L89.620 Pressure ulcer of left heel, unstageable; L97.822 Non-pressure chronic ulcer of other part of left lower leg with fat layer exposed | CPT/HCPCS: 11042; 97597; A6210; A6212 ==

== ENCOUNTER → 2022-05-26 14:29 | Outpatient (BNVA) | payer MEDICARE, SELFPAY | PROVIDERS: PCP Family Medicine; Visit Provider Thoracic Surgery (Cardiothoracic Vascular Surgery) | DX: I96 Gangrene, not elsewhere classified (principal); L89.620 Pressure ulcer of left heel, unstageable; L97.822 Non-pressure chronic ulcer of other part of left lower leg with fat layer exposed; L89.892 Pressure ulcer of other site, stage 2 | CPT/HCPCS: 97597; A6210; A6212 ==

== ENCOUNTER → 2022-06-02 14:00 | Outpatient (BNVA) | payer MEDICARE, SELFPAY | PROVIDERS: PCP Family Medicine; Visit Provider Thoracic Surgery (Cardiothoracic Vascular Surgery) | DX: I96 Gangrene, not elsewhere classified (principal); L89.620 Pressure ulcer of left heel, unstageable; L97.822 Non-pressure chronic ulcer of other part of left lower leg with fat layer exposed | CPT/HCPCS: 97597 ==

== ENCOUNTER 2022-06-08 09:19 | Outpatient (CLI) | payer MEDICARE, SELFPAY ==
--- NOTE | 2022-06-08 09:30 | USR_ITS ---
PROCEDURE INFORMATION: Exam: US Duplex Left Lower Extremity Arteries Or Arterial Bypass Grafts Exam date and time: 06/08/2022 9:48 AM Age: 86 years old Clinical indication: Condition or disease; Peripheral vascular disease; Prior surgery; Surgery date: 1-6 months; Surgery type: Balloon angioplasty 12/2021; Additional info: I73.9 - peripheral vascular disease, unspecified TECHNIQUE: Imaging protocol: Left Real-time duplex scan of the arteries or arterial bypass grafts of the left lower extremity with 2-D see scale, color Doppler flow and spectral waveform analysis. Images documented and saved. COMPARISON: US CV segpressure [facility] [id number] 12/27/2021 6:24 PM FINDINGS: Left external iliac artery: No occlusion or significant stenosis. Monophasic waveform. Left common femoral artery: No occlusion. There is increased peak systolic velocity in the left common femoral artery measuring up to 175 cm/second. Monophasic waveform. Left superficial femoral artery: No occlusion or significant stenosis. Monophasic waveform. Left popliteal artery: No occlusion or significant stenosis. Monophasic waveform. Left calf/foot arteries: Occluded left posterior tibial artery. Patent noncompressible dorsalis pedis artery with monophasic waveform. US/CV arterial duplex [facility] [id number] IMPRESSION: 1. Mild stenosis of the left common femoral artery. 2. Unable to calculate EBENEZER.
== END 2022-06-08 09:20 | disposition home or self-care (01) ==
LOC: RAD 09:20
PROVIDERS: PCP Family Medicine; Visit Provider Thoracic Surgery (Cardiothoracic Vascular Surgery)
DX: I73.9 Peripheral vascular disease, unspecified (principal); L97.909 Non-pressure chronic ulcer of unspecified part of unspecified lower leg with unspecified severity; I70.8 Atherosclerosis of other arteries
CPT/HCPCS: 93926

== ENCOUNTER → 2022-06-09 14:54 | Outpatient (BNVA) | payer MEDICARE, SELFPAY | PROVIDERS: PCP Family Medicine; Visit Provider Nurse Practitioner Family | DX: I96 Gangrene, not elsewhere classified (principal); L97.822 Non-pressure chronic ulcer of other part of left lower leg with fat layer exposed | CPT/HCPCS: 11042; A6212 ==

== ENCOUNTER → 2022-06-16 14:48 | Outpatient (BNVA) | payer MEDICARE, SELFPAY | PROVIDERS: PCP Family Medicine; Visit Provider Thoracic Surgery (Cardiothoracic Vascular Surgery) | DX: I96 Gangrene, not elsewhere classified (principal); L97.822 Non-pressure chronic ulcer of other part of left lower leg with fat layer exposed | CPT/HCPCS: 97597; A6212 ==

== ENCOUNTER → 2022-06-23 14:45 | Outpatient (BNVA) | payer MEDICARE, SELFPAY | PROVIDERS: PCP Family Medicine; Visit Provider Thoracic Surgery (Cardiothoracic Vascular Surgery) | DX: I96 Gangrene, not elsewhere classified (principal); L97.822 Non-pressure chronic ulcer of other part of left lower leg with fat layer exposed | CPT/HCPCS: 97597 ==

== ENCOUNTER → 2022-06-30 15:30 | Outpatient (BNVA) | payer MEDICARE, SELFPAY | PROVIDERS: PCP Family Medicine; Visit Provider Thoracic Surgery (Cardiothoracic Vascular Surgery) | DX: I96 Gangrene, not elsewhere classified (principal); L97.822 Non-pressure chronic ulcer of other part of left lower leg with fat layer exposed | CPT/HCPCS: 99212 ==

== ENCOUNTER → 2022-08-30 14:49 | Outpatient (BNVA) | payer MEDICARE, SELFPAY | PROVIDERS: PCP Family Medicine; Visit Provider Internal Medicine | DX: I73.9 Peripheral vascular disease, unspecified (principal); L97.909 Non-pressure chronic ulcer of unspecified part of unspecified lower leg with unspecified severity; Z86.73 Personal history of transient ischemic attack (TIA), and cerebral infarction without residual deficits; I10 Essential (primary) hypertension; G62.9 Polyneuropathy, unspecified; Z79.01 Long term (current) use of anticoagulants; Z87.891 Personal history of nicotine dependence | CPT/HCPCS: 99214 ==

== ENCOUNTER → 2022-08-31 14:31 | Outpatient (BNVA) | payer MEDICARE, SELFPAY | PROVIDERS: PCP Family Medicine; Visit Provider Internal Medicine | DX: K50.90 Crohn's disease, unspecified, without complications (principal); M81.0 Age-related osteoporosis without current pathological fracture; M25.50 Pain in unspecified joint; I73.9 Peripheral vascular disease, unspecified; L97.909 Non-pressure chronic ulcer of unspecified part of unspecified lower leg with unspecified severity | CPT/HCPCS: 36415; 80053; 82306; 85025; 85651; 86140; 99213 ==

== ENCOUNTER 2022-09-09 12:38 | Outpatient (CLI) | payer MEDICARE, SELFPAY ==
--- NOTE | 2022-09-09 13:00 | XR_ITS ---
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 COMPARISON: 2019 FINDINGS: The L1-L4 bone mineral density measures 0.902 g/cm2. This corresponds to a T score score of -2.3 and Z score of 0.3. Left femoral neck bone mineral density measures 0.759 g/cm2. This corresponds to a T score of -2.0 an d Z score of 0.8. Right femoral neck bone mineral density measures 0.654 g/cm2. This corresponds to a T score -2.8of an d Z score of -0.1. Mean femoral neck bone mineral density measures 0.707 g/cm2. This corresponds to a T score of -2.4 an d Z score of 0.3. XR/XR DEXA axial skeleton* [id number] IMPRESSION: Osteopenia lumbar spine. Osteopenia femoral necks upper end of the range. Patient's FRAX calculated 10 year probability for major osteoporotic fracture i s 23.1 % and osteoporotic hip fracture is 8.9%. Since 2019, bone mineral density has increased 0.2% in the lumbar spine and dec reased -3.7% in the femoral necks.
== END 2022-09-09 12:39 | disposition home or self-care (01) ==
LOC: RAD 12:40
PROVIDERS: PCP Family Medicine; Visit Provider Internal Medicine
DX: M81.0 Age-related osteoporosis without current pathological fracture (principal); M85.88 Other specified disorders of bone density and structure, other site
CPT/HCPCS: 77080

== ENCOUNTER → 2022-12-28 09:28 | Outpatient (BNVA) | payer MEDICARE, SELFPAY | PROVIDERS: PCP Family Medicine; Visit Provider Internal Medicine | DX: M25.50 Pain in unspecified joint (principal); Z79.899 Other long term (current) drug therapy; M81.0 Age-related osteoporosis without current pathological fracture; K50.90 Crohn's disease, unspecified, without complications; I73.9 Peripheral vascular disease, unspecified; L97.909 Non-pressure chronic ulcer of unspecified part of unspecified lower leg with unspecified severity | CPT/HCPCS: 99214 ==

== ENCOUNTER → 2023-01-25 14:43 | Outpatient (BNVA) | payer MEDICARE, SELFPAY | PROVIDERS: PCP Family Medicine; Visit Provider Nurse Practitioner Family | DX: L81.4 Other melanin hyperpigmentation (principal); D69.2 Other nonthrombocytopenic purpura; D48.5 Neoplasm of uncertain behavior of skin; L89.612 Pressure ulcer of right heel, stage 2; L85.3 Xerosis cutis; L57.0 Actinic keratosis | CPT/HCPCS: 11102; 99213 ==

== ENCOUNTER → 2023-03-01 14:01 | Outpatient (BNVA) | payer MEDICARE, SELFPAY | PROVIDERS: PCP Family Medicine; Visit Provider Internal Medicine | DX: I10 Essential (primary) hypertension (principal); Z87.891 Personal history of nicotine dependence; R01.1 Cardiac murmur, unspecified; R06.00 Dyspnea, unspecified; Z86.73 Personal history of transient ischemic attack (TIA), and cerebral infarction without residual deficits | CPT/HCPCS: 99214 ==

== ENCOUNTER → 2023-03-04 11:45 | Outpatient (BNVA) | payer MEDICARE, SELFPAY | PROVIDERS: PCP Family Medicine; Visit Provider Internal Medicine | DX: M25.50 Pain in unspecified joint (principal); K50.90 Crohn's disease, unspecified, without complications; I73.9 Peripheral vascular disease, unspecified; M81.0 Age-related osteoporosis without current pathological fracture | CPT/HCPCS: 99213 ==

== ENCOUNTER → 2023-03-18 11:30 | Outpatient (BNVA) | payer MEDICARE, SELFPAY | PROVIDERS: PCP Family Medicine; Visit Provider Nurse Practitioner Family | DX: L89.621 Pressure ulcer of left heel, stage 1 (principal); L90.5 Scar conditions and fibrosis of skin; I87.2 Venous insufficiency (chronic) (peripheral); L81.4 Other melanin hyperpigmentation; D22.5 Melanocytic nevi of trunk; L57.0 Actinic keratosis; Z85.828 Personal history of other malignant neoplasm of skin; Z87.891 Personal history of nicotine dependence | CPT/HCPCS: 17000; 17003; 99214 ==

== ENCOUNTER 2023-03-28 14:05 | Outpatient (CLI) | payer MEDICARE, SELFPAY ==
--- NOTE | 2023-03-28 14:15 | USCV_ITS ---
Dimple Mckay Age: 87 Gender: F : 1935 Exam Date: 03/28/2023 14:37 Ordering Phys: Richard Young M.D ([email or web address]) Technologist: [place] [facility] [place]: murmur BP: 122 / 72 HR: 59 Rhythm: Sinus Technical Quality: Adequate MEASUREMENTS (Male / Female) Normal Values 2D ECHO LV Diastolic Diameter PLAX 3.1 cm 4.2 - 5.9 / 3.9 - 5.3 cm LV Systolic Diameter PLAX 1.9 cm IVS Diastolic Thickness 1.2 cm 0.6 - 1.0 / 0.6 - 0.9 cm IVS Systolic Thickness 1.2 cm LVPW Diastolic Thickness 1.0 cm 0.6 - 1.0 / 0.6 - 0.9 cm LVPW Systolic Thickness 1.2 cm LVOT Diameter 2.0 cm LV Ejection Fraction 2D Teich 72.1 % LV Ejection Fraction MOD 2C 68.4 % LV Ejection Fraction 2C AL 69.3 % LA Diameter 3.1 cm M-MODE Aortic Annulus Diameter 3.4 cm LA Ao Ratio MM 1.0 MV E Point Septal Separation 0.9 cm DOPPLER AV Peak Velocity 156.0 cm/s LVOT Peak Velocity 123.0 cm/s AV Area Cont Eq vti 2.9 cm squared AV Area Cont Eq pk 2.6 cm squared MV Area PHT 2.5 cm squared Mitral E to A Ratio 1.0 MV E' Velocity 53.5 cm/s Mitral E to MV E' Ratio 14.9 Mitral E to LV E' Lateral Ratio 14.7 Mitral E to LV E' Septal Ratio 15.1 TR Peak Velocity 287.8 cm/s TR Peak Gradient 33.1 mmHg TV Peak E Velocity 70.0 cm/s Right Atrial Pressure 3.0 mmHg Pulmonary Artery Systolic Pressu 36.1 mmHg RV Acceleration Time 0.1 s FINDINGS Left Ventricle Left ventricle is normal in size. LV systolic function is normal with EF of 60 to 65%. No regional wall motion abnormalities. Grade 1 diastolic dysfunction Right Ventricle Mild dilation. Grossly normal function Right Atrium Normal in size Left Atrium Normal in size Mitral Valve Structurally normal mitral valve Aortic Valve Structurally normal aortic valve. No significant stenosis or regurgitation Tricuspid Valve Mild tricuspid regurgitation. RVSP is 35 to 40 mmHg. This is consistent with mild pulmonary hypertension. Pulmonic Valve Not well-visualized Pericardium Normal Aorta Normal in size IVC Appears to be normal CONCLUSIONS LV systolic function is normal with EF of 60 to 65%. Grade 1 diastolic dysfunction RV appears mildly dilated. Normal function Mild tricuspid regurgitation Mild pulmonary hypertension Compared to prior echocardiogram from 2016, mildly dilated RV seen. Richard Young MD (Electronically Signed) Final Date: 01 April 2023 17:36 S
== END 2023-03-28 14:06 | disposition home or self-care (01) ==
LOC: RAD 14:06
PROVIDERS: PCP Family Medicine; Visit Provider Internal Medicine
DX: I50.30 Unspecified diastolic (congestive) heart failure (principal); I07.1 Rheumatic tricuspid insufficiency; I27.20 Pulmonary hypertension, unspecified
CPT/HCPCS: 93306

== ENCOUNTER → 2023-05-18 11:32 | Outpatient (BNVA) | payer MEDICARE, SELFPAY | PROVIDERS: PCP Family Medicine; Visit Provider Nurse Practitioner Family | DX: L97.429 Non-pressure chronic ulcer of left heel and midfoot with unspecified severity (principal); L90.5 Scar conditions and fibrosis of skin; I87.2 Venous insufficiency (chronic) (peripheral); L81.4 Other melanin hyperpigmentation; L57.0 Actinic keratosis; Z85.828 Personal history of other malignant neoplasm of skin; L82.1 Other seborrheic keratosis; D22.5 Melanocytic nevi of trunk | CPT/HCPCS: 11102; 99214 ==

== ENCOUNTER → 2023-06-09 10:46 | Outpatient (BNVA) | payer MEDICARE, SELFPAY | PROVIDERS: PCP Family Medicine; Visit Provider Internal Medicine | DX: M25.50 Pain in unspecified joint (principal); K50.90 Crohn's disease, unspecified, without complications; I73.9 Peripheral vascular disease, unspecified; M81.0 Age-related osteoporosis without current pathological fracture | CPT/HCPCS: 99214 ==

== ENCOUNTER → 2023-06-27 14:04 | Outpatient (BNVA) | payer MEDICARE, SELFPAY | PROVIDERS: PCP Family Medicine; Visit Provider Nurse Practitioner Family | DX: L90.5 Scar conditions and fibrosis of skin (principal); L89.893 Pressure ulcer of other site, stage 3; I87.2 Venous insufficiency (chronic) (peripheral); L85.8 Other specified epidermal thickening; Z08 Encounter for follow-up examination after completed treatment for malignant neoplasm; Z85.828 Personal history of other malignant neoplasm of skin | CPT/HCPCS: 99214 ==

== ENCOUNTER → 2023-07-22 11:12 | Outpatient (BNVA) | payer MEDICARE, SELFPAY | PROVIDERS: PCP Family Medicine; Visit Provider Podiatrist Foot & Ankle Surgery | DX: M79.671 Pain in right foot (principal); M79.672 Pain in left foot; L84 Corns and callosities; D64.9 Anemia, unspecified; M21.619 Bunion of unspecified foot; G62.9 Polyneuropathy, unspecified | CPT/HCPCS: 11055; 99203 ==

== ENCOUNTER → 2023-09-06 13:55 | Outpatient (BNVA) | payer MEDICARE, SELFPAY | PROVIDERS: PCP Family Medicine; Visit Provider Internal Medicine | DX: I73.9 Peripheral vascular disease, unspecified (principal); Z86.73 Personal history of transient ischemic attack (TIA), and cerebral infarction without residual deficits; I10 Essential (primary) hypertension; G62.9 Polyneuropathy, unspecified; Z87.891 Personal history of nicotine dependence | CPT/HCPCS: 99214 ==

== ENCOUNTER → 2023-10-11 10:04 | Outpatient (BNVA) | payer MEDICARE, SELFPAY | PROVIDERS: PCP Family Medicine; Visit Provider Internal Medicine | DX: E55.9 Vitamin D deficiency, unspecified (principal); M25.50 Pain in unspecified joint; I73.9 Peripheral vascular disease, unspecified; M81.0 Age-related osteoporosis without current pathological fracture; M79.643 Pain in unspecified hand; K50.90 Crohn's disease, unspecified, without complications | CPT/HCPCS: 99214 ==

== ENCOUNTER → 2023-10-26 15:14 | Outpatient (BNVA) | payer MEDICARE, SELFPAY | PROVIDERS: PCP Family Medicine; Visit Provider Podiatrist Foot & Ankle Surgery | DX: L84 Corns and callosities (principal); D64.9 Anemia, unspecified; G62.9 Polyneuropathy, unspecified; M79.672 Pain in left foot; M21.611 Bunion of right foot; M21.612 Bunion of left foot | CPT/HCPCS: 11055 ==

== ENCOUNTER → 2023-11-04 10:50 | Outpatient (BNVA) | payer MEDICARE, SELFPAY | PROVIDERS: PCP Family Medicine; Referring Provider Internal Medicine; Visit Provider Physician Assistant | DX: M19.032 Primary osteoarthritis, left wrist; M19.042 Primary osteoarthritis, left hand; M18.0 Bilateral primary osteoarthritis of first carpometacarpal joints | CPT/HCPCS: 20600; 20605; 73130; 99203 ==

== ENCOUNTER → 2023-11-22 09:47 | Outpatient (BNVA) | payer MEDICARE, SELFPAY | PROVIDERS: PCP Family Medicine; Visit Provider Physician Assistant | DX: M19.031 Primary osteoarthritis, right wrist (principal); M18.0 Bilateral primary osteoarthritis of first carpometacarpal joints | CPT/HCPCS: 20600; 20605; 99213; J3301; J3490 ==

== ENCOUNTER → 2024-01-25 15:26 | Outpatient (BNVA) | payer MEDICARE, SELFPAY | PROVIDERS: PCP Family Medicine; Visit Provider Podiatrist Foot & Ankle Surgery | DX: L84 Corns and callosities (principal); D64.9 Anemia, unspecified; G62.9 Polyneuropathy, unspecified | CPT/HCPCS: 99213 ==

== ENCOUNTER → 2024-02-21 10:46 | Outpatient (BNVA) | payer MEDICARE, SELFPAY | PROVIDERS: PCP Family Medicine; Visit Provider Physician Assistant | DX: M18.0 Bilateral primary osteoarthritis of first carpometacarpal joints (principal); M19.032 Primary osteoarthritis, left wrist | CPT/HCPCS: 20600; 73130; 99213; J3301; J3490 ==

== ENCOUNTER → 2024-03-14 15:32 | Outpatient (BNVA) | payer MEDICARE, SELFPAY | PROVIDERS: PCP Family Medicine; Visit Provider Internal Medicine Cardiovascular Disease | DX: I73.9 Peripheral vascular disease, unspecified (principal); L97.909 Non-pressure chronic ulcer of unspecified part of unspecified lower leg with unspecified severity; I10 Essential (primary) hypertension; Z87.891 Personal history of nicotine dependence | CPT/HCPCS: 99213 ==

== ENCOUNTER → 2024-05-02 15:30 | Outpatient (BNVA) | payer MEDICARE, SELFPAY | PROVIDERS: PCP Family Medicine; Visit Provider Podiatrist Foot & Ankle Surgery | DX: I73.9 Peripheral vascular disease, unspecified (principal); L97.921 Non-pressure chronic ulcer of unspecified part of left lower leg limited to breakdown of skin | CPT/HCPCS: 99213 ==

== ENCOUNTER → 2024-05-08 13:04 | Outpatient (BNVA) | payer MEDICARE, SELFPAY | PROVIDERS: PCP Family Medicine; Visit Provider Thoracic Surgery (Cardiothoracic Vascular Surgery) | DX: I96 Gangrene, not elsewhere classified (principal); L97.811 Non-pressure chronic ulcer of other part of right lower leg limited to breakdown of skin; L97.821 Non-pressure chronic ulcer of other part of left lower leg limited to breakdown of skin | CPT/HCPCS: 97597; 99213 ==

== ENCOUNTER → 2024-05-15 13:47 | Outpatient (BNVA) | payer MEDICARE, SELFPAY | PROVIDERS: PCP Family Medicine; Visit Provider Thoracic Surgery (Cardiothoracic Vascular Surgery) | DX: I73.9 Peripheral vascular disease, unspecified (principal); L97.811 Non-pressure chronic ulcer of other part of right lower leg limited to breakdown of skin; L97.821 Non-pressure chronic ulcer of other part of left lower leg limited to breakdown of skin | CPT/HCPCS: 97597 ==

== ENCOUNTER 2024-05-22 15:38 | Outpatient (CLI) | payer MEDICARE, SELFPAY ==
[2024-05-22 16:31] LABS: Basophils # 0.1 10^3/uL (0.0-0.1); Basophils % 1.5 %; Eosinophils # 0.2 10^3/uL (0.0-0.8); Eosinophils % 2.5 %; Hematocrit 40.7 % (36-47); Lymphocytes # 1.3 10^3/uL (0.8-4.8); Lymphocytes % 19.8 %; Mean Corpuscular HGB Conc 32.2 g/dL (30-55); Mean Corpuscular Hemoglobin 31.2 pg (27-33); Mean Corpuscular Volume 96.9 fl (85-98); Mean Platelet Volume 9.5 fL (7.4-10.4); Monocytes # 0.7 10^3/uL (0.2-0.9); Monocytes % 10.8 %; Neutrophils # 4.24 10^3/uL (1.8-7.7); Neutrophils % 65.1 %; Nucleated Red Blood Cells % 0 %; Platelet Count 360 10^3/cmm (157-399); Red Cell Distribution Width 13.6 % (12.1-15.1); White Blood Count 6.51 10^3/uL (3.29-11.43)
[2024-05-22 17:09] LABS: Anion Gap 16.1 (5-19); Blood Urea Nitrogen 16 mg/dL (8-23); Calcium 9.3 mg/dL (8.5-10.5); Carbon Dioxide 27 mmol/L (22-29); Chloride 96 mmol/L (98-107); Glucose 103 mg/dL (65-115); Osmolality Calculated 281 mOsm/kg (285-295); Potassium 4.1 mmol/L (3.5-5.1); Sodium 135 mmol/L (136-145)
== END 2024-05-22 15:39 | disposition home or self-care (01) ==
LOC: LAB 15:39
PROVIDERS: PCP Family Medicine; Visit Provider Thoracic Surgery (Cardiothoracic Vascular Surgery)
DX: I73.9 Peripheral vascular disease, unspecified (principal)
CPT/HCPCS: 36415; 80048; 85025; 97597; A6021

== ENCOUNTER → 2024-05-29 15:20 | Outpatient (BNVA) | payer MEDICARE, SELFPAY | PROVIDERS: PCP Family Medicine; Visit Provider Thoracic Surgery (Cardiothoracic Vascular Surgery) | DX: I73.9 Peripheral vascular disease, unspecified (principal); L97.811 Non-pressure chronic ulcer of other part of right lower leg limited to breakdown of skin; L97.821 Non-pressure chronic ulcer of other part of left lower leg limited to breakdown of skin | CPT/HCPCS: 97597; A6197; A6248 ==

== ENCOUNTER → 2024-06-05 14:18 | Outpatient (BNVA) | payer MEDICARE, SELFPAY | PROVIDERS: PCP Family Medicine; Visit Provider Thoracic Surgery (Cardiothoracic Vascular Surgery) | DX: L97.821 Non-pressure chronic ulcer of other part of left lower leg limited to breakdown of skin (principal); Z09 Encounter for follow-up examination after completed treatment for conditions other than malignant neoplasm | CPT/HCPCS: 97597; A6021 ==

== ENCOUNTER 2024-06-07 14:46 | Outpatient (CLI) | payer MEDICARE, SELFPAY ==
--- NOTE | 2024-06-07 15:00 | CTR_ITS ---
PROCEDURE INFORMATION: Exam: CTA Abdominal Aorta and Bilateral Lower Extremities (Run-off) With Contrast Exam date and time: 06/07/2024 3:22 PM Age: 88 years old Clinical indication: Other: Non healing wound RT medina; Prior surgery; Surgery date: 6+ months; Surgery type: Gb; Additional info: Non -healing wound TECHNIQUE: Imaging protocol: Computed tomographic angiography of the of the abdominal aorta, pelvis and bilateral lower extremities with contrast. 3D rendering (Not supervised by radiologist): MIP and/or 3D reconstructed images were created by the technologist. Radiation optimization: All CT scans at this facility use at least one of these dose optimization techniques: automated exposure control; mA and/or kV adjustment per patient size (includes targeted exams where dose is matched to clinical indication); or iterative reconstruction. Contrast material: OMNI 350; Contrast volume: 120 ml; Contrast route: INTRAVENOUS (IV); COMPARISON: CT angio abd aorta runof 42408 12/04/2021 1:53 PM RADIATION DOSE METRICS: Total DLP (mGy-cm): 1217.82 FINDINGS: Aorta: Atherosclerotic changes of the abdominal aorta are present. Is mild ectasia but no evidence of aneurysm. 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 Significant stenosis of the SMA origin. NHI is patent. Renal arteries: Severe right and moderate left proximal renal artery stenosis are present. Right iliac arteries: Multilevel mild stenoses of the right common iliac artery noted. Moderate stenosis of the proximal right internal iliac artery. No significant stenosis of the right external iliac artery. Right femoral/popliteal arteries: Mild stenosis of the right common femoral artery. Moderate stenosis of the proximal SFA. Multilevel [id number] stenosis of the mid SFA. Severe stenosis of the distal SFA. Occlusion of the proximal right popliteal artery with reconstitution of flow in the mid to distal popliteal artery which also demonstrates areas of severe stenosis. Right infrapopliteal arteries: High-grade stenosis of the tibioperoneal trunk. Occlusion of the proximal right posterior tibial artery. Reconstitution in the proximal calf is present. Multilevel areas of moderate stenosis of the peroneal artery and anterior tibial artery are present. There is a patent three-vessel runoff to the ankle. Left iliac arteries: Mild stenosis proximal left common iliac artery. 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 Multilevel areas of moderate stenosis of the left external iliac artery. Left femoral/popliteal arteries: Severe stenosis of the left common femoral artery. Left proximal SFA is occluded. Areas of reconstitution into a severely narrowed SFA noted in the mid thigh. The left profunda is patent. Left infrapopliteal arteries: There is a high-grade stenosis of the left tibioperoneal trunk just distal to the anterior tibial artery origin. Peroneal artery demonstrates multilevel areas of moderate to severe stenosis with no flow in the distal calf. There are multilevel areas of occlusion of the left posterior tibial artery with no flow in its mid to distal portion. Lungs: Features of scarring with traction bronchiectasis of the right lung base as well as other areas of peripheral interstitial reticulation and pulmonary scarring are noted. Liver: No significant liver pathology. Diaphragm: Small hiatal hernia. Gallbladder and biliary ducts: Prior cholecystectomy. No biliary dilatation. Pancreas: Pancreatic duct is dilated, greatest in its distal portion measuring 7 mm in diameter, increased compared with 3 mm on the prior exam. No obstructing lesion is seen. Low-attenuation structure in the posterior pancreatic body on series 5, image 129 measuring 6 mm is present. There is a probable lesion at this location on the prior exam although comparison limited by thick sections on the prior study. An abnormality in this location on the prior exam measures 3 mm although this may under underestimate the size. Spleen: No significant splenic pathology. Adrenal glands: Right adrenal gland is unremarkable. Left adrenal gland demonstrates thickening as present on the prior exam without dominant nodule most likely representing adenomatous change. Kidneys and ureters: Interval increase in number and size of right lower pole renal calculi now measuring up to 9 mm in greatest dimension. Renal cortical cysts again noted. Stomach and bowel: Large amount of colonic stool. Colonic diverticulosis without evidence of focal inflammatory change. Appendix: No evidence of appendicitis. Urinary bladder: Unremarkable urinary bladder. Reproductive: No significant uterine pathology. No significant adnexal pathology. Intraperitoneal space: No ascites. Lymph nodes: No evidence of lymphadenopathy. Bones/joints: Dextrocurvature of the lumbar spine is present. Mild degenerative change present in the spine. There is high branching of the left anterior tibial artery above the tibiofemoral joint line. The left anterior tibial artery is patent throughout its course. 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 Mild degenerative changes bilateral hip joints. Soft tissues: Unremarkable. Other findings: There is mild stenosis of the proximal to mid left popliteal artery. CT/CT angio abd aorta runof [id number] IMPRESSION: 1. 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 2. Moderate stenosis of the proximal right SFA and severe stenosis of the distal SFA. Occlusion of the right popliteal artery with subsequent reconstitution more distally but with severe stenosis. High-grade stenosis of the tibioperoneal trunk with a occlusion of the proximal right posterior tibial artery. Reconstitution with three-vessel runoff to the right ankle. 3. Moderate stenosis of the left external iliac artery. Severe stenosis of the left common femoral artery. Occlusion of the proximal left SFA reconstitution to a severely narrowed SFA more distally. High-grade stenosis of the left tibioperoneal trunk proximally. Multilevel areas of stenosis of the peroneal artery and posterior tibial artery with single-vessel runoff of the anterior tibial artery to the ankle. 4. Interval increase in pancreatic ductal dilatation with no obstructing lesion visualized. Findings equivocal for interval enlargement of the low-attenuation lesion of the pancreatic body given thicker sections on the prior study differential diagnosis led by side-branch IPMN in absence of history of pancreatitis; MRI recommended for further assessment of the pancreas. 5. Multiple minor findings described above.
[2024-06-07] MEDS: iohexol 350 mg/mL 500 mL Btl (per mL) IV (15:52)
== END 2024-06-07 14:47 | disposition home or self-care (01) ==
LOC: RAD 14:46
PROVIDERS: PCP Family Medicine; Visit Provider Thoracic Surgery (Cardiothoracic Vascular Surgery)
DX: I73.9 Peripheral vascular disease, unspecified (principal); M15.1 Heberden's nodes (with arthropathy)
CPT/HCPCS: 75635; 99213

== ENCOUNTER → 2024-06-12 14:04 | Outpatient (BNVA) | payer MEDICARE, SELFPAY | PROVIDERS: Visit Provider Thoracic Surgery (Cardiothoracic Vascular Surgery) | DX: I73.9 Peripheral vascular disease, unspecified (principal); L97.821 Non-pressure chronic ulcer of other part of left lower leg limited to breakdown of skin | CPT/HCPCS: 97597 ==

== ENCOUNTER → 2024-06-14 13:37 | Outpatient (BNVA) | payer MEDICARE, SELFPAY | PROVIDERS: PCP Family Medicine; Referring Provider Thoracic Surgery (Cardiothoracic Vascular Surgery); Visit Provider Internal Medicine Cardiovascular Disease | DX: R07.9 Chest pain, unspecified (principal); R00.1 Bradycardia, unspecified; R94.31 Abnormal electrocardiogram [ECG] [EKG] | CPT/HCPCS: 93005 ==

== ENCOUNTER 2024-06-19 14:13 | Outpatient (CLI) | payer MEDICARE, SELFPAY ==
[2024-06-19 14:35] LABS: Basophils # 0.1 10^3/uL (0.0-0.1); Basophils % 1.6 %; Eosinophils # 0.3 10^3/uL (0.0-0.8); Eosinophils % 4.2 %; Hematocrit 43.6 % (36-47); Lymphocytes # 1.5 10^3/uL (0.8-4.8); Lymphocytes % 20.8 %; Mean Corpuscular HGB Conc 31.4 g/dL (30-55); Mean Corpuscular Hemoglobin 31.1 pg (27-33); Mean Corpuscular Volume 98.9 fl (85-98); Mean Platelet Volume 9.6 fL (7.4-10.4); Monocytes # 0.8 10^3/uL (0.2-0.9); Monocytes % 10.4 %; Neutrophils # 4.64 10^3/uL (1.8-7.7); Neutrophils % 62.6 %; Nucleated Red Blood Cells % 0 %; Platelet Count 342 10^3/cmm (157-399); Red Blood Count 4.41 10^6/uL (3.85-5.65); Red Cell Distribution Width 14.3 % (12.1-15.1); White Blood Count 7.41 10^3/uL (3.29-11.43)
[2024-06-19 14:51] LABS: Blood Urea Nitrogen 16 mg/dL (8-23); Calcium 9.1 mg/dL (8.5-10.5); Carbon Dioxide 29 mmol/L (22-29); Chloride 100 mmol/L (98-107); Glucose 104 mg/dL (65-115); Osmolality Calculated 289 mOsm/kg (285-295); Sodium 139 mmol/L (136-145)
[2024-06-19 15:14] LABS: Prothrombin Time (Patient) 14.5 Seconds (12.0-15.1)
== END 2024-06-19 14:14 | disposition home or self-care (01) ==
LOC: LAB 14:14
PROVIDERS: PCP Family Medicine; Visit Provider Internal Medicine Cardiovascular Disease
DX: I73.9 Peripheral vascular disease, unspecified (principal); L97.821 Non-pressure chronic ulcer of other part of left lower leg limited to breakdown of skin
CPT/HCPCS: 36415; 80048; 85025; 85610; 97597; A6021

== ENCOUNTER → 2024-06-27 11:26 | Outpatient (BNVA) | payer MEDICARE, SELFPAY | PROVIDERS: PCP Family Medicine; Visit Provider Nurse Practitioner Family | DX: I87.2 Venous insufficiency (chronic) (peripheral) (principal); B07.8 Other viral warts; I73.9 Peripheral vascular disease, unspecified; T81.89XA Other complications of procedures, not elsewhere classified, initial encounter; X58.XXXA Exposure to other specified factors, initial encounter; Z85.828 Personal history of other malignant neoplasm of skin | CPT/HCPCS: 99214 ==

== ENCOUNTER 2024-06-28 09:08 | Outpatient (CLI) | payer MEDICARE, SELFPAY ==
--- NOTE | 2024-06-27 10:50 | PC.NURSE ---
attempted to call patient about [facility] pre op instructions. No answer. Voicemail left by Ebenezer Stiles RN.
[2024-06-28] VITALS (25 sets, daily range): BP systolic 126–196; BP diastolic 55–100; PULSE 58–84; RESP 11–21; TEMP 36.4; O2SAT 89–94; BMI 16.0
--- NOTE | 2024-06-28 09:00 | XACV_ITS ---
Gender: Female : 1935 Exam Type: Invasive Peripheral Vascular Procedure(s): Procedure Description: Diagnostic procedure Procedure Description: Peripheral Cath Diagnostic Procedure Procedure Description: Abdominal aortic angiography Procedure Description: Lower extremities' angiography Procedure Description: Peripheral vascular Intervention Procedure Description: PV Balloon Procedure Description: Miscellaneous Procedure Description: ACT Exam Priority: Routine [address]; Lower Extremity Diagnostic Findings 88-year-old female for critical limb ischemia nonhealing left leg ulcer underwent peripheral angiogram noted to have significant ostial eccentric left common iliac highly calcified stenosis and chronically occluded left common femoral artery, left SFA and popliteal artery, no flow below the knee was noted. Patient was treated with balloon angioplasty of left common iliac, left common femoral, and left SFA with excellent angiographic result and religious of flow. Single-vessel runoff was noted in the form of left anterior tibial below the left knee at the end of the case. . Lower Extremity Interventional Findings Indication for peripheral angiogram: Critical limb ischemia, Nonhealing left foot ulcer. Catheters used: Short 6 Salvadorean sheath was placed in right common femoral artery, [id number] UF catheter was placed at the level of T12 to perform abdominal angiogram with runoffAbdominal aortogram: Luminal irregularity without significant stenosis Right renal artery: Luminal irregularity without significant stenosis Left renal artery: Luminal irregularity without significant stenosisRight common iliac: Luminal irregularity without significant stenosis Right external iliac: Luminal irregularity without significant Right internal iliac: Luminal irregularity without significant stenosis Right common femoral artery: Luminal irregularity without significant stenosis Right profundofemoral artery: Luminal irregularity without significant stenosis Right SFA: Proximal segment has mild to moderate lesion however it is 100% occluded in the distal segment Right popliteal artery: 100% chronically occluded Right tibioperoneal trunk: 100% chronically occluded Right anterior tibial artery: Faint proximal anterior tibial artery noted no further visualization beyond the proximal segment was noted because of possible running out of contrast however collaterals from distal SFA to tibioperoneal trunk were noted Right anterior tibial artery: Appeared to be occluded after the proximal to segment Right peroneal artery: Appeared to be occluded not well-visualizedLeft common iliac artery: Ostial moderate lesion eccentric in nature it is calcified Left external iliac artery: Luminal irregularities without significant stenosis Left internal iliac artery: Luminal irregularity without significant stenosis Left common femoral artery: 100% occluded in proximal to mid segment Left profundofemoral artery: Luminal irregularity without significant stenosis Left SFA artery: 100% occluded Left popliteal artery: 100% occluded proximal to mid segment Left tibioperoneal artery: Luminal irregularities Left anterior tibial artery: Not well-visualized it appeared to be occluded Left posterior tibial artery: Chronically occluded Left peroneal artery: Chronically occludedPeripheral angioplastyIntervention: Short 6 Salvadorean sheath was exchanged over Glidewire for long 6 Salvadorean destination sheath, however destination sheath was not crossing beyond the left ostial common femoral artery which appeared to have eccentric and calcified stenosis, balloon angioplasty using [place] 5 x 40 mm balloon was performed, balloon was withdrawn out of the body and long destination sheath was then placed just above the left common femoral artery, with the help of a seeker and Glidewire we were able to cross left common femoral, left SFA and proximal popliteal arterial lesions into tibioperoneal trunk. We then steered the wire towards left anterior tibial and placed the wire into the anterior tibial without any difficulty. Multi balloon angioplasty using 4 x 100 x 1 and 35 AB [place] balloon was performed at 6-8 SANTY from left mid popliteal to left common femoral artery. peripheral angiogram of the left lower extremity with runoff was performed through the long destination sheath. It showed excellent angiographic result with patent left common femoral, left SFA, left popliteal, left tibioperoneal trunk left anterior tibial artery. Good angiographic result with single-vessel runoff all the way to the foot was noted.We then withdrew the long sheath out of the right common iliac artery and replace it with a 6 Salvadorean short sheath. Through the right common femoral short sheath peripheral angiogram with runoff of the right lower extremity was performed. Results of which are defined as above. Conclusion: Successful balloon angioplasty of the left common femoral, left SFA and proximal popliteal artery. 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 Conclusions Successful balloon angioplasty of the left common femoral, left SFA and left proximal popliteal artery with good single-vessel runoff noted all the way to the foot.Right mid to distal SFA was comminuted but noncanonical occluded along with tibioperoneal trunk no visualization of its anterior posterior and peroneal arteries noted possible due to running out of contrast or complete occlusions, if indicated and lifestyle limiting claudication may consider revascularization. Recommendations 1-Return to inpatient for close monitoring and routine cath care 2-Risk factor modification for secondary prevention 3-Statin and aspirin 81 mg and statin, if tolerated 4-Continue Plavix 75mg p.o. daily for t one year. We will assess at the end of one year again to continue if further or not 5-Continue optimal medical management 6-Follow up with Dr. Rossi in four weeks and your primary care in 10 days. Hemodynamic Data Phase:Rest AO : 146.0 / 59.0 ( 91.0 ) @ 12:42:00 PM 114.0 / 58.0 ( 84.0 ) @ 12:43:00 PM 122.0 / 54.0 ( 82.0 ) @ 1:00:00 PM 191.0 / 86.0 ( 117.0 ) @ 1:06:00 PM 106.0 / 62.0 ( 84.0 ) @ 1:17:00 PM 126.0 / 60.0 ( 88.0 ) @ 1:33:00 PM Access Site Site: Right Femoral artery Sheath Size: 6 Fr Hemost... Method: Suture Hemost... Success: Successful Procedure Details Findings Procedure Consent Obtained. Pre-Procedure Time Out. Identified patient by full name and date of as verbalized by the patient/guarantor. Does the consent match the physician's order: Yes. Accurate & Complete Informed Consent: Yes. Inpatient/Outpatient History & Physical on Chart: Yes. If H&P is completed, is and addenduem needed: No; If yes, is the addendum complete: N/A. Visualize and Verify Site with Patient/Guarantor: N/A. Relevant Radiology Images available: Yes. Pre-op teaching completed and patient verbalized understanding. The risks, benefits, and alternatives of sedation and/or procedure were discussed by physician. The patient agrees to continue. Procedure started. Correct patient, site and procedure confirmed by cath team. PERRLA. Strong, equal hand biomedical instrument technician bilaterally. Lungs clear x 5 lobes. IV Site on Arrival: 20 gauge in the left wrist. IV Fluids: 0.9% NaCl at KVO. 0 mL infused prior to airport maintenance laborer. Pre Procedural Pulses: bilateral dorsalis pedis was Doppled. Pre Procedural Pulses: bilateral posterior tibial was Doppled. Oxygen started at 2liters/min via nasal canula. bilateral groins was prepped with chloroprep then draped in the usual sterile fashion. Physician arrived. Baseline sample Acquired. HR: 61 BPM. Physician scrubbed in. Immediate Pre-Procedure Time Out. Correct Patient: Yes; Correct Procedure: Yes; Correct Site: Yes; Correct Patient Position: Yes; Correct Supplies: Yes; Dried Flammable Prep: Yes; Blood Products Available: N/A;. Lidocaine 1% infiltrated to the right groin. Arterial access obtained. Wire unable to advance. Wire and needle removed. Manual pressure held until hemostasis achieved. Arterial access obtained with micropuncture set. A 5Fr UF catheter in over wire. Abdominal aortogram with runoff performed in AP @ 10 mL/sec for a total of 30 mL. Glidewire inserted and advanced down the left SFA. UF catheter out OTW. The short 6Fr sheath exchanged for a 6FR 45cm Flexor sheath. [id number] Balloon inserted over the wire to the left superficial femoral. Balloon out. Sheath hooked up to heparnized saline at KVO. 5.0x40mm Balloon inserted over the wire to the left iliac. Inflation number : 1 A AB ARMADA 35 OTW [id number] was prepped and advanced across the Ostial Common Iliac, Left , then inflated to 8 SANTY for 1:03 seconds. Balloon out over wire. Results checked. 4.2m129ws Balloon inserted over the wire to the left superficial femoral. Inflation number : 1 A AB ARMADA 35 OTW [id number] was prepped and advanced across the Superficial Femoral, Left , then inflated to 8 SANTY for 1:01 seconds. Inflation number: 2 The AB ARMADA 35 OTW [id number] was reinflated across the Superficial Femoral, Left, to 8 SANTY for 1:00 seconds. Inflation number: 3 The AB ARMADA 35 OTW [id number] was reinflated across the Superficial Femoral, Left, to 8 SANTY for 1:00 seconds. Inflation number: 4 The AB ARMADA 35 OTW [id number] was reinflated across the Superficial Femoral, Left, to 6 SANTY for 1:00 seconds. Inflation number: 5 The AB ARMADA 35 OTW [id number] was reinflated across the Superficial Femoral, Left, to 6 SANTY for 1:09 seconds. Inflation number: 6 The AB ARMADA 35 OTW [id number] was reinflated across the Superficial Femoral, Left, to 6 SANTY for 1:01 seconds. Inflation number: 7 The AB ARMADA 35 OTW [id number] was reinflated across the Superficial Femoral, Left, to 8 SANTY for 1:02 seconds. Inflation number: 8 The AB ARMADA 35 OTW [id number] was reinflated across the Superficial Femoral, Left, to 8 SANTY for 1:01 seconds. Inflation number: 9 The AB ARMADA 35 OTW [id number] was reinflated across the Superficial Femoral, Left, to 8 SANTY for 2:00 seconds. Balloon out over wire. Results checked. DSA performed of the left lower leg. The long sheath exchanged for a short 6Fr sheath. ACT drawn. Results seconds. Therapeutic limits - pre-heparin administration 90-150 seconds and monitoring heparin during a vascular procedure >250 seconds. Sheath injected in Right common femoral artery and runoff performed. A Suture was successful obtaining hemostatsis at the Right Femoral artery insertion site. Sheath(s) sutured into position with 2-0 silk and sterile 4x4's and Op-site applied over the site. No oozing or signs and symptoms of hematoma noted. Arterial sheath flushed and connected to tranducer and pressure bag with heparinized saline. Post Procedure: Pulses reassessed and unchanged. PERRLA. Strong, equal hand biomedical instrument technician bilaterally. No VTE prophylaxis required. Medication's Wasted: Other = Fentanyl 25 mcg. Vital chart was stopped. Post-op diagnosis: PAD. Complications: None. Estimated blood loss: 5mL-10mL. Responsiveness - Normal response to verbal stimuli; alert and oriented, PERRLA. Airway - Unaffected, no intervention required; spontaneous ventilation. Circulation: W/N/L, pulses unchanged. Nausea/Vomiting: No. Procedure completed. Patient transferred by bed to 1st floor. Complications Findings none. Procedure Medications Start: 11:26 AM Stop: 11:26 AM Medication: Versed 1 mg and Fentanyl 25 mcg Amount: 1 Route: I.V. Start: 11:45 AM Stop: 11:45 AM Medication: Versed Amount: 1 mg Route: I.V. Start: 12:13 PM Stop: 12:13 PM Medication: Fentanyl Amount: 25 mcg Route: I.V. Start: 12:14 PM Stop: 12:14 PM Medication: Heparin Amount: 5000 units Route: I.V. Start: 12:32 PM Stop: 12:32 PM Medication: Nitrogylcerin Amount: 400 mcg Route: I.A. Start: 12:34 PM Stop: 12:34 PM Medication: Fentanyl Amount: 25 mcg Route: I.V. Start: 12:42 PM Stop: 12:42 PM Medication: Plavix Amount: 300 mg Route: P.O. I, the attending physician, have reviewed and verified all procedure medications. Yes, all medications given per verbal order Report Signatures Finalized by Farhad Rossi MD on 08/11/2024 05:57 PM
--- NOTE | 2024-06-28 11:23 | W.PM.OPSUD ---
Surgery/Procedure H&P Update DATE OF PROCEDURE: June 28, 2024 DATE H&P PERFORMED: 12/14/21 H&P UPDATE INFORMATION: I have reviewed H&P completed within last 30 days, I have examined patient prior to procedure and No changes to prior documentation PREOP DIAGNOSIS: Critical limb ischemia, nonhealing wound of left leg PLANNED PROCEDURE: Operation Date: 06/28/24 10:00 Proposed Procedures p Peripheral Diagnostic - peripheral angiogram left leg(Left) - Farhad Rossi MD PATIENT REASSESSED PRIOR TO SEDATION, WITH NO CHANGE NOTED: Yes PHYSICAL EXAM: alert, oriented x 3, clear to auscultation bilaterally and regular rate & rhythm OTHER PERTINENT EXAM FINDINGS: Mallampati 2 AIRWAY EVAL/ANESTHESIA PLAN: normal airway, ASA II, Risks, benefits & alternatives of sedation and/or procedure discussed and Patient agrees to continue as planned ADDITIONAL INFORMATION: All risk benefits and already for the procedure has been explained to the patient. She understand risk for stroke vascular injury major bleed vascular surgery urgent or emergent blood transfusion thromboembolic phenomena leading to acute limb ischemia and worst-case scenario amputation. She would like to proceed with it
--- NOTE | 2024-06-28 14:06 | PC.NURSE ---
Arrived on unit approximately 1315, unable to get ahold of registration upon admission to move patient chart to [facility] so charting is delayed
[2024-06-28] MEDS: sodium chloride 0.9% 1,000 ML 100 ML IV ×2 (14:08→21:45)
[2024-06-28 16:13] LABS: Partial Thromboplastin Time 69.1 SECONDS (23.9-36.7)
[2024-06-28 21:12] LABS: Partial Thromboplastin Time 26.6 SECONDS (23.9-36.7)
[2024-06-28] MEDS: acetaminophen 325 mg Tablet 650 MG PO (22:32)
[2024-06-29] VITALS (12 sets, daily range): BP systolic 108–169; BP diastolic 60–78; PULSE 68–92; RESP 11–17; TEMP 36.6; O2SAT 90–94
[2024-06-29 05:48] LABS: Basophils # 0.1 10^3/uL (0.0-0.1); Basophils % 1.4 %; Eosinophils # 0.3 10^3/uL (0.0-0.8); Eosinophils % 3.8 %; Hematocrit 39.1 % (36-47); Lymphocytes # 1.2 10^3/uL (0.8-4.8); Lymphocytes % 17.3 %; Mean Corpuscular HGB Conc 32.7 g/dL (30-55); Mean Corpuscular Volume 94.7 fl (85-98); Mean Platelet Volume 9.8 fL (7.4-10.4); Monocytes # 0.9 10^3/uL (0.2-0.9); Monocytes % 12.4 %; Neutrophils # 4.65 10^3/uL (1.8-7.7); Neutrophils % 64.7 %; Nucleated Red Blood Cells % 0 %; Platelet Count 284 10^3/cmm (157-399); Red Blood Count 4.13 10^6/uL (3.85-5.65); Red Cell Distribution Width 14.3 % (12.1-15.1); White Blood Count 7.18 10^3/uL (3.29-11.43)
[2024-06-29 06:07] LABS: Anion Gap 11.8 (5-19); Blood Urea Nitrogen 9 mg/dL (8-23); Calcium 8.3 mg/dL (8.5-10.5); Carbon Dioxide 28 mmol/L (22-29); Chloride 104 mmol/L (98-107); Creatinine Clr Calc Pharmacy 36.1455; Glucose 88 mg/dL (65-115); Osmolality Calculated 288 mOsm/kg (285-295); Potassium 3.8 mmol/L (3.5-5.1); Sodium 140 mmol/L (136-145)
[2024-06-29] MEDS: clopidogrel 75 mg Tablet PO (09:25)
--- NOTE | 2024-06-29 10:16 | PC.CHAP ---
Pastoral Care Encounter/Spiritual Assessment Type of Contact [] Declined offbearer visit [] Patient/Family/Request visit [] Outpatient visit [] Follow-up visit [] Physician referral [] Code/Alert [x] Routine visit [] Staff referral [] Actively dying [] Patient sleeping [] Family support [] [] Out of room [] Palliative care [] [] Receiving care in room [] Pre-surgical visit [] Trauma [] Long length of stay [] ICU visit [] Other: Relational/Emotional Strength [x] Patient feels connected with others/family/visitors/staff [] Distress [] Loneliness/isolation [] Abandonment Spirituality of Patient [x] Person of Anastasia [x] Attends Yarsani of their Anastasia [x] Believes in Prayer [] Reads Bible or Oriental Orthodox materials [] There are Spiritual issues to be addressed [place] Maker Interventions [x] Prayer [x] Active listening [x] Non-anxious presence [] Spiritual/emotional support [] Crisis/trauma care [] Spiritual counseling [] Bereavement support [] Provided bereavement packet [] Provided Bible/devotional materials [] Provided toy/stuffed animal, coloring book to patient or family member [] Provided Communion [] Anointing/[place] [] Salvation [] Completed spiritual assessment [] Other: Impact on Illness or Injury [] Angry [] Fearful [] Anxious [] Often cries [] Exhaustion [] Unable to work [] Unable to attend amish [] Unable to walk/stand [] Unable to read [] Unable to drive [] Unable to eat/drink [] Unable to sleep [] Unable to be with family [] Patient intubated [] Other: Summary p+2 Time spent with patient 20 min
--- NOTE | 2024-06-29 13:37 | PM.DCS ---
Discharge Providers Date of Admission: 06/28/2024 Date of Discharge: June 29, 2024 Attending Provider at Admission: Farhad Rossi MD Attending Provider at Discharge: Farhad Rossi MD Consults: 88-year-old female for critical limb ischemia nonhealing left leg ulcer underwent peripheral angiogram noted to have significant ostial eccentric left common iliac highly calcified stenosis and chronically occluded left common femoral artery, left SFA and popliteal artery, no flow below the knee was noted. Patient was treated with balloon angioplasty of left common iliac, left common femoral, and left SFA with excellent angiographic result and buddhism of flow. Single-vessel runoff was noted in the form of left posterior tibial below the left knee at the end of the case. Patient tolerated procedure well had minor bruising in the right groin after pulling the sheath, this morning she has good left posterior tibial pulse while anterior tibial pulse is dopplerable through collaterals, she has left foot warm moist, patient denies any complaint of pain. She will be discharged home on clopidogrel apixaban statin and rest of home medications. Primary Care Provider: Alvarado Suárez MD Reason for Visit Reason for Visit: L97.909 Physical Exam Const: OTHER: GENERAL: Patient is alert, awake and oriented x3. HEART: Regular S1 and S2. No murmur, rub or gallop. LUNGS: Clear to auscultate bilaterally. ABDOMEN: Soft, nontender and nondistended. Positive bowel sounds. No guarding, rebound or tenderness. CENTRAL NERVOUS SYSTEM: Grossly nonfocal. EXTREMITIES: Lower extremities with out edema bilaterally. Left posterior tibial palpable, anterior tibial dopplerable Discharge Data Studies Completed and Pending Pending at discharge Category Date Time Status [employer] request for service Routine Exams 06/28/24 09:00 Ordered Laboratory Results WBC 7.18 10^3/uL (3.29-11.43) 06/29/24 05:21 RBC 4.13 10^6/uL (3.85-5.65) 06/29/24 05:21 Hgb 12.80 g/dL (11.27-16.99) 06/29/24 05:21 Hct 39.1 % (36-47) 06/29/24 05:21 MCV 94.7 fl (85-98) 06/29/24 05:21 MCH 31.0 pg (27-33) 06/29/24 05:21 MCHC 32.7 g/dL (30-55) 06/29/24 05:21 RDW 14.3 % (12.1-15.1) 06/29/24 05:21 Plt Count 284 10^3/cmm (157-399) 06/29/24 05:21 MPV 9.8 fL (7.4-10.4) 06/29/24 05:21 Neut % (Auto) 64.7 % 06/29/24 05:21 Lymph % (Auto) 17.3 % 06/29/24 05:21 Stewart % (Auto) 12.4 % 06/29/24 05:21 Eos % (Auto) 3.8 % 06/29/24 05:21 Baso % (Auto) 1.4 % 06/29/24 05:21 Neut # (Auto) 4.65 10^3/uL (1.8-7.7) 06/29/24 05:21 Lymph # (Auto) 1.2 10^3/uL (0.8-4.8) 06/29/24 05:21 Stewart # (Auto) 0.9 10^3/uL (0.2-0.9) 06/29/24 05:21 Eos # (Auto) 0.3 10^3/uL (0.0-0.8) 06/29/24 05:21 Baso # (Auto) 0.1 10^3/uL (0.0-0.1) 06/29/24 05:21 Nucleated RBC % (auto) 0 % 06/29/24 05:21 Nucleated RBCs # 0.0 /100WBC 06/29/24 05:21 APTT 26.6 SECONDS (23.9-36.7) D 06/28/24 20:17 Sodium 140 mmol/L (136-145) 06/29/24 05:21 Potassium 3.8 mmol/L (3.5-5.1) 06/29/24 05:21 Chloride 104 mmol/L (98-107) 06/29/24 05:21 Carbon Dioxide 28 mmol/L (22-29) 06/29/24 05:21 Anion Gap 11.8 (5-19) 06/29/24 05:21 BUN 9 mg/dL (8-23) 06/29/24 05:21 Creatinine 0.5 mg/dL (0.5-0.9) 06/29/24 05:21 GFR Calculation Not Reportable 06/29/24 05:21 Glucose 88 mg/dL (65-115) 06/29/24 05:21 Calculated Osmolality 288 mOsm/kg (285-295) 06/29/24 05:21 Calcium 8.3 mg/dL (8.5-10.5) L 06/29/24 05:21 Vitals Last Vital Signs Temp 97.8 F 06/29/24 04:00 Pulse 78 06/29/24 11:36 Resp 15 06/29/24 11:36 BP 140/73 06/29/24 11:36 Pulse Ox 94 06/29/24 11:36 O2 Del Method Room Air 06/29/24 11:36 Discharge Plan Discharge Patient Disposition: Home Prescriptions: No Action folic acid 1 mg tablet 1 mg PO DAILY calcium carbonate [Calcium 500] 500 mg calcium (1,250 mg) tablet,chewable 500 mg PO DAILY levothyroxine 125 mcg tablet 137 mcg PO QAM diclofenac sodium [Voltaren Arthritis Pain] 1 % gel 4 g topical QID Qty: 100 1RF Rx Instructions: apply to single knee, ankle, foot; for foot includes sole/toes/top of foot triamcinolone acetonide 0.1 % ointment 1 applic topical BID Qty: 80 1RF Rx Instructions: Apply to red itchy scaly areas on the dorsal feet and lower extremities no more than 2 weeks/month as needed MediHoney (honey) 100 % paste 1 applic topical DAILY PRN (Reason: wound healing) Qty: 103 0RF Rx Instructions: Apply affected area daily; cover with bandage. cholecalciferol (vitamin D3) 1,250 mcg (50,000 unit) capsule 50,000 unit PO .qweek Qty: 14 0RF sulfamethoxazole-trimethoprim [Bactrim DS] 800-160 mg tablet 1 tab PO BID Qty: 20 0RF mupirocin 2 % ointment 1 applic topical DAILY Qty: 22 5RF (DME) orthopedic shoes with custom accommodative orthotics See Rx Instructions .Route .MEDSUPPLY Qty: 1 0RF Rx Instructions: As directed hydrocodone-acetaminophen 5-325 mg tablet 1 tab PO Q8H PRN (Reason: pain) 7 Days Qty: 20 0RF Lasix 20 mg tablet 20 mg PO DAILY PRN (Reason: Edema) Qty: 90 3RF potassium chloride 10 mEq tablet extended release 10 meq PO DAILY Qty: 90 3RF (DME) custom accommodative orthotics - [employer]ORTS See Rx Instructions .Route .MEDSUPPLY Qty: 1 0RF Rx Instructions: As directed Eliquis 2.5 mg tablet 2.5 mg PO BID Qty: 180 3RF clopidogrel 75 mg tablet See Rx Instructions .ROUTE .COMPLEX Qty: 90 3RF Dose Instruction: TAKE 1 TABLET BY MOUTH DAILY Rx Instructions: TAKE 1 TABLET BY MOUTH DAILY atorvastatin 80 mg tablet See Rx Instructions .ROUTE .COMPLEX Qty: 90 3RF Dose Instruction: TAKE 1 TABLET BY MOUTH EVERY DAY IN THE EVENING Rx Instructions: TAKE 1 TABLET BY MOUTH EVERY DAY IN THE EVENING cholecalciferol (vitamin D3) [Vitamin D3] 25 mcg (1,000 unit) Capsule See Rx Instructions .ROUTE .COMPLEX Rx Instructions: 1000 units po qam and 400 units qpm metoprolol tartrate 25 mg tablet 12.5 mg PO BID loperamide 2 mg Capsule 4 mg PO .UP TO BID PRN (Reason: Diarrhea) acetaminophen 500 mg Tablet 1,000 mg PO Q6H PRN (Reason: Pain) erythromycin 5 mg/gram (0.5 %) ointment See Rx Instructions .ROUTE .COMPLEX Rx Instructions: 0.25 inch ribbon to both eyes qpm ferrous sulfate 324 mg (65 mg iron) tablet,delayed release (DR/EC) 324 mg PO EVERY OTHER DAY Qty: 90 0RF Vitamin B-12 50 mcg Tablet 50 mcg PO DAILY Diet: Cardiac Activity: Increase activity as tolerated Patient Instructions: Peripheral Vascular Angioplasty (DC) Activity Restrictions/Additional Instructions: Follow-up with Dr. Yanez in wound clinic Follow-up with Ms. Mya Byrd in 10 days Follow-up with Dr. Rossi in 6 months Discharge Attestations Time Spent in Discharge Care*: greater than 30 min Quality Metrics Clinical Quality Measures [ No reported AMI, CVA or VTE this stay] Coding Level of Care Code Acute Code for Chg Fwjanna
--- NOTE | 2024-06-29 14:28 | PC.NURSE ---
discharge instructions given and explained.pt and friend verb understanding of instructions.discharged via w/c to exit at this time.friend to drive pt home.
== END 2024-06-29 14:25 | disposition home or self-care (01) ==
LOC: CCL 09:13 → CSU 06-29 08:05
PROVIDERS: PCP Family Medicine; Visit Provider Internal Medicine Cardiovascular Disease
DX: I70.202 Unspecified atherosclerosis of native arteries of extremities, left leg (principal); L97.829 Non-pressure chronic ulcer of other part of left lower leg with unspecified severity; Z79.01 Long term (current) use of anticoagulants
CPT/HCPCS: 36415; 37220; 37224; 75625; 75716; 80048; 85025; 85347; 85730; 96374; 99152; 99153; C1725; C1769; C1887; C1894; J1644; J2250; J3010; J3490; J7030; Q0163; Q9967

== ENCOUNTER → 2024-07-03 13:52 | Outpatient (BNVA) | payer MEDICARE, SELFPAY | PROVIDERS: PCP Family Medicine; Visit Provider Thoracic Surgery (Cardiothoracic Vascular Surgery) | DX: I73.9 Peripheral vascular disease, unspecified (principal); L97.821 Non-pressure chronic ulcer of other part of left lower leg limited to breakdown of skin | CPT/HCPCS: 97597; A6021; A6219 ==

== ENCOUNTER → 2024-07-10 13:36 | Outpatient (BNVA) | payer MEDICARE, SELFPAY | PROVIDERS: PCP Family Medicine; Visit Provider Thoracic Surgery (Cardiothoracic Vascular Surgery) | DX: Z09 Encounter for follow-up examination after completed treatment for conditions other than malignant neoplasm (principal); Z87.2 Personal history of diseases of the skin and subcutaneous tissue | CPT/HCPCS: 99212 ==

== ENCOUNTER → 2024-07-11 14:02 | Outpatient (BNVA) | payer MEDICARE, SELFPAY | PROVIDERS: PCP Family Medicine; Visit Provider Nurse Practitioner Family | DX: I73.9 Peripheral vascular disease, unspecified (principal); I10 Essential (primary) hypertension; M79.89 Other specified soft tissue disorders; L97.909 Non-pressure chronic ulcer of unspecified part of unspecified lower leg with unspecified severity | CPT/HCPCS: 36415; 80048; 99214 ==

== ENCOUNTER 2024-07-17 10:54 | Outpatient (RCR) | payer MEDICARE, SELFPAY | END 2024-07-26 23:59 | disposition home or self-care (01) | LOC: SOT 10:54 | PROVIDERS: PCP Family Medicine; Visit Provider Physician Assistant | DX: M25.539 Pain in unspecified wrist (principal); M19.042 Primary osteoarthritis, left hand; M19.041 Primary osteoarthritis, right hand | CPT/HCPCS: 97022; 97110; 97165; 97530 ==

== ENCOUNTER 2024-07-27 06:00 | Outpatient (RCR) | payer MEDICARE, SELFPAY | END 2024-08-25 23:59 | disposition home or self-care (01) | LOC: SOT 06:00 | PROVIDERS: PCP Family Medicine; Visit Provider Physician Assistant | DX: M25.539 Pain in unspecified wrist (principal); M19.042 Primary osteoarthritis, left hand; M19.041 Primary osteoarthritis, right hand | CPT/HCPCS: 97022; 97110 ==

== ENCOUNTER → 2024-08-07 12:49 | Outpatient (BNVA) | payer MEDICARE, SELFPAY | PROVIDERS: PCP Family Medicine; Visit Provider Nurse Practitioner Family | DX: I87.2 Venous insufficiency (chronic) (peripheral) (principal); Z85.828 Personal history of other malignant neoplasm of skin; I73.9 Peripheral vascular disease, unspecified; L30.0 Nummular dermatitis; L81.4 Other melanin hyperpigmentation; L82.1 Other seborrheic keratosis; D22.5 Melanocytic nevi of trunk; T81.89XA Other complications of procedures, not elsewhere classified, initial encounter; X58.XXXA Exposure to other specified factors, initial encounter | CPT/HCPCS: 99214 ==

== ENCOUNTER 2024-08-26 06:00 | Outpatient (RCR) | payer MEDICARE, SELFPAY | END 2024-09-25 23:59 | disposition home or self-care (01) | LOC: SOT 06:00 | PROVIDERS: PCP Family Medicine; Visit Provider Physician Assistant | DX: M25.539 Pain in unspecified wrist (principal); M19.049 Primary osteoarthritis, unspecified hand | CPT/HCPCS: 97022; 97110 ==

== ENCOUNTER → 2024-09-11 10:56 | Outpatient (BNVA) | payer MEDICARE, SELFPAY | PROVIDERS: PCP Family Medicine; Visit Provider Physician Assistant | DX: M15.1 Heberden's nodes (with arthropathy) (principal) | CPT/HCPCS: 20605; 20610; 99213; J3301 ==

== ENCOUNTER → 2024-09-12 14:40 | Outpatient (BNVA) | payer MEDICARE, SELFPAY | PROVIDERS: PCP Family Medicine; Visit Provider Internal Medicine | DX: I73.9 Peripheral vascular disease, unspecified (principal); Z86.73 Personal history of transient ischemic attack (TIA), and cerebral infarction without residual deficits; I10 Essential (primary) hypertension; G62.9 Polyneuropathy, unspecified; Z79.01 Long term (current) use of anticoagulants; Z87.891 Personal history of nicotine dependence | CPT/HCPCS: 99214 ==

== ENCOUNTER → 2024-10-10 14:30 | Outpatient (BNVA) | payer MEDICARE, SELFPAY | PROVIDERS: PCP Family Medicine; Visit Provider Podiatrist Foot & Ankle Surgery | DX: L84 Corns and callosities (principal); I73.9 Peripheral vascular disease, unspecified; D64.9 Anemia, unspecified; G62.9 Polyneuropathy, unspecified; M79.671 Pain in right foot; M79.672 Pain in left foot | CPT/HCPCS: 99213 ==

== ENCOUNTER → 2024-10-24 14:15 | Outpatient (BNVA) | payer MEDICARE, SELFPAY | PROVIDERS: PCP Family Medicine; Visit Provider Nurse Practitioner Family | DX: I73.9 Peripheral vascular disease, unspecified (principal); L30.0 Nummular dermatitis; L81.4 Other melanin hyperpigmentation; L57.8 Other skin changes due to chronic exposure to nonionizing radiation; D22.39 Melanocytic nevi of other parts of face; Z08 Encounter for follow-up examination after completed treatment for malignant neoplasm; Z85.828 Personal history of other malignant neoplasm of skin; L82.0 Inflamed seborrheic keratosis; L53.8 Other specified erythematous conditions; R20.8 Other disturbances of skin sensation; L29.89 Other pruritus; L57.0 Actinic keratosis | CPT/HCPCS: 17000; 17110; 99214 ==

== ENCOUNTER → 2025-01-09 14:42 | Outpatient (BNVA) | payer MEDICARE, SELFPAY | PROVIDERS: PCP Family Medicine; Visit Provider Podiatrist Foot & Ankle Surgery | DX: I73.9 Peripheral vascular disease, unspecified (principal); L60.8 Other nail disorders; L84 Corns and callosities; D64.9 Anemia, unspecified; G62.9 Polyneuropathy, unspecified; M79.672 Pain in left foot | CPT/HCPCS: 99213 ==

== ENCOUNTER → 2025-03-04 14:04 | Outpatient (BNVA) | payer MEDICARE, SELFPAY | PROVIDERS: PCP Family Medicine; Visit Provider Dermatology | DX: Z08 Encounter for follow-up examination after completed treatment for malignant neoplasm (principal); Z85.828 Personal history of other malignant neoplasm of skin; D48.5 Neoplasm of uncertain behavior of skin | CPT/HCPCS: 11102; 99213 ==

== ENCOUNTER → 2025-03-13 13:06 | Outpatient (BNVA) | payer MEDICARE, SELFPAY | PROVIDERS: PCP Family Medicine; Visit Provider Podiatrist Foot & Ankle Surgery | DX: L84 Corns and callosities (principal); I73.9 Peripheral vascular disease, unspecified; D64.9 Anemia, unspecified; G62.9 Polyneuropathy, unspecified | CPT/HCPCS: 99213 ==

== ENCOUNTER → 2025-03-19 13:49 | Outpatient (BNVA) | payer MEDICARE, SELFPAY | PROVIDERS: PCP Family Medicine; Visit Provider Nurse Practitioner Family | DX: I73.9 Peripheral vascular disease, unspecified (principal) | CPT/HCPCS: 99213 ==

== ENCOUNTER 2025-03-21 17:00 | Outpatient (CLI) | payer MEDICARE, SELFPAY ==
--- NOTE | 2025-03-21 17:04 | CTR_ITS ---
PROCEDURE INFORMATION: Exam: CT Abdomen And Pelvis Without And With Contrast Exam date and time: 03/21/2025 5:49 PM Age: 89 years old Clinical indication: Prior surgery; Surgery date: 6+ months; Surgery type: Small bowel resection x 2, angioplasty, bypass, fistula; Microscopic hematuria, HX of stones, HX of chron's dx TECHNIQUE: Imaging protocol: Computed tomography of the abdomen and pelvis without and with contrast. 3D rendering (Not supervised by radiologist): MIP and/or 3D reconstructed images were created by the technologist. Radiation optimization: All CT scans at this facility use at least one of these dose optimization techniques: automated exposure control; mA and/or kV adjustment per patient size (includes targeted exams where dose is matched to clinical indication); or iterative reconstruction. 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 Liver: Normal. No mass. Gallbladder and biliary ducts: Cholecystectomy. Pancreas: Normal. No ductal dilation. Spleen: Normal. No splenomegaly. Adrenal glands: Normal. No mass. Kidneys and ureters: Numerous nonobstructing right renal calculi. Right renal cysts. Stomach and bowel: There is a large amount of colonic fecal material suggesting constipation. Appendix: No evidence of appendicitis. Intraperitoneal space: Unremarkable. No free air. No significant fluid collection. Vasculature: Unremarkable. No abdominal aortic aneurysm. Lymph nodes: Unremarkable. No enlarged lymph nodes. Urinary bladder: There is mild irregular thickening of the anterior urinary bladder from 12-3 o'clock. A tumor may be present. Cystoscopy is recommended. Reproductive: Unremarkable as visualized. Bones/joints: Unremarkable. No acute fracture. Soft tissues: Unremarkable. Other findings: Calcified granuloma on the right side. CT/CT abdomen pelvis wo/w [id number] IMPRESSION: 1. Possible broad-based thickening of the wall of the urinary bladder. Cystoscopy recommended. 2. Nonobstructing right renal calculi. COMMENTS: Consistent with the [employer]'s Incidental Findings Committee white paper (J Am Carlito Radiol 2018): Any incidental renal lesion less than 1 cm or classified as too small to characterize, or any incidental cystic renal lesion characterized as simple-appearing, is likely benign. No follow-up imaging is recommended for these lesions per consensus recommendations based on imaging criteria.
[2025-03-21 17:45] LABS: Blood Urea Nitrogen 17 mg/dL (8-23)
[2025-03-21] MEDS: iohexol 350 mg/mL 500 mL Btl (per mL) IV (18:16)
== END 2025-03-21 17:01 | disposition home or self-care (01) ==
LOC: RAD 17:01
PROVIDERS: PCP Family Medicine; Visit Provider Nurse Practitioner Family
DX: R31.29 Other microscopic hematuria (principal); N20.0 Calculus of kidney; J44.89 Other specified chronic obstructive pulmonary disease; J43.8 Other emphysema; J98.11 Atelectasis; R93.41 Abnormal radiologic findings on diagnostic imaging of renal pelvis, ureter, or bladder; Z90.49 Acquired absence of other specified parts of digestive tract; Z87.19 Personal history of other diseases of the digestive system
CPT/HCPCS: 74178; 82565; 84520

== ENCOUNTER 2025-03-30 11:08 | Emergency (ER) | payer MEDICARE, SELFPAY ==
--- OUTSIDE RECORDS SUMMARY | 2025-03-12 09:00 | XMS_ITS ---
Author Organization [facility] Address [address] [place] [address] Care Team Providers Care Housing And Residence Life Director Name Role Phone Kamini SLAUGHTER, Alvarado Primary Care Provider Madie Rock Unavailable [phone] Don Hearn Unavailable [phone] REASON FOR VISIT 1 year f/u Crohn's disease Encounters Encounter Location Date Provider Diagnosis [facility] [address] [place] [address] 03/12/2025 Don Hearn Plan Of Treatment Next Appt Details Provider Name:Madie park, 03/13/2026 01:00:00 PM, [address] [place], [address], Progress Notes * Dimple MCKAY ADOB:1935 (89 yo F)Acc No.[id number]:03/12/2025 Progress Notes Patient: Dimple MORALES Provider: Allyson Hearn MD :1935 A ge:89 Y S ex:Female Date:03/12/2025 Address:[facility] [address], [id number] Pcp:Alvarado Suárez MD Subjective: * Chief Complaints: * 1 . 1 year f/u Crohn's disease. * Medical History: Objective: * Vitals: Assessment: Plan: * Treatment: * Billing Information: * Visit Code: * Procedure Codes: * Electronic signature of Will jarrell Hearn MD on 03/30/2025 at 11:12 AM CDT Sign off status: Pending * Provider: Allyson Hearn MD Date: 0 03/12/2025 Generated for Omar celestin/Erin/Dennise on: 0 03/30/2025 11:12 AM CDT
--- OUTSIDE RECORDS SUMMARY | 2025-03-30 11:12 | XMS_ITS | Data Portability ---
Author Organization [facility] David Thompson [facility] Address [address] [address] Care Team Providers Care Entry Processor Name Role Phone DELORIS PENALOZA Primary Care Provider Unavaila ble Assessment Encounter Date Assessment Date Assessment LastModified by Organization Details LastModified Time 02/19/2025 02/19/2025 Will need direct visualization and probably CT urography. We will let urology drive that. [email or web address] Not available 02/27/2025 16:58:36 Plan of Treatment Reminders Order Date Submit Date Provider Last Modified By Organization Details Last Modified Time Details Appointments OFFICE VISIT 20 2024 11:10A M Deloris Penaloza MD Not available Not available Not available OFFICE VISIT 20 2024 11:30A M Deloris Penaloza MD Not available Not available Not available Lab urinalysi s, complete 2024 025 [facility], [address], [place], [address], 02/20/2025 12:06:21 culture, urine 2024 025 [facility], [address] [facility] [address], [place], [address], 03/11/2025 15:29:28 CMP, serum or plasma 2024 025 [facility], [address], [place], [address], 01/21/2025 13:35:58 thyrotrop in, QN, serum or plasma 2024 025 JULIANA [facility], [address], [place], [address], 01/21/2025 11:57:56 CBC 2024 025 JULIANA [facility], [address], [place], [address], 01/21/2025 11:17:02 Referral urologist referral 2024 025 [facility], [address], [place], [address], 03/12/2025 12:38:12 Procedures None recorded. Surgeries None recorded. Imaging None recorded. Medication Orders gabapenti n 100 mg capsule [address]/[facility] #[id number], [address], [place], [address], 02/19/2025 16:01:49 Patient TargetsNo targets recorded. Patient InstructionsNo instructions recorded. Reason for Referral Urologist Referral for Mass of urinary bladder Referring Physician: Deloris Penaloza, Family Medicine, Encounter Date: 02/19/2025 Results Created Date Observation Date Name Description Value Unit Range Abnormal Flag Note LastModifiedBy Organization Detail LastModifiedTime 01/22/2001/21/2025 CBC WBC 6.7 x10 4.0-10 .5 Not Available [facility] [address], [place], [address], 01/21/2025 11:17:02 01/22/2001/21/2025 CBC RBC 4.61 x10 3.50-5 .50 Not Available [facility] [address], [place], [address], 01/21/2025 11:17:02 01/22/20 25 01/21/2025 CBC HGB 14.2 g/dL 12.0-1 6.0 Not Available [facility] [address] [facility] 1, [place], [address], 01/21/2025 11:17:02 01/22/20 25 01/21/2025 CBC HCT 44.0 % 37.0-4 7.0 Not Available [facility] [address] [facility] [address] [facility], [place], [address], 01/21/2025 11:17:02 01/22/20 25 01/21/2025 CBC MCV 95.5 fL 80.0-9 9.9 Not Available [facility] [address] [facility] [address] [facility], [place], [address], 01/21/2025 11:17:02 01/22/20 25 01/21/2025 CBC MCH 30.8 pg 27.0-3 2.0 Not Available [facility] [address] [facility] [address], [place], [address], 01/21/2025 11:17:02 01/22/20 25 01/21/2025 CBC MCHC 32.3 g/dL 32.0-3 6.0 Not Available [facility] [address] [facility] [address] [facility], [place], [address], 01/21/2025 11:17:02 01/22/20 25 01/21/2025 CBC RDW 15.3 % 11.5-1 4.5 high Not Available [facility] [address] [facility] [address] [facility], [place], [address], 01/21/2025 11:17:02 01/22/20 25 01/21/2025 CBC plt 325.7 x10 140.0- 451.0 Not Available [facility] [address] [facility] [address] [facility], [place], [address], 01/21/2025 11:17:02 01/22/20 25 01/21/2025 CBC lymphocytes % 22.2 % 20.0-5 0.0 Not Available [facility] [address] [facility] [address] [facility], [place], [address], 01/21/2025 11:17:02 01/22/20 25 01/21/2025 CBC granulcytes % 59.1 % 30.0-7 0.0 Not Available [facility] [address] [facility] 1, [place], [address], 01/21/2025 11:17:02 01/22/20 25 01/21/2025 CBC monocytes % 11.8 % 2.0-16 .0 Not Available [facility] [address] [facility], [place], [address], 01/21/2025 11:17:02 01/22/20 25 01/21/2025 CBC granulcytes# 4.0 x10 Not Kizzy ilable [facility] [address] [facility] 1, [place], [address], 01/21/2025 11:17:02 01/22/20 25 01/21/2025 CBC lymphocytes # 1.5 x10 Not Available [facility] [address] [facility] 1, [place], [address], 01/21/2025 11:17:02 01/22/20 25 01/21/2025 CBC monocytes # 0.8 x10 Not Avai lable [facility] [address] [facility] 1, [place], [address], 01/21/2025 11:17:02 01/22/20 25 01/21/2025 TSH TSH 2.48 uIU/m L 0.49-3 .82 normal Not Available [facility] [address] [facility] [address] [facility], [place], [address], 01/21/2025 11:57:56 01/22/20 25 01/21/2025 CMP (FEMA LE) glucose 95.0 mg/dL 60.0-9 9.0 Not Available [facility] [address] [facility], [place], [address], 01/21/2025 13:35:58 01/22/20 25 01/21/2025 CMP (FEMA LE) BUN (blood urea nitrogen) 14.0 mg/dL 10.0-2 6.0 Not Available [facility] [address] [facility], [place], [address], 01/21/2025 13:35:58 01/22/20 25 01/21/2025 CMP (FEMA LE) creatinine (serum) 0.7 mg/dL 0.4-1. 5 Not Available [facility] [address] [facility], [place], [address], 01/21/2025 13:35:58 01/22/20 25 01/21/2025 CMP (FEMA LE) BUN/creatini ne ratio 20.00 ratio Not Available [facility] [address] [facility], [place], [address], 01/21/2025 13:35:58 01/22/20 25 01/21/2025 CMP (FEMA LE) eGFR calculated 84.1 Not Available [facility] [address] [facility], [place], [address], 01/21/2025 13:35:58 01/22/20 25 01/21/2025 CMP (FEMA LE) total protein 7.8 g/dL 6.0-8. 5 Not Available [facility] [address] [facility], [place], [address], 01/21/2025 13:35:58 01/22/20 25 01/21/2025 CMP (FEMA LE) total bilirubin 0.8 mg/dL 0.2-1. 3 Not Available [facility] [address] [facility], [place], [address], 01/21/2025 13:35:58 01/22/20 25 01/21/2025 CMP (FEMA LE) albumin 4.4 g/dL 3.5-5. 5 Not Available [facility] [address] [facility] [address], [place], [address], 01/21/2025 13:35:58 01/22/20 25 01/21/2025 CMP (FEMA LE) globulin 3.4 calc Not Available [facility] [address] [facility] [address], [place], [address], 01/21/2025 13:35:58 01/22/20 25 01/21/2025 CMP (FEMA LE) AST (SGOT) 47.0 U/L 0.0-46 .0 high Not Available [facility] [address] [facility] [address], [place], [address], 01/21/2025 13:35:58 01/22/20 25 01/21/2025 CMP (FEMA LE) altv (SGPT) 45.0 U/L 13.0-6 9.0 normal Not Available [facility] [address] [facility] [address], [place], [address], 01/21/2025 13:35:58 01/22/20 25 01/21/2025 CMP (FEMA LE) A/G ratio 1.3 ratio Not Available [facility] [address] [facility] 1, [place], [address], 01/21/2025 13:35:58 01/22/20 25 01/21/2025 CMP (FEMA LE) ALP phos 66.0 U/L 30.0-1 40.0 normal Not Available [facility] [address] [facility] [address], [place], [address], 01/21/2025 13:35:58 01/22/20 25 01/21/2025 CMP (FEMA LE) calcium 9.7 mg/dL 8.4-10 .5 Not Available [facility] [address] [facility] [address], [place], [address], 01/21/2025 13:35:58 01/22/20 25 01/21/2025 CMP (FEMA LE) sodium 139.0 mmol/ L 136.0- 145.0 Not Available [facility] [address] [facility] [address], [place], [address], 01/21/2025 13:35:58 01/22/20 25 01/21/2025 CMP (FEMA LE) potassium 4.1 mmol/ L 3.5-5. 1 Not Available [facility] [address] [facility] [address], [place], [address], 01/21/2025 13:35:58 01/22/20 25 01/21/2025 CMP (FEMA LE) chloride 97.0 mmol/ L 98.0-1 10.0 abnormal Not Available [facility] [address] [facility] [address], [place], [address], 01/21/2025 13:35:58 01/22/20 25 01/21/2025 CMP (FEMA LE) C02 34.0 mmol/ L 22.0-3 1.0 high Not Available [facility] [address] [facility] [address], [place], [address], 01/21/2025 13:35:58 01/22/20 25 01/21/2025 CMP (FEMA LE) anion gap 8.0 calc Not Available [facility] [address], [place], [address], 01/21/2025 13:35:58 01/22/20 25 01/21/2025 CMP (FEMA LE) osmolality 287.4 calc Not Available [facility] [address] [facility] 1, [place], [address], 01/21/2025 13:35:58 02/21/20 25 02/20/2025 URINA LYSIS WITH MICRO color YELLOW Not Available [facility] [address] [facility] 1, [place], [address], 02/20/2025 12:06:21 02/21/20 25 02/20/2025 URINA LYSIS WITH MICRO clarity CLEAR Not Available [facility] [address] [facility] [address], [place], [address], 02/20/2025 12:06:21 02/21/20 25 02/20/2025 URINA LYSIS WITH MICRO glu NEGATI VE Not Available [facility] [address] [facility], [place], [address], 02/20/2025 12:06:21 02/21/20 25 02/20/2025 URINA LYSIS WITH MICRO bili NEGATI VE Not Available [facility] [address] [facility] 1, [place], [address], 02/20/2025 12:06:21 02/21/20 25 02/20/2025 URINA LYSIS WITH MICRO ket NEGATI VE Not Available [facility] [address] [facility] 1, [place], [address], 02/20/2025 12:06:21 02/21/20 25 02/20/2025 URINA LYSIS WITH MICRO S.g 1.020 1.005- 1.025 Not Available [facility] [address], [place], [address], 02/20/2025 12:06:21 02/21/20 25 02/20/2025 URINA LYSIS WITH MICRO pH 5.5 5.0-7. 0 Not Available [facility] [address], [place], [address], 02/20/2025 12:06:21 02/21/20 25 02/20/2025 URINA LYSIS WITH MICRO pro NEGATI VE Not Available [facility] [address], [place], [address], 02/20/2025 12:06:21 02/21/20 25 02/20/2025 URINA LYSIS WITH MICRO uro 0.2 E.U./D L Not Available [facility] [address] [facility], [place], [address], 02/20/2025 12:06:21 02/21/20 25 02/20/2025 URINA LYSIS WITH MICRO nit NEGATI VE Not Available [facility] [address] [facility], [place], [address], 02/20/2025 12:06:21 02/21/20 25 02/20/2025 URINA LYSIS WITH MICRO blo 2+ high Not Available [facility] [address] [facility] 1, [place], [address], 02/20/2025 12:06:21 02/21/20 25 02/20/2025 URINA LYSIS WITH MICRO eric TRACE high Not Available [facility] [address] [facility] 1, [place], [address], 02/20/2025 12:06:21 02/21/20 25 02/20/2025 URINA LYSIS WITH MICRO WBC 30-40 abnormal Not Available [facility] [address] [facility] 1, [place], [address], 02/20/2025 12:06:21 02/21/20 25 02/20/2025 URINA LYSIS WITH MICRO RBC 40-50 abnormal Not Available [facility] [address] [facility] 1, [place], [address], 02/20/2025 12:06:21 02/21/20 25 02/20/2025 URINA LYSIS WITH MICRO epi cells 8-10 abnormal Not Available [facility] [address] [facility], [place], [address], 02/20/2025 12:06:21 02/21/20 25 02/20/2025 URINA LYSIS WITH MICRO bacteria 1+ MIXED KENNA abnormal Not Available [facility] [address] [facility] 1, [place], [address], 02/20/2025 12:06:21 02/21/20 25 02/20/2025 URINA LYSIS WITH MICRO other NG Not Available [facility] [address] [facility] 1, [place], [address], 02/20/2025 12:06:21 02/23/20 25 02/28/2025 CYTOL OGY, URINE W/REF L FISH clinical information normal Micro scopi c hemat uria Not Available [facility] [address] [place], [address], 02/28/2025 20:04:45 02/23/20 25 02/28/2025 CYTOL OGY, URINE W/REF L FISH pathologist normal Maddy babb M.D., Board Certi fied in Anato marco Patho logy and Clini ngozi Patho logy( elect gaurav lucero) Patho logis t Relea se Date/ Time: 02/28 06:28 PM Not Available [facility] [address] [place], [address], 02/28/2025 20:04:45 02/23/20 25 02/28/2025 CYTOL OGY, URINE W/REF L FISH report notes NOTE: Termi nolog y has been davis ed by inter natio nal conse nsus to empha size the sensi tivit y (abou t 85%) of urine cytol ogy for diagn osis of clini paty impor tant high grade uroth elial cell carci nomas , and to ackno wledg e the low sensi tivit y for detec tion of low grade uroth elial neopl asms. Not Available [facility] [address] [address] [place], [address], 02/28/2025 20:04:45 02/23/2002/28/2025 URINE , SPECI MEN A A source Urine (NOS) Not Available [facility] [place] [address] [place], [address], 02/28/2025 20:04:46 02/23/20 25 02/28/2025 URINE , SPECI MEN A A gross description The speci men is recei anh with multi ple patie nt ident ifier (s), label ed urine and consi sts of 60 cc(s) of cloud y pale yello w fluid . One ThinP rep slide prepa red and stain ed with Papan icola ou stain . Gross exam( s) perfo rmed at: [facility] [place] [facility] [address] [place] [address] [place] [address] Labor atory Direc tor: CHANTE Babb MD Not Available [facility] [address] [address] [place], [address], 02/28/2025 20:04:46 02/23/20 25 02/28/2025 URINE , SPECI MEN A A diagnosis normal Negat roger for high- grade uroth elial carci noma. Benig n uroth elial and squam ous cells prese nt. Not Available [facility] [address] [address] [place], [address], 02/28/2025 20:04:46 02/28/20 25 02/26/2025 US, farrukh y No observ ation record ed. [address] [place], [address], 03/04/2025 16:25:30 Result Notes None recorded. 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 5 12:31:29 Vitamin B deficien cy 44691875 Active 2022 B12 [facility], [facility] 5 12:31:34 Cholecys tectomy Active 1998 Cholecys tectomy; Date: 1998 TREBA NEUSCHWAND ER null, [facility] 5 12:30:25 Hypercal cemia 24477999 Active 2022 TREBA NEUSCHWAND ER null, [facility] 5 12:30:35 Leukemoi d reaction of the [id number] Completed 201501/12/2016 OTHER SPECIFIE D ANEMIAS - Status is Inactive ; Recorded 01/12/20 16 2:38PM by Madie Claros CMT, Annotati on/Addkim dum; Promoted ; acuity set as *; Not Available [facility] 3 03:16:29 Poor short-te rm memory 628072848 Active 2022 TREBA NEUSCHWAND ER null, [facility] 5 12:31:10 Persiste nt insomnia 387074657 Active 2023 TREBA NEUSCHWAND ER null, [facility] 12:31:06 Prophyla ctic immunoth erapy Active 2023 SCOTT HOOK ER null, [facility] 12:31:21 Abnormal urine 748351678 Active 2024 ROB SAHNIY null, [facility] 18:11:17 Microsco pic hematuri a 410457200 Active 2024 ROB SAHNIY null, [facility] 18:12:19 Mass of urinary bladder 087355240 Active 2024 Deloris Penaloza MD [address] [place] [address], [phone] , [facility] 16:51:54 Nocturia 825408856 Active 2024 Deloris Penaloza MD [address] [place] [address], [address] , [facility] 16:59:01 Nutritio nal deficien [facility] 37173765 Active 2022 SCOTT HOOK ER null, [facility] 12:30:59 Hypothyr oidism 26961044 Active 2022 SCOTT HOOK ER null, [facility] 12:30:46 Crohn's disease 01297453 Active 2022 SCOTT HOOK ER null, [facility] 12:30:29 Neuropat hy 103106907 Active 2022 SCOTT HOOK ER null, [facility] 12:30:54 Atherosc lerosis Active 2022 [facility] 5 12:30:13 Anemia 451744335 Active 2022 [facility] 5 12:29:39 Hypercho lesterol emia 27910301 Active 2022 [facility] 5 12:30:41 Problem Notes None recorded. Procedures Surgical History Date Name Laterality Status Provider Name and Address Organization Details Recorded Time 09/26/18 99 Cholecystectomy completed [facility] 05/05/2024 10:38:45 Imaging Results None recorded. Procedure Notes None recorded. Medical Equipment None Reported. Allergies Allergen ID Allergen Name Allergen Category Reaction Reaction Severity Criticality Documentation Date Start Date Code Code System Note Provider Name and Address Organization Details Recorded Time 52083 metronida zole hydrochlo ride medicatio n Not available Not available Not available 04/23/2023 25973 [facility] 4 10:39:04 Medications Name Sig Start Date Stop Date Status Note LastModified by Organization Details LastModified Time levothyro xine 137 mcg tablet TAKE 1 TABLET BY MOUTH EVERY DAY active Not Available Not Available No t Available atorvasta tin 80 mg tablet TAKE 1 TABLET BY MOUTH EVERY DAY IN THE EVENING active Not Available Not Available No t Available gabapenti n 600 mg tablet TAKE 1 TABLET BY MOUTH TWICE A DAY 01/28 completed taking 100mg Not Available Not Available Not Available hydrocodo ne 5 mg-acetam inophen 325 mg tablet Q 4hr/PRN 06/06 completed as needed for pain; Recorded 07/06/20 22 7:59AM by Deloris Penaloza MD, Refill Request; Refill Quantity : 0; Not Available Not Available Not Available fluoroura cil 5 % topical cream APPLY SMALL AMOUNT TO AFFECTED AREAS IN THE AM AND IN THE PM APPLY TUESDAY- ONLY FOR 2 WEEKS 05/05 completed Not Available Not Available Not Available potassium chloride ER 10 mEq tablet,ex tended release TAKE 1 TABLET BY MOUTH EVERY DAY 06/06 completed Not Available Not Available Not Available clopidogr el 75 mg tablet TAKE 1 TABLET BY MOUTH DAILY active Not Available Not Available No t Available doxepin 10 mg capsule Take 1 capsule as needed by oral route at bedtime. 06/05 completed Not Available Not Available Not Available sulfameth oxazole 800 mg-trimet hoprim 160 mg tablet TAKE 1 TABLET BY MOUTH TWICE A DAY 06/05 completed Not Available Not Available Not Available tramadol 50 mg tablet TAKE 1 TABLET BY MOUTH EVERY 6 HOURS NEEDED FOR PAIN FOR 5 DAYS 01/28 completed Not Available Not Available Not Available simvastat in 40 mg tablet TAKE 1 TABLET BY MOUTH EVERYDAY AT BEDTIME 01/28 completed taking atorvast atin Not Available Not Available Not Available BD Tuberculi n Syringe 1 mL 27 x 1/2 USE 1 EVERY MONTH FOR B-12 INJECTIO NS 01/30 completed Not Available Not Available Not Available calcium gluconate 100 mg/mL (10 %) intraveno us solution q 8 wks. 06/05 completed Not Available Not Available Not Available cephalexi n 500 mg capsule Take 1 capsule every 8 hours by oral route for 7 days. 06/05 completed Not Available Not Available Not Available acyclovir 5 % topical ointment APPLY TO THE AFFECTED AREA(S) 5 TIMES PER DAY NEEDED 05/05 completed Not Available Not Available Not Available cyanocoba ruben (vit B-12) 1,000 mcg/mL injection solution INJECT 1 MILLILIT ER INTRAMUS CULARLY MONTHLY 08/15 completed Not Available Not Available Not Available ferrous sulfate 325 mg (65 mg iron) tablet TAKE 1 TABLET BY MOUTH EVERY OTHER DAY active Not Available Not Available No t Available levothyro xine 125 mcg tablet TAKE 1 TABLET BY MOUTH EVERY DAY 07/25 completed Not Available Not Available Not Available triamcino lone acetonide 0.1 % topical ointment PLEASE SEE ATTACHED FOR DETAILED DIRECTIO NS active Not Available Not Available No t Available gabapenti n 300 mg capsule TAKE 1 CAPSULE BY MOUTH TWICE A DAY 08/15 completed Not Available Not Available Not Available folic acid 1 mg tablet TAKE 1 TABLET BY MOUTH EVERY DAY active Not Available Not Available No t Available mupirocin 2 % topical ointment APPLY A SMALL AMOUNT TO AFFECTED AREA 3 TIMES A DAY 05/05 completed Not Available Not Available Not Available gabapenti n 100 mg capsule TAKE 1 CAPSULE BY MOUTH THREE TIMES A DAY active taking 1 qhs Not Available Not Available Not Available ergocalci ferol (vitamin D2) 1,250 mcg (50,000 unit) capsule TAKE 1 CAPSULE ONCE WEEKLY active Not Available Not Available No t Available clobetaso l 0.05 % topical ointment APPLY TOPICALL Y TO AFFECTED AREA TWICE DAILY FOR 3 WEEKS ONCE BIOPSY SITE IS HEALED 05/05 completed Not Available Not Available Not Available levofloxa alfred 500 mg tablet TAKE 1 TABLET BY MOUTH EVERY DAY FOR 5 DAYS 06/06 completed Not Available Not Available Not Available amoxicill in 875 mg-potass ium clavulana te 125 mg tablet TAKE 1 TABLET BY MOUTH EVERY 12 HOURS FOR 10 DAYS 08/15 completed Not Available Not Available Not Available Vitamin B-12 1,000 mcg tablet TAKE 1 TABLET BY MOUTH EVERY DAY active Not Available Not Available No t Available cyanocoba ruben (vit B-12) 1,000 mcg/mL injection syringe monthly 06/06 completed vo JR/tn; 173; Recorded 10/14/19 23 6:08PM by Scott travis (Authori isidro through Deloris Penaloza MD), Refill Request; Refill Quantity : 1; Millilit er; Not Available Not Available Not Available metoprolo l tartrate 25 mg tablet TAKE 1/2 TABLET TWICE A DAY BY MOUTH active Not Available Not Available No t Available Allergy Q month for B-12 injectio ns 06/06 completed VO JR/bh; Recorded 11/11/19 22 1:05PM by Rob French RN, Office Visit; Refill Quantity : 0; Not Available Not Available Not Available calcium carbonate two times daily 06/06 completed 0; Recorded 11/02/19 23 10:58AM by Wendy Kaur, Office Visit; Not Available Not Available Not Available atorvasta tin 06/06 completed 0; Recorded 11/02/19 23 10:58AM by Wendy Kaur, Office Visit; Not Available Not Available Not Available Lasix prn 06/06 completed 0; Recorded 11/02/19 23 10:58AM by Wendy Kaur, Office Visit; Not Available Not Available Not Available folic acid daily 06/06 completed Vo JR/bh; 173; Recorded 03/30/20 4:45PM by Rob French RN (Authori felicityd through Deloris Penaloza MD), Refill Request; Refill Quantity : 90; Tablet; Not Available Not Available Not Available Plavix QD 06/06 completed 0; Recorded 11/02/19 23 10:58AM by Wendy Kaur, Office Visit; Not Available Not Available Not Available gabapenti n BID 06/06 completed Vo JR./bh; 173; Recorded 10/14/19 5:30PM by Rob French RN (Authori felicityd through Deloris Penaloza MD), Refill Request; Refill Quantity : 180; Tablet; Not Available Not Available Not Available Potassium Chloride ER QD TAD 06/06 completed manish JOHNSON/tn; Recorded 03/03/20 11:51AM by Scott travis, Office Visit; Refill Quantity : 0; Not Available Not Available Not Available olopatadi ne 0.2 % eye drops INSTILL 1 DROP TO EYES DAILY 05/05 completed Not Available Not Available Not Available cholecalc iferol (vitamin D3) 1,250 mcg (50,000 unit) capsule TAKE 1 CAPSULE BY MOUTH ONE TIME PER WEEK active Not Available Not Available No t Available CoQ-10 active Not Available Not Availa ble Not Available diclofena c 1 % topical gel APPLY 4GRAMS TOPICALL Y TO SINGLE KNEE, ANKLE, FOOT INCLUDIN G SOLE/TOE S/TOP OF FOOT active Not Available Not Available No t Available Eliquis 2.5 mg tablet TAKE 1 TABLET BY MOUTH TWICE DAILY active Not Available Not Available No t Available Paxlovid 300 mg (150 mg x 2)-100 mg tablets in a dose pack TAKE DIRECTED TWICE DAILY FOR 5 DAYS 06/06 completed Not Available Not Available Not Available Vitals Date Recorded Body height Body mass index (BMI) Body weight Oxygen saturation Oxygen saturation in Arterial blood by Pulse oximetry Heart rate Respiratory rate Body temperature Systolic And Diastolic Provider Name and Address Organization Details Last Updated DateTime 5 170.18 cm 15.7 kg/m2 04851.0 4 g 97 % 97 % 63 /min 18 /min 97.7 [degF] 112/60 mm[Hg] SCOTT LAYNE [facility] 13:07:11 Date Recorded Body height Body mass index (BMI) Body weight Oxygen saturation Oxygen saturation in Arterial blood by Pulse oximetry Heart rate Respiratory rate Body temperature Systolic And Diastolic Provider Name and Address Organization Details Last Updated DateTime 170.18 cm 15.5 kg/m2 00120.6 4 g 97 % 97 % 58 /min 18 /min 97.8 [degF] 124/72 mm[Hg] SCOTT LAYNE [facility] 12:45:04 Date Recorded Body height Body mass index (BMI) Body weight Oxygen saturation Oxygen saturation in Arterial blood by Pulse oximetry Heart rate Respiratory rate Body temperature Systolic And Diastolic Provider Name and Address Organization Details Last Updated DateTime 5 170.18 cm 15.7 kg/m2 50853.9 4 g 97 % 97 % 74 /min 16 /min 98.5 [degF] 108/68 mm[Hg] ROB FRENCH [facility] 16:14:57 Social History Question Answer Notes LastModified by Organizat ion Details LastModified Time Tobacco Smoking Status Former Smoker SCOTT villanueva [facility] 08/15/2023 12:30:52 Are You Blind Or Do You Have Difficulty Seeing? No Information not available 02/19/2025 Are You Deaf Or Do You Have Serious Difficulty Hearing? No Information not available 02/19/2025 When Did You Quit Smoking? 16+yearssinc elastcigaret te Information not available 08/15/2023 What Was The Date Of Your Most Recent Tobacco Screening? 02/19/2025 Information not available 02/19/2025 What Is Your Relationship Status? Information not available 05/02/2024 Do You Have Difficulty Walking Or Climbing Stairs? No Information not available 02/19/2025 Sex: Unknown Functional Status Question Answer Note LastModified by Organizat ion Details LastModified Time Do you use any illicit or recreational drugs? No Information not available 02/19/2025 Do you or have you ever used any other forms of tobacco or nicotine? No Information not available 02/19/2025 What is your level of alcohol consumption? None Information not available 02/19/2025 Are you currently employed? No Information not available 02/19/2025 Do you have transportation difficulties? No Information not available 02/19/2025 Are you able to walk? YESASSIST Information not available 02/19/2025 Do you have difficulty doing errands alone? No Information not available 02/19/2025 Are you able to care for yourself? Yes Information not available 02/19/2025 Do you have difficulty dressing or bathing? No Information not available 02/19/2025 Mental Status Question Answer Note LastModified by Organization D etails LastModified Time Do you have difficulty concentrating, remembering or making decisions? No Information no t available 02/19/2025 Family History Nothing Reported. Medical History No medical history recorded. Gynecological HistoryNo gynecological history recorded. Obstetrics History GPAL:G 0 P 0 0 0 0 Immunizations Vaccine Type Date Status Note Provider Nam e and Address Organization Details Recorded Time Influenza, high-dose, quadrivalent, PF 2 completed TIARA villanueva [facility] 08/01/2023 12:50:30 COVID-19, mRNA, LNP-S, PF, 100 mcg/0.5mL dose or 50 mcg/0.25mL dose 1 completed TIARA villanueva [facility] 08/01/2023 12:50:30 COVID-19, mRNA, LNP-S, PF, 100 mcg/0.5mL dose or 50 mcg/0.25mL dose 1 completed TAMATHA GREEN null, [facility] 08/01/2023 12:50:30 COVID-19, mRNA, LNP-S, PF, 100 mcg/0.5mL dose or 50 mcg/0.25mL dose 1 completed TAMATHA GREEN null, [facility] 08/01/2023 12:50:30 Influenza, adjuvanted, quadrivalent, PF 3 completed TREBA NEUSCHWANDER null, [facility] 08/15/2023 12:29:10 Influenza, adjuvanted, trivalent, PF 4 completed Not Available [facility] 02/26/2025 13:00:45 Td (adult), 2 Lf tetanus toxoid, preservative free, adsorbed 8 completed TREBA NEUSCHWANDER null, [facility] 08/15/2023 12:29:10 Influenza, recombinant, quadrivalent, PF 0 completed AEDBAYOA CECI [facility], [facility] 08/01/2023 12:50:30 Td(adult) unspecified formulation 3 completed TREBA NEUSCHWANDER null, [facility] 08/15/2023 12:29:10 Influenza, split virus, trivalent, preservative 7 completed TREBA NEUSCHWANDER null, [facility] 08/15/2023 12:29:10 Influenza, split virus, trivalent, preservative 2 completed TREBA NEUSCHWANDER null, [facility] 08/15/2023 12:29:10 Influenza, split virus, trivalent, preservative 6 completed TREBA NEUSCHWANDER null, [facility] 08/15/2023 12:29:10 Influenza, split virus, trivalent, preservative 5 completed TREBA NEUSCHWANDER null, [facility] 08/15/2023 12:29:10 Influenza, split virus, trivalent, preservative 9 completed TREBA NEUSCHWANDER null, [facility] 08/15/2023 12:29:10 Influenza, split virus, trivalent, preservative 4 completed TREBA NEUSCHWANDER null, [facility] 08/15/2023 12:29:10 Past Encounters Encounter ID Performer Location Encounter Start Date Encounter Closed Date Diagnosis/Indication Diagnosis SNOMED-CT Code Diagnosis ICD10 Code Diagnosis Note [id number] Deloris Penaloza MD [facility] ([facility]) [address] [place] [address] [phone] 5 01/31/2023 12:28:02 01/31/2023 19:55:48 Hypothyroidism 38268288 E03.9 Nutritiona l deficiency state 53973768 E43 Crohn's disease 20159177 K50.90 Neuropathy 062791855 G63 Atherosclerosis 73985830 I70.262 Anemia 720123331 D64.9 Hypercholesterolemia 136 12226 E78.00 [id number] Deloris Penaloza MD [facility] ([facility]) [address] [place] [address] [id number] 5 06/06/2023 12:15:33 06/07/2023 16:22:29 Nutritional deficiency state 27461970 E43 Poor short -term memory 964426947 R41.3 [id number] Deloris Penaloza MD [facility] ([facility]) [address] [place] [address] [phone] 5 06/29/2023 09:24:00 06/29/2023 14:28:53 [id number] FATOUMATA PERDUE [facility] ([facility]) [address] [place] [address] [id number] 5 08/01/2023 12:38:20 08/01/2023 14:26:01 Hematoma of skin 716064857 T14.8XXA Hematoma was drained using iodine for sterilizat ion and an 18 gauge needle. Patient tolerated well. Large amount of blood was drained, no complicati ons. Wound dressing was applied with triple antibiotic ointment. Patient was instructed to change dressing in 24 hours and to monitor for signs of infection. Will follow up with PCP in 2 weeks. Cat bite - wound 6075441 04 T14.8XXA Start Augmentin BID today and mupirocin TID. Keep area clean. Discussed worsening signs of infection including increased erythema, purulent drainage, fever, and streaking. If these symptoms occur, patient should return for further evaluation . If not improving or worsening condition in 5-7 days, return for further evaluation . Patient verbalizes understand ing. [id number] FATOUMATA PERDUE [facility] ([facility]) [address] [place] [address] [id number] 5 08/09/2023 14:23:09 10/03/2023 14:27:34 Cat bite - wound 024512044 T14.8XXA Continue Augmentin BID and mupirocin TID. Keep area clean. Discussed worsening signs of infection including increased erythema, purulent drainage, fever, and streaking. If these symptoms occur, patient should return for further evaluation . Reassuranc e given to patient, as this wound appears to be healing well. No evidence of infection today. Discussed that bruising is normal. If not improving or worsening condition in 5-7 days, return for further evaluation . Patient verbalizes understand ing. 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 Poor short -term memory 092118238 R41.3 Anemia 857004495 D64.9 Crohn's disease 29560062 K50.90 Neuropathy 924531484 G63 Atherosclerosis 65728504 I70.262 Hypothyroidism 50794462 E03.9 Vitamin B deficiency 479 24538 E53.8 [id number] Deloris Penaloza MD [facility] ([facility]) [address] [place] [address] [id number] 5 04/03/2024 16:00:41 04/04/2024 10:08:05 Crohn's disease 23314308 K50.90 [id number] Deloris Penaloza MD [facility]) [address] [place], [place] [id number] 5 05/02/2024 09:34:50 05/02/2024 11:02:23 Wound of skin 246342947 T14.8XXA [id number] Deloris Penaloza MD [facility] ([facility]) [address] [place] [address] [id number] 5 06/01/2024 10:21:38 06/04/2024 10:06:45 Anemia 740201901 D64.9 Hypercholesterolemia 136 07403 E78.00 Hypothyroidism 12504939 E03.9 Vitamin B deficiency 479 90125 E53.8 Hypercalcemia 35367454 E 83.52 [id number] Deloris Penaloza MD [facility] ([facility]) [address] [place] [address] [id number] 5 06/05/2024 14:07:17 06/05/2024 15:30:17 Crohn's disease 89862636 K50.90 Anemia 490755623 D64.9 Poor short -term memory 112141319 R41.3 Hypothyroidism 27274212 E03.9 [id number] Deloris Penaloza MD [facility] ([facility]) [address] [place] [address] [id number] 5 07/17/2024 10:57:29 07/18/2024 14:20:07 Hypothyroidism 46042602 E03.9 [id number] Deloris Penaloza MD [facility] ([facility]) [address] [place] [address] [id number] 5 09/27/2024 12:53:18 09/27/2024 14:40:40 Acute sinusitis 91913805 J01.90 Cough 31267932 R05.9 Neuropathy 997457447 G63 [id number] Deloris Penaloza MD [facility] ([facility]) [address] [place], [place] [id number] 5 01/21/2025 10:58:15 01/22/2025 11:13:26 Anemia 184266656 D64.9 Hypothyroidism 66762360 E03.9 [id number] Deloris Penaloza MD [facility] ([facility]) [address] [place], [place] [id number] 5 01/28/2025 11:53:24 01/28/2025 13:26:41 Hypercholesterolemia 53645148 E78.00 Poor short -term memory 344045101 R41.3 Left lower limb arteriosclerosis 5989433666 I70.262 Chronic anemia 315790120 D64.9 Acquired hypothyroidism 269434178 E03.9 [id number] Deloris Penaloza MD [facility] ([facility]) [address] [place] [address] [id number] 5 02/19/2025 15:23:05 02/28/2025 12:59:25 Poor short-term memory 686267866 R41.3 Persistent insomnia 1919 90601 G47.09 Nocturia 153384655 R35.1 Mass of ur inary bladder 380378262 N32.89 [id number] Deloris Penaloza MD [facility] ([facility]) [address] [place] [address] [id number] 5 02/26/2025 13:00:31 02/27/2025 10:07:04 Health Concerns Section Related Observation LastModified by Organization Detai ls LastModified Time None Recorded Concern Status LastModified by Organization Details LastModified Time None Recorded Advance Directives Directive None Recorded Payers Insurance Date Sequence Insurance Name Policy Number Policy Herr Covered Member ID Herr Member ID Guarantor Name 02/25/2025 2 [employer] Dimple Mckay [id number] Dimple Mckay 02/25/2025 1 [place] Dimple Mckay [id number] Dimple Mckay 02/25/2025 [place] A - [facility] (MEDICARE) Dimple Mckay [id number] Dimple Mckay Notes Date Note Type Note Provider Name and Address Organization Details Recorded Time 5 text/html CoughReported bypatient.Quality:dry Severity:mild Duration:intermittent Onset/Timing:gradual Modifying Factors:OTC medication Associated Symptoms:no fever; no nausea; no edema;sputum production;shortness of breath;throat clearing;nasal discharge;hoarseness Pt has had a cough since , pt states it is more in her head, and she occ coughs.Pt states its hard to swallow her gabapentin and would like to talk about getting a smaller dose, she breaks the 600mg in half and takes at night. Deloris Penaloza MD [address] [place] [address], [phone], [facility] 10/02/2024 22:15:51 5 text/html HypothyroidReported bypatient.Reason for Visit:general check-up Duration:>12 months Associated Symptoms:no weakness; no lightheadedness; no chest pain;fatigue;edema;palpi tations Treatment:taking medication as prescribed Pt has been seeing Dr Church and the area on her heel looks better. Deloris Penaloza MD [address] [place] [address], [phone], [facility] 01/28/2025 13:18:24 5 text/html InsomniaReported bypatient.Quality:diffic ulty initiating sleep; difficulty maintaining sleep Severity:moderate Duration:chronic Associated Symptoms:no irritability; normal concentration; no fatigue; no snoring; no known sleep apnea; no daytime sleepiness;legs feel restless left arm x2 days, had a scratch in this area from about 1 month ago but that seemed to be healing well.Pt has noticed that her urine is darker in color, and she has been getting up some at night as well to use the bathroom. Deloris Penaloza MD [address] [place] [address], [phone], [facility], Hilda 02/27/2025 16:59:32 OBGyn Episode No OBEpisode recorded.
--- OUTSIDE RECORDS SUMMARY | 2025-03-30 11:12 | XMS_ITS | Encounter Summary ---
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 Name Role Phone Unavailable Primary Care Provider Unavailabl e Encounter Details Date Type Department Care Team (Latest Contact Info) Description 05/13/1999 Outpatient Historical [facility] Sadiq Pratt MD [address] [phone] Other postprocedural status(V45.89) (Primary Dx) Social History Tobacco Use Types Packs/Day Years Used Date Smoking Tobacco: Never Assessed Comments Unknown Sex and Gender Information Value Date Recorded Sex Assigned at Not on file 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
--- OUTSIDE RECORDS SUMMARY | 2025-03-30 11:12 | XMS_ITS | Patient Health Record ---
Author Organization [facility] Address [address] [place] [address] Care Team Providers Care Retirement Specialist Name Role Phone Alvarado Suárez MD Primary Care Provider Madie Rock Unavailable [phone] Don Hearn Unavailable [phone] Allergies Allergen (clinical drug ingredient) Drug/Non Drug Allergy documented on EMR Reaction Allergy Type Onset Date Status metronidazole Flagyl Unknown Drug Allergy Act roger Reason For Referral No Information Medications Medication SIG (Take, Route, Frequency, Duration) Notes Start Date End Date Status Calcium + Vitamin D3 600-10 MG-MCG 2 tablet with a meal Orally Twice a day Active Gabapentin 100 MG 1 tablet Orally Once a day Active Imodium A-D 2 MG 1 tablet as needed Orally Four times a day Active Atorvastatin Calcium 80 MG 1 tablet Orally Once a day Active Folic Acid 1 MG 1 tablet Orally Once a day Active Vitamin D2 69984 IU Every Tuesday Active Vitamin B12 1000 MCG 1 tablet Orally Once a day Active Ferrous Sulfate 27 MG 1 tablet Orally Three times a Week Active Vitamin D (Cholecalciferol) 10 MCG (400 UNIT) 1 capsule Orally Once a day Active Eliquis 2.5 MG as directed Orally Twice a day Active Probiotic 1-250 BILLION-MG as directed Orally Active Extra Strength Pain Reliever Active Tums 500 MG 1 tablet Orally Once a day Active Clopidogrel Bisulfate 75 MG 1 tablet Orally Once a day Active Levothyroxine Sodium 137 MCG 1 tablet in the morning on an empty stomach Orally Once a day Active CoQ10 100 MG as directed Orally Active Metoprolol Succinate 25 MG 1/2 capsule Orally Once a day Active Social History Tobacco Use: Social History Observation Description Date Details (start date - stop date) Never Smoker NA - NA Tobacco Control (Standard) Question Answer Notes Tobacco use: Nonsmoker AUDIT-C (Standard) Question Answer Notes Did you have a drink containing alcohol in the p ast year? No Points 0 Interpretation Negative Problems Problem Type SNOMED Code ICD Code Onset Dates Problem Status W/U Status Risk Notes Problem Crohn's disease of large bowel (7039180) Crohn''s disease of large intestine without complication (K50.10) Active confirmed Problem 28139587 Crohn's disease of small intestine without complication (K50.00) Active confirmed Vital Signs Heart Rate 88 /min 03/12/2025 Temperature 96.9 degrees Fahrenheit 03/12/2025 Blood pressure diastolic 60 mm Hg 03/12/2025 Oximetry 94 % 03/12/2025 Height-cm 167.64 cm 03/12/2025 Weight-kg 45.09 kg 03/12/2025 Height 66 in 03/12/2025 Blood pressure systolic 140 mm Hg 03/12/2025 Weight 99.4 lbs 03/12/2025 BMI 16.04 kg/m2 03/12/2025 Encounters Encounter Location Date Provider Diagnosis Formerly [facility] [address] [place] [address] 03/12/2025 Madie Hutchisonklin Crohn''s disease of large intestine without complication K50.10 Formerly [facility] [address], [place] [address] 04/17/2024 Don Hearn Assessments Encounter Date Diagnosis (ICD Code) Assessment Notes Treatment Notes Treatment Clinical Notes Section Notes 03/12/2025 Crohn''s disease of large intestine without complication (ICD-10 - K50.10) Crohn's disease well controlled at this time. Recommend follow up in one year and prn. Plan Of Treatment Pending Test Test Name Order Date Calprotectin Fecal 19597 03/06/2024 Next Appt Details Provider Name:Madie park, 03/13/2026 01:00:00 PM, [address] [place], [address], Insurance Providers Payer Name Payer Address Payer Phone Subscriber Number Group Number Insured Name Patient Relationship to Insured Coverage Start Date Coverage End Date [place] [address] [place] [phone] [id number] Dimple Mckay Self - patient is the insured [facility] Medicare Supplement [address] [place] [address] [id number] Dimple Mckay Self - patient is the insured Medical (General) History Medical History History ICD Code measles, chicken pox Pneumonia Heart Disease Arthritis anemia bladder infections hernia Back Trouble High Blood Pressure Low Blood Pressure stroke Crohn's Disease osteoporosis thyroid problems pulmonary artery disease Surgical History Surgery Date(Month/Year) Colonoscopy Michelle Basil Cell Removal 2007 Small bowel resection gall bladder removal 1998 tonsillectomy 1963 Hospitalization History Reason Date(Month/Year) Angioplasty X 2 11/2021 Stroke 2016 pneumonia
--- OUTSIDE RECORDS SUMMARY | 2025-03-30 11:12 | XMS_ITS | Encounter Summary ---
Author Organization [facility] Address [address] [place] [address] Care Team Providers Care Car Spotter Name Role Phone Unavailable Primary Care Provider Unavailabl e Encounter Details Date Type Department Care Team (Late st Contact Info) Description 05/06/1999 Outpatient Historical [facility] TerenceSadiq cm MD [address] [phone] Follow-up examination following surgery (Primary Dx) Social History Tobacco Use Types Packs/Day Years Used Date Smoking Tobacco: Never Assessed Comments Unknown Sex and Gender Information Value Date Recorded Sex Assigned at Not on file 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
--- OUTSIDE RECORDS SUMMARY | 2025-03-30 11:12 | XMS_ITS | Patient Health Record ---
Author Organization [facility], [facility] Address [address] [place] [address] Care Team Providers Care Network Operations Center Technician Name Role Phone Alvarado Suárez Primary Care Provider LUIS Vallejo Unavailable [phone] Allergies Allergen (clinical drug ingredient) Drug/Non Drug Allergy documented on EMR Reaction Allergy Type Onset Date Status milk (uncoded) Unknown Allergy Activ e metronidazole Flagyl Unknown Drug Allergy Act roger Results Component Value Reference Range Notes Urinalysis, Routine Reviewed date:03/12/2025 01:19:53 PM Interpretation: Performing Lab: Notes/Report: Urine-Color yellow Appearance clear Glucose - Bilirubin - Ketones - Specific [place] 1.010 Occult Blood 1+ pH 6.0 Urine Protein - Urobilinogen,Semi-Qn - Nitrite, Urine - WBC Esterase - Urinalysis Gross Exam - Reason For Referral No Information Medications Medication SIG (Take, Route, Frequency, Duration) Notes Start Date End Date Status Atorvastatin Calcium 80 MG 1 tablet Oral ly Once a day Active Vitamin D2 10 MCG (400 UNIT) 2 tablets O rally Once a day Active Co Q 10 100 MG as directed Orally Active Clopidogrel Bisulfate 75 MG 1 tablet Ora lly Once a day Active Gabapentin 100 MG 1 capsule at bedtime Orally Once a day Active Levothyroxine Sodium 137 MCG 1 tablet in the morning on an empty stomach Orally Once a day Active Metoprolol Tartrate 37.5 MG 1 tablet wit h food Orally Twice a day Active Tums 500 MG 1 tablet Orally Once a day Active Eliquis 2.5 MG as directed Orally Active Folic Acid 400 MCG 1 tablet Orally Once a day Active Vitamin B12 1000 MCG 1 tablet Orally Onc e a day Active Calcium + D 500-1000-40 MG-UNT-MCG as directed Orally Active Vitamin D3 10 MCG (400 UNIT) 2 tablets O rally Once a day Active Ferrous Sulfate 27 MG 1 tablet Orally Th ree times a Week Active Social History Tobacco Use: Social History Observation Description Date Details (start date - stop date) Former Smoker NA - NA Tobacco Control (Standard) Question Answer Notes Tobacco use: Former smoker Problems Problem Type SNOMED Code ICD Code Onset Dates Problem Status W/U Status Risk Notes Problem Crohn's disease in remission (478514643) Crohn's disease in remission (K50.90) Active confirmed Problem Kidney stone (95188001) Bilateral nephrolithiasis (N20.0) Active confirmed Problem 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 Problem Bladder mass (197270328) Bladder mass (N32.89) Active confirmed Vital Signs Heart Rate 53 /min 03/12/2025 Blood pressure diastolic 82 mm Hg 03/12/2025 Height-cm 165.1 cm 03/12/2025 Weight-kg 47.17 kg 03/12/2025 Height 65 in 03/12/2025 Blood pressure systolic 149 mm Hg 03/12/2025 Weight 104 lbs 03/12/2025 BMI 17.3 kg/m2 03/12/2025 Procedures Procedure Date Ordered Date Performed Result Body Sit e Bladder Scan 03/12/2025 03/12/2025 N/A Encounters Encounter Location Date Provider Diagnosis [employer], [facility] [address] [place] [address] 03/12/2025 LUIS SHARMA Microscopic hematuri a R31.29 ; Bilateral nephrolithiasis N20.0 ; Bladder mass N32.89 ; CVF (colovesical fistula) N32.1 and Crohn's disease in remission K50.90 [employer], [facility] [address] [place] [address] 03/01/2025 LUIS SHARMA Assessments Encounter Date Diagnosis (ICD Code) Assessment Notes Treatment Notes Treatment Clinical Notes Section Notes 03/12/2025 Bilateral nephrolithiasis (ICD-10 - N20.0) Pt with persist ent microscopic hematuria with concern for potential b/l nephrolithiasis as well as right bladder wall mass on ERICA. We discussed that we need further assessment with CT Urogram and cystoscopy. She is agreeable. Will schedule CT at [facility] in [place] and she will RTC for next available cystoscopy. 03/12/2025 Microscopic hematuria (ICD-10 - R31.29) Pt with persiste nt microscopic hematuria with concern for potential b/l nephrolithiasis as well as right bladder wall mass on ERICA. We discussed that we need further assessment with CT Urogram and cystoscopy. She is agreeable. Will schedule CT at [facility] in [place] and she will RTC for next available cystoscopy. 03/12/2025 Bladder mass (ICD-10 - N32.89) Pt with persis tent microscopic hematuria with concern for potential b/l nephrolithiasis as well as right bladder wall mass on ERICA. We discussed that we need further assessment with CT Urogram and cystoscopy. She is agreeable. Will schedule CT at [facility] in [place] and she will RTC for next available cystoscopy. 03/12/2025 CVF (colovesical fistula) (ICD-10 - N32.1) Pt with persiste nt microscopic hematuria with concern for potential b/l nephrolithiasis as well as right bladder wall mass on ERICA. We discussed that we need further assessment with CT Urogram and cystoscopy. She is agreeable. Will schedule CT at [facility] in [place] and she will RTC for next available cystoscopy. 03/12/2025 Crohn's disease in remission (ICD-10 - K50.90) Pt with persiste nt microscopic hematuria with concern for potential b/l nephrolithiasis as well as right bladder wall mass on ERICA. We discussed that we need further assessment with CT Urogram and cystoscopy. She is agreeable. Will schedule CT at [facility] in [place] and she will RTC for next available cystoscopy. Plan Of Treatment Pending Test Test Name Order Date CT Abd & Pelvis [place] & [place] [id number] 03/12/2025 Blood Urea Nitrogen (BUN) 03/12/2025 Creatinine Serum 03/12/2025 Next Appt Details Provider Name:CORA Michael, 05/02/2025 01:10:00 PM, [address] [place], [address], Insurance Providers Payer Name Payer Address Payer Phone Subscriber Number Group Number Insured Name Patient Relationship to Insured Coverage Start Date Coverage End Date [place] Medicare [address] MAG[place] GARTH JEFFRIES [id number] Dimple Mckay Self - patient is the insured [facility] Supplement [address] [place], [place] [id number] Dimple Mckay Self - patient is the insured Medical (General) History Medical History History ICD Code Osteoarthritis skin cancer Heart disease Hypothyroidism Hyperthyroidism COPD Crohn's disease HX of stroke Surgical History Surgery Date(Month/Year) Tonsillectomy 1963 Small bowel resection X2 1997;2009 Cholecystectomy 1998 Parathyroid removal 05/2010 Endovascular catheterization 2021 Trigger finger release cataract/ocular repair 2015;2018 angioplasty 2023 Fistula repair Hospitalization History Reason Date(Month/Year) see surgeries
--- OUTSIDE RECORDS SUMMARY | 2025-03-30 11:12 | XMS_ITS | Clinical Summary ---
Author Organization [facility] Address [address] 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
[2025-03-30 11:23] VITALS: BP 175/76; PULSE 72; RESP 17; TEMP 36.6; O2SAT 94
[2025-03-30 11:37] VITALS: BP 198/82; PULSE 71; O2SAT 90
--- NOTE | 2025-03-30 11:52 | W.ED.GENADLT ---
HPI - General Adult General: Chief complaint: Abdominal Pain Stated complaint: low back pain Time Seen by Provider: 03/30/25 11:27 History of Present Illness: 89-year-old female presents emergency room with right lower quadrant abdominal pain rating to her right flank. Patient previously was seen resting mass in the right side of the bladder. She is scheduled for cystoscopy. She denies any dysuria urgency or frequency no fever sweats or chills localized discomfort in the right suprapubic region. Denies hematuria. Associated symptoms: Deny chest pain, dyspnea or rash Related Data Home Medications ?Medication ?Instructions ?Recorded ?Confirmed calcium carbonate (Calcium 500) 500 mg PO DAILY 11/21/19 03/30/25 folic acid 1 mg tablet 1 mg PO DAILY 11/21/19 03/30/25 acetaminophen 500 mg tablet 1,000 mg PO Q6H PRN Pain 12/14/21 03/30/25 cholecalciferol (vitamin D3) 25 See Rx Instructions .Route .COMPLEX 12/14/21 03/30/25 mcg (1,000 unit) capsule (Vitamin D3) metoprolol tartrate 25 mg tablet 12.5 mg PO BID 12/14/21 03/30/25 cyanocobalamin (vitamin B-12) 50 50 mcg PO DAILY 06/28/24 03/30/25 mcg tablet (Vitamin B-12) diclofenac sodium 1 % topical gel 4 g topical QID PRN Pain 09/12/24 03/30/25 (Voltaren Arthritis Pain) bacillus coagulans 21 billion 1 tab PO DAILY 03/30/25 03/30/25 cell-inulin 1 gram chewable tablet (Probichew) coenzyme Q10 100 mg capsule 100 mg PO DAILY 03/30/25 03/30/25 (CoQ-10) gabapentin 100 mg capsule 100 mg PO TID 03/30/25 03/30/25 levothyroxine 137 mcg tablet 137 mcg PO QAM 03/30/25 03/30/25 Previous Rx's ?Medication ?Instructions ?Recorded ferrous sulfate 324 mg (65 mg 324 mg PO EVERY OTHER DAY #90 tabs 01/04/22 iron) tablet,delayed release orthopedic shoes with custom #1 ea 07/22/23 accommodative orthotics custom accommodative orthotics - #1 ea 08/11/23 SOLE SUPPORTS cholecalciferol (vitamin D3) 1,250 50,000 unit PO .qweek #14 caps 10/11/23 mcg (50,000 unit) capsule clopidogrel 75 mg tablet See Rx Instructions .Route 03/20/24 .COMPLEX #90 tabs atorvastatin 80 mg tablet See Rx Instructions .Route 05/16/24 .COMPLEX #90 tabs apixaban 2.5 mg tablet (Eliquis) 2.5 mg PO BID #180 tabs 10/18/24 tramadol 50 mg tablet 50 mg PO Q6H PRN pain #10 tabs 03/30/25 Allergies Allergy/AdvReac Type Severity Reaction Status Date / Time metronidazole (From Flagyl) Allergy unknown Verified 03/19/25 14:06 Review of Systems Const: Denies: fever(s) or chills Card: Denies: chest pain Resp: Denies: dyspnea GI: Denies: abdominal pain : Reports: flank pain; Denies: difficulty voiding, dysuria, urinary frequency or urinary urgency Musc: Denies: neck pain or back pain Skin/Breast: Denies: rash PFSH ED PFSH: Medical History Hand pain Tobacco abuse, 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 Crohn disease 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 Transaminitis Regional enteritis (Crohn's disease) Osteoporosis 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 Hypertension History of CVA (cerebrovascular accident) Peripheral neuropathy Surgical History History of parathyroidectomy History of tonsillectomy History of cholecystectomy History of cataract extraction Family History Other CAD (coronary artery disease) Cancer Diabetes Hypertension Social History Smoking and tobacco/nicotine status: former use of tobacco/nicotine Alcohol intake: never Substance/Drug Use: never Lives independently: No Household members: spouse Marital status: Marital status details: Help from children, caregivers Physical Exam Const: GENERAL APPEARANCE: cooperative ORIENTATION/CONSCIOUSNESS: Yes awake, Yes oriented to person, Yes oriented to place and Yes oriented to time HENMT: COMMON NORMALS: normocephalic, atraumatic and hearing grossly normal bilaterally HEAD & SCALP: normocephalic and atraumatic Resp: COMMON NORMALS: normal respiratory effort, No retractions, No use of accessory muscles and clear to auscultation bilaterally AUSCULTATION: clear to auscultation bilaterally Cardio: COMMON NORMALS: regular rate, regular rhythm and No murmurs present (Cardio) RATE: regular rate RHYTHM: regular rhythm GI: AUSCULTATION: Yes normoactive bowel sounds PALPATION: Yes Tenderness to palpation present (GI) (Right lower quadrant/ right suprapubic region) and No Guarding due to palpation present (GI) Extremity: COMMON NORMALS: normal to inspection, capillary refill normal, no clubbing, cyanosis or edema, no calf tenderness and no pedal edema Neuro: SENSORIUM/ORIENTATION: Yes oriented to person, Yes oriented to place and Yes oriented to time Skin: COMMON NORMALS: no rashes or lesions noted GENERAL SKIN EXAM: no rashes or lesions noted OTHER: Solitary mildly inflamed inclusion cyst on the right right buttock Procedures Abscess I/D Site: other (Buttock) Side (if applicable): right Local Anesthetic: lidocaine 1% and with epi Amount of anesthesia used (mL): 4 Irrigation: Yes Packing used?: none Course Vital Signs: Vital signs: Vital Signs Temperature 97.9 F 03/30/25 11:23 Pulse Rate 71 03/30/25 16:34 Respiratory Rate 17 03/30/25 11:23 Blood Pressure 174/90 03/30/25 16:34 Pulse Oximetry 92 03/30/25 16:34 Oxygen Delivery Me thod Room Air 03/30/25 12:37 [facility] - General Adult Medical Decision Making Patient has renal stones creatinine is stable pain is well-controlled she also has some constipation given her description of pain and think some of her pain be more constipation that is actually from the renal stones. Will discharge home can use milk of magnesia or [id number] magnesium citrate for relief of constipation give tramadol if she does have worsening pain. Near the end of her visit family expressed concern about the boil on her buttocks that they have been treating at home. This was anesthetized incised and drained drainage cultured. It does not appear to be acutely infected wound left open advised him to apply topical antibiotic ointment until the wound heals by secondary intent Medical Records I reviewed the patient's medical records. Lab Data I reviewed the patient's lab results. 03/30/25 13:57 03/30/25 13:57 Radiology Impressions Abdomen/Pelvis CT 03/30/25 12:00 IMPRESSION: 1. Right distal ureteral 4 mm obstructing stone associated with moderate-sized hydronephrosis hydroureter. Additional right proximal 2 mm ureteral stone is seen. 2. Multiple right renal calculi are seen. Largest measures 6 mm. 3. Moderate calcified atherosclerotic changes are seen in the abdominal aorta. 4. Diffuse colonic stool material. Clinical correlation to exclude constipation is advised. 5. Sigmoid colon diverticulosis. Laboratory Results WBC 13.10 10^3/uL (3.29-11.43) H 03/30/25 13:57 RBC 4.53 10^6/uL (3.85-5.65) 03/30/25 13:57 Hgb 14.00 g/dL (11.27-16.99) 03/30/25 13:57 Hct 43.4 % (36-47) 03/30/25 13:57 MCV 95.8 fl (85-98) 03/30/25 13:57 MCH 30.9 pg (27-33) 03/30/25 13:57 MCHC 32.3 g/dL (30-55) 03/30/25 13:57 RDW 13.6 % (12.1-15.1) 03/30/25 13:57 Plt Count 318 10^3/cmm (157-399) 03/30/25 13:57 MPV 9.8 fL (7.4-10.4) 03/30/25 13:57 Neut % (Auto) 89.1 % 03/30/25 13:57 Lymph % (Auto) 6.0 % 03/30/25 13:57 Br[place]ley % (Auto) 3.6 % 03/30/25 13:57 Eos % (Auto) 0.1 % 03/30/25 13:57 Baso % (Auto) 0.7 % 03/30/25 13:57 Neut # (Auto) 11.68 10^3/uL (1.8-7.7) H 03/30/25 13:57 Lymph # (Auto) 0.8 10^3/uL (0.8-4.8) 03/30/25 13:57 Br[place]ley # (Auto) 0.5 10^3/uL (0.2-0.9) 03/30/25 13:57 Eos # (Auto) 0.0 10^3/uL (0.0-0.8) 03/30/25 13:57 Baso # (Auto) 0.1 10^3/uL (0.0-0.1) 03/30/25 13:57 Nucleated RBC % (auto) 0 % 03/30/25 13:57 Nucleated RBCs # 0.0 /100WBC 03/30/25 13:57 Sodium 133 mmol/L (136-145) L 03/30/25 13:57 Potassium 3.8 mmol/L (3.5-5.1) 03/30/25 13:57 Chloride 95 mmol/L (98-107) L 03/30/25 13:57 Carbon Dioxide 23 mmol/L (22-29) 03/30/25 13:57 Anion Gap 18.8 (5-19) 03/30/25 13:57 BUN 15 mg/dL (8-23) 03/30/25 13:57 Creatinine 0.6 mg/dL (0.5-0.9) 03/30/25 13:57 GFR Calculation Not Reportable 03/30/25 13:57 Glucose 91 mg/dL (65-115) 03/30/25 13:57 Calculated Osmolality 276 mOsm/kg (285-295) L 03/30/25 13:57 Calcium 9.3 mg/dL (8.5-10.5) 03/30/25 13:57 Total Bilirubin 1.0 mg/dL (0.15-1.2) 03/30/25 13:57 AST 36 U/L (0-32) H 03/30/25 13:57 ALT 46 U/L (0-33) H 03/30/25 13:57 Alkaline Phosphatase 68 U/L (35-105) 03/30/25 13:57 Total Protein 7.3 g/dL (6.6-8.7) 03/30/25 13:57 Albumin 3.9 g/dL (3.5-5.2) 03/30/25 13:57 Globulin 3.4 g/dL (1.3-4.6) 03/30/25 13:57 Urine Color Yellow (Yellow) 03/30/25 14:59 Urine Appearance Clear (CLEAR) 03/30/25 14:59 Urine pH 6.5 (5-7) 03/30/25 14:59 Ur Specific [place] 1.013 (1.005-1.030) 03/30/25 14:59 Urine Protein Negative (Negative) 03/30/25 14:59 Urine Glucose (UA) Negative (Normal) 03/30/25 14:59 Urine Ketones Trace (Negative) 03/30/25 14:59 Urine Blood 2+ (Negative) A 03/30/25 14:59 Urine Nitrate Negative (Negative) 03/30/25 14:59 Urine Bilirubin Negative (Negative) 03/30/25 14:59 Urine Urobilinogen 0.2 mg/dL (Negative) 03/30/25 14:59 Ur Leukocyte Esterase Negative (Negative) 03/30/25 14:59 Urine RBC 21-50 /hpf (0-2) H 03/30/25 14:59 Urine WBC 0-5 /hpf (0-5) 03/30/25 14:59 Ur Squamous Epith Cells 0-5 /hpf (0-5) 03/30/25 14:59 Amorphous Sediment Not Reportable 03/30/25 14:59 Urine Bacteria None seen /hpf (NONE) 03/30/25 14:59 Hyaline Casts 0.81 /lpf 03/30/25 14:59 All radiology interpretation(s) finalized by discharge Discharge Plan Discharge Patient Disposition: Home Clinical Impression: Right nephrolithiasis, Constipation Condition: Stable Prescriptions: New tramadol 50 mg tablet 50 mg PO Q6H PRN (Reason: pain) Qty: 10 0RF No Action folic acid 1 mg tablet 1 mg PO DAILY calcium carbonate [Calcium 500] 500 mg calcium (1,250 mg) tablet,chewable 500 mg PO DAILY cholecalciferol (vitamin D3) 1,250 mcg (50,000 unit) capsule 50,000 unit PO .qweek Qty: 14 0RF diclofenac sodium [Voltaren Arthritis Pain] 1 % gel 4 g topical QID PRN (Reason: Pain) Rx Instructions: apply to single knee, ankle, foot; for foot includes sole/toes/top of foot (DME) orthopedic shoes with custom accommodative orthotics See Rx Instructions .Route .MEDSUPPLY Qty: 1 0RF Rx Instructions: As directed (DME) custom accommodative orthotics - SOLE SUPPORTS See Rx Instructions .Route .MEDSUPPLY Qty: 1 0RF Rx Instructions: As directed clopidogrel 75 mg tablet See Rx Instructions .ROUTE .COMPLEX Qty: 90 3RF Dose Instruction: TAKE 1 TABLET BY MOUTH DAILY Rx Instructions: TAKE 1 TABLET BY MOUTH DAILY atorvastatin 80 mg tablet See Rx Instructions .ROUTE .COMPLEX Qty: 90 3RF Dose Instruction: TAKE 1 TABLET BY MOUTH EVERY DAY IN THE EVENING Rx Instructions: TAKE 1 TABLET BY MOUTH EVERY DAY IN THE EVENING Eliquis 2.5 mg tablet 2.5 mg PO BID Qty: 180 3RF cholecalciferol (vitamin D3) [Vitamin D3] 25 mcg (1,000 unit) Capsule See Rx Instructions .ROUTE .COMPLEX Rx Instructions: 1000 units po qam and 400 units qpm metoprolol tartrate 25 mg tablet 12.5 mg PO BID acetaminophen 500 mg Tablet 1,000 mg PO Q6H PRN (Reason: Pain) ferrous sulfate 324 mg (65 mg iron) tablet,delayed release (DR/EC) 324 mg PO EVERY OTHER DAY Qty: 90 0RF Vitamin B-12 50 mcg Tablet 50 mcg PO DAILY levothyroxine 137 mcg tablet 137 mcg PO QAM gabapentin 100 mg capsule 100 mg PO TID coenzyme Q10 [CoQ-10] 100 mg Capsule 100 mg PO DAILY Probichew 21 billion cell - 1 gram Tablet,Chewable 1 tab PO DAILY Discharge Orders: Discharge ED (Routine); Ordered 03/30/25 Ordered By: Turner Meyers Referrals: Alvarado Suárez MD [Primary Care Provider, Family Practice] Discharge Diet: Usual diet Discharge Activity: Increase activity as tolerated Patient Instructions: Constipation (ED), Kidney Stones (ED), How to Strain Your Urine (ED), Opioid Safety, Pain Management, Patient Portal & Dayanna Instructions Activity Restrictions/Additional Instructions: Thank you for choosing [facility] for your healthcare needs today. It is very important that you follow up as instructed or that you return to the Emergency Department should you have concerns or if your condition changes or worsens in any way. You were seen in the emergency room with complaint of abdominal pain. The CT that her kidney stones in the right ureter. Since your pain is controlled emergency room we believe you can be discharged home to follow-up with urologist as planned he should contact your primary care doctor and the urologist try to move that appointment up. We did give you pain medications to use if needed if the pain recurs. You should strain your urine to try to catch the stone. There is no sign of infection in your urine. There was also a moderate amount of constipation which could be contributing to the abdominal discomfort you are having. The intermittent type of pain you described today seemed more to correlate with constipation then with a kidney stone some cells. For constipation you can either use milk of magnesia or [id number]-fmunyws magnesium citrate. If use of milk of magnesia use or directions on the side of the container. If use magnesium citrate use 30 to 50 mL every 2 to 4 hours until desired results are achieved. Both of these medicines can be bought [id number] Print Language: Syriac Coding Level of Care Code ED Director Commercial Sales for Lesly Arango
--- NOTE | 2025-03-30 12:00 | CTR_ITS ---
PROCEDURE INFORMATION: Exam: CT Abdomen And Pelvis Without Contrast Exam date and time: 03/30/2025 12:12 PM Age: 89 years old Clinical indication: Abdominal pain; Generalized; Prior surgery; Surgery date: 6+ months; Surgery type: Small bowel; Additional info: Flank pain TECHNIQUE: Imaging protocol: Computed tomography of the abdomen and pelvis without contrast. Radiation optimization: All CT scans at this facility use at least one of these dose optimization techniques: automated exposure control; mA and/or kV adjustment per patient size (includes targeted exams where dose is matched to clinical indication); or iterative reconstruction. COMPARISON: CT abdomen pelvis wo/w [id number] 03/21/2025 5:49 PM RADIATION DOSE METRICS: Total DLP (mGy-cm): 300.04 FINDINGS: Lungs: Bronchiectasis with scarring at lung bases. Liver: Normal. No mass. Gallbladder and biliary ducts: Gallbladder is absent. Pancreas: Normal. No ductal dilation. Spleen: Normal. No splenomegaly. Adrenal glands: Normal. No mass. Kidneys and ureters: Multiple right renal calculi are seen. Largest measures 6 mm. Right distal ureteral 4 mm obstructing stone associated with moderate-sized hydronephrosis hydroureter. Additional right proximal 2 mm ureteral stone is seen. Stomach and bowel: Diffuse colonic stool material. Sigmoid colon diverticulosis. No small bowel loop dilatation. Appendix: Appendix is not visualized. Intraperitoneal space: Unremarkable. No free air. No significant fluid collection. Vasculature: Moderate calcified atherosclerotic changes are seen in the abdominal aorta. Lymph nodes: Unremarkable. No enlarged lymph nodes. Urinary bladder: Unremarkable as visualized. Reproductive: Unremarkable as visualized. Bones/joints: Unremarkable. No acute fracture. Soft tissues: Unremarkable. CT/CT kidney stone [id number] IMPRESSION: 1. Right distal ureteral 4 mm obstructing stone associated with moderate-sized hydronephrosis hydroureter. Additional right proximal 2 mm ureteral stone is seen. 2. Multiple right renal calculi are seen. Largest measures 6 mm. 3. Moderate calcified atherosclerotic changes are seen in the abdominal aorta. 4. Diffuse colonic stool material. Clinical correlation to exclude constipation is advised. 5. Sigmoid colon diverticulosis.
[2025-03-30] MEDS: methylPREDNISolone sod succ 125 mg/2 mL INJ IVP (12:06)
[2025-03-30] MEDS: orphenadrine 30 mg/mL Inj 2 mL 60 MG IVP (12:06)
[2025-03-30 12:07] VITALS: BP 193/80; PULSE 93; O2SAT 93
[2025-03-30 12:37] VITALS: BP 151/83; PULSE 74; O2SAT 92
[2025-03-30 14:03] LABS: Hematocrit 43.4 % (36-47); Hemoglobin 14.00 g/dL (11.27-16.99); Mean Corpuscular HGB Conc 32.3 g/dL (30-55); Mean Corpuscular Hemoglobin 30.9 pg (27-33); Mean Corpuscular Volume 95.8 fl (85-98); Nucleated Red Blood Cells % 0 %; Platelet Count 318 10^3/cmm (157-399); Red Blood Count 4.53 10^6/uL (3.85-5.65); White Blood Count 13.10 10^3/uL (3.29-11.43)
[2025-03-30 14:23] LABS: Alanine Aminotransferase 46 U/L (0-33); Albumin Level 3.9 g/dL (3.5-5.2); Alkaline Phosphatase 68 U/L (35-105); Anion Gap 18.8 (5-19); Aspartate Amino Transferase 36 U/L (0-32); Blood Urea Nitrogen 15 mg/dL (8-23); Calcium 9.3 mg/dL (8.5-10.5); Carbon Dioxide 23 mmol/L (22-29); Chloride 95 mmol/L (98-107); Globulin 3.4 g/dL (1.3-4.6); Glucose 91 mg/dL (65-115); Osmolality Calculated 276 mOsm/kg (285-295); Potassium 3.8 mmol/L (3.5-5.1); Sodium 133 mmol/L (136-145); Total Protein 7.3 g/dL (6.6-8.7)
[2025-03-30 15:19] LABS: Glucose Urine UA Negative (Normal); Nitrate Urine Negative (Negative); Specific Gravity, Urine 1.013 (1.005-1.030)
[2025-03-30 15:25] LABS: Add Urine Microscopic? YES
[2025-03-30 16:34] VITALS: BP 174/90; PULSE 71; O2SAT 92
== END 2025-03-30 16:36 | disposition home or self-care (01) ==
PROVIDERS: Emergency Provider Family Medicine; PCP Family Medicine
DX: N20.0 Calculus of kidney (principal); K59.00 Constipation, unspecified; Z79.02 Long term (current) use of antithrombotics/antiplatelets; Z79.01 Long term (current) use of anticoagulants; L02.31 Cutaneous abscess of buttock
CPT/HCPCS: 10060; 36415; 74176; 80053; 81001; 85025; 87086; 96374; 96375; 99285; J1885; J2360; J2919

== ENCOUNTER → 2025-05-01 11:14 | Outpatient (BNVA) | payer MEDICARE, SELFPAY | PROVIDERS: PCP Family Medicine; Visit Provider Dermatology | DX: C44.629 Squamous cell carcinoma of skin of left upper limb, including shoulder (principal); S50.811A Abrasion of right forearm, initial encounter; X58.XXXA Exposure to other specified factors, initial encounter; L90.5 Scar conditions and fibrosis of skin; I73.9 Peripheral vascular disease, unspecified; Z08 Encounter for follow-up examination after completed treatment for malignant neoplasm; Z85.828 Personal history of other malignant neoplasm of skin | CPT/HCPCS: 99213 ==

== ENCOUNTER → 2025-06-05 11:08 | Outpatient (BNVA) | payer MEDICARE, SELFPAY | PROVIDERS: PCP Family Medicine; Visit Provider Podiatrist Foot & Ankle Surgery | DX: L84 Corns and callosities (principal); I73.9 Peripheral vascular disease, unspecified; D64.9 Anemia, unspecified; G62.9 Polyneuropathy, unspecified | CPT/HCPCS: 99213 ==

== ENCOUNTER → 2025-06-12 10:32 | Outpatient (BNVA) | payer MEDICARE, SELFPAY | PROVIDERS: PCP Family Medicine; Visit Provider Dermatology | DX: L57.0 Actinic keratosis (principal); L82.1 Other seborrheic keratosis; C44.629 Squamous cell carcinoma of skin of left upper limb, including shoulder | CPT/HCPCS: 17262; 99213 ==

== ENCOUNTER → 2025-09-04 11:24 | Outpatient (BNVA) | payer MEDICARE, SELFPAY | PROVIDERS: PCP Family Medicine; Visit Provider Podiatrist Foot & Ankle Surgery | DX: L84 Corns and callosities (principal); I73.9 Peripheral vascular disease, unspecified; D64.9 Anemia, unspecified; G62.9 Polyneuropathy, unspecified | CPT/HCPCS: 99213 ==